=== PATIENT | female | born 1960 | race Caucasian/White ===

== ENCOUNTER → 2016-09-05 | Outpatient (CLI) | payer BC ==
[~2016-09-05] MED LIST: ACTEMRA IV; AMB10 PO; AMT50 PO; ASPI-390 PO; ATOR-22 PO; ATV/1 PO; CALC500C70 PO; CHOL1000 PO; CHOL1TAB46 PO; CLOTCRE TOP; DOCU100T7 PO; FERR325T5 PO; FERR325T51 PO; FLV1 PO; FLX/5 PO; IBUP1CAP9 PO; KETO0.024 OP; LACT10CA3 PO; LANS30CA12 PO; MELA1CAP9 PO; MELATAB2 PO; MELO15TA4 PO; MELO7.5T5 PO; METH1TAB81 PO; METH4PAK PO; MISO1TAB10 PO; MISO200T PO; OXYC-57 PO; OXYC1CAP5 PO; POLYSOL4 OP; PRAV20TA PO; PRED-301 PO; PRMVC; ROPI1TAB29 PO; ROPI4TAB3 PO; RXC5 PO; SENNTAB23 PO; SERT-234 PO; SODICRE2 PO; SOLI10TA2 PO; SULF800T23 PO; TOCI80IN INJ; ZOLP5TAB6 PO; [UNRECOGNIZED DRUG - CODE] IV
== END | disposition home or self-care (01) ==
LOC: C.PAPS 11:29
PROVIDERS: ATTEND Obstetrics & Gynecology
DX: N89.3 Dysplasia of vagina, unspecified (principal)

== ENCOUNTER 2016-09-14 08:59 | Inpatient (IN) | payer BC, OTHER ==
[2016-08-12 08:35] VITALS: BMI 32.0
--- NOTE | 2016-08-12 09:19 | PAT Medication Instructions ---
Service Date Aug 12, 2016. Current Home Medication List Uruetvh-Cucgwpbforjxt-Ehjcmoiu (Excedrin Migraine), 1 TAB PO BID Calcium/Vitamin D (Os-Julian 500 Plus D), 1 TAB PO QAM Cholecalciferol (Vitamin D3), 5,000 INTER.UNIT PO QAM Clotrimazole W/ Betamethasone (Lotrisone), 1 APPLN TOP AMPM Estrogens, Conjugated (Premarin), 0.5 APPLN QMONDAY Ferrous Sulfate (Iron Supplement), 1 TAB PO QAM Folic Acid (Folic Acid), 1 MG PO QAM Ketotifen Fumarate (Ophth) (Alaway), 1 DROPS OP QDAY Lansoprazole (Prevacid), 30 MG PO BID Lorazepam (Ativan), 2 MG PO HS Meloxicam (Mobic), 15 MG PO QAM Methylprednisolone (Medrol), 4 MG PO for PRN Misoprostol (Cytotec), 100 MCG PO QAM Polyethylene Glycol-Propylene (Systane), 1 DROPS OP HS Pravastatin (Pravachol ), 20 MG PO QPM Ropinirole (Requip), 4 MG PO HS Sertraline (Zoloft), 200 MG PO HS Sodium Fluoride (Dental) (Denta 5000 Plus), 1 APPLN PO BID Solifenacin (Vesicare), 10 MG PO QAM Tocilizumab (Actemra), Unknown Dose INJ QMONTH Zolpidem Tartrate (Ambien *), 5 MG PO HS Medication Instructions For Your Scheduled Surgery Check with surgeon for instructions: Miowjrv-Mndelwhfppkzk-Qspkyirq (Excedrin Migraine), 1 TAB PO BID Estrogens, Conjugated (Premarin), 0.5 APPLN QMONDAY Meloxicam (Mobic), 15 MG PO QAM Misoprostol (Cytotec), 100 MCG PO QAM - Check with surgeon/prescribing provider for instructions: Tocilizumab (Actemra), Unknown Dose INJ QMONTH - Hold the following medications 24 hours prior to surgery: Clotrimazole W/ Betamethasone (Lotrisone), 1 APPLN TOP AMPM - Hold the following medications the morning of surgery: Solifenacin (Vesicare), 10 MG PO QAM Ferrous Sulfate (Iron Supplement), 1 TAB PO QAM Folic Acid (Folic Acid), 1 MG PO QAM\ Calcium/Vitamin D (Os-Julian 500 Plus D), 1 TAB PO QAM Cholecalciferol (Vitamin D3), 5,000 INTER.UNIT PO QAM - Take the following medications the morning of surgery with a sip of water: Methylprednisolone (Medrol), 4 MG PO for PRN (if needed) Lansoprazole (Prevacid), 30 MG PO BID Ketotifen Fumarate (Ophth) (Alaway), 1 DROPS OP QDAY Sodium Fluoride (Dental) (Denta 5000 Plus), 1 APPLN PO BID - Hold the following medications as scheduled the night before surgery: Ropinirole (Requip), 4 MG PO HS - Take the following medications as scheduled the night before surgery: Zolpidem Tartrate (Ambien *), 5 MG PO HS Sertraline (Zoloft), 200 MG PO HS Pravastatin (Pravachol ), 20 MG PO QPM Polyethylene Glycol-Propylene (Systane), 1 DROPS OP HS Methylprednisolone (Medrol), 4 MG PO for PRN (if needed) Lorazepam (Ativan), 2 MG PO HS Lansoprazole (Prevacid), 30 MG PO BID Sodium Fluoride (Dental) (Denta 5000 Plus), 1 APPLN PO BID If you have any questions please call us at [phone] (Christine Medrano PA-C) or [phone] or [phone]
--- NOTE | 2016-08-12 10:06 | DIAGNOSTIC IMAGING REPORT ---
CHEST PREADMISSION(PA/LAT) HISTORY: Preop. COMPARISON: Chest 12/10/2014. FINDINGS: Linear density within the right midlung zone likely represents a small area of scarring. There are few linear scarlike densities at the left lung base. The lungs are otherwise clear. No pleural effusions. No pneumothorax. The heart is normal in size. Extensive anterior and posterior cervical and upper thoracic spinal fusion. IMPRESSION: 1. A few linear scarlike densities within the right midlung zone and the left lung base. No focal lung consolidations to suggest pneumonia. 2. Extensive cervical and upper thoracic spine fusion hardware. Electronically signed by: Yves Diaz M.D. 08/12/2016 10:04 AM Dictated Date/Time: 08/12/2016 10:00 AM
--- NOTE | 2016-09-13 12:18 | HISTORY & PHYSICAL EXAMINATION ---
DATE OF ADMISSION: 09/14/2016 HISTORY OF PRESENT ILLNESS: The patient presents to our office with complaint of bilateral SI joint pain, bilateral anterior thigh pain, right greater than left. It is progressively worsening. It is limiting her ability to stand and ambulate. She had an epidural injection which provided no long-term relief. Denies bowel or bladder dysfunction. PAST MEDICAL HISTORY: Significant for high cholesterol, anxiety, depression, migraines, anemia, arthritis, hiatal hernia, obesity. PAST SURGICAL HISTORY: Significant for lower back surgery, neck surgery, , adhesions. ALLERGIES: INCLUDE TRAZODONE. MEDICATIONS: Include Zoloft 20 mg 2 tabs at night, iron, calcium, Actemra infusion, Meloxicam, VESIcare, Excedrin Migraine, folic acid, Prevacid 30 mg b.i.d., pravastatin 20 mg at night, Premarin cream weekly, Requip 4 mg at night, vitamin D 5000 international units daily, Cytotec 100 mg daily, lorazepam 1 mg 2 tablets at night, Ambien 5 mg at night. SOCIAL HISTORY: She denies smoking history, alcohol is monthly. REVIEW OF SYSTEMS: Significant for abdominal pain, constipation, diarrhea, heartburn, loss of appetite, nausea, vomiting, hoarseness, ringing of ears, dysphagia, difficulty walking, poor coordination, memory loss, anxiety, depression, fatigue, malaise, night sweats, weakness. PHYSICAL EXAMINATION: VITAL SIGNS: She is 5 foot 2, 180 pounds. HEAD, EYES, EARS, NOSE, AND THROAT: Speech appropriate. CARDIOPULMONARY: No gross abnormalities. ABDOMEN: Soft, nontender. GENITOURINARY: Deferred. NEUROLOGIC: Cranial nerves II-XII grossly intact. MUSCULOSKELETAL: She is able to stand and ambulate around the room for a short period of time but then will sit secondary to her pain. She has breakaway weakness over the quads bilaterally. Well-healed lumbar incision. She is tender over the bilateral SI joints. ASSESSMENT: Retrolisthesis, spinal stenosis at L2-L3. PLAN: At this point she has tried and failed nonoperative care. May consider surgical intervention. Surgery would require removal of instrumentation L3 through S1, lumbar decompression and fusion L2-L3. Risks, benefits, pros, cons, and alternatives were outlined in detail. She would like to pursue above-mentioned surgical planning. SHARON
[2016-09-14] VITALS (7 sets, daily range): BP systolic 91–117; BP diastolic 49–81; PULSE 69–96; TEMP 36.5–36.8; O2SAT 95–98; Ht 157.5 cm; Wt 79.8 kg
[~2016-09-14] VITALS: Ht 157.5 cm; Wt 79.8 kg
--- NOTE | 2016-09-14 07:26 | History & Physical Bridge Note ---
H&P Re-Evaluation Bridge Note: I have examined the patient, reviewed the History & Physical and in the interval since the performance of the History & Physical I have noted the following changes of clinical significance: No changes noted
[~2016-09-14 08:59] MED LIST changes: -ACTEMRA IV; -AMT50 PO; +CEFAZOLIN 1000MG/55 ML D5W 55 ML IV SCH; -CHOL1TAB46 PO; -DOCU100T7 PO; +FENTANYL CITRATE INJ 50 MCG/1 ML 2 ML VIAL ONE; -FERR325T5 PO; -FLX/5 PO; +HYDROmorphone INJ 2 MG/ML SYR/VIAL ONE; -IBUP1CAP9 PO; -LACT10CA3 PO; +LACTATED RINGER'S 1000ML IV SCH; -MELA1CAP9 PO; -MELATAB2 PO; -MELO15TA4 PO; -METH4PAK PO; +MIDAZOLAM HCL 1 MG/ML 2ML VIAL ONE; -MISO1TAB10 PO; -OXYC-57 PO; -OXYC1CAP5 PO; -PRAV20TA PO; -PRED-301 PO; -ROPI1TAB29 PO; -RXC5 PO; +SCOPOLAMINE 1.5 MG TDSY TD SCH; -SENNTAB23 PO; -SULF800T23 PO; -ZOLP5TAB6 PO; -[UNRECOGNIZED DRUG - CODE] IV
[2016-09-14] MEDS ORDERED: LACTATED RINGER'S 1000ML 1,000 ML IV PRN (10:52)
[2016-09-14] MEDS ORDERED: DiphenhydrAMINE HCL 50 MG/ML VIAL IV PRN (11:00)
[2016-09-14] MEDS ORDERED: ONDANSETRON INJ 2 MG/ML 2 ML VIAL IV PRN ×2 (11:00→13:00)
[2016-09-14] MEDS ORDERED: HYDROmorphone INJ 1 MG/ML SYR IV PRN (11:00)
[2016-09-14] MEDS ORDERED: BUPIVACAINE/EPINEPHRINE 0.5% MPF 1:200,000 30 ML VIAL ONE (11:01)
[2016-09-14] MEDS ORDERED: SODIUM CHLORIDE 0.9% PF 50 ML VIAL ONE (11:02)
[2016-09-14] MEDS ORDERED: BACITRACIN 50000 UNIT VIAL ONE (11:02)
[2016-09-14] MEDS ORDERED: NEOSTIGMINE METHYLSULFATE 1 MG/ML 10ML VIAL ONE (11:58)
[2016-09-14] MEDS ORDERED: GLYCOPYRROLATE INJ 0.2 MG/ML VIAL ONE (11:58)
[2016-09-14] MEDS ORDERED: ONDANSETRON INJ 2 MG/ML 2 ML VIAL ONE (11:58)
[2016-09-14] MEDS ORDERED: ROCURONIUM BROMIDE 10 MG/ML 5 ML VIAL ONE (11:58)
[2016-09-14] MEDS ORDERED: DEXAMETHASONE SOD INJ 4 MG/ML VIAL ONE (11:58)
[2016-09-14] MEDS ORDERED: LIDOCAINE HCL 2% 2 ML VIAL (20MG/ML) ONE (11:58)
[2016-09-14] MEDS ORDERED: PROPOFOL IV EMULSION 10 MG/ML 20 ML VIAL IV ONE (11:58)
[2016-09-14] MEDS ORDERED: EpHEDrine SULFATE 50MG/5ML SYR ONE (12:03)
[2016-09-14] MEDS ORDERED: CEFAZOLIN SOD 1 GM VIAL ONE (12:04)
[2016-09-14] MEDS ORDERED: SODIUM CHLORIDE 0.9% INJ 10 ML VIAL ONE (12:54)
[2016-09-14] MEDS: LACTATED RINGER'S 1000ML 1,000 ML IV SCH ×2 (12:57→19:43)
[2016-09-14] MEDS ORDERED: FLOSEAL HEMOSTATIC MATRIX 10ML TOP ONE (12:57)
[2016-09-14] MEDS ORDERED: SODIUM CHLORIDE 0.9% 1000ML 1,000 ML IV SCH (12:57)
--- NOTE | 2016-09-14 12:57 | [facility] Operative Report ---
Operative Report Operative Date Sep 14, 2016. Pre-Operative Diagnosis Retrolisthesis, spinal stenosis L2-L3 Surgeon Dr. Ismael Jj Supervisor Facepiece Line Surgeon(s) Maia Torrez PA-C Estimated Blood Loss 450mL Findings stenosis Specimens Specimen A. Explanted lumbar hardware I attest to the content of the Intraoperative Record and any orders documented therein. Any exceptions are noted below.
[2016-09-14] MEDS ORDERED: FAMOTIDINE 20 MG TAB PO PRN (13:00)
[2016-09-14] MEDS ORDERED: DO NOT ADMINISTER FLU VACCINE PRN ×3 (13:00)
[2016-09-14] MEDS ORDERED: ACETAMINOPHEN IV 100 ML IV PRN (13:00)
[2016-09-14] MEDS ORDERED: MAGNESIUM HYDROXIDE SUSP 30 ML UDC PO PRN (13:00)
[2016-09-14] MEDS ORDERED: BISACODYL 10 MG SUPP PR PRN (13:00)
[2016-09-14] MEDS ORDERED: ACETAMINOPHEN 500 MG TAB PO PRN (13:00)
[2016-09-14] MEDS ORDERED: NALOXONE HCL 0.4 MG/1 ML VIAL/CARP IV PRN ×2 (13:00)
[2016-09-14] MEDS ORDERED: hydrOXYzine HCL 25 MG TAB PO PRN (13:00)
[2016-09-14] MEDS ORDERED: PROMETHAZINE HCL INJ 12.5 MG in SODIUM CHLORIDE 0.9% 50ML 50 ML IV PRN (13:00)
[2016-09-14] MEDS ORDERED: SOD PHOSPHATE/SOD BIPHOSPHATE ENEMA 132 ML BTL PR PRN (13:00)
[2016-09-14] MEDS ORDERED: ALUMINUM/MAGNESIUM SUSP 30 ML UDC PO PRN (13:00)
[2016-09-14] MEDS ORDERED: LORAZEPAM INJ 0.5 MG in SYRINGE 0 ML IV PRN (13:00)
[2016-09-14] MEDS ORDERED: METOCLOPRAMIDE HCL INJ 5 MG/ML 2 ML VIAL IV PRN (13:00)
[2016-09-14] MEDS ORDERED: DO NOT ADMINISTER PNEUMOCOCCAL VACCINE PRN ×2 (13:00)
--- NOTE | 2016-09-14 13:11 | DIAGNOSTIC IMAGING REPORT ---
INTRAOPERATIVE RADIOGRAPHS CLINICAL HISTORY: L2-L3 spinal fusion. Fluoroscopy time: 9 seconds. FINDINGS: 2 spot fluoroscopic views of the lumbar spine are presented. There is evidence of laminectomy and posterior fusion from L2 through S1. There is evidence of discectomy at all of these levels. Ventricular screws are present at L2-L3. The orthopedic hardware appears intact. Hardware has likely been removed from L4 to S1. IMPRESSION: Intraoperative images from lumbar spinal fusion as above. Electronically signed by: John Paul Rodriguez M.D. 09/14/2016 1:10 PM Dictated Date/Time: 09/14/2016 1:09 PM
--- NOTE | 2016-09-14 13:27 | OPERATIVE REPORT ---
DATE OF OPERATION: 09/14/2016 PREOPERATIVE DIAGNOSIS: Spinal stenosis, L2-L3. POSTOPERATIVE DIAGNOSIS: Same. PROCEDURES PERFORMED: 1. Removal of posterior segmental instrumentation, L3-L4, L4-L5, and L5-S1. 2. Exploration of fusion, L3-L4, L4-L5, and L5-S1. 3. Lumbar decompression, medial facetectomies, and foraminotomies, L1-L2 and L2-L3. 4. Posterior spinal fusion, L2-L3. 5. Placement of posterior segmental instrumentation using Orthros rods and screws, L2-L3. 6. Interbody fusion L2-L3. 7. Placement of PEEK cage 10 x 22 mm at L2-L3. 8. Placement of locally harvested morselized autograft in the posterior gutters. 9. Placement of Infuse collagen sponge combined with Mastergraft in the posterior gutters and Jyoti bone graft in the interbody space. SURGEON: Dr. Ismael Jj. PHYS THER: Maia Lemus PA-C. Due to the complex nature of the procedure, the entire surgery was performed with the assistant golf course superintendent of JESUS MANUEL Calderon. The bookkeeper assistant, under direct supervision, was involved in the actual performance of all aspects of the surgical procedure including hemostasis, tissue retraction and incision, instrument management, patient positioning, and wound closure. ANESTHESIA: General. DISPOSITION: The patient awakened and taken to PACU in stable condition. HISTORY OF PATIENT'S PROBLEMS: This is a 56-year-old female that presents with above-mentioned diagnosis. After failing an extensive course of nonoperative care, she elected to undergo the above-mentioned procedures. Risks, benefits, pros, cons, and alternatives were outlined in detail preoperatively. DESCRIPTION OF PROCEDURE: The patient was met with preoperatively, case discussed and all questions were addressed. At that point, the patient was taken back to operative suite and after undergoing successful general intubation by the department of anesthesia, she was placed in prone position on the Deandre table atop a Bob frame. All bony prominences were well padded and the eyes were inspected to ensure there was no external pressure placed upon them. At this point, lumbar spine was prepped and draped in normal sterile fashion. Sharp dissection with the assistance of Bovie cautery was performed down to and exposing the lamina and transverse processes of L2 and instrumentation at L3, L4, L5 and S1 levels bilaterally. I then proceeded with hardware bilaterally exploring the fusion mass noting it to be intact. I then performed a complete laminectomy of L2 and partial laminectomy of L1 addressing severe lateral recess foraminal disease. After this was complete, pedicle screws were then placed in L2-L3 bilaterally with assistance of fluoroscopy and appropriately sized janet provisionally placed. Through a transforaminal approach on the right, a complete diskectomy of L2-L3 was performed, endplates curetted to subcortical bleeding bone and an 11 x 22 mm PEEK cage filled with Jyoti bone grafting tapped into position. The rods were then compressed, locked into final position bilaterally and transverse processes of L2-L3 burred to subcortical bleeding bone. Infused collagen sponge combined with Mastergraft and locally harvested morcellized autograft was placed in the posterior gutters. A 7 flat LEBRON drain was inserted. Incision was closed with 1-0 Vicryl in the fascia, 2-0 Vicryl subcutaneously, and 4-0 Monocryl for final skin closure. Steri-Strips and sterile dressing placed. The patient was awakened and taken to PACU in stable condition. I attest to the content of the Intraoperative Record and any orders documented therein. Any exceptio ns are noted below.
[2016-09-14] MEDS ORDERED: HYDROmorphone HCL 0.5MG/ML 50 ML CASSETTE ONE (13:31)
[2016-09-14] MEDS: FENTANYL CITRATE INJ 50 MCG/1 ML 2 ML VIAL IV PRN ×2 (13:35→13:40)
--- NOTE | 2016-09-14 13:54 | Anesthesiology Progress Note ---
Anesthesia Post Op Note Date & Time Sep 14, 2016 at 13:54 Vital Signs Pain Intensity: 3 Vital Signs Past 12 Hours Date Time Temp Pulse Resp B/P Pulse Ox O2 Delivery O2 Flow Rate FiO2 09/14/16 13:48 36.5 115/62 09/14/16 13:45 70 09/14/16 13:45 70 14 100 09/14/16 13:43 115/63 09/14/16 13:40 76 15 100 09/14/16 13:40 77 15 09/14/16 13:38 120/73 09/14/16 13:35 71 8 100 09/14/16 13:35 71 8 09/14/16 13:33 119/63 09/14/16 13:30 73 11 09/14/16 13:30 73 11 100 09/14/16 13:28 122/61 09/14/16 13:20 36.5 74 16 125/57 95 Nasal Cannula 4 09/14/16 09:33 36.7 69 18 117/81 96 Room Air Notes Mental Status: alert / awake / arousable, participated in evaluation Pt Amnestic to Procedure: Yes Nausea / Vomiting: adequately controlled Pain: adequately controlled Airway Patency, RR, SpO2: stable & adequate BP & HR: stable & adequate Hydration State: stable & adequate Anesthetic Complications: no major complications apparent Pt doing very well.
[2016-09-14] MEDS ORDERED: HYDROmorphone INJ 0.5 MG/0.5 ML SYR IV PRN (14:00)
[2016-09-14] MEDS: HYDROmorphone HCL 0.5MG/ML 50 ML CASSETTE IV PRN ×2 (15:28→22:57)
[2016-09-14] MEDS: CHECK SCOPOLAMINE PATCH PLACEMENT SCH (16:01)
[2016-09-14] MEDS: CEFAZOLIN IV 1,000 MG in DEXTROSE 5% 50ML 50 ML IV SCH (19:43)
[2016-09-14] MEDS: DEXAMETHASONE INJ 6 MG in SYRINGE 0 ML IV SCH (19:43)
[2016-09-14] MEDS: ATORVASTATIN 20 MG TAB PO SCH (20:52)
[2016-09-14] MEDS: SERTRALINE HCL 100 MG TAB PO SCH (20:52)
[2016-09-14] MEDS: ZOLPIDEM TARTRATE 5 MG TAB PO SCH (20:52)
[2016-09-14] MEDS: PANTOprazole SOD 40 MG TAB PO SCH (20:52)
[2016-09-14] MEDS: ROPINIROLE HCL 1 MG TAB PO SCH (20:52)
[2016-09-14] MEDS: DOCUSATE SODIUM/SENNA 50/8.6MG TAB PO SCH (20:52)
[2016-09-15] MEDS: LACTATED RINGER'S 1000ML 1,000 ML IV SCH (01:48)
[2016-09-15 03:29] VITALS: BP 98/63; PULSE 82; TEMP 36.6; O2SAT 96
[2016-09-15] MEDS: DEXAMETHASONE INJ 6 MG in SYRINGE 0 ML IV SCH ×2 (03:57→13:08)
[2016-09-15] MEDS: CEFAZOLIN IV 1,000 MG in DEXTROSE 5% 50ML 50 ML IV SCH (03:57)
[2016-09-15] MEDS ORDERED: DC PCA ONE (06:00)
[2016-09-15] MEDS ORDERED: HYDROmorphone INJ 1 MG/ML SYR IV PRN (06:00)
[2016-09-15] MEDS ORDERED: NURSING DECISION MEDICATION ORDER SCH (06:15)
[2016-09-15 07:33] VITALS: BP 98/61; PULSE 70; TEMP 36.9; O2SAT 96
[2016-09-15 07:40] LABS: COMPLETE YES; HEMATOCRIT 30.6 % (37-47); IG% 0.2 %; LYMPH % 8.8 %; LYMPH ABS # 0.86 K/uL (1.2-3.4); MEAN CORPUSCULAR HGB CONC 33.3 g/dl (32-36); MEAN PLATELET VOLUME 10.8 fL (7.4-10.4); MONO % 2.5 %; NEUT % 88.5 %; PLATELET COUNT 123 K/uL (130-400); WHITE BLOOD COUNT 9.76 K/uL (4.8-10.8)
[2016-09-15] MEDS: OXYCODONE HCL IR 5 MG TAB (IMMEDIATE RELEASE) PO PRN ×4 (07:49→20:55)
[2016-09-15] MEDS: PANTOprazole SOD 40 MG TAB PO SCH ×2 (07:49→20:55)
[2016-09-15] MEDS: MISOPROSTOL 100 MCG TAB PO SCH (07:50)
[2016-09-15] MEDS: CHECK SCOPOLAMINE PATCH PLACEMENT SCH ×3 (07:50→16:41)
[2016-09-15 08:39] LABS: BUN/CREATININE RATIO 21.9 (10-20); POTASSIUM 4.3 mmol/L (3.5-5.1)
[2016-09-15] MEDS: LORAZEPAM 0.5 MG TAB PO PRN ×2 (10:51→20:54)
[2016-09-15] MEDS ORDERED: RXC5 PO (11:00)
--- NOTE | 2016-09-15 11:01 | Discharge Instructions ---
Discharge Instructions Admission Reason for Admission: Spinal Stenosis Discharge Discharge Diagnosis / Problem: stenosis Discharge Goals Goal(s): Improve function Activity Recommendations Activity Limitations: per Instructions/Follow-up section . Instructions / Follow-Up Instructions / Follow-Up ACTIVITY RECOMMENDATIONS: SELF CARE INSTRUCTIONS AFTER THORACIC/LUMBAR FUSIONS 1. You may walk to your tolerance. It is good exercise for your legs and back. Expect some back and intermittent leg aches and pains. 2. You may perform "counter-top" level activities (make a sandwich, deric with a project, etc.). 3. No bending or lifting of more than 10 pounds or back twisting of any nature (roll like a log when turning in bed). 4. You may ride in a car for 20-30 minutes at a time. No driving until after your first visit with your doctor. 5. Frequent changes of position and restricting sitting to 30 minutes at a time will help limit the amount of back spasms and stiffness you may experience. 6. You may discontinue the use of ambulatory aids (cane, crutches, etc.) once your strength and confidence allow. 7. You may police superintendent the shower and let water strike your incision when you arrive home at least once daily. Do not take a tub bath, sit in a hot tub or go into a swimming pool until after your first recheck in the office. SPECIAL CARE INSTRUCTIONS: VERY IMPORTANT TO READ AND REVIEW A. Your surgical incision has been closed with a cosmetic suture under the skin that will dissolve in about 6 weeks. In 14 days, you can use a pair of clean scissors and cut the suture that is left outside of the skin at the ends of your incision. 1. The small skin tapes can be removed 7 days after surgery if they have not fallen off by that point. 2. You may keep the wound open to air as much as possible to promote healing after post-op day number 5 unless told otherwise by your doctor. 3. If you think the wound looks like it is becoming infected (redness or worsening drainage) and/or you are experiencing fever, chill or worsening back pain and muscle spasms, contact the office so that we may evaluate you as soon as possible. B. Complications are uncommon, but please contact us if you have any signs or symptoms of: 1. wound infection (fever higher than 102.5 degrees F, redness, separation of wound, drainage, or increasing pain from the incision) 2. blood clots in legs (pain, swelling, redness and warmth in legs) 3. urinary tract infection (fever higher than 102.5 degrees F, burning upon urination or increased frequency of urination) 4. nerve problems (inability to walk on your toes or heels, numbness, loss of bowel or bladder control) 5. any other symptoms that concern you C. Please call the office at if you have any concerns or questions about your operation or recovery. D. No smoking! Smoking drastically decreases the chance of a solid fusion. E. Do not take any anti-inflammatory medications (Indocin, Advil, Motrin, Aspirin, Naprosyn, etc.) as these may inhibit the chance of a solid fusion. Tylenol is okay to take for pain. MANAGING PAIN AFTER SPINAL SURGERY 1. Narcotic medication is intended for short-term use and will be provided for surgical pain. Surgical pain usually lasts for a period of 4-6 weeks. Narcotic medication includes Percocet, Vicodin, Darvocet, Tylenol #3 or Lortab. 2. Longer-term pain is more appropriately treated with non-narcotic medication such as Tylenol ES. 3. Muscle spasm is not appropriately treated with narcotics. Muscle relaxers such as Soma, Flexeril or Skelaxin can be used along with Tylenol ES. 4. Remember that we all live with some "aches and pains". This is not unusual or uncommon after an injury or as we get older. a. Back pain is expected and may include muscle spasms for 4 to 6 weeks after surgery. The pain should gradually improve. If the pain worsens for no apparent reason, please contact the office. b. Intermittent leg pain may also be experienced and should not be concerned about unless it worsens for no apparent reason. If so, please contact the office. 5. We will provide appropriate medication within the normal guidelines of their prescribed use. We will also be very cautious and aware of potential abuse and extended duration of patients' medication needs. a. Pain medications are for your comfort and to assist with sleep and rest so that the tissue can heal. They are not provided in order to return to normal activity and should not be used through the day. To do so or worsening pain at night can result from ongoing tissue damage and development of tolerance to the prescribed medicine. 6. Please allow 2-3 days to process refills. Prescriptions will not be mailed but must be picked up at the office. FOLLOW UP VISIT: Keep your scheduled follow-up appointment. Any questions, please call the office at . Current Hospital Diet Patient's current hospital diet: Regular Diet Discharge Diet Recommended Diet: Regular Diet Procedures Procedures Performed: L2-L3 Lumbar Laminectomy, Decompression, Pedicle Screw Fixation, Placement of Interbody Device, L2-L3 Posterolateral Fusion, Application of Jyoti Autograft , Bone Morphogenetic Protein, Iliac Dalton Fixation, L3-S1 Hardware Removal Pending Studies Studies pending at discharge: no Medical Emergencies . Who to Call and When: Medical Emergencies: If at any time you feel your situation is an emergency, please call 911 immediately. . Non-Emergent Contact Non-Emergency issues call your: Primary Care Provider . "Provider Documentation" section prepared by Ismael Jj. VTE Core Measure Inpt VTE Proph given/why not?: Joycelyn Crump, ALEX's
--- NOTE | 2016-09-15 11:11 | PROGRESS NOTE ---
DATE: 09/15/2016 Postop day 1. Back pain is controlled. Leg pain improved, ambulating the halls nicely. Vital signs stable. T-max 36.9. LEBRON drained 90 mL. Hematocrit 30.6. On exam, she is just up and ambulatory, has good strength to testing. ASSESSMENT: Status post lumbar decompression and fusion. PLAN: At this time, will continue with physical therapy, monitor LEBRON output. Hopefully, discharge home this weekend.
[2016-09-15 12:34] VITALS: BP 91/53; PULSE 75; TEMP 36.7; O2SAT 92
[2016-09-15 14:59] VITALS: BP 128/64; PULSE 64; TEMP 36.9; O2SAT 93
[2016-09-15] MEDS: ZOLPIDEM TARTRATE 5 MG TAB PO SCH (20:54)
[2016-09-15] MEDS: ATORVASTATIN 20 MG TAB PO SCH (21:20)
[2016-09-15] MEDS: DOCUSATE SODIUM/SENNA 50/8.6MG TAB PO SCH (21:20)
[2016-09-15] MEDS: ROPINIROLE HCL 1 MG TAB PO SCH (21:21)
[2016-09-15] MEDS: SERTRALINE HCL 100 MG TAB PO SCH (21:21)
[2016-09-15 23:32] VITALS: BP 102/65; PULSE 65; TEMP 36.9; O2SAT 94
[2016-09-16 06:07] VITALS: BP 95/60; PULSE 56; TEMP 36.7; O2SAT 93
[2016-09-16] MEDS: POLYETHYLENE (MIRALAX) 17 GM PACK PO SCH ×4 (06:10→19:58)
[2016-09-16] MEDS: MISOPROSTOL 100 MCG TAB PO SCH (07:34)
[2016-09-16] MEDS: CHECK SCOPOLAMINE PATCH PLACEMENT SCH ×4 (07:34→23:38)
[2016-09-16] MEDS: OXYCODONE HCL IR 5 MG TAB (IMMEDIATE RELEASE) PO PRN ×2 (07:39→19:57)
[2016-09-16] MEDS: PANTOprazole SOD 40 MG TAB PO SCH ×2 (08:18→21:50)
[2016-09-16 15:44] VITALS: BP 91/54; PULSE 74; TEMP 37; O2SAT 94
--- NOTE | 2016-09-16 17:11 | PROGRESS NOTE ---
DATE: 09/16/2016 HISTORY OF PRESENT ILLNESS: Postop day #2. Back pain controlled. Leg pain improved. Vital signs stable. T-max 37.0. LEBRON drained 110 mL. Hematocrit this a.m. 30.6. PHYSICAL EXAMINATION: The patient is comfortable, ambulating well, good strength to testing. ASSESSMENT: Status post lumbar decompression and fusion. PLAN: At this time, we will maintain the LEBRON drain tonight. Anticipate possible home tomorrow.
[2016-09-16] MEDS: DOCUSATE SODIUM/SENNA 50/8.6MG TAB PO SCH (19:57)
[2016-09-16] MEDS ORDERED: NURSING DECISION MEDICATION ORDER SCH (20:00)
[2016-09-16] MEDS: SERTRALINE HCL 100 MG TAB PO SCH (21:49)
[2016-09-16] MEDS: ATORVASTATIN 20 MG TAB PO SCH (21:49)
[2016-09-16] MEDS: ZOLPIDEM TARTRATE 5 MG TAB PO SCH (21:50)
[2016-09-16] MEDS: ROPINIROLE HCL 1 MG TAB PO SCH (21:50)
[2016-09-16 23:23] VITALS: BP 104/65; PULSE 65; TEMP 36.8; O2SAT 93
[2016-09-17 08:00] VITALS: BP 109/72; PULSE 71; TEMP 36.8; O2SAT 93
[2016-09-17] MEDS: MISOPROSTOL 100 MCG TAB PO SCH (09:14)
[2016-09-17] MEDS: PANTOprazole SOD 40 MG TAB PO SCH (09:15)
[2016-09-17 10:20] VITALS: BP 109/72; PULSE 71; TEMP 36.8; O2SAT 93
--- NOTE | 2016-09-17 10:28 | DISCHARGE SUMMARY ---
DATE OF DISCHARGE: 09/17/2016. PRINCIPAL DIAGNOSIS: Spinal stenosis. HOSPITAL COURSE FOLLOWS: On 09/14/2016 the patient underwent lumbar decompression and fusion, tolerated this well and taken to the orthopedic floor postoperatively. Postop day #1, she was up and ambulatory, progressed to postoperative day #2. Postop day #3, she was subsequently discharged home with home health. Discharge orders and instructions can be found on the chart for further review.
[2016-09-17] MEDS: OXYCODONE HCL IR 5 MG TAB (IMMEDIATE RELEASE) PO PRN (10:50)
[2016-10-21] MEDS ORDERED: OXYC1CAP5 PO (14:40)
[2017-02-08] MEDS ORDERED: [UNRECOGNIZED DRUG - CODE] IV (12:00)
[2017-02-08] MEDS ORDERED: MISO1TAB10 PO (12:00)
[2017-02-08] MEDS ORDERED: DOCU100T7 PO (12:00)
[2017-02-08] MEDS ORDERED: CHOL1TAB46 PO (12:00)
[2017-02-08] MEDS ORDERED: PRED-301 PO (12:00)
[2017-02-08] MEDS ORDERED: ROPI1TAB29 PO (12:00)
[2017-02-08] MEDS ORDERED: IBUP1CAP9 PO (12:00)
[2017-02-08] MEDS ORDERED: MELO15TA4 PO (12:00)
[2017-02-08] MEDS ORDERED: LANS30CA12 PO (12:00)
[2017-02-08] MEDS ORDERED: MELATAB2 PO (12:00)
[2017-02-08] MEDS ORDERED: LACT10CA3 PO (12:00)
[2017-02-08] MEDS ORDERED: MELA1CAP9 PO (12:00)
[2017-02-13] MEDS ORDERED: CLOTCRE TOP (11:48)
[2017-02-13] MEDS ORDERED: SULF800T23 PO (11:48)
[2017-02-13] MEDS ORDERED: SENNTAB23 PO (11:48)
[2017-02-13] MEDS ORDERED: ACTEMRA IV (11:48)
[2017-02-13] MEDS ORDERED: SODICRE2 PO (11:48)
[2017-02-13] MEDS ORDERED: SERT-234 PO (11:50)
== END 2016-09-17 11:30 | disposition home health service (06) | DRG 460 ==
LOC: ENRESERVDT → ENRESERVTM → ENRESERV → C.ACU 08:59 → C.3E 10:30
PROVIDERS: ADMIT Orthopaedic Surgery Orthopaedic Surgery of the Spine; ATTEND Orthopaedic Surgery Orthopaedic Surgery of the Spine
PROC: 0SP004Z Removal of Internal Fixation Device from Lumbar Vertebral Joint, Open Approach (ICD-10-PCS; 2016-09-14)
PROC: 0ST20ZZ Resection of Lumbar Vertebral Disc, Open Approach (ICD-10-PCS; 2016-09-14)
PROC: 0SP304Z Removal of Internal Fixation Device from Lumbosacral Joint, Open Approach (ICD-10-PCS; 2016-09-14)
PROC: 0SG0071 Fusion of Lumbar Vertebral Joint with Autologous Tissue Substitute, Posterior Approach, Posterior Column, Open Approach (ICD-10-PCS; 2016-09-14)
PROC: 0SG00AJ Fusion of Lumbar Vertebral Joint with Interbody Fusion Device, Posterior Approach, Anterior Column, Open Approach (ICD-10-PCS; 2016-09-14)
PROC: 0SG10A1 (ICD-10-PCS; principal; 2016-09-14 11:00)
PROC: 0SG30A1 (ICD-10-PCS; 2016-09-14 11:00)
DX: M48.06 Spinal stenosis, lumbar region (principal); M43.16 Spondylolisthesis, lumbar region; F32.9 Major depressive disorder, single episode, unspecified; E66.9 Obesity, unspecified; E78.00 Pure hypercholesterolemia, unspecified; F41.9 Anxiety disorder, unspecified; G43.909 Migraine, unspecified, not intractable, without status migrainosus; D64.9 Anemia, unspecified; M19.90 Unspecified osteoarthritis, unspecified site

== ENCOUNTER 2016-09-27 19:06 | Emergency (ER) | payer BC ==
[~2016-09-27] VITALS: Ht 157.5 cm; Wt 78.0 kg
[~2016-09-27 19:06] MED LIST changes: -CEFAZOLIN 1000MG/55 ML D5W 55 ML IV SCH; -FENTANYL CITRATE INJ 50 MCG/1 ML 2 ML VIAL ONE; -HYDROmorphone INJ 2 MG/ML SYR/VIAL ONE; -LACTATED RINGER'S 1000ML IV SCH; -MELO7.5T5 PO; -MIDAZOLAM HCL 1 MG/ML 2ML VIAL ONE; +RXC5 PO; -SCOPOLAMINE 1.5 MG TDSY TD SCH
[2016-09-27 19:14] VITALS: TEMP 36.8; Ht 157.5 cm; Wt 78.0 kg
[2016-09-27] MEDS ORDERED: SODIUM CHLORIDE 0.9% 1000ML 1,000 ML IV ONE (20:00)
[2016-09-27] MEDS ORDERED: HYDROmorphone INJ 1 MG/ML SYR IV STA (20:00)
[2016-09-27] MEDS ORDERED: ONDANSETRON INJ 2 MG/ML 2 ML VIAL IV STA (20:00)
[2016-09-27] MEDS ORDERED: KETOROLAC TROMETHAMINE 30 MG/ML VIAL IV STA (20:00)
[2016-09-27] MEDS ORDERED: FERR325T5 PO (20:14)
[2016-09-27 20:36] LABS: BASO % 0.3 %; BASO ABS # 0.02 K/uL (0-0.2); COMPLETE YES; EOS % 2.2 %; IG% 0.1 %; LYMPH % 16.6 %; LYMPH ABS # 1.11 K/uL (1.2-3.4); MEAN CELL VOLUME 88.5 fL (80-100); MEAN CORPUSCULAR HEMOGLOBIN 29.9 pg (25-34); MEAN CORPUSCULAR HGB CONC 33.8 g/dl (32-36); MEAN PLATELET VOLUME 11.3 fL (7.4-10.4); MONO % 7.5 %; NEUT % 73.3 %; PLATELET COUNT 124 K/uL (130-400); RED BLOOD COUNT 3.84 M/uL (4.2-5.4); WHITE BLOOD COUNT 6.69 K/uL (4.8-10.8)
[2016-09-27] MEDS ORDERED: DEXAMETHASONE SOD INJ 10 MG/ML VIAL IV ONE (21:00)
[2016-09-27 21:04] LABS: BUN/CREATININE RATIO 15.9 (10-20); CALCIUM 8.7 mg/dl (8.5-10.1); CREATININE 0.85 mg/dl (0.60-1.20); POTASSIUM 3.4 mmol/L (3.5-5.1)
[2016-09-27 21:07] LABS: ALB/GLOB RATIO 1.4 (0.9-2)
[2016-09-27] MEDS ORDERED: METH4PAK PO (21:49)
[2016-09-27 21:51] LABS: URINE APPEARANCE CLOUDY (CLEAR); URINE BILIRUBIN NEG (NEG); URINE COLOR YELLOW; URINE EPITHELIAL CELL AUTO >30 /lpf (0-5); URINE NITRITE NEG (NEG); URINE SPECIFIC GRAVITY 1.011 (1.000-1.030); UROBILINOGEN NEG (NEG); ZZUR CULT IF INDIC CLEAN CATCH NO
[2016-09-27 21:52] LABS: MANUAL MICROSCOPIC REQUIRED? NO; REVIEW REQ? NO
[2016-09-27 21:55] VITALS: BP 119/64; PULSE 82; O2SAT 98
--- NOTE | 2016-09-27 22:11 | EMERGENCY ROOM VISIT NOTE ---
History First contact with patient: 19:22 Chief Complaint: BACK PAIN Stated Complaint: EXTREME PAIN History of Present Illness The patient is a 56 year old female who presents to the Emergency Room with complaints of persistent spine pain for the past one day. The patient has an extensive surgical history of her back. She last had a procedure performed by Dr. Jj 10 days ago. The patient has been taking oxycodone at home, but states her discomfort is not relieved with this medication. The patient has not had distinct fever or chills. She is not having numbness that is new. No difficulties using the bathroom. The patient was to have an appointment today in follow-up, however she states this was rescheduled for an unknown date. The patient is unsure about what to do next, and presents to the ER for evaluation. She rates her current discomfort a 10/10 that worsens with certain ranges of motion. She is not having breathing difficulties. Review of Systems More than 10 systems were reviewed and otherwise negative with the exception of history of present illness. Past Medical/Surgical History Medical Problems: (1) Cervical stenosis of spinal canal Family History No pertinent family history Social History Smoking Status: Never Smoker Alcohol Use: none Drug Use: none Marital Status: Occupation Status: retired Current/Historical Medications Scheduled Rerecwt-Yilsrcvnyecay-Gtglxavn (Excedrin Migraine), 1 TAB PO BID Atorvastatin (Lipitor), 20 MG PO HS Calcium/Vitamin D (Os-Julian 500 Plus D), 1 TAB PO QAM Cholecalciferol (Vitamin D3), 5,000 INTER.UNIT PO QAM Clotrimazole W/ Betamethasone (Lotrisone), 1 APPLN TOP AMPM Estrogens, Conjugated (Premarin), 0.5 APPLN QMONDAY Ferrous Sulfate (Ferrous Sulfate), 325 MG PO QAM Folic Acid (Folic Acid), 1 MG PO QAM Ketotifen Fumarate (Ophth) (Alaway), 1 DROPS OP QDAY Lansoprazole (Prevacid), 30 MG PO BID Lorazepam (Ativan), 2 MG PO HS Methylprednisolone (Medrol Dosepak), 0 PO DAILY Misoprostol (Cytotec), 100 MCG PO QAM Polyethylene Glycol-Propylene (Systane), 1 DROPS OP HS Ropinirole (Requip), 4 MG PO HS Sertraline (Zoloft), 200 MG PO HS Sodium Fluoride (Dental) (Denta 5000 Plus), 1 APPLN PO BID Solifenacin (Vesicare), 10 MG PO QAM Tocilizumab (Actemra), Unknown Dose INJ QMONTH Zolpidem Tartrate (Ambien *), 5 MG PO HS Scheduled PRN Methylprednisolone (Medrol), 4 MG PO for PRN Oxycodone HCl (Oxycodone HCl), 5-10 MG PO Q4H PRN for Moderate - severe pain Allergies Coded Allergies: Succinylcholine (Verified Allergy, Unknown, pseudocholinesterase deficiency, 09/27/16) WITH C SECTION FOR GENERAL ANESTHESIA-[address] [facility] PSEUDOCHOLINESTERASE DEFICIENCY CONFIRMED BY TESTING PER PT Trazodone (Verified Allergy, Unknown, DRY MOUTH TO POINT FEELS CAN'T BREATHE, 09/27/16) Physical Exam Vital Signs Date Time Temp Pulse Resp B/P Pulse Ox O2 Delivery O2 Flow Rate FiO2 09/27/16 21:55 82 16 119/64 98 Nasal Cannula 2.0 09/27/16 21:04 90 16 112/60 92 Nasal Cannula 2.0 09/27/16 19:14 36.8 111 18 126/61 98 Room Air Pain Rating (0-10): 5.0 Physical Exam VITALS: Vitals are noted on the nurse's note and reviewed by myself. Vital signs stable. GENERAL: Well-developed, well-nourished, white female who appears in mild discomfort secondary to her stated complaint. She is cooperative with the examination. HEAD: Normocephalic atraumatic. NECK: Supple without nuchal rigidity. No lymphadenopathy. No thyromegaly. Cervical spine is nontender. HEART: Regular rate and rhythm without murmurs gallops or rubs. LUNGS: Clear to auscultation bilaterally without wheezes, rales or rhonchi. No retractions or accessory muscle use. ABDOMEN: Positive normal bowel sounds x 4. Soft, nontender, without masses or organomegaly. No guarding or rebound tenderness. MUSCULOSKELETAL: No muscle atrophy, erythema, or edema noted. A well-healing vertical surgical incision is noted in the lower lumbar spine. This area is not significantly tender or with erythema, edema, or fluctuance. No saddle paresthesias. The patient does have generalized tenderness throughout the spine NEURO: Patient was alert and oriented to person place and time. CN II through XII grossly intact. Deep tendon reflexes 2+ throughout. Medical Decision & Procedures Laboratory Results 09/27/16 20:25 Red Blood Count 3.84, Mean Corpuscular Volume 88.5, Mean Corpuscular Hemoglobin 29.9, Mean Corpuscular Hemoglobin Concent 33.8, Mean Platelet Volume 11.3, Neutrophils (%) (Auto) 73.3, Lymphocytes (%) (Auto) 16.6, Monocytes (%) (Auto) 7.5, Eosinophils (%) (Auto) 2.2, Basophils (%) (Auto) 0.3, Neutrophils # (Auto) 4.90, Lymphocytes # (Auto) 1.11, Monocytes # (Auto) 0.50, Eosinophils # (Auto) 0.15, Basophils # (Auto) 0.02 09/27/16 20:25 Test 09/27/16 19:10 09/27/16 20:25 Urine Color YELLOW Urine Appearance CLOUDY (CLEAR) Urine pH 6.0 (4.5-7.5) Urine Specific Timbo 1.011 (1.000-1.030) Urine Protein NEG (NEG) Urine Glucose (UA) NEG (NEG) Urine Ketones NEG (NEG) Urine Occult Blood NEG (NEG) Urine Nitrite NEG (NEG) Urine Bilirubin NEG (NEG) Urine Urobilinogen NEG (NEG) Urine Leukocyte Esterase NEG (NEG) Urine WBC (Auto) 1-5 /hpf (0-5) Urine RBC (Auto) 0-4 /hpf (0-4) Urine Hyaline Casts (Auto) 1-5 /lpf (0-5) Urine Epithelial Cells (Auto) >30 /lpf (0-5) Urine Bacteria (Auto) NEG (NEG) White Blood Count 6.69 K/uL (4.8-10.8) Red Blood Count 3.84 M/uL (4.2-5.4) Hemoglobin 11.5 g/dL (12.0-16.0) Hematocrit 34.0 % (37-47) Mean Corpuscular Volume 88.5 fL (80-100) Mean Corpuscular Hemoglobin 29.9 pg (25-34) Mean Corpuscular Hemoglobin Concent 33.8 g/dl (32-36) Platelet Count 124 K/uL (130-400) Mean Platelet Volume 11.3 fL (7.4-10.4) Neutrophils (%) (Auto) 73.3 % Lymphocytes (%) (Auto) 16.6 % Monocytes (%) (Auto) 7.5 % Eosinophils (%) (Auto) 2.2 % Basophils (%) (Auto) 0.3 % Neutrophils # (Auto) 4.90 K/uL (1.4-6.5) Lymphocytes # (Auto) 1.11 K/uL (1.2-3.4) Monocytes # (Auto) 0.50 K/uL (0.11-0.59) Eosinophils # (Auto) 0.15 K/uL (0-0.5) Basophils # (Auto) 0.02 K/uL (0-0.2) RDW Standard Deviation 41.1 fL (36.4-46.3) RDW Coefficient of Variation 12.9 % (11.5-14.5) Immature Granulocyte % (Auto) 0.1 % Immature Granulocyte # (Auto) 0.01 K/uL (0.00-0.02) Anion Gap 9.0 mmol/L (3-11) Est Creatinine Clear Calc Drug Dose 70.6 ml/min Estimated GFR () 88.2 Estimated GFR (Non- 76.1 BUN/Creatinine Ratio 15.9 (10-20) Calcium Level 8.7 mg/dl (8.5-10.1) Total Bilirubin 0.8 mg/dl (0.2-1) Aspartate Amino Transf (AST/SGOT) 11 U/L (15-37) Alanine Aminotransferase (ALT/SGPT) 13 U/L (12-78) Alkaline Phosphatase 65 U/L (45-117) Total Protein 6.5 gm/dl (6.4-8.2) Albumin 3.8 gm/dl (3.4-5.0) Globulin 2.7 gm/dl (2.5-4.0) Albumin/Globulin Ratio 1.4 (0.9-2) Medications Administered Medications (Trade) Dose Ordered Sig/Fely Route Start Time Stop Time Status Last Admin Dose Admin Sodium Chloride (Nss 1000ml) 1,000 ml @ 999 mls/hr Q1H1M ONCE IV 09/27/16 20:00 09/27/16 21:00 DC 09/27/16 20:22 999 MLS/HR Hydromorphone HCl (Dilaudid Inj) 1 mg NOW STAT IV 09/27/16 20:00 09/27/16 20:02 DC 09/27/16 20:22 1 MG Ketorolac Tromethamine (Toradol Inj) 30 mg NOW STAT IV 09/27/16 20:00 09/27/16 20:02 DC 09/27/16 20:23 30 MG Ondansetron HCl (Zofran Inj) 4 mg NOW STAT IV 09/27/16 20:00 09/27/16 20:02 DC 09/27/16 20:23 4 MG Dexamethasone Sodium Phosphate (Decadron Inj) 10 mg NOW ONCE IV 09/27/16 21:00 09/27/16 21:01 DC 09/27/16 21:03 10 MG ED Course Physical exam and history were performed. Nursing notes and EMR were reviewed. Patient appears to have chronic back pain with a recent surgery. On exam the patient does not have a fever and does not have obvious signs of infection. I did elect to establish IV access and draw labs. The patient was hydrated with normal saline and provided IV Toradol, IV Dilaudid, and IV Zofran for her symptoms. The patient's blood work is as above and was reviewed. She does not have a significantly elevated white blood cell count, gross anemia, or significant electrolyte imbalance. Her transaminases are nondiagnostic. Urine is without evidence of infection. I discussed the case with Dr. Jj's physician assistant producer, who is on-call for orthospine. The recommendation was to give the patient Decadron IV, and this was performed. We discussed options of care and follow-up, and the patient will be contacted by orthospine to clarify her upcoming appointments and for follow-up. The patient is to be given a course of Medrol, and I will prescribe this. Overall the patient does not appear to have a postoperative infection. Her symptoms appear most closely aligned with an acute on chronic pain. Hopefully with some clarity regarding her follow-up appointments she will do much better as an outpatient. The patient is to continue her at home medications. She was very pleased with this plan and voiced understanding. She rated her discomfort a 5/10 at the time of departure and was discharged home under the care of her who is acting as the motor vehicle escort driver today. The chart was completed utilizing [email or web address] Voice Recognition Software. Grammatical errors, random word insertions, pronoun errors, and incomplete sentences are an occasional consequence of this system due to software limitations, ambient noise, and hardware issues. Any formal questions or concerns about the content, text, or information contained within the body of this dictation should be directly addressed to the provider for clarification. . Medical Decision Differential diagnosis: Etiologies such as musculoskeletal, disc herniation, fracture, aortic disease, metastatic disease, cord compression, discitis, infection, renal colic, gastrointestinal, acute exacerbation of chronic back pain, sciatica, cauda equina, as well as others were entertained. Impression Primary Impression: Low back pain Departure Information Dispostion Home / Self-Care Condition GOOD Prescriptions Methylprednisolone (MEDROL DOSEPAK) 4 Mg Bill 0 PO DAILY, #1 PKT Prov: Josue Sarkar PA-C 09/27/16 Referrals Ismael Jj,D.O. Forms HOME CARE DOCUMENTATION FORM, IMPORTANT VISIT INFORMATION Patient Instructions My [facility] Additional Instructions You were seen and evaluated today on an emergency basis only. This is not a substitute for, or an effort to provide, complete comprehensive medical care. It is not possible to recognize and treat all injuries or illnesses in a single emergency department visit. For this reason it is recommended that you followup with you were seen orthopedics office by telephone on if you do not hear from them on Monday. For baseline pain relief you may alternate ibuprofen and acetaminophen every 4 hours for pain control. Take 600 mg ibuprofen (Advil) and then 4 hours later take 1000 mg acetaminophen (Tylenol). Do not take more than 3000 mg acetaminophen in a single day. Take a Medrol Dosepak as prescribed. Continue your other medications as previously directed You are welcome to return to the emergency department anytime with new, worsening, or concerning symptoms.
[2016-10-21] MEDS ORDERED: OXYC1CAP5 PO (14:40)
[2016-10-26] MEDS ORDERED: RXC5 PO (11:50)
[2017-02-08] MEDS ORDERED: MISO1TAB10 PO (12:00)
[2017-02-08] MEDS ORDERED: LANS30CA12 PO (12:00)
[2017-02-08] MEDS ORDERED: PRED-301 PO (12:00)
[2017-02-08] MEDS ORDERED: ROPI1TAB29 PO (12:00)
[2017-02-08] MEDS ORDERED: LACT10CA3 PO (12:00)
[2017-02-08] MEDS ORDERED: CHOL1TAB46 PO (12:00)
[2017-02-08] MEDS ORDERED: MELATAB2 PO (12:00)
[2017-02-08] MEDS ORDERED: IBUP1CAP9 PO (12:00)
[2017-02-08] MEDS ORDERED: DOCU100T7 PO (12:00)
[2017-02-08] MEDS ORDERED: MELO15TA4 PO (12:00)
[2017-02-08] MEDS ORDERED: [UNRECOGNIZED DRUG - CODE] IV (12:00)
[2017-02-08] MEDS ORDERED: MELA1CAP9 PO (12:00)
[2017-02-13] MEDS ORDERED: SENNTAB23 PO (11:48)
[2017-02-13] MEDS ORDERED: CLOTCRE TOP (11:48)
[2017-02-13] MEDS ORDERED: SULF800T23 PO (11:48)
[2017-02-13] MEDS ORDERED: ACTEMRA IV (11:48)
[2017-02-13] MEDS ORDERED: SODICRE2 PO (11:48)
[2017-02-13] MEDS ORDERED: SERT-234 PO (11:50)
== END 2016-09-27 22:04 | disposition home or self-care (01) ==
LOC: C.EDB 19:07 → C.EDD 22:04
DX: M54.5 Low back pain (principal)

== ENCOUNTER → 2016-10-07 | Outpatient (CLI) | payer BC ==
[~2016-10-07] MED LIST changes: +ACTEMRA IV; +AMT50 PO; +BACITRACIN 50000 UNIT VIAL ONE; +BUPIVACAINE/EPINEPHRINE 0.5% MPF 1:200,000 30 ML VIAL ONE; +CHOL1TAB46 PO; +DOCU100T7 PO; +FERR325T5 PO; -FERR325T51 PO; +FLX/5 PO; +IBUP1CAP9 PO; +LACT10CA3 PO; +MELA1CAP9 PO; +MELATAB2 PO; +MELO15TA4 PO; +METH4PAK PO; +MISO1TAB10 PO; +OXYC-57 PO; +OXYC1CAP5 PO; +PRED-301 PO; +ROPI1TAB29 PO; +SENNTAB23 PO; +SULF800T23 PO; +ZOLP5TAB6 PO; +[UNRECOGNIZED DRUG - CODE] IV
--- NOTE | 2016-10-07 10:50 | DIAGNOSTIC IMAGING REPORT ---
RIGHT SHOULDER MIN 2 VIEWS ROUTINE CLINICAL HISTORY: E78.00 [id number] Rheumatoid [id number] [place]or Right pain COMPARISON: None. DISCUSSION: Moderate degenerative change right glenohumeral and acromioclavicular joint. No significant erosive change. Bony mineralization is normal. No acute bony abnormality. Postoperative changes to the upper thoracic region. There is no evidence for soft tissue swelling. IMPRESSION: Mild/moderate degenerative change. No acute process. Electronically signed by: Flaco Hagan M.D. 10/07/2016 10:49 AM Dictated Date/Time: 10/07/2016 10:48 AM
--- NOTE | 2016-10-07 10:51 | DIAGNOSTIC IMAGING REPORT ---
LEFT SHOULDER MIN 2 VIEWS ROUTINE CLINICAL HISTORY: E78.00 [id number] Rheumatoid [id number] [place]or pain COMPARISON: None. DISCUSSION: Moderate degenerative change acromioclavicular joint. Minimal degenerative change glenohumeral joint. There are no abnormal soft tissue calcifications. Bony mineralization is within normal limits. There is no evidence for soft tissue swelling. IMPRESSION: Mild/moderate degenerative change. No acute process. Electronically signed by: Flaco Hagan M.D. 10/07/2016 10:50 AM Dictated Date/Time: 10/07/2016 10:49 AM
== END | disposition home or self-care (01) ==
LOC: C.RAD1850 10:28
PROVIDERS: ATTEND Internal Medicine Rheumatology
DX: E78.00 Pure hypercholesterolemia, unspecified (principal); M06.9 Rheumatoid arthritis, unspecified; Z79.899 Other long term (current) drug therapy; M25.511 Pain in right shoulder

== ENCOUNTER 2016-10-10 22:53 | Emergency (ER) | payer BC ==
[~2016-10-10] VITALS: Ht 157.5 cm; Wt 78.0 kg
[~2016-10-10 22:53] MED LIST changes: -ACTEMRA IV; -AMT50 PO; -BACITRACIN 50000 UNIT VIAL ONE; -BUPIVACAINE/EPINEPHRINE 0.5% MPF 1:200,000 30 ML VIAL ONE; -CHOL1TAB46 PO; -DOCU100T7 PO; -FLX/5 PO; -IBUP1CAP9 PO; -LACT10CA3 PO; -MELA1CAP9 PO; -MELATAB2 PO; -MELO15TA4 PO; -METH1TAB81 PO; -METH4PAK PO; -MISO1TAB10 PO; -OXYC-57 PO; -OXYC1CAP5 PO; -PRED-301 PO; -ROPI1TAB29 PO; -SENNTAB23 PO; -SULF800T23 PO; -ZOLP5TAB6 PO; -[UNRECOGNIZED DRUG - CODE] IV
[2016-10-10 22:57] VITALS: TEMP 36.8; Ht 157.5 cm; Wt 78.0 kg
[2016-10-10] MEDS ORDERED: ZOLP5TAB6 PO (23:40)
[2016-10-10] MEDS ORDERED: FLX/5 PO (23:40)
[2016-10-11] MEDS ORDERED: SODIUM CHLORIDE 0.9% 1000ML 1,000 ML IV STA (00:03)
[2016-10-11] MEDS ORDERED: SODIUM CHLORIDE 0.9% 250ML 250 ML IV STA (00:03)
[2016-10-11] MEDS ORDERED: ONDANSETRON INJ 2 MG/ML 2 ML VIAL IV STA (00:03)
[2016-10-11] MEDS ORDERED: MoRPHine SULFATE 4 MG/ML 1 ML CARP\\VIAL IV STA (00:03)
--- NOTE | 2016-10-11 00:12 | EMERGENCY ROOM VISIT NOTE ---
History Report prepared by [place]: Nestor France Under the Supervision of: Dr. Janki Butler M.D. First contact with patient: 23:47 Chief Complaint: BACK PAIN Stated Complaint: BACK PAIN,POST OP History of Present Illness The patient is a 56 year old female who presents to the Emergency Room with complaints of constant and severe lower back pain that began three weeks prior to arrival. Her pain is currently radiating down both legs. The patient states that she had a "wire cage' placed in her lumbar spine for spinal stenosis. Three weeks ago, she had this cage replaced with a larger cage. She notes that her pain has worsened since yesterday, and that no significant accident caused the pain to worsen. She is also currently having shooting pains into her right lower abdominal quadrant. She denies any loss bladder or bowel control. She has not vomited or had diarrhea recently. Source of History: patient Onset: 3 weeks [employer]IOR [employer]IM[employer] ADVIS[employer] Position: back (lower) Symptom Intensity: severe Timing: constant Associated Symptoms: No urinary symptoms, No vomiting Review of Systems See HPI for pertinent positives & negatives. A total of 10 systems reviewed and were otherwise negative. Past Medical & Surgical Medical Problems: (1) Cervical stenosis of spinal canal (2) Rheumatoid arthritis Lumbar stenosis with neurogenic claudication Family History No pertinent family history. Social History Smoking Status: Never Smoker Alcohol Use: none Drug Use: none Marital Status: Housing Status: lives with family Occupation Status: retired Current/Historical Medications Scheduled Tuleqdp-Chvgeknolltbd-Oqxfloav (Excedrin Migraine), 1 TAB PO BID Atorvastatin (Lipitor), 20 MG PO HS Calcium/Vitamin D (Os-Julian 500 Plus D), 1 TAB PO QAM Cholecalciferol (Vitamin D3), 5,000 INTER.UNIT PO QAM Clotrimazole W/ Betamethasone (Lotrisone), 1 APPLN TOP AMPM Estrogens, Conjugated (Premarin), 0.5 APPLN QMONDAY Ferrous Sulfate (Ferrous Sulfate), 325 MG PO QAM Folic Acid (Folic Acid), 1 MG PO QAM Ketotifen Fumarate (Ophth) (Alaway), 1 DROPS OP QDAY Lansoprazole (Prevacid), 30 MG PO BID Lorazepam (Ativan), 2 MG PO HS Misoprostol (Cytotec), 100 MCG PO QAM Polyethylene Glycol-Propylene (Systane), 1 DROPS OP HS Ropinirole (Requip), 4 MG PO HS Sertraline (Zoloft), 200 MG PO HS Sodium Fluoride (Dental) (Denta 5000 Plus), 1 APPLN PO BID Solifenacin (Vesicare), 10 MG PO QAM Tocilizumab (Actemra), Unknown Dose INJ QMONTH Zolpidem Tartrate (Zolpidem Tartrate), 5 MG PO HS Scheduled PRN Cyclobenzaprine HCl (Cyclobenzaprine HCl), 5 MG PO Q4 PRN for Muscle Spasms Oxycodone HCl (Oxycodone HCl), 5-10 MG PO Q4H PRN for Moderate - severe pain Allergies Coded Allergies: Succinylcholine (Verified Allergy, Unknown, pseudocholinesterase deficiency, 10/10/16) WITH C SECTION FOR GENERAL ANESTHESIA-[address] [facility] PSEUDOCHOLINESTERASE DEFICIENCY CONFIRMED BY TESTING PER PT Trazodone (Verified Allergy, Unknown, DRY MOUTH TO POINT FEELS CAN'T BREATHE, 10/10/16) Physical Exam Vital Signs Date Time Temp Pulse Resp B/P Pulse Ox O2 Delivery O2 Flow Rate FiO2 10/11/16 01:29 83 18 136/76 99 Room Air 10/10/16 22:57 36.8 104 18 97/63 96 Room Air Physical Exam Vital signs reviewed. General: Well-appearing female, in some discomfort. HEENT: 2 mm pupils bilaterally, reactive to light. No scleral icterus, PERRLA, neck supple. Atraumatic. Cardiovascular: Regular rate and rhythm, no extra sounds. Pulmonary: Clear to auscultation bilaterally, normal work of breathing. Abdomen: Right sided abdominal pain with right straight leg raise. Soft, nondistended, positive bowel sounds. Musculoskeletal: Atraumatic, no peripheral edema. Neurologic: Patient awake alert and oriented x 3, 4/5 strength in bilateral lower extremities, lumbar incision is well healing, no erythema, no drainage. Cranial nerves 2 through 12 grossly intact. Skin: Warm, dry, no rash Medical Decision & Procedures ER Provider Diagnostic Interpretation: X-ray results as stated below per my interpretation and radiologist interpretation. Other radiology results as stated below per my review and radiologist interpretation: CT ABDOMEN & PELVIS: Status post laminectomies L2-L5 with peripherally enhancing fluid collection at the surgical bed measuring 8.2 x 5.3 x 3.3 cm sagittal 39 and axial 48 which may represent postoperative fluid collection, liquefied hematoma and appearance of peripheral enhancement with abscess not excluded. Smaller collection in the overlying subcutaneous soft tissues at the midline measuring 10.5 x 2 x 1.2 cm sagittal 38 and axial 55 which may represent postoperative fluid collection or liquified hematoma with abscess not excluded. Normal caliber retrocecal appendix without secondary signs No bowel dilation or free air. Cyst within the spleen. Other solid organs and contracted gall bladder within limits Basilar atelectasis Proximal LAD coronary calcification [place] artifact from spinal hardware Radiologist: Tani Otoole M.D. Laboratory Results 10/11/16 00:23 Red Blood Count 3.92, Mean Corpuscular Volume 87.5, Mean Corpuscular Hemoglobin 29.3, Mean Corpuscular Hemoglobin Concent 33.5, Mean Platelet Volume 10.5, Neutrophils (%) (Auto) 50.2, Lymphocytes (%) (Auto) 33.6, Monocytes (%) (Auto) 10.7, Eosinophils (%) (Auto) 5.2, Basophils (%) (Auto) 0.3, Neutrophils # (Auto ) 1.73, Lymphocytes # (Auto) 1.16, Monocytes # (Auto) 0.37, Eosinophils # (Auto ) 0.18, Basophils # (Auto) 0.01 10/11/16 00:23 Test 10/11/16 00:23 10/11/16 00:34 White Blood Count 3.45 K/uL (4.8-10.8) Red Blood Count 3.92 M/uL (4.2-5.4) Hemoglobin 11.5 g/dL (12.0-16.0) Hematocrit 34.3 % (37-47) Mean Corpuscular Volume 87.5 fL (80-100) Mean Corpuscular Hemoglobin 29.3 pg (25-34) Mean Corpuscular Hemoglobin Concent 33.5 g/dl (32-36) Platelet Count 144 K/uL (130-400) Mean Platelet Volume 10.5 fL (7.4-10.4) Neutrophils (%) (Auto) 50.2 % Lymphocytes (%) (Auto) 33.6 % Monocytes (%) (Auto) 10.7 % Eosinophils (%) (Auto) 5.2 % Basophils (%) (Auto) 0.3 % Neutrophils # (Auto) 1.73 K/uL (1.4-6.5) Lymphocytes # (Auto) 1.16 K/uL (1.2-3.4) Monocytes # (Auto) 0.37 K/uL (0.11-0.59) Eosinophils # (Auto) 0.18 K/uL (0-0.5) Basophils # (Auto) 0.01 K/uL (0-0.2) RDW Standard Deviation 39.7 fL (36.4-46.3) RDW Coefficient of Variation 12.4 % (11.5-14.5) Immature Granulocyte % (Auto) 0.0 % Immature Granulocyte # (Auto) 0.00 K/uL (0.00-0.02) Anion Gap 7.0 mmol/L (3-11) Est Creatinine Clear Calc Drug Dose 63.9 ml/min Estimated GFR () 78.1 Estimated GFR (Non- 67.3 BUN/Creatinine Ratio 13.1 (10-20) Calcium Level 8.4 mg/dl (8.5-10.1) Total Bilirubin 0.3 mg/dl (0.2-1) Direct Bilirubin < 0.1 mg/dl (0-0.2) Aspartate Amino Transf (AST/SGOT) 11 U/L (15-37) Alanine Aminotransferase (ALT/SGPT) 15 U/L (12-78) Alkaline Phosphatase 59 U/L (45-117) Total Protein 5.8 gm/dl (6.4-8.2) Albumin 3.5 gm/dl (3.4-5.0) Lipase 68 U/L (73-393) Urine Color YELLOW Urine Appearance CLEAR (CLEAR) Urine pH 6.0 (4.5-7.5) Urine Specific [place] 1.016 (1.000-1.030) Urine Protein NEG (NEG) Urine Glucose (UA) NEG (NEG) Urine Ketones NEG (NEG) Urine Occult Blood NEG (NEG) Urine Nitrite NEG (NEG) Urine Bilirubin NEG (NEG) Urine Urobilinogen NEG (NEG) Urine Leukocyte Esterase SMALL (NEG) Urine WBC (Auto) 1-5 /hpf (0-5) Urine RBC (Auto) 0-4 /hpf (0-4) Urine Hyaline Casts (Auto) 10-30 /lpf (0-5) Urine Epithelial Cells (Auto) >30 /lpf (0-5) Urine Bacteria (Auto) NEG (NEG) Urine Crystals CALCIUM OXALATE (NONE Urine Pathogenic Casts /lpf (0) Laboratory results per my review. Medications Administered Medications (Trade) Dose Ordered Sig/Fely Route Start Time Stop Time Status Last Admin Dose Admin Sodium Chloride 250 ml @ 999 mls/hr Q16M STAT IV 10/11/16 00:03 10/11/16 00:18 DC 10/11/16 00:03 999 MLS/HR Sodium Chloride (Nss 1000ml) 1,000 ml @ 125 mls/hr Q8H STAT IV 10/11/16 00:03 10/11/16 03:18 DC 10/11/16 00:33 125 MLS/HR Morphine Sulfate (MoRPHine SULFATE INJ) 4 mg NOW STAT IV 10/11/16 00:03 10/11/16 00:05 DC 10/11/16 00:31 4 MG Ondansetron HCl (Zofran Inj) 4 mg NOW STAT IV 10/11/16 00:03 10/11/16 00:05 DC 10/11/16 00:30 4 MG Polyethylene (Miralax Powder Packet) 34 gm NOW STAT PO 10/11/16 02:41 10/11/16 02:43 DC 10/11/16 02:41 34 GM ED Course 2356: Past medical records reviewed. The patient was evaluated in room B3. A complete history and physical examination was performed. 0003: Ordered Zofran 4 mg IV, Morphine Sulfate 4 mg IV, Sodium Chloride 1000 mL @ 125 mL/hr IV, Sodium Chloride 250 mL @ 999 mL/hr IV. 0218: I discussed the case with Dr. Jj - Orthopedic Surgery at this time. 0243: Upon reevaluation, the patient appeared to have improvement of her symptoms. I discussed findings with her. She verbalized agreement of the treatment plan. The patient was discharged home. Medical Decision Differential diagnosis: Etiologies such as musculoskeletal, disc herniation, fracture, aortic disease, metastatic disease, cord compression, discitis, infection, renal colic, gastrointestinal, acute exacerbation of chronic back pain, sciatica, cauda equina, as well as others were entertained. This pt was evaluated and appeared to be in some pain, but also somewhat intoxicated (opiates). PE reveals a well healed incision without erythema or drainage. Pt pain seems to be reproducible in the R abd. A CT abd/pelvis was performed and reveals findings as above. The fluid collections seem to be seroma or hematoma clinically, not abscess. Pt has no fever or elevated WBC. There is no sign of cellulitis. Pt has strength in BLE and has has no loss of B /B function. I suspect pt has an opioid dependency related constipation. She has been reviewed in PDMP and has been given opioids, benzos and Ambien. I discussed case with Dr Jj who has offered to see the pt tomorrow in clinic. She is aware of the plan and agrees. Pt did receive IV fluids, morphine and zofran in the ED and was d/c with miralax x 2 pkts. She will return to the ED for worsening of symptoms or any medical concerns. [place] Drug Monitoring Program Search Results: patient reviewed within database, see additional documentation Drug Monitoring Findings: Patient has multiple recent narcotic drug prescriptions. Consults Time Called: 210 Consulting Physician: Dr. Jj - Orthopedic Surgery Returned Call: [phone] I discussed the case with Dr. Jj - Orthopedic Surgery at this time. Impression Primary Impression: Fluid collection at surgical site Additional Impressions: Right sided abdominal pain Fecal retention Coronary artery calcification Scribe Attestation The scribe's documentation has been prepared under my direction and personally reviewed by me in its entirety. I confirm that the note above accurately reflects all work, treatment, procedures, and medical decision making performed by me. Departure Information Referrals Uday Barksdale D.O. (PCP) Forms HOME CARE DOCUMENTATION FORM, IMPORTANT VISIT INFORMATION Patient Instructions My [facility] Additional Instructions Diagnosis: Abdominal pain, fecal retention, postoperative fluid collection, coronary calcifications Please follow-up your primary care physician later this week for reevaluation and consideration of further cardiac testing secondary to coronary calcifications seen on your CAT scan. MiraLAX 1 packet every 8 hours until you have a bowel movement. Follow-up later today with Dr. Jj between the hours of 12 and 2 PM. Return to the emergency department for worsening of symptoms or any medical concerns. Problem Qualifiers Primary Impression: Fluid collection at surgical site Encounter type: initial encounter Qualified Codes: T88.8XXA - Other specified complications of surgical and medical care, not elsewhere classified, initial encounter Additional Impressions: Fecal retention Constipation type: drug induced constipation Qualified Codes: K59.03 - Drug induced constipation
[2016-10-11] MEDS ORDERED: OPTIRAY 320 IV PRN (00:15)
[2016-10-11 00:39] LABS: BASO % 0.3 %; BASO ABS # 0.01 K/uL (0-0.2); COMPLETE YES; EOS % 5.2 %; HEMATOCRIT 34.3 % (37-47); LYMPH % 33.6 %; LYMPH ABS # 1.16 K/uL (1.2-3.4); MEAN CELL VOLUME 87.5 fL (80-100); MEAN CORPUSCULAR HEMOGLOBIN 29.3 pg (25-34); MEAN CORPUSCULAR HGB CONC 33.5 g/dl (32-36); MEAN PLATELET VOLUME 10.5 fL (7.4-10.4); MONO % 10.7 %; NEUT % 50.2 %; PLATELET COUNT 144 K/uL (130-400); RED BLOOD COUNT 3.92 M/uL (4.2-5.4); WHITE BLOOD COUNT 3.45 K/uL (4.8-10.8)
[2016-10-11 01:00] LABS: ALT/SGPT 15 U/L (12-78); AST/SGOT 11 U/L (15-37); BLOOD UREA NITROGEN 12 mg/dl (7-18); BUN/CREATININE RATIO 13.1 (10-20); CALCIUM 8.4 mg/dl (8.5-10.1); CARBON DIOXIDE 30 mmol/L (21-32); CHLORIDE 106 mmol/L (98-107); CREATININE 0.94 mg/dl (0.60-1.20); GLUCOSE 118 mg/dl (70-99); POTASSIUM 3.6 mmol/L (3.5-5.1); SODIUM 143 mmol/L (136-145)
[2016-10-11 01:03] LABS: ALKALINE PHOSPHATASE 59 U/L (45-117)
[2016-10-11 01:29] VITALS: BP 136/76; PULSE 83; O2SAT 99
[2016-10-11 02:25] LABS: URINE APPEARANCE CLEAR (CLEAR); URINE BILIRUBIN NEG (NEG); URINE COLOR YELLOW; URINE EPITHELIAL CELL AUTO >30 /lpf (0-5); URINE NITRITE NEG (NEG); URINE SPECIFIC GRAVITY 1.016 (1.000-1.030); UROBILINOGEN NEG (NEG); ZZUR CULT IF INDIC CLEAN CATCH NO
[2016-10-11 02:26] LABS: MANUAL MICROSCOPIC REQUIRED? NO; REVIEW REQ? YES
[2016-10-11] MEDS ORDERED: POLYETHYLENE (MIRALAX) 17 GM PACK PO STA (02:41)
--- NOTE | 2016-10-11 07:23 | DIAGNOSTIC IMAGING REPORT ---
ABDOMEN AND PELVIS CT WITH IV CONTRAST CT DOSE: 484.33 mGy.cm HISTORY: right sided abdominal tenderness, low back pain recent lumbar spine sx TECHNIQUE: Multiaxial CT images of the abdomen and pelvis were performed following the use of intravenous contrast. COMPARISON STUDY: None. FINDINGS: A 3 mm subpleural nodule along the right minor fissure on image 2. Bibasilar subsegmental atelectasis. No pneumoperitoneum. No pneumatosis. Posterior decompression from L2 through S1. There are pedicle screws and rods at L2-L3. The hardware from L3 through S1 has been removed. There is an 8.2 x 5.3 x 3.3 cm peripheral enhancing fluid collection at the laminectomy sites. This does not appear to result in significant mass effect on the central canal. This fluid collection also demonstrates peripheral calcification. There is a second smaller peripheral enhancing fluid collection within the subcutaneous fat at the incision site which measures 10.4 x 2.2 x 1.1 cm. The liver, gallbladder, adrenal glands, pancreas, and kidneys are unremarkable. There is a 3.4 cm hypodense lesion within the spleen. This likely represents a cyst. No retroperitoneal lymphadenopathy. Hysterectomy. Normal bladder. Colonic diverticulosis. No bowel wall thickening or obstruction. Moderate stool within the colon. Normal appendix measuring 5 mm in diameter. IMPRESSION: 1. There are 2 separate peripheral enhancing fluid collections seen at the laminectomy site of the lumbar spine and within the subcutaneous fat as described above. These favor postoperative seroma/hematomas. However, an abscess is not entirely excluded. 2. No bowel wall thickening or obstruction. 3. Normal appendix. 4. Colonic diverticulosis. 5. A 3 mm subpleural nodule along the right minor fissure. This is of doubtful clinical significance. Electronically signed by: Yves Diaz M.D. 10/11/2016 7:21 AM Dictated Date/Time: 10/11/2016 7:12 AM
[2016-10-21] MEDS ORDERED: OXYC1CAP5 PO (14:40)
[2016-10-26] MEDS ORDERED: RXC5 PO (11:50)
[2017-02-08] MEDS ORDERED: ROPI1TAB29 PO (12:00)
[2017-02-08] MEDS ORDERED: MELA1CAP9 PO (12:00)
[2017-02-08] MEDS ORDERED: [UNRECOGNIZED DRUG - CODE] IV (12:00)
[2017-02-08] MEDS ORDERED: MELO15TA4 PO (12:00)
[2017-02-08] MEDS ORDERED: LACT10CA3 PO (12:00)
[2017-02-08] MEDS ORDERED: CHOL1TAB46 PO (12:00)
[2017-02-08] MEDS ORDERED: MELATAB2 PO (12:00)
[2017-02-08] MEDS ORDERED: MISO1TAB10 PO (12:00)
[2017-02-08] MEDS ORDERED: DOCU100T7 PO (12:00)
[2017-02-08] MEDS ORDERED: PRED-301 PO (12:00)
[2017-02-08] MEDS ORDERED: LANS30CA12 PO (12:00)
[2017-02-08] MEDS ORDERED: IBUP1CAP9 PO (12:00)
[2017-02-13] MEDS ORDERED: SENNTAB23 PO (11:48)
[2017-02-13] MEDS ORDERED: CLOTCRE TOP (11:48)
[2017-02-13] MEDS ORDERED: SODICRE2 PO (11:48)
[2017-02-13] MEDS ORDERED: ACTEMRA IV (11:48)
[2017-02-13] MEDS ORDERED: SULF800T23 PO (11:48)
[2017-02-13] MEDS ORDERED: SERT-234 PO (11:50)
== END 2016-10-11 03:07 | disposition home or self-care (01) ==
LOC: C.EDB 22:54
DX: T88.8XXA Other specified complications of surgical and medical care, not elsewhere classified, initial encounter (principal); K59.03 Drug induced constipation; M06.9 Rheumatoid arthritis, unspecified; I25.10 Atherosclerotic heart disease of native coronary artery without angina pectoris

== ENCOUNTER 2016-10-24 11:31 | Observation (INO) | payer BC ==
[2016-10-21 15:05] VITALS: BMI 32.0
[~2016-10-24] VITALS: Ht 157.5 cm; Wt 79.8 kg
[~2016-10-24 11:31] MED LIST changes: -AMB10 PO; +CEFAZOLIN 2000 MG/60 ML D5W IV SCH; +FLX/5 PO; +LACTATED RINGER'S 1000ML 1,000 ML IV SCH; +OXYC1CAP5 PO; -RXC5 PO; +ZOLP5TAB6 PO
[2016-10-24 12:12] VITALS: BP 116/71; PULSE 90; TEMP 36.7; O2SAT 95; Ht 157.5 cm; Wt 79.8 kg
[2016-10-24] MEDS ORDERED: METH1TAB81 PO (12:26)
--- NOTE | 2016-10-24 13:40 | History and Physical ---
History & Physical Date Oct 24, 2016. Chief Complaint back and leg pain History of Present Illness The patient is a 56 year old female with complaints of Past Medical/Surgical History Medical Problems: (1) Cervical stenosis of spinal canal (2) Rheumatoid arthritis Additional History Hepatic Disease: No Endocrine Disorder: No Kidney Disease: No Hypertension: No Heart Disease: No Bleeding Tendencies: No Infectious Diseases: No Allergies Coded Allergies: Succinylcholine (Verified Allergy, Unknown, pseudocholinesterase deficiency, 10/24/16) WITH C SECTION FOR GENERAL ANESTHESIA-1984 [facility] PSEUDOCHOLINESTERASE DEFICIENCY CONFIRMED BY TESTING PER PT Trazodone (Verified Allergy, Unknown, DRY MOUTH TO POINT FEELS CAN'T BREATHE, 10/24/16) Home Medications Scheduled Atorvastatin (Lipitor), 20 MG PO HS Calcium/Vitamin D (Os-Julian 500 Plus D), 1 TAB PO QAM Cholecalciferol (Vitamin D3), 5,000 INTER.UNIT PO QAM Clotrimazole W/ Betamethasone (Lotrisone), 1 APPLN TOP AMPM Estrogens, Conjugated (Premarin), 0.5 APPLN QMONDAY Ferrous Sulfate (Ferrous Sulfate), 325 MG PO QAM Folic Acid (Folic Acid), 1 MG PO QAM Ketotifen Fumarate (Ophth) (Alaway), 1 DROPS OP QDAY Lansoprazole (Prevacid), 30 MG PO BID Lorazepam (Ativan), 2 MG PO HS Methylprednisolone (Medrol), MG PO UD Misoprostol (Cytotec), 100 MCG PO QAM Polyethylene Glycol-Propylene (Systane), 1 DROPS OP HS Ropinirole (Requip), 4 MG PO HS Sertraline (Zoloft), 200 MG PO HS Sodium Fluoride (Dental) (Denta 5000 Plus), 1 APPLN PO BID Solifenacin (Vesicare), 10 MG PO QAM Tocilizumab (Actemra), Unknown Dose INJ QMONTH Zolpidem Tartrate (Zolpidem Tartrate), 5 MG PO HS Scheduled PRN Jxgtotc-Thoosizyqzqhq-Dmwxzmvk (Excedrin Migraine), 1 TAB PO BID PRN for Pain Cyclobenzaprine HCl (Cyclobenzaprine HCl), 5 MG PO Q4 PRN for Muscle Spasms Oxycodone Hcl (Oxycodone Hcl), 1-2 CAP PO q4-6 hours PRN for Pain Physical Examination Skin: warm/dry, no rash Eyes: normal inspection, EOMI, sclerae normal ENT: normal ENT inspection, pharynx normal Head: normocephalic, atraumatic Neck: supple, no adenopathy, trachea midline Respiratory/Chest: lungs clear, normal breath sounds, no respiratory distress Cardiovascular: regular rate, rhythm, no edema, no murmur Abdomen / GI: normal bowel sounds, non tender Back: normal inspection Extremities: normal inspection, normal range of motion Neurologic/Psych: no motor/sensory deficits, alert, normal reflexes, oriented x 3 Diagnosis lumbar seroma Plan of Treatment I and D seroma lumbar spine
[2016-10-24] MEDS ORDERED: FENTANYL CITRATE INJ 50 MCG/1 ML 2 ML VIAL ONE ×2 (13:52→15:26)
[2016-10-24] MEDS ORDERED: HYDROmorphone INJ 2 MG/ML SYR/VIAL ONE ×2 (13:52→15:26)
[2016-10-24] MEDS ORDERED: MIDAZOLAM HCL 1 MG/ML 2ML VIAL ONE (13:52)
[2016-10-24] MEDS ORDERED: SCOPOLAMINE 1.5 MG TDSY TD ONE (14:06)
[2016-10-24] MEDS ORDERED: NURSING VERBAL MED ORDER ONE ×2 (14:15→22:15)
[2016-10-24] MEDS ORDERED: BACITRACIN 50000 UNIT VIAL ONE (14:43)
[2016-10-24] MEDS ORDERED: ROCURONIUM BROMIDE 10 MG/ML 5 ML VIAL ONE (14:44)
[2016-10-24] MEDS ORDERED: NEOSTIGMINE METHYLSULFATE 1 MG/ML 10ML VIAL ONE (14:44)
[2016-10-24] MEDS ORDERED: GLYCOPYRROLATE INJ 0.2 MG/ML VIAL ONE (14:44)
[2016-10-24] MEDS ORDERED: LIDOCAINE HCL 2% 2 ML VIAL (20MG/ML) ONE (14:44)
[2016-10-24] MEDS ORDERED: DEXAMETHASONE SOD INJ 4 MG/ML VIAL ONE (14:44)
[2016-10-24] MEDS ORDERED: ONDANSETRON INJ 2 MG/ML 2 ML VIAL ONE (14:44)
[2016-10-24] MEDS ORDERED: PROPOFOL IV EMULSION 10 MG/ML 20 ML VIAL IV ONE (14:44)
[2016-10-24] MEDS ORDERED: MIX: 0.5% BUPIVACAINE W/EPI 1:200,000+1%LIDO 50:50 INJ ONE (14:45)
--- NOTE | 2016-10-24 15:01 | [facility] Post Operative Brief Note ---
Immediate Operative Summary Operative Date Oct 24, 2016. Pre-Operative Diagnosis Lumbar seroma Post-Operative Diagnosis same as preop POSSIBLE INFECTION Procedure(s) Performed Incision, Drainage, and Irrigation Lumbar Spine with Evacuation of Seroma Surgeon Dr Jj Rheumatology Specialist Surgeon(s) Maia Lemus PA-C Estimated Blood Loss 50 ml Findings CLOUDY FLUID Specimens Culture #1- Lumbar spine seroma- sent for aerobic and anaerobic cultutre and sensitivity and gram stain
[2016-10-24] MEDS ORDERED: PROMETHAZINE HCL INJ 12.5 MG in SODIUM CHLORIDE 0.9% 50ML 50 ML IV PRN (15:15)
[2016-10-24] MEDS ORDERED: ONDANSETRON INJ 2 MG/ML 2 ML VIAL IV PRN ×2 (15:15→15:30)
[2016-10-24] MEDS ORDERED: LORAZEPAM INJ 1 MG in SYRINGE 0 ML IV PRN (15:15)
[2016-10-24] MEDS ORDERED: ACETAMINOPHEN 325 MG TAB PO PRN (15:15)
[2016-10-24] MEDS ORDERED: FENTANYL CITRATE INJ 50 MCG/1 ML 2 ML VIAL IV PRN (15:30)
[2016-10-24] MEDS ORDERED: LABETALOL HCL IV 5 MG/ML 20ML IV PRN (15:30)
[2016-10-24] MEDS ORDERED: MEPERIDINE HCL 25 MG/ML CARP IV PRN (15:30)
[2016-10-24] MEDS ORDERED: FLUMAZENIL 0.1 MG/1 ML 10 ML VIAL IV PRN (15:30)
[2016-10-24] MEDS ORDERED: HYDROmorphone INJ 2 MG/ML SYR/VIAL IV PRN (15:30)
[2016-10-24] MEDS ORDERED: NALOXONE HCL 0.4 MG/1 ML VIAL/CARP IV PRN ×2 (15:30→22:30)
[2016-10-24] MEDS ORDERED: PHENYLEPHRINE 100MCG/ML 5ML SYR IV PRN (15:30)
[2016-10-24] MEDS ORDERED: ATROPINE SULFATE 0.1 MG/ML 5ML SYR IV PRN (15:30)
[2016-10-24] MEDS ORDERED: EpHEDrine SULFATE INJ 50 MG/ML AMP IV PRN (15:30)
[2016-10-24 15:49] LABS: BASO % 0.5 %; BASO ABS # 0.02 K/uL (0-0.2); COMPLETE YES; EOS % 7.1 %; HEMATOCRIT 36.3 % (37-47); LYMPH % 44.4 %; LYMPH ABS # 1.81 K/uL (1.2-3.4); MEAN CELL VOLUME 87.7 fL (80-100); MEAN CORPUSCULAR HEMOGLOBIN 29.5 pg (25-34); MEAN CORPUSCULAR HGB CONC 33.6 g/dl (32-36); MEAN PLATELET VOLUME 11.6 fL (7.4-10.4); MONO % 6.6 %; NEUT % 41.4 %; PLATELET COUNT 120 K/uL (130-400); RED BLOOD COUNT 4.14 M/uL (4.2-5.4); WHITE BLOOD COUNT 4.08 K/uL (4.8-10.8)
[2016-10-24] MEDS: CHECK SCOPOLAMINE PATCH PLACEMENT SCH (16:00)
--- NOTE | 2016-10-24 16:08 | Anesthesiology Progress Note ---
Anesthesia Post Op Note Date & Time Oct 24, 2016 at 16:08 Vital Signs Pain Intensity: 1 Vital Signs Past 12 Hours Date Time Temp Pulse Resp B/P Pulse Ox O2 Delivery O2 Flow Rate FiO2 10/24/16 15:54 36.9 10/24/16 15:50 90 16 96/74 100 10/24/16 15:50 90 10/24/16 15:45 87 10/24/16 15:45 88 16 111/79 100 10/24/16 15:40 87 14 94/74 100 10/24/16 15:40 88 10/24/16 15:40 Nasal Cannula 3 10/24/16 15:36 107/75 10/24/16 15:35 88 10/24/16 15:35 88 14 100 10/24/16 15:30 89 14 91/67 100 10/24/16 15:30 89 10/24/16 15:25 85 8 10/24/16 15:25 85 8 111/70 100 10/24/16 15:22 102/70 10/24/16 15:20 36.2 87 12 102/70 100 Mask 10 10/24/16 12:12 36.7 90 20 116/71 95 Room Air Notes Mental Status: alert / awake / arousable, participated in evaluation Pt Amnestic to Procedure: Yes Nausea / Vomiting: adequately controlled Pain: adequately controlled Airway Patency, RR, SpO2: stable & adequate BP & HR: stable & adequate Hydration State: stable & adequate Anesthetic Complications: no major complications apparent
[2016-10-24] MEDS ORDERED: CEFAZOLIN 1000MG/55 ML D5W IV SCH (16:40)
[2016-10-24 16:48] VITALS: BP 109/72; PULSE 85; TEMP 35.5; O2SAT 97
--- NOTE | 2016-10-24 16:56 | OPERATIVE REPORT ---
DATE OF OPERATION: 10/24/2016 PREOPERATIVE DIAGNOSIS: Epidural fluid collection. POSTOPERATIVE DIAGNOSIS: Same with suspicion for infection. PROCEDURE PERFORMED: I\T\D of lumbar spine with evacuation of fluid and cultures taken. SURGEON: Dr. Ismael Jj. ARMED GUARD: Maia Lemus PA-C. Due to the complex nature of the procedure, the entire surgery was performed with the operational assistance of JESUS MANUEL Calderon. The speech therapy assistant, under direct supervision, was involved in the actual performance of all aspects of the surgical procedure including hemostasis, tissue retraction and incision, instrument management, patient positioning, and wound closure. ANESTHESIA: General. DISPOSITION: The patient awakened and taken to PACU in stable condition. HISTORY OF PATIENT'S PROBLEMS: This is a 56-year-old female, well known to me, who presents postoperatively with fluid collection in the lumbar spine and back pain. She was afebrile, denied any nausea or vomiting. Laboratory studies were benign. Nevertheless, we elected to undergo I\T\D evacuation of seroma. Risks, benefits, pros, cons, and alternatives were outlined in detail preoperatively. PROCEDURE IN DETAIL: The patient was met with preoperatively, the case discussed and all questions were addressed. At that point, the patient was taken back to operative suite and after undergoing successful general intubation by the department of anesthesia was placed in prone position on Deandre table atop Bob frame. All bony prominences were well padded and the eyes were inspected to ensure there was no external pressure placed upon them. At this point, the lumbar spine was prepped and draped in normal sterile fashion. Utilizing the previous incision site, sharp dissection with the assistance of Bovie cautery was performed down to and exposing the epidural space. A massive fluid collection was noted, it was cloudy in nature and suspicious for infection. Cultures were taken. Incision was then copiously irrigated. The borders of which were curettaged to remove any loose tissue and to expose healthy vascular tissue. After this was complete, a 7 flat LEBRON drain was inserted. Incision was closed with 1-0 Vicryl in the fascia, 2-0 Vicryl subcutaneously, 4-0 Monocryl for final skin closure. Steri-Strips and sterile dressing placed. The patient was awakened and taken to PACU in stable condition. I attest to the content of the Intraoperative Record and any orders documented therein. Any exceptio ns are noted below.
[2016-10-24 17:13] VITALS: BP 124/84; PULSE 89; TEMP 36.3; O2SAT 100
[2016-10-24 18:18] VITALS: BP 130/73; PULSE 97; TEMP 36.3; O2SAT 94
[2016-10-24 19:15] VITALS: BP 105/71; PULSE 90; TEMP 36.6; O2SAT 99
[2016-10-24] MEDS: DOCUSATE SODIUM 100 MG CAP PO SCH (21:39)
[2016-10-24] MEDS ORDERED: SODIUM CHLORIDE 0.9% 1000ML 1,000 ML IV SCH (22:30)
[2016-10-24] MEDS: MORPHINE SULFATE 1 MG/ML 50 ML PCA SYR IV PRN (22:54)
[2016-10-24] MEDS: CEFAZOLIN IV 1,000 MG in DEXTROSE 5% 50ML 50 ML IV SCH (23:11)
[2016-10-24 23:35] VITALS: BP 106/66; PULSE 98; TEMP 36.8; O2SAT 98
[2016-10-25] MEDS: CHECK SCOPOLAMINE PATCH PLACEMENT SCH ×3 (00:06→16:26)
[2016-10-25 04:20] VITALS: BP 95/61; PULSE 72; TEMP 36.3; O2SAT 95
[2016-10-25] MEDS: CEFAZOLIN IV 1,000 MG in DEXTROSE 5% 50ML 50 ML IV SCH ×3 (05:46→21:39)
[2016-10-25] MEDS ORDERED: CEFAZOLIN IV 1,000 MG in DEXTROSE 5% 50ML 50 ML IV SCH (06:00)
[2016-10-25] MEDS: MORPHINE SULFATE 1 MG/ML 50 ML PCA SYR IV PRN (07:07)
[2016-10-25 08:23] VITALS: BP 88/54; PULSE 73; TEMP 36.6; O2SAT 99
[2016-10-25 08:25] VITALS: BP 116/75
[2016-10-25] MEDS: DOCUSATE SODIUM 100 MG CAP PO SCH ×2 (08:53→21:33)
--- NOTE | 2016-10-25 10:34 | Medical Consult ---
Consultation Date of Consultation: Oct 25, 2016. Attending Physician: Ismael Jj D.O. Reason for Consultation: Lumbar infection History of Present Illness Patient is a 56-year-old female admitted to the hospital with concerns of postoperative fluid collection in the lumbar spine and back. The patient has had 3 back surgeries on her lumbar spine with the most recent being in the middle of August 2016. She states that initially following surgery, she has felt well, but that approximately 2 weeks postoperatively she started to have severe pain in the lumbar spine. She noted pain radiating down her legs and around to the front of her stomach. She states that she has not had any fever, sweats, chills, urinary symptoms, diarrhea, or drainage from her wound. Her white blood cell count on admission was 4.08. Her creatinine was 0.81. She was initially placed on IV Ancef. She is tolerating this medication well. Grams stain of heard deep surgical culture is showing rare gram-positive cocci. The operative report was reviewed today. It was noted that a large, cloudy fluid collection was in countered in the lumbar spine. I did also discuss patient with Dr. Jj. Past Medical/Surgical History Medical Problems: (1) Coronary artery calcification Status: Acute (2) Fecal retention Status: Acute (3) Fluid collection at surgical site Status: Acute (4) Low back pain Status: Acute (5) Right sided abdominal pain Status: Acute Medical Problems: (1) Cervical stenosis of spinal canal (2) Infection of lumbar spine (3) Rheumatoid arthritis Surgical: Lumbar surgery x 3 Family History Noncontributory Social History Smoking Status: Never Smoker Drug Use: none Marital Status: Housing Status: lives with family Occupation Status: retired Allergies Coded Allergies: Succinylcholine (Verified Allergy, Unknown, pseudocholinesterase deficiency, 10/24/16) WITH C SECTION FOR GENERAL ANESTHESIA-[address] [facility] PSEUDOCHOLINESTERASE DEFICIENCY CONFIRMED BY TESTING PER PT Trazodone (Verified Allergy, Unknown, DRY MOUTH TO POINT FEELS CAN'T BREATHE, 10/24/16) Home Medications Reported Home Medications Medications Dose Route/Sig Max Daily Dose Days Date Category Dose Instructions Medrol (Methylprednisolone) 4 Mg Tab Mg PO UD 10/24/16 Reported Oxycodone Hcl 5 Mg Cap 1-2 Cap PO Q4-6 HOURS PRN 10/21/16 Reported Zolpidem Tartrate 5 Mg Tab 5 Mg PO HS 10/10/16 Reported Cyclobenzaprine HCl 5 Mg Tab 5 Mg PO Q4 PRN 10/10/16 Reported Ferrous Sulfate 325 Mg Tab 325 Mg PO QAM 09/27/16 Reported Lipitor (Atorvastatin Calcium) 20 Mg Tab 20 Mg PO HS 09/12/16 Reported Excedrin Migraine (Pbtkdvh-Oioywzamfjavl-Livlehdk) 1 Tab Tab 1 Tab PO BID PRN 08/12/16 Reported Actemra (Tocilizumab) Unknown Strength Inj Unknown Dose INJ QMONTH 08/12/16 Reported LAST WEEK HAD INJECTION -NEXT INJECTION SCHEDULED NOVEMBER 03 Denta 5000 Plus (Sodium Fluoride (Dental)) 1.1 % Cre 1 Appln PO BID 08/12/16 Reported USES WHEN BRUSHES TEETH Alaway (Ketotifen Fumarate (Ophth)) 0.025 % Trung 1 Drops OP QDAY 08/12/16 Reported Systane (Polyethylene Glycol-Propylene) 1 Leni Leni 1 Drops OP HS 08/12/16 Reported Ativan (Lorazepam) 1 Mg Tab 2 Mg PO HS 08/12/16 Reported Cytotec (Misoprostol) 200 Mcg Tab 100 Mcg PO QAM 08/12/16 Reported Lotrisone (Clotrimazole W/ Betamethasone) 1 Cre Cre 1 Appln TOP AMPM 08/12/16 Reported PATIENT MED LIST READS: 1% - 0.05% Premarin (Estrogens, Conjugated) 14 Appln/30 Gm Cr 0.5 Appln QMONDAY 08/12/16 Reported PT MED LIST READS: PREMARIN CREAM .625MG/G - TAKES 1/2 APPLICATOR EVERY MONDAY - USES VAGINALLY Vesicare (Solifenacin) 10 Mg Tab 10 Mg PO QAM 06/14/16 Reported Os-Julian 500 Plus D (Calcium/Vitamin D) Tab 1 Tab PO QAM 06/14/16 Reported Vitamin D3 (Cholecalciferol) 1,000 Unit Tab 5,000 Inter.unit PO QAM 06/14/16 Reported Zoloft (Sertraline HCl) 100 Mg Tab 200 Mg PO HS 09/03/15 Reported Requip (Ropinirole HCl) 4 Mg Tab 4 Mg PO HS 09/03/15 Reported Prevacid (Lansoprazole) 30 Mg Capcr 30 Mg PO BID 12/10/14 Reported Folic Acid 1 Mg Tab 1 Mg PO QAM 12/10/14 Reported Current Inpatient Medications Current Inpatient Medications Medications (Trade) Dose Ordered Sig/Fely Route Start Time Stop Time Status Last Admin Dose Admin Miscellaneous Information (Check Scopolamine Patch Placement) 1 ea QS N/A 10/24/16 16:00 10/27/16 15:59 10/25/16 08:52 1 EA Miscellaneous (Remove Transderm-Scop Patch) 1 ea Q72H ONCE N/A 10/27/16 14:45 10/27/16 14:46 Acetaminophen (Tylenol Tab) 650 mg Q6H PRN PO 10/24/16 15:15 11/23/16 15:14 10/24/16 22:00 650 MG Docusate Sodium 100 mg 100 mg BID PO 10/24/16 21:00 11/23/16 20:59 10/25/16 08:53 100 MG Promethazine HCl/ Sodium Chloride (Phenergan Inj/ Nss 50ml) 50.5 ml @ 202 mls/hr Q6H PRN IV 10/24/16 15:15 11/23/16 15:14 Ondansetron HCl (Zofran Inj) 4 mg Q6H PRN IV 10/24/16 15:15 11/23/16 15:14 Lorazepam 1 mg 1 mg Q6H PRN PO 10/24/16 15:15 11/23/16 15:14 Lorazepam 1 mg/ Syringe 0.5 ml @ 1 mls/min Q6H PRN IV 10/24/16 15:15 11/23/16 15:14 Cefazolin Sodium (Ancef 1000mg/55 ml D5W) 55 ml @ 100 mls/hr TODAY@1640 IV 10/24/16 16:40 10/25/16 16:39 Naloxone HCl (Narcan Inj) 0.1 mg Q5M PRN IV 10/24/16 22:30 11/07/16 22:29 Morphine Sulfate 50 mg 50 mg PRN PRN IV 10/24/16 22:30 11/07/16 22:29 10/25/16 07:07 50 MG Sodium Chloride 1,000 ml @ 15 mls/hr Q24H IV 10/24/16 22:30 11/23/16 22:29 10/24/16 22:46 15 MLS/HR Cefazolin Sodium/ Dextrose (Ancef Iv/D5 50ml) 55 ml @ 110 mls/hr Q8@0600,1400,2200 IV 10/24/16 22:30 10/25/16 22:29 10/25/16 05:46 110 MLS/HR Review of Systems Constitutional: + weakness, No chills, No fever, No sweats Eyes: No worsening of vision ENT: No hearing loss Respiratory: + shortness of breath (on and off- chronic), No cough Cardiovascular: No chest pain Abdomen: + constipation, + pain (lower abdominal pain across entire abdomen 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 - now resolving), No nausea, No vomiting Musculoskeletal: + joint pain (lumbar spine, chronic multiple other joint pains - RA) Genitourinary - Female: No dysuria, No urinary frequency, No urinary urgency Integumentary: No itch, No rash Physical Exam Date Time Temp Pulse Resp B/P Pulse Ox O2 Delivery O2 Flow Rate FiO2 10/25/16 08:25 116/75 10/25/16 08:23 36.6 73 18 88/54 99 Nasal Cannula 3.0 10/25/16 07:28 Room Air 10/25/16 04:20 36.3 72 16 95/61 95 Nasal Cannula 4.0 10/25/16 00:15 Nasal Cannula 10/24/16 23:35 36.8 98 16 106/66 98 Nasal Cannula 4.0 10/24/16 19:15 36.6 90 16 105/71 99 Nasal Cannula 4.0 10/24/16 18:18 36.3 97 16 130/73 94 Nasal Cannula 4.0 10/24/16 17:13 36.3 89 16 124/84 100 Nasal Cannula 4.0 10/24/16 16:48 35.5 85 16 109/72 97 Nasal Cannula 4.0 10/24/16 16:15 Nasal Cannula 2.0 10/24/16 16:15 Nasal Cannula 2.0 10/24/16 15:54 36.9 10/24/16 15:50 90 16 96/74 100 10/24/16 15:50 90 10/24/16 15:45 87 10/24/16 15:45 88 16 111/79 100 10/24/16 15:40 87 14 94/74 100 10/24/16 15:40 88 10/24/16 15:40 Nasal Cannula 3 10/24/16 15:36 107/75 10/24/16 15:35 88 10/24/16 15:35 88 14 100 10/24/16 15:30 89 14 91/67 100 10/24/16 15:30 89 10/24/16 15:25 85 8 10/24/16 15:25 85 8 111/70 100 10/24/16 15:22 102/70 10/24/16 15:20 36.2 87 12 102/70 100 Mask 10 10/24/16 12:12 36.7 90 20 116/71 95 Room Air General Appearance: WD/WN, no apparent distress Head: normocephalic, atraumatic Eyes: normal inspection, sclerae normal ENT: hearing grossly normal Neck: supple, trachea midline Respiratory/Chest: chest non-tender, lungs clear, normal breath sounds, no respiratory distress, no accessory muscle use Cardiovascular: regular rate, rhythm, no murmur Abdomen/GI: normal bowel sounds, non tender, soft Back: + pertinent finding (dressing in place) Neurologic/Psych: alert, normal mood/affect Skin: normal color, warm/dry, no rash Laboratory Results ABDOMEN AND PELVIS CT WITH IV CONTRAST CT DOSE: 484.33 mGy.cm HISTORY: right sided abdominal tenderness, low back pain recent lumbar spine sx TECHNIQUE: Multiaxial CT images of the abdomen and pelvis were performed following the use of intravenous contrast. COMPARISON STUDY: None. FINDINGS: A 3 mm subpleural nodule along the right minor fissure on image 2. Bibasilar subsegmental atelectasis. No pneumoperitoneum. No pneumatosis. Posterior decompression from L2 through S1. There are pedicle screws and rods at L2-L3. The hardware from L3 through S1 has been removed. There is an 8.2 x 5.3 x 3.3 cm peripheral enhancing fluid collection at the laminectomy sites. This does not appear to result in significant mass effect on the central canal. This fluid collection also demonstrates peripheral calcification. There is a second smaller peripheral enhancing fluid collection within the subcutaneous fat at the incision site which measures 10.4 x 2.2 x 1.1 cm. The liver, gallbladder, adrenal glands, pancreas, and kidneys are unremarkable. There is a 3.4 cm hypodense lesion within the spleen. This likely represents a cyst. No retroperitoneal lymphadenopathy. Hysterectomy. Normal bladder. Colonic diverticulosis. No bowel wall thickening or obstruction. Moderate stool within the colon. Normal appendix measuring 5 mm in diameter. IMPRESSION: 1. There are 2 separate peripheral enhancing fluid collections seen at the laminectomy site of the lumbar spine and within the subcutaneous fat as described above. These favor postoperative seroma/hematomas. However, an abscess is not entirely excluded. 2. No bowel wall thickening or obstruction. 3. Normal appendix. 4. Colonic diverticulosis. 5. A 3 mm subpleural nodule along the right minor fissure. This is of doubtful clinical significance. RUN DATE: 10/25/16 [facility] LAB PAGE 1 RUN TIME: 918 Specimen Inquiry PATIENT: STALIN ARRIAGA LOC: [facility] U # : [id number] AGE/SX: 56/F ROOM: E322 REG : 10/24/[address]: Ismael JjD.OSid : 1960 BED: 1 DIS : STATUS: ADM Giovanni TLOC: SPEC #: [id number] MELISSA: 10/24/16 STATUS: RES REQ #: [id number] RECD: 10/24/[address]: Ismael Jj D.O. SOURCE: DRAIN-DEEP ENTR: 10/24/[address]: Ivan Sol [facility] LUMBAR Uday Barksdale D.O. ORDERED: AER/CHRISTINA CULTSMR Procedure Result Verified Site GRAM STAIN Final 10/25/16 RESULT MANY POLYS RARE GRAM POSITIVE COCCI OR AER/CHRISTINA CULT Results Pending Last 24 Hours Test 10/24/16 15:35 10/25/16 10:27 White Blood Count 4.08 K/uL Red Blood Count 4.14 M/uL Hemoglobin 12.2 g/dL Hematocrit 36.3 % Mean Corpuscular Volume 87.7 fL Mean Corpuscular Hemoglobin 29.5 pg Mean Corpuscular Hemoglobin Concent 33.6 g/dl Platelet Count 120 K/uL Mean Platelet Volume 11.6 fL Neutrophils (%) (Auto) 41.4 % Lymphocytes (%) (Auto) 44.4 % Monocytes (%) (Auto) 6.6 % Eosinophils (%) (Auto) 7.1 % Basophils (%) (Auto) 0.5 % Neutrophils # (Auto) 1.69 K/uL Lymphocytes # (Auto) 1.81 K/uL Monocytes # (Auto) 0.27 K/uL Eosinophils # (Auto) 0.29 K/uL Basophils # (Auto) 0.02 K/uL RDW Standard Deviation 38.9 fL RDW Coefficient of Variation 12.1 % Immature Granulocyte % (Auto) 0.0 % Immature Granulocyte # (Auto) 0.00 K/uL Assessment & Plan Patient with lumbar spine post-operative infection following surgery approximately 1 1/2 months ago. She was initially admitted for concern of pain related to post-op seroma/hematoma, but upon surgical intervention, cloudy, likely infected fluid was encountered. Surgical culture is pending. Gram stain showing GPC. Patient is currently on IV Ancef. Will change to IV Vancomycin pending culture results. Also ordered CMP to check liver and kidney function. Will check ESR, CRP, Blood cultures, and UA/C&S with abdominal pain as well. We will follow and adjust abx as able. Case reviewed and agree
--- NOTE | 2016-10-25 10:46 | Anesthesiology Progress Note ---
Anesthesia Post Op Note Date & Time Oct 25, 2016 at 10:46 Vital Signs Pain Intensity: 7.0 Vital Signs Past 12 Hours Date Time Temp Pulse Resp B/P Pulse Ox O2 Delivery O2 Flow Rate FiO2 10/25/16 08:25 116/75 10/25/16 08:23 36.6 73 18 88/54 99 Nasal Cannula 3.0 10/25/16 07:28 Room Air 10/25/16 04:20 36.3 72 16 95/61 95 Nasal Cannula 4.0 10/25/16 00:15 Nasal Cannula 10/24/16 23:35 36.8 98 16 106/66 98 Nasal Cannula 4.0 Notes Mental Status: alert / awake / arousable, participated in evaluation Pt Amnestic to Procedure: Yes Nausea / Vomiting: adequately controlled Pain: adequately controlled Airway Patency, RR, SpO2: stable & adequate BP & HR: stable & adequate Hydration State: stable & adequate Anesthetic Complications: no major complications apparent
[2016-10-25 10:57] LABS: URINE APPEARANCE CLEAR (CLEAR); URINE BILIRUBIN NEG (NEG); URINE COLOR YELLOW; URINE NITRITE NEG (NEG); UROBILINOGEN NEG (NEG)
[2016-10-25 11:00] LABS: MANUAL MICROSCOPIC REQUIRED? NO; REVIEW REQ? NO
[2016-10-25 11:49] LABS: ALT/SGPT 14 U/L (12-78); AST/SGOT 12 U/L (15-37); BLOOD UREA NITROGEN 12 mg/dl (7-18); BUN/CREATININE RATIO 14.2 (10-20); CALCIUM 8.7 mg/dl (8.5-10.1); CARBON DIOXIDE 30 mmol/L (21-32); CHLORIDE 104 mmol/L (98-107); CREATININE 0.81 mg/dl (0.60-1.20); GLUCOSE 100 mg/dl (70-99); SODIUM 141 mmol/L (136-145)
[2016-10-25 11:52] LABS: ALB/GLOB RATIO 1.6 (0.9-2); ALKALINE PHOSPHATASE 56 U/L (45-117); C-REACTIVE PROTEIN < 0.29 mg/dl (0-0.29)
[2016-10-25] MEDS ORDERED: METOCLOPRAMIDE HCL INJ 5 MG/ML 2 ML VIAL ONE (11:56)
[2016-10-25] MEDS ORDERED: CEFAZOLIN SOD 1 GM VIAL ONE (11:56)
[2016-10-25] MEDS ORDERED: RANITIDINE HCL 25 MG/ML INJ ONE (11:56)
[2016-10-25] MEDS ORDERED: HYDROmorphone INJ 1 MG/ML SYR IV PRN (12:00)
[2016-10-25] MEDS ORDERED: NURSING VERBAL MED ORDER ONE (12:00)
[2016-10-25 12:10] VITALS: BP 107/71; PULSE 83; TEMP 36.7
--- NOTE | 2016-10-25 12:13 | Pharmacy Progress Note ---
Pharmacy Antibiotic Consult Date of Service: Oct 25, 2016. Pharmacy Dosing Scope Pharmacy is consulted to initiate Vancomycin IV dosing therapy, order appropriate labs and adjust drug dose/frequency. Subjective The patient is a 56 year old female admitted on Oct 24, 2016 at 15:06. Objective Height (Feet): 5 Height (Inches): 2 Weight (Kilograms): 79.800 Lab Results (24hrs): Laboratory Tests Test 10/24/16 15:35 10/25/16 11:00 White Blood Count 4.08 K/uL Red Blood Count 4.14 M/uL Hemoglobin 12.2 g/dL Hematocrit 36.3 % Mean Corpuscular Volume 87.7 fL Mean Corpuscular Hemoglobin 29.5 pg Mean Corpuscular Hemoglobin Concent 33.6 g/dl Platelet Count 120 K/uL Mean Platelet Volume 11.6 fL Neutrophils (%) (Auto) 41.4 % Lymphocytes (%) (Auto) 44.4 % Monocytes (%) (Auto) 6.6 % Eosinophils (%) (Auto) 7.1 % Basophils (%) (Auto) 0.5 % Neutrophils # (Auto) 1.69 K/uL Lymphocytes # (Auto) 1.81 K/uL Monocytes # (Auto) 0.27 K/uL Eosinophils # (Auto) 0.29 K/uL Basophils # (Auto) 0.02 K/uL BUN/Creatinine Ratio 14.2 Blood Urea Nitrogen 12 mg/dl Creatinine 0.81 mg/dl Micro Results: Item Value Date Time Blood Culture Received 10/25/16 1109 Blood Pending Blood Culture Received 10/25/16 1100 Blood Pending Urine Culture Received 10/25/16 0000 Urine , Clean Catch Pending Gram Stain - Final Resulted 10/24/16 1444 Drainage-Deep Lumbar GRAM STAIN Final 10/25/16-0918 RESULT MANY POLYS RARE GRAM POSITIVE COCCI Recent Pertinent Medications Item Value Date Time Cefazolin Sodium 55 ml @ 110 mls/hr 10/24/16 2230 1000 mg/Dextrose Q8@0600,1400,2200/IV 10/25/16 0546 Assessment & Plan 56 yo F s/p lumbar spine surgery 1.5 months ago, presents this admission with pain/concern of post-op infection. Pt currently ordered ancef X 3 doses. ID consulted and now Vancomycin IV added. Blood/urine/lumbar cultures pending. Preliminary gram + cocci on gram stain. Vancomycin * Loading dose: 2000 mg (~25 mg/kg) IV X 1 dose * Continue 1250 mg (~15 mg/kg) IV every 12 hours. * Goal trough level estimate: between 15 - 20 mcg/mL. * A trough level has been ordered for: @1130 prior to the 1200 dose. Pharmacy will continue to follow and will adjust dose/frequency as necessary. Thank you
[2016-10-25] MEDS ORDERED: VANCOMYCIN INJ 2,000 MG in SODIUM CHLORIDE 0.9% 500ML 500 ML IV ONE (12:15)
[2016-10-25] MEDS ORDERED: VANCOMYCIN CONSULT ACTIVE PRN (12:30)
[2016-10-25] MEDS ORDERED: HYDROmorphone INJ 2 MG/ML SYR/VIAL IV PRN (12:45)
[2016-10-25 16:23] VITALS: BP 95/59; PULSE 80; TEMP 36.7; O2SAT 93
[2016-10-25] MEDS: OXYCODONE HCL IR 5 MG TAB (IMMEDIATE RELEASE) PO PRN ×2 (16:28→21:38)
[2016-10-25] MEDS: ACETAMINOPHEN 325 MG TAB PO PRN ×2 (16:30→22:59)
--- NOTE | 2016-10-25 17:39 | PROGRESS NOTE ---
DATE: 10/25/2016 SUBJECTIVE: Postop day #1. Back pain is markedly improved. Vital signs stable. T-max 36.7. LEBRON drained 65 mL today. The patient is demonstrating coag negative staph from her cultures. ASSESSMENT: Status post incision and drainage of evidence of epidural abscess. PLAN: At this time, she is being managed regarding her antibiotics from infectious disease. We may have to place a PICC line. We will wait for final recommendations. Hopefully, transition her to home by the end of the week.
[2016-10-25] MEDS: LORAZEPAM 1 MG TAB PO PRN (18:49)
[2016-10-25] MEDS ORDERED: ZOLPIDEM TARTRATE 5 MG TAB PO SCH (21:00)
[2016-10-25] MEDS: PANTOprazole SOD 40 MG TAB PO SCH (21:33)
[2016-10-25] MEDS: ATORVASTATIN 20 MG TAB PO SCH (21:33)
[2016-10-25] MEDS: SERTRALINE HCL 100 MG TAB PO SCH (21:34)
[2016-10-25] MEDS: ROPINIROLE HCL 1 MG TAB PO SCH (21:34)
[2016-10-26] MEDS ORDERED: VANCOMYCIN INJ 1,250 MG in SODIUM CHLORIDE 0.9% 250ML 250 ML IV SCH ×2
[2016-10-26 00:01] VITALS: BP 111/69; PULSE 74; TEMP 36.5; O2SAT 95
[2016-10-26] MEDS: CHECK SCOPOLAMINE PATCH PLACEMENT SCH ×3 (00:16→16:00)
[2016-10-26] MEDS: LORAZEPAM 1 MG TAB PO PRN ×3 (01:19→16:42)
[2016-10-26 07:30] VITALS: O2SAT 96
[2016-10-26 07:54] VITALS: BP 117/81; PULSE 67; TEMP 36.5; O2SAT 96
[2016-10-26] MEDS: MISOPROSTOL 100 MCG TAB PO SCH (08:59)
[2016-10-26] MEDS: DOCUSATE SODIUM 100 MG CAP PO SCH ×2 (08:59→20:44)
[2016-10-26] MEDS: PANTOprazole SOD 40 MG TAB PO SCH ×2 (08:59→20:44)
[2016-10-26 09:02] LABS: CREATININE 0.67 mg/dl (0.60-1.20)
[2016-10-26] MEDS: OXYCODONE HCL IR 5 MG TAB (IMMEDIATE RELEASE) PO PRN ×3 (09:02→20:47)
[2016-10-26] MEDS ORDERED: NURSING VERBAL MED ORDER ONE (09:45)
--- NOTE | 2016-10-26 11:18 | Infectious Disease Progress Nt ---
Progress Note Date of Service Oct 26, 2016. Subjective Pt evaluation today including: conversation w/ patient, physical exam, chart review, lab review, review of studies, review of inpatient medication list ESR was 2. CRP was <0.29. Patient is feeling slightly improved today but has been having migraines following IV Vancomycin infusion. She also continues to have lumbar back pain but has not had any continued radicular pain or abdominal pain. Her deep wound culture is growing Coag-negative staph with no sensitivities to follow and blood/urine cultures are pending. I reviewed Dr. Jj's note as well- feel patient likely will be discharged later this week. All Other Systems: Reviewed and Negative Medications Current Inpatient Medications Medications (Trade) Dose Ordered Sig/Fely Route Start Time Stop Time Status Last Admin Dose Admin Miscellaneous Information (Check Scopolamine Patch Placement) 1 ea QS N/A 10/24/16 16:00 10/27/16 15:59 10/26/16 07:23 1 EA Miscellaneous (Remove Transderm-Scop Patch) 1 ea Q72H ONCE N/A 10/27/16 14:45 10/27/16 14:46 Docusate Sodium 100 mg 100 mg BID PO 10/24/16 21:00 11/23/16 20:59 10/26/16 08:59 100 MG Promethazine HCl/ Sodium Chloride (Phenergan Inj/ Nss 50ml) 50.5 ml @ 202 mls/hr Q6H PRN IV 10/24/16 15:15 11/23/16 15:14 Ondansetron HCl (Zofran Inj) 4 mg Q6H PRN IV 10/24/16 15:15 11/23/16 15:14 Lorazepam 1 mg 1 mg Q6H PRN PO 10/24/16 15:15 11/23/16 15:14 10/26/16 09:26 1 MG Lorazepam 1 mg/ Syringe 0.5 ml @ 1 mls/min Q6H PRN IV 10/24/16 15:15 11/23/16 15:14 Vancomycin HCl/ Sodium Chloride (Vancomycin Inj/ Nss 250ml) 275 ml @ 125 mls/hr Q12H IV 10/26/16 00:00 12/07/16 00:00 10/26/16 00:27 125 MLS/HR Atorvastatin Calcium (Lipitor Tab) 20 mg HS PO 10/25/16 21:00 11/24/16 20:59 10/25/16 21:33 20 MG Misoprostol (Cytotec Tab) 100 mcg QAM PO 10/26/16 09:00 11/25/16 08:59 10/26/16 08:59 100 MCG Ropinirole HCl (Requip Tab) 4 mg HS PO 10/25/16 21:00 11/24/16 20:59 10/25/16 21:34 4 MG Sertraline HCl (Zoloft Tab) 200 mg HS PO 10/25/16 21:00 11/24/16 20:59 10/25/16 21:34 200 MG Pantoprazole Sodium (Protonix Tab) 40 mg BID PO 10/25/16 21:00 11/24/16 20:59 10/26/16 08:59 40 MG Acetaminophen (Tylenol Tab) 650 mg Q6H PRN PO 10/25/16 12:00 11/24/16 11:59 10/25/16 22:59 650 MG Hydromorphone HCl (Dilaudid Inj) 1 mg Q3H PRN IV 10/25/16 12:00 11/08/16 11:59 Vancomycin HCl (Consult) 1 ea UD PRN N/A 10/25/16 12:30 11/24/16 12:29 Hydromorphone HCl (Dilaudid Inj) 2 mg Q3H PRN IV 10/25/16 12:45 11/08/16 12:44 Oxycodone HCl (Roxicodone Immediate Rel Tab) `1-2 tabs for pain 1 tab ... Q4H PRN PO 10/26/16 09:45 11/09/16 09:44 Zolpidem Tartrate (Ambien Tab) 10 mg HS PO 10/26/16 21:00 11/25/16 20:59 Objective Vital Signs Date Time Temp Pulse Resp B/P Pulse Ox O2 Delivery O2 Flow Rate FiO2 10/26/16 07:54 36.5 67 16 117/81 96 Room Air 10/26/16 07:30 96 Room Air 10/26/16 00:23 Room Air 10/26/16 00:01 36.5 74 16 111/69 95 Room Air 10/25/16 16:45 Room Air 10/25/16 16:23 36.7 80 18 95/59 93 Room Air 10/25/16 12:10 36.7 83 18 107/71 Physical Exam General Appearance: WD/WN, no apparent distress Eyes: normal inspection, sclerae normal ENT: hearing grossly normal Neck: supple, trachea midline Respiratory/Chest: no respiratory distress, no accessory muscle use Cardiovascular: regular rate, rhythm Extremities: normal range of motion Neurologic/Psychiatric: alert, normal mood/affect Skin: normal color, warm/dry, no rash Laboratory Results RUN DATE: 10/26/16 [facility] LAB PAGE 1 RUN TIME: 945 Specimen Inquiry PATIENT: STALIN ARRIAGA LOC: [facility] U # : [id number] AGE/SX: 56/F ROOM: 22 REG : 10/24/[address]: Ismael Jj D.O. : 1960 BED: 1 DIS : STATUS: ADM Giovanni TLOC: SPEC #: [id number] MELISSA: 10/24/16 STATUS: RES REQ #: [id number] RECD: 10/24/[address] [facility] [address]: Ismael Jj D.O. SOURCE: DRAIN-DEEP ENTR: 10/24/[address] [facility] [address]: Ivan Sol MD SPDESC: LUMBAR Uday Barksdale D.O. ORDERED: AER/CHRISTINA CULTSMR Procedure Result Verified Site GRAM STAIN Final 10/25/16 RESULT MANY POLYS RARE GRAM POSITIVE COCCI OR AER/CHRISTINA CULT Preliminary 10/26/16 Organism 1 COAG NEG STAPHYLOCOCCUS QUANITY FEW SENS NO SENSITIVITY TO FOLLOW Item Value Date Time Blood Culture Received 10/25/16 1109 Blood Pending Urine Culture Received 10/25/16 0000 Urine , Clean Catch Pending Blood Culture Received 10/25/16 1100 Blood Pending Gram Stain - Final Resulted 10/24/161443 Drainage-Deep Lumbar Last 24 Hours Test 3/29/17 06:50 Creatinine 0.67 mg/dl Est Creatinine Clear Calc Drug Dose 90.7 ml/min Estimated GFR () 113.1 Estimated GFR (Non- 97.6 Assessment and Plan Patient with lumbar spine post-operative infection following surgery approximately 1 1/2 months ago. Surgical culture growing coag-negative staph with no sensitivities pending. She is currently on IV Vancomycin, but is having severe headaches with infusion. Will transition to IV Daptomycin. Patient likely can have PICC line placed tomorrow. Despite the patient's normal inflammatory markers, still seems likely that coag-negative staph may be pathogen for infection of lumbar spine. Without sensitivities, recommend that this patient continue on IV Daptomycin and likely for 6 weeks. She is chronically immunosuppressed due to RA medication- will need to discuss possibly holding this medication until infection is cleared. Also, will check baseline CK level. We will follow. Case reviewed and agree
[2016-10-26] MEDS ORDERED: RXC5 PO (11:50)
--- NOTE | 2016-10-26 11:51 | Discharge Instructions ---
Discharge Instructions Date of Service Oct 26, 2016. Admission Reason for Admission: Lumbar Surgical Wound Fluid Collection Discharge Discharge Diagnosis / Problem: lumbar infection Discharge Goals Goal(s): Improve function Activity Recommendations Activity Limitations: per Instructions/Follow-up section . Instructions / Follow-Up Instructions / Follow-Up ACTIVITY RECOMMENDATIONS: SELF CARE INSTRUCTIONS AFTER THORACIC/LUMBAR FUSIONS 1. You may walk to your tolerance. It is good exercise for your legs and back. Expect some back and intermittent leg aches and pains. 2. You may perform "counter-top" level activities (make a sandwich, deric with a project, etc.). 3. No bending or lifting of more than 10 pounds or back twisting of any nature (roll like a log when turning in bed). 4. You may ride in a car for 20-30 minutes at a time. No driving until after your first visit with your doctor. 5. Frequent changes of position and restricting sitting to 30 minutes at a time will help limit the amount of back spasms and stiffness you may experience. 6. You may discontinue the use of ambulatory aids (cane, crutches, etc.) once your strength and confidence allow. 7. You may inspector packager the shower and let water strike your incision when you arrive home at least once daily. Do not take a tub bath, sit in a hot tub or go into a swimming pool until after your first recheck in the office. SPECIAL CARE INSTRUCTIONS: VERY IMPORTANT TO READ AND REVIEW A. Your surgical incision has been closed with a cosmetic suture under the skin that will dissolve in about 6 weeks. In 14 days, you can use a pair of clean scissors and cut the suture that is left outside of the skin at the ends of your incision. 1. The small skin tapes can be removed 7 days after surgery if they have not fallen off by that point. 2. You may keep the wound open to air as much as possible to promote healing after post-op day number 5 unless told otherwise by your doctor. 3. If you think the wound looks like it is becoming infected (redness or worsening drainage) and/or you are experiencing fever, chill or worsening back pain and muscle spasms, contact the office so that we may evaluate you as soon as possible. B. Complications are uncommon, but please contact us if you have any signs or symptoms of: 1. wound infection (fever higher than 102.5 degrees F, redness, separation of wound, drainage, or increasing pain from the incision) 2. blood clots in legs (pain, swelling, redness and warmth in legs) 3. urinary tract infection (fever higher than 102.5 degrees F, burning upon urination or increased frequency of urination) 4. nerve problems (inability to walk on your toes or heels, numbness, loss of bowel or bladder control) 5. any other symptoms that concern you C. Please call the office at if you have any concerns or questions about your operation or recovery. D. No smoking! Smoking drastically decreases the chance of a solid fusion. E. Do not take any anti-inflammatory medications (Indocin, Advil, Motrin, Aspirin, Naprosyn, etc.) as these may inhibit the chance of a solid fusion. Tylenol is okay to take for pain. MANAGING PAIN AFTER SPINAL SURGERY 1. Narcotic medication is intended for short-term use and will be provided for surgical pain. Surgical pain usually lasts for a period of 4-6 weeks. Narcotic medication includes Percocet, Vicodin, Darvocet, Tylenol #3 or Lortab. 2. Longer-term pain is more appropriately treated with non-narcotic medication such as Tylenol ES. 3. Muscle spasm is not appropriately treated with narcotics. Muscle relaxers such as Soma, Flexeril or Skelaxin can be used along with Tylenol ES. 4. Remember that we all live with some "aches and pains". This is not unusual or uncommon after an injury or as we get older. a. Back pain is expected and may include muscle spasms for 4 to 6 weeks after surgery. The pain should gradually improve. If the pain worsens for no apparent reason, please contact the office. b. Intermittent leg pain may also be experienced and should not be concerned about unless it worsens for no apparent reason. If so, please contact the office. 5. We will provide appropriate medication within the normal guidelines of their prescribed use. We will also be very cautious and aware of potential abuse and extended duration of patients' medication needs. a. Pain medications are for your comfort and to assist with sleep and rest so that the tissue can heal. They are not provided in order to return to normal activity and should not be used through the day. To do so or worsening pain at night can result from ongoing tissue damage and development of tolerance to the prescribed medicine. 6. Please allow 2-3 days to process refills. Prescriptions will not be mailed but must be picked up at the office. FOLLOW UP VISIT: Keep your scheduled follow-up appointment. Any questions, please call the office at . Current Hospital Diet Patient's current hospital diet: Regular Diet Discharge Diet Recommended Diet: Regular Diet Procedures Procedures Performed: Incision, Drainage, and Irrigation Lumbar Spine with Evacuation of Seroma Pending Studies Studies pending at discharge: no Medical Emergencies . Who to Call and When: Medical Emergencies: If at any time you feel your situation is an emergency, please call 911 immediately. . Non-Emergent Contact Non-Emergency issues call your: Primary Care Provider . "Provider Documentation" section prepared by Ismael Jj. VTE Core Measure Inpt VTE Proph given/why not?: Joycelyn Crump, SCD's
--- NOTE | 2016-10-26 12:01 | PROGRESS NOTE ---
DATE: 10/26/2016 SUBJECTIVE: Postop day #2. Back pain is markedly improved. Vital signs stable. T-max 36.5. LEBRON drained 30 mL. Cultures do demonstrate coag negative staph, no sensitivities to follow. Infectious disease is recommending daptomycin and a PICC line. Hopefully, have this placed in next day or so and discharge tomorrow.
[2016-10-26] MEDS: SODIUM CHLORIDE 0.9% IV SCH (14:51)
[2016-10-26] MEDS: DAPTOMYCIN IV SCH (14:51)
[2016-10-26 16:31] VITALS: BP 117/76; PULSE 86; TEMP 36.7; O2SAT 99
[2016-10-26] MEDS: ACETAMINOPHEN 325 MG TAB PO PRN (16:52)
[2016-10-26] MEDS: ATORVASTATIN 20 MG TAB PO SCH (20:44)
[2016-10-26] MEDS: ROPINIROLE HCL 1 MG TAB PO SCH (20:45)
[2016-10-26] MEDS: SERTRALINE HCL 100 MG TAB PO SCH (20:46)
[2016-10-26] MEDS ORDERED: ZOLPIDEM TARTRATE 10 MG TAB PO SCH (21:00)
[2016-10-27 00:18] VITALS: BP 118/75; PULSE 81; TEMP 36.6; O2SAT 93
[2016-10-27 05:37] LABS: CREATININE 0.67 mg/dl (0.60-1.20)
[2016-10-27 07:35] VITALS: BP 110/69; PULSE 92; TEMP 36.8; O2SAT 96
[2016-10-27 07:45] VITALS: O2SAT 96
[2016-10-27] MEDS: OXYCODONE HCL IR 5 MG TAB (IMMEDIATE RELEASE) PO PRN ×2 (07:57→12:53)
[2016-10-27] MEDS: CHECK SCOPOLAMINE PATCH PLACEMENT SCH ×2 (07:57)
[2016-10-27] MEDS: MISOPROSTOL 100 MCG TAB PO SCH (09:26)
[2016-10-27] MEDS: DOCUSATE SODIUM 100 MG CAP PO SCH (09:26)
[2016-10-27] MEDS: PANTOprazole SOD 40 MG TAB PO SCH (09:26)
--- NOTE | 2016-10-27 09:56 | DISCHARGE SUMMARY ---
PRINCIPAL DIAGNOSIS: Lumbar epidural abscess. HOSPITAL COURSE FOLLOWS: On 10/24/2016 patient underwent I\T\D lumbar spine. Cultures taken and drain inserted. She tolerated this well. Cultures did grow out coag negative staph x2 and she was begun on IV vancomycin, switched to daptomycin. Her pain was markedly improved. She is ambulating well. PICC line placed, subsequently discharged home today with IV home antibiotics. She will be discharged with the drain and home health to manage.
[2016-10-27] MEDS ORDERED: VANCOMYCIN TROUGH SCH (11:30)
[2016-10-27 11:39] VITALS: BP 110/69; PULSE 92; TEMP 36.8; O2SAT 96
[2016-10-27] MEDS: DAPTOMYCIN IV SCH (12:02)
[2016-10-27] MEDS: SODIUM CHLORIDE 0.9% IV SCH (12:02)
[2017-02-08] MEDS ORDERED: LACT10CA3 PO (12:00)
[2017-02-08] MEDS ORDERED: MELA1CAP9 PO (12:00)
[2017-02-08] MEDS ORDERED: LANS30CA12 PO (12:00)
[2017-02-08] MEDS ORDERED: DOCU100T7 PO (12:00)
[2017-02-08] MEDS ORDERED: IBUP1CAP9 PO (12:00)
[2017-02-08] MEDS ORDERED: MELATAB2 PO (12:00)
[2017-02-08] MEDS ORDERED: MELO15TA4 PO (12:00)
[2017-02-08] MEDS ORDERED: [UNRECOGNIZED DRUG - CODE] IV (12:00)
[2017-02-08] MEDS ORDERED: MISO1TAB10 PO (12:00)
[2017-02-08] MEDS ORDERED: ROPI1TAB29 PO (12:00)
[2017-02-08] MEDS ORDERED: PRED-301 PO (12:00)
[2017-02-08] MEDS ORDERED: CHOL1TAB46 PO (12:00)
[2017-02-13] MEDS ORDERED: SENNTAB23 PO (11:48)
[2017-02-13] MEDS ORDERED: SODICRE2 PO (11:48)
[2017-02-13] MEDS ORDERED: ACTEMRA IV (11:48)
[2017-02-13] MEDS ORDERED: CLOTCRE TOP (11:48)
[2017-02-13] MEDS ORDERED: SULF800T23 PO (11:48)
[2017-02-13] MEDS ORDERED: SERT-234 PO (11:50)
== END 2016-10-27 13:50 | disposition home health service (06) ==
LOC: ENRESERVDT → ENRESERVTM → C.ACU 11:31 → C.3E 15:06
PROVIDERS: ADMIT Orthopaedic Surgery Orthopaedic Surgery of the Spine; ATTEND Orthopaedic Surgery Orthopaedic Surgery of the Spine
DX: G06.1 Intraspinal abscess and granuloma (principal); M48.02 Spinal stenosis, cervical region; M06.9 Rheumatoid arthritis, unspecified

== ENCOUNTER → 2016-11-01 | Outpatient (CLI) | payer BC ==
[~2016-11-01] MED LIST changes: +ACTEMRA IV; +AMT50 PO; -CEFAZOLIN 2000 MG/60 ML D5W IV SCH; +CHOL1TAB46 PO; +DIPH1TAB87 PO; +DOCU100T7 PO; +FURO-85 PO; +HYDR25TA4 PO; +IBUP1CAP9 PO; +LACT10CA3 PO; -LACTATED RINGER'S 1000ML 1,000 ML IV SCH; +MELA1CAP9 PO; +MELATAB2 PO; +MELO15TA4 PO; +METH1TAB81 PO; +MISO1TAB10 PO; +OXYC-57 PO; +POTASSIUM PO; +PRED-301 PO; +PROM25TA9 PO; +ROPI1TAB29 PO; +RXC5 PO; +SENNTAB23 PO; +SULF800T23 PO; -TOCI80IN INJ; +[UNRECOGNIZED DRUG - CODE] IV
--- NOTE | 2016-11-01 17:28 | DIAGNOSTIC IMAGING REPORT ---
BILATERAL LOWER EXTREMITY VENOUS DOPPLER HISTORY: Pain. Edema. B/L LEG Pain, r/o DVT COMPARISON STUDY: None. FINDINGS: There is normal compressibility, flow, and augmentation within the bilateral lower extremity deep venous systems. IMPRESSION: No DVT within the right or left lower extremity. Electronically signed by: Flaco Hagan M.D. 11/01/2016 5:27 PM Dictated Date/Time: 11/01/2016 5:26 PM
== END | disposition home or self-care (01) ==
LOC: C.ULTR 16:52
PROVIDERS: ATTEND Physician Assistant Medical
DX: M79.604 Pain in right leg (principal)

== ENCOUNTER → 2016-11-01 | Outpatient (CLI) | payer BC ==
[2016-11-01 16:42] LABS: BASO % 0.6 %; BASO ABS # 0.02 K/uL (0-0.2); COMPLETE YES; EOS % 4.3 %; HEMATOCRIT 33.3 % (37-47); IG% 0.3 %; LYMPH % 40.4 %; LYMPH ABS # 1.32 K/uL (1.2-3.4); MEAN CELL VOLUME 87.2 fL (80-100); MEAN CORPUSCULAR HEMOGLOBIN 29.6 pg (25-34); MEAN CORPUSCULAR HGB CONC 33.9 g/dl (32-36); MEAN PLATELET VOLUME 11.7 fL (7.4-10.4); MONO % 9.2 %; NEUT % 45.2 %; PLATELET COUNT 132 K/uL (130-400); RED BLOOD COUNT 3.82 M/uL (4.2-5.4); WHITE BLOOD COUNT 3.27 K/uL (4.8-10.8)
[2016-11-01 16:53] LABS: ALKALINE PHOSPHATASE 61 U/L (45-117); ALT/SGPT 21 U/L (12-78); AST/SGOT 17 U/L (15-37); BLOOD UREA NITROGEN 10 mg/dl (7-18); BUN/CREATININE RATIO 12.4 (10-20); C-REACTIVE PROTEIN < 0.29 mg/dl (0-0.29); CALCIUM 8.5 mg/dl (8.5-10.1); CARBON DIOXIDE 30 mmol/L (21-32); CHLORIDE 105 mmol/L (98-107); CREATININE 0.79 mg/dl (0.60-1.20); GLUCOSE 99 mg/dl (70-99); POTASSIUM 3.8 mmol/L (3.5-5.1); SODIUM 141 mmol/L (136-145)
[2016-11-01 16:54] LABS: ALB/GLOB RATIO 1.9 (0.9-2)
--- NOTE | 2016-11-30 06:08 | CODING QUERY NO DIAGNOSIS ---
Valid Physician Order Needed A valid physician order must be submitted in order to properly bill for the service(s) provided, including date of service(s), valid diagnosis, and physician signature. If these tests are done on a recurring basis the original physician order must be submitted in order to code and bill for the service(s) provided. Please fax us the original, signed physician order so that we may expedite billing to [phone] DOS 11/01 * CBC, CMP, CRP Thank you Alfreda Giraldo [facility] Information [facility]
== END | disposition home or self-care (01) ==
LOC: C.LABSPEC 13:30
PROVIDERS: ATTEND Orthopaedic Surgery Orthopaedic Surgery of the Spine
DX: T81.4XXA Infection following a procedure, initial encounter (principal); M46.36 Infection of intervertebral disc (pyogenic), lumbar region; M06.9 Rheumatoid arthritis, unspecified; Y83.9 Surgical procedure, unspecified as the cause of abnormal reaction of the patient, or of later complication, without mention of misadventure at the time of the procedure

== ENCOUNTER → 2016-11-02 | Outpatient (CLI) | payer BC | END | disposition home or self-care (01) | LOC: C.LABSPEC 17:49 | PROVIDERS: ATTEND Nurse Practitioner Adult Health | DX: N39.46 Mixed incontinence (principal) ==

== ENCOUNTER → 2016-11-15 | Outpatient (CLI) | payer BC ==
[2016-11-15 11:10] LABS: BASO % 0.7 %; BASO ABS # 0.03 K/uL (0-0.2); COMPLETE YES; EOS % 4.4 %; HEMATOCRIT 35.7 % (37-47); IG% 0.2 %; LYMPH % 40.2 %; LYMPH ABS # 1.65 K/uL (1.2-3.4); MEAN CELL VOLUME 87.9 fL (80-100); MEAN CORPUSCULAR HEMOGLOBIN 28.8 pg (25-34); MEAN CORPUSCULAR HGB CONC 32.8 g/dl (32-36); MEAN PLATELET VOLUME 11.7 fL (7.4-10.4); MONO % 8.3 %; NEUT % 46.2 %; PLATELET COUNT 141 K/uL (130-400); RED BLOOD COUNT 4.06 M/uL (4.2-5.4)
[2016-11-15 11:26] LABS: ALT/SGPT 23 U/L (12-78); AST/SGOT 14 U/L (15-37); BLOOD UREA NITROGEN 11 mg/dl (7-18); BUN/CREATININE RATIO 11.7 (10-20); CALCIUM 8.7 mg/dl (8.5-10.1); CARBON DIOXIDE 29 mmol/L (21-32); CHLORIDE 106 mmol/L (98-107); CREATININE 0.91 mg/dl (0.60-1.20); GLUCOSE 95 mg/dl (70-99); POTASSIUM 3.5 mmol/L (3.5-5.1); SODIUM 143 mmol/L (136-145)
[2016-11-15 11:28] LABS: ALB/GLOB RATIO 1.7 (0.9-2); ALKALINE PHOSPHATASE 53 U/L (45-117); C-REACTIVE PROTEIN < 0.29 mg/dl (0-0.29)
--- NOTE | 2016-11-16 11:14 | CODING QUERY NO DIAGNOSIS ---
Valid Physician Order Needed A valid physician order must be submitted in order to properly bill for the service(s) provided, including date of service(s), valid diagnosis, and physician signature. If these tests are done on a recurring basis the original physician order must be submitted in order to code and bill for the service(s) provided. Please fax us the original, signed physician order so that we may expedite billing to [phone] DOS 11/15 * CMP, CPK, CRP, CBC, ESR Thank you Alfreda Giraldo [facility]
== END | disposition home or self-care (01) ==
LOC: C.LABSPEC 10:41
PROVIDERS: ATTEND Orthopaedic Surgery Orthopaedic Surgery of the Spine
DX: T81.4XXA Infection following a procedure, initial encounter (principal); M46.36 Infection of intervertebral disc (pyogenic), lumbar region; M06.9 Rheumatoid arthritis, unspecified; Y83.9 Surgical procedure, unspecified as the cause of abnormal reaction of the patient, or of later complication, without mention of misadventure at the time of the procedure

== ENCOUNTER → 2016-11-18 | Outpatient (CLI) | payer BC | END | disposition home or self-care (01) | LOC: C.LAB1850 13:57 | PROVIDERS: ATTEND Nurse Practitioner Family | DX: N39.0 Urinary tract infection, site not specified (principal) ==

== ENCOUNTER → 2016-11-22 | Outpatient (CLI) | payer BC ==
[2016-11-22 10:41] LABS: BASO % 0.9 %; BASO ABS # 0.05 K/uL (0-0.2); COMPLETE YES; EOS % 12.3 %; HEMATOCRIT 35.7 % (37-47); LYMPH % 37.7 %; LYMPH ABS # 2.18 K/uL (1.2-3.4); MEAN CELL VOLUME 88.4 fL (80-100); MEAN CORPUSCULAR HEMOGLOBIN 29.5 pg (25-34); MEAN CORPUSCULAR HGB CONC 33.3 g/dl (32-36); MEAN PLATELET VOLUME 11.4 fL (7.4-10.4); MONO % 8.3 %; NEUT % 40.8 %; PLATELET COUNT 160 K/uL (130-400); RED BLOOD COUNT 4.04 M/uL (4.2-5.4); WHITE BLOOD COUNT 5.79 K/uL (4.8-10.8)
[2016-11-22 10:51] LABS: ALT/SGPT 19 U/L (12-78); BLOOD UREA NITROGEN 11 mg/dl (7-18); BUN/CREATININE RATIO 12.3 (10-20); CALCIUM 8.6 mg/dl (8.5-10.1); CARBON DIOXIDE 29 mmol/L (21-32); CHLORIDE 105 mmol/L (98-107); CREATININE 0.92 mg/dl (0.60-1.20); GLUCOSE 126 mg/dl (70-99); POTASSIUM 3.6 mmol/L (3.5-5.1); SODIUM 140 mmol/L (136-145)
[2016-11-22 10:56] LABS: ALB/GLOB RATIO 1.9 (0.9-2); ALKALINE PHOSPHATASE 51 U/L (45-117); AST/SGOT 11 U/L (15-37); C-REACTIVE PROTEIN < 0.29 mg/dl (0-0.29)
== END | disposition home or self-care (01) ==
LOC: C.LABSPEC 10:31
PROVIDERS: ATTEND Orthopaedic Surgery Orthopaedic Surgery of the Spine
DX: M46.36 Infection of intervertebral disc (pyogenic), lumbar region (principal)

== ENCOUNTER → 2016-11-29 | Outpatient (CLI) | payer BC ==
[2016-11-29 11:24] LABS: BASO % 0.7 %; BASO ABS # 0.05 K/uL (0-0.2); COMPLETE YES; EOS % 3.7 %; HEMATOCRIT 36.9 % (37-47); IG% 0.1 %; LYMPH % 29.4 %; LYMPH ABS # 2.05 K/uL (1.2-3.4); MEAN CELL VOLUME 89.6 fL (80-100); MEAN CORPUSCULAR HEMOGLOBIN 29.4 pg (25-34); MEAN CORPUSCULAR HGB CONC 32.8 g/dl (32-36); MEAN PLATELET VOLUME 11.6 fL (7.4-10.4); MONO % 8.7 %; NEUT % 57.4 %; PLATELET COUNT 149 K/uL (130-400); RED BLOOD COUNT 4.12 M/uL (4.2-5.4); WHITE BLOOD COUNT 6.98 K/uL (4.8-10.8)
[2016-11-29 11:54] LABS: ALB/GLOB RATIO 1.3 (0.9-2); ALKALINE PHOSPHATASE 59 U/L (45-117); ALT/SGPT 15 U/L (12-78); AST/SGOT 8 U/L (15-37); BLOOD UREA NITROGEN 12 mg/dl (7-18); BUN/CREATININE RATIO 15.6 (10-20); CALCIUM 8.8 mg/dl (8.5-10.1); CARBON DIOXIDE 31 mmol/L (21-32); CHLORIDE 107 mmol/L (98-107); CREATININE 0.77 mg/dl (0.60-1.20); GLUCOSE 92 mg/dl (70-99); POTASSIUM 3.5 mmol/L (3.5-5.1); SODIUM 144 mmol/L (136-145)
[2016-11-29 11:55] LABS: C-REACTIVE PROTEIN 0.37 mg/dl (0-0.29)
--- NOTE | 2016-12-01 07:52 | CODING QUERY NO DIAGNOSIS ---
Valid Physician Order Needed A valid physician order must be submitted in order to properly bill for the service(s) provided, including date of service(s), valid diagnosis, and physician signature. If these tests are done on a recurring basis the original physician order must be submitted in order to code and bill for the service(s) provided. Please fax us the original, signed physician order so that we may expedite billing to [phone] DOS 11/29/16 * CMP, CPK, CBC, CRP, ESR Thank you Alfreda Giraldo [facility] Information [facility]
== END | disposition home or self-care (01) ==
LOC: C.LABSPEC 11:07
PROVIDERS: ATTEND Orthopaedic Surgery Orthopaedic Surgery of the Spine
DX: T81.4XXA Infection following a procedure, initial encounter (principal); M46.36 Infection of intervertebral disc (pyogenic), lumbar region; M06.9 Rheumatoid arthritis, unspecified; Y83.9 Surgical procedure, unspecified as the cause of abnormal reaction of the patient, or of later complication, without mention of misadventure at the time of the procedure

== ENCOUNTER → 2017-01-11 | Outpatient (CLI) | payer BC ==
--- NOTE | 2017-01-11 16:39 | MAMMOGRAPHY REPORT ---
BILATERAL DIGITAL SCREENING MAMMOGRAM TOMOSYNTHESIS WITH CAD: 01/11/2017 CLINICAL HISTORY: Routine screening. Patient has no complaints. TECHNIQUE: Breast tomosynthesis in addition to standard 2D mammography was performed. Current study was also evaluated with a Computer Aided Detection (CAD) system. COMPARISON: Comparison is made to exams dated: 01/11/2016 mammogram, 01/07/2015 mammogram, 01/06/2014 ma mmogram, 01/03/2013 mammogram, 01/03/2012 mammogram, and 12/28/2010 mammogram - [facility] er. BREAST COMPOSITION: There are scattered areas of fibroglandular density in both breasts. FINDINGS: There are a few benign rim calcifications in the breasts. No suspicious mass, architectura l distortion or cluster of microcalcifications is seen. IMPRESSION: ACR BI-RADS CATEGORY 1: NEGATIVE There is no mammographic evidence of malignancy. A 1 year screening mammogram is recommended. The pa tient will receive written notification of the results. Approximately 10% of breast cancers are not detected with mammography. A negative mammographic report should not delay biopsy if a clinically suggestive mass is present. Payton Byrne M.D. ay/:01/11/2017 15:38:35 Nurse Advocate: Nancy YAP(David)(Beatrice), [facility] letter sent: Normal 1/2 BI-RADS Code: ACR BI-RADS Category 1: Negative
== END | disposition home or self-care (01) ==
LOC: C.MAMM 09:05
PROVIDERS: ATTEND Obstetrics & Gynecology
DX: Z12.31 Encounter for screening mammogram for malignant neoplasm of breast (principal)

== ENCOUNTER → 2017-02-13 | Day surgery (SDC) | payer BC ==
[2017-02-08 11:39] VITALS: BMI 32.0
[~2017-02-13] VITALS: Ht 157.5 cm; Wt 79.5 kg
[~2017-02-13] MED LIST changes: -ASPI-390 PO; -CHOL1000 PO; -DIPH1TAB87 PO; -FLV1 PO; -FURO-85 PO; -HYDR25TA4 PO; +LIDOCAINE HCL 2% 2 ML VIAL (20MG/ML) ONE; -MISO200T PO; -OXYC1CAP5 PO; -POTASSIUM PO; -PROM25TA9 PO; +PROPOFOL IV EMULSION 10 MG/ML 20 ML VIAL IV ONE; -ROPI4TAB3 PO; -RXC5 PO; -ZOLP5TAB6 PO
[2017-02-13 14:56] VITALS: Ht 157.5 cm; Wt 79.5 kg
--- NOTE | 2017-02-13 15:41 | Endo History and Physical ---
History & Physical Date of Service: Feb 13, 2017. Chief Complaint: HEARTBURN and COUGH Referring Physician: DR ALMAZAN History of Present Illness For EGD with [facility] Past Medical History Arthritis, Gastrointestinal Disorder, Anxiety, Reflux, High Cholesterol, Depression Past Surgical History Hx Cardiac Surgery: No Hx Internal Defibrillator: No Hx Pacemaker: No Hx Abdominal Surgery: Yes (STRETTA PROCEDURE, C-SECTIONS X 3, LYSIS OF ADHESIONS X4) Hx of Implantable Prosthesis: No Hx Post-Op Nausea and Vomiting: Yes Hx Cancer Surgery: No Hx Thoracic Surgery: No Hx Orthopedic: Yes (LUMBAR FUSIONS (4 TOTAL SX), CERVICAL FUSIONS (3 TOTAL SX) , ROM VERY LIMIT) Hx Urinary Tract Surgery: No Family History None Social History Smoking Status: Never Smoker Hx Substance Use: No Hx Alcohol Use: Yes (RARELY) Allergies Coded Allergies: Succinylcholine (Verified Allergy, Unknown, pseudocholinesterase deficiency, 02/13/17) WITH C SECTION FOR GENERAL ANESTHESIA-1984 [facility] PSEUDOCHOLINESTERASE DEFICIENCY CONFIRMED BY TESTING PER PT STOPPED BREATHING-ON VENT X 3 HOURS Trazodone (Verified Allergy, Unknown, DRY MOUTH TO POINT FEELS CAN'T BREATHE, 02/13/17) Current Medications Reported Home Medications Medications Dose Route/Sig Max Daily Dose Days Date Category Dose Instructions Zoloft (Sertraline HCl) 100 Mg Tab 300 Mg PO HS 02/13/17 Reported Stool Softener (Sennosides-Docusate Sodium) 1 Tab Tab 1 Tab PO PRN 02/13/17 Reported Bactrim Ds 800MG/160MG (Trimethoprim/Sulfamethoxazole) Tab 1 Tab PO BID 02/13/17 Reported Lotrisone (Clotrimazole W/ Betamethasone) 1 Cre Cre 1 Appln TOP HS 5 02/13/17 Reported Denta 5000 Plus (Sodium Fluoride (Dental)) 1.1 % Cre 1 Dose PO BID 02/13/17 Reported Vitamin D3 (Cholecalciferol) 5,000 Unit Tab 1 Tab PO QAM 02/08/17 Reported Prednisone 5 Mg Tab 2.5 Mg PO QAM 02/08/17 Reported Meloxicam 15 Mg Tab 1 Tab PO QAM 02/08/17 Reported Melatonin 10 Mg Cap 15 Mg PO HS 02/08/17 Reported Ibuprofen 200 Mg Cap 600 Mg PO PRN PRN 02/08/17 Reported Culturelle (Lactobacillus-Inulin) 1 Cap Cap 1 Cap PO QAM 02/08/17 Reported Actemra (Tocilizumab) 200 Mg/10 Ml Inj 1 Dose IV MONTHLY 02/08/17 Reported LAST DOSE 02/09/17 Requip (Ropinirole Hydrochloride) 1 Mg Tab 4 Mg PO HS 02/08/17 Reported Cytotec (Misoprostol) 100 Mcg Tab 100 Mcg PO QAM 02/08/17 Reported Medrol (Methylprednisolone) 4 Mg Tab Mg PO UD 10/24/16 Reported Cyclobenzaprine HCl 5 Mg Tab 10 Mg PO HS PRN 10/10/16 Reported Ferrous Sulfate 325 Mg Tab 325 Mg PO QAM 09/27/16 Reported Lipitor (Atorvastatin Calcium) 20 Mg Tab 20 Mg PO QAM 09/12/16 Reported Alaway (Ketotifen Fumarate (Ophth)) 0.025 % Trung 1 Drops OP QDAY PRN 08/12/16 Reported Systane (Polyethylene Glycol-Propylene) 1 Leni Leni 1 Drops OP DAILY PRN 08/12/16 Reported Ativan (Lorazepam) 1 Mg Tab 1 Mg PO HS 08/12/16 Reported Premarin (Estrogens, Conjugated) 14 Appln/30 Gm Cr 0.5 Appln WK 08/12/16 Reported Vesicare (Solifenacin) 10 Mg Tab 10 Mg PO QAM 06/14/16 Reported Os-Julian 500 Plus D (Calcium/Vitamin D) Tab 1 Tab PO BID 06/14/16 Reported Prevacid (Lansoprazole) 30 Mg Capcr 30 Mg PO BID 12/10/14 Reported Vital Signs Weight (Kilograms): 79.55 Height (Feet): 5 Height (Inches): 2 Date Time Temp Pulse Resp B/P (MAP) Pulse Ox O2 Delivery O2 Flow Rate FiO2 02/13/17 15:16 36.6 75 18 125/48 (73) 98 Room Air Physical Exam General Appearance: WD/WN Respiratory/Chest: Respiratory effort: no dyspnea Cardiovascular: Heart Auscultation: RRR Abdomen: Inspection & Palpation: soft Assessment and Plan Heartburn and cough for EGD with [facility]
--- NOTE | 2017-02-13 16:23 | Discharge Instructions ---
Endoscopy Patient Instructions Date / Procedure(s) Performed Feb 13, 2017. EGD Allergy Information Coded Allergies: Succinylcholine (Verified Allergy, Unknown, pseudocholinesterase deficiency, 02/13/17) WITH C SECTION FOR GENERAL ANESTHESIA-1984 [facility] PSEUDOCHOLINESTERASE DEFICIENCY CONFIRMED BY TESTING PER PT STOPPED BREATHING-ON VENT X 3 HOURS Trazodone (Verified Allergy, Unknown, DRY MOUTH TO POINT FEELS CAN'T BREATHE, 02/13/17) Discharge Date / Findings Feb 13, 2017. Esophagitis, duodenitis. Powell placed Medication Instructions Stopped Medication(s): NO PPI X 2 WEEKS Restart Stopped Medication(s): Hold acid reducing meds for 48 hours Reported Home Medications Medications Dose Route/Sig Max Daily Dose Days Date Category Dose Instructions Zoloft (Sertraline HCl) 100 Mg Tab 300 Mg PO HS 02/13/17 Reported Stool Softener (Sennosides-Docusate Sodium) 1 Tab Tab 1 Tab PO PRN 02/13/17 Reported Bactrim Ds 800MG/160MG (Trimethoprim/Sulfamethoxazole) Tab 1 Tab PO BID 02/13/17 Reported Lotrisone (Clotrimazole W/ Betamethasone) 1 Cre Cre 1 Appln TOP HS 5 02/13/17 Reported Denta 5000 Plus (Sodium Fluoride (Dental)) 1.1 % Cre 1 Dose PO BID 02/13/17 Reported Vitamin D3 (Cholecalciferol) 5,000 Unit Tab 1 Tab PO QAM 02/08/17 Reported Prednisone 5 Mg Tab 2.5 Mg PO QAM 02/08/17 Reported Meloxicam 15 Mg Tab 1 Tab PO QAM 02/08/17 Reported Melatonin 10 Mg Cap 15 Mg PO HS 02/08/17 Reported Ibuprofen 200 Mg Cap 600 Mg PO PRN PRN 02/08/17 Reported Culturelle (Lactobacillus-Inulin) 1 Cap Cap 1 Cap PO QAM 02/08/17 Reported Actemra (Tocilizumab) 200 Mg/10 Ml Inj 1 Dose IV MONTHLY 02/08/17 Reported LAST DOSE 02/09/17 Requip (Ropinirole Hydrochloride) 1 Mg Tab 4 Mg PO HS 02/08/17 Reported Cytotec (Misoprostol) 100 Mcg Tab 100 Mcg PO QAM 02/08/17 Reported Medrol (Methylprednisolone) 4 Mg Tab Mg PO UD 10/24/16 Reported Cyclobenzaprine HCl 5 Mg Tab 10 Mg PO HS PRN 10/10/16 Reported Ferrous Sulfate 325 Mg Tab 325 Mg PO QAM 09/27/16 Reported Lipitor (Atorvastatin Calcium) 20 Mg Tab 20 Mg PO QAM 09/12/16 Reported Alaway (Ketotifen Fumarate (Ophth)) 0.025 % Trung 1 Drops OP QDAY PRN 08/12/16 Reported Systane (Polyethylene Glycol-Propylene) 1 Leni Leni 1 Drops OP DAILY PRN 08/12/16 Reported Ativan (Lorazepam) 1 Mg Tab 1 Mg PO HS 08/12/16 Reported Premarin (Estrogens, Conjugated) 14 Appln/30 Gm Cr 0.5 Appln WK 08/12/16 Reported Vesicare (Solifenacin) 10 Mg Tab 10 Mg PO QAM 06/14/16 Reported Os-Julian 500 Plus D (Calcium/Vitamin D) Tab 1 Tab PO BID 06/14/16 Reported Prevacid (Lansoprazole) 30 Mg Capcr 30 Mg PO BID 12/10/14 Reported Provider Instructions Activity Restrictions - No exercising or heavy lifting for 24 hours. - Do not drink alcohol the day of the procedure. - Do not drive a car or operate machinery until the day after the procedure. - Do not make any important decisions or sign important papers in 24 hours after the procedure. Following Day: - Return to full activity which may include returning to work/school. Diet Start your diet with liquids and light foods (jello, soup, juice, toast). Then eat your usual diet if not nauseated. Treatment For Common After Affects For mild abdominal pain, bloating, or excessive gas: - Rest - Eat lightly - Lie on right side Follow-Up Information Follow-up with DR ALMAZAN as scheduled Anesthesia Information What You Should Know You have had a procedure that required some medicine to reduce anxiety and discomfort. This treatment is called moderate sedation. After receiving the treatment, you may be sleepy, but you will be able to breathe on your own. The effects of the treatment may last for several hours. Follow these instructions along with Activity/Diet recommendations noted above: * Do NOT do anything where dizziness or clumsiness would be dangerous. * Rest quietly at home today, then you can be up and about tomorrow. * Have a responsible person stay with you the rest of today. * You may have had an I.V. today. If so, you may take the dressing off later today. Recommendations Call your doctor if: * Trouble breathing * Continuous vomiting for more than 24 hours * Temperature above 101 degrees * Severe abdominal pain or bloating * Pain not relieved by pain medicine ordered * There is increased drainage or redness from any incision * A large amount of rectal bleeding greater than 2-3 tablespoons. (If you had a polyp/s removed or have hemorrhoids, a small amount of blood - from the rectum is to be expected.) * You have any unanswered questions or concerns. IN THE EVENT OF A SERIOUS EMERGENCY, GO TO THE NEAREST EMERGENCY ROOM Your discharge instructions were prepared by provider Dawood Oconnor. Patient Instructions Signature Page Shereen Mcwilliams Patient (or Guardian) Signature/Date: I have read and understand the instructions given to me by my caregivers. Caregiver/RN/Doctor Signature/Date: The above-named patient and/or guardian has received patient instructions on this date. + Original Patient Signature Page (only) stays with chart. Please make copy for patient.
--- NOTE | 2017-02-13 16:28 | GI REPORT ---
Procedure Date: 02/13/2017 4:06 PM Procedure: Upper GI endoscopy Indications: Heartburn, Chronic cough Medicines: Propofol total dose 150 mg IV, Lidocaine 40 mg IV Complications: No immediate complications. Estimated Blood Loss: Estimated blood loss: none. Procedure: Pre-Anesthesia Assessment: - Prior to the procedure, a History and Physical was performed, and patient medications, allergies and sensitivities were reviewed. The patient's tolerance of previous anesthesia was reviewed. - The risks and benefits of the procedure and the sedation options and risks were discussed with the patient. All questions were answered and informed consent was obtained. After obtaining informed consent, the endoscope was passed under direct vision. Throughout the procedure, the patient's blood pressure, pulse, and oxygen saturations were monitored continuously. The scope was introduced through the mouth, and advanced to the second part of duodenum. The upper GI endoscopy was accomplished without difficulty. The patient tolerated the procedure well. Findings: LA Grade C (one or more mucosal breaks continuous between tops of 2 or more mucosal folds, less than 75% circumference) esophagitis with no bleeding was found 38 cm from the incisors. The HU capsule with delivery system was introduced through the mouth and advanced into the esophagus, such that the HU pH capsule was positioned 32 cm from the incisors, which was 6 cm proximal to the EG junction. The HU pH capsule was then deployed and attached to the esophageal mucosa. The delivery system was then withdrawn. Endoscopy was utilized for probe placement and diagnostic evaluation. A few 4 mm semi-sessile polyps with no bleeding and no stigmata of recent bleeding were found in the gastric body. A few localized erosions without bleeding were found in the duodenal bulb. Impression: - LA Grade C reflux esophagitis. - A few gastric polyps. - Duodenal erosions without bleeding. - The HU pH capsule was deployed. - No specimens collected. Recommendation: - Discharge patient to home (ambulatory). - Return to GI office as previously scheduled. - No acid reducing meds for 48 hours. Dawood Oconnor M.D. Dawood Oconnor MD 02/13/2017 4:28:00 PM This report has been signed electronically. Note Initiated On: 02/13/2017 4:06 PM I attest to the content of the Intraoperative Record and orders documented therein, exceptions below
--- NOTE | 2017-02-13 16:41 | Anesthesiology Progress Note ---
Anesthesia Post Op Note Date & Time Feb 13, 2017 at 16:40 Vital Signs Pain Intensity: 3 Vital Signs Past 12 Hours Date Time Temp Pulse Resp B/P (MAP) Pulse Ox O2 Delivery O2 Flow Rate FiO2 02/13/17 16:27 72 16 116/73 (87) 95 Room Air 02/13/17 15:16 36.6 75 18 125/48 (73) 98 Room Air Notes Mental Status: alert / awake / arousable, participated in evaluation Pt Amnestic to Procedure: Yes Nausea / Vomiting: adequately controlled Pain: adequately controlled Airway Patency, RR, SpO2: stable & adequate BP & HR: stable & adequate Hydration State: stable & adequate Anesthetic Complications: no major complications apparent
[2017-02-13 17:00] VITALS: BP 131/76; PULSE 76; O2SAT 95
--- NOTE | 2017-02-17 18:15 | OPERATIVE REPORT ---
DATE OF OPERATION: 02/13/2017 PROCEDURE: 48-hour ambulatory Powell pH monitoring. INDICATIONS: The patient has chronic cough and reflux symptoms that are poorly responsive to acid suppression. PROCEDURE: The patient had a Powell clip placed endoscopically after endoscopic marking 6 cm above the lower esophageal sphincter. Position was confirmed endoscopically and the patient was monitored for 48 hours. The 48-hour DeMeester score was 45.5 which is significantly elevated indicating significant acid reflux. On day 1, the DeMeester score was 57.3. On day 2, the DeMeester score was 14.1. There were 3 symptoms analyzed, one of which was not cough however. Symptoms analyzed were heartburn, chest pain and regurgitation. There were ten episodes recorded of heartburn, 6 of chest pain, 4 of regurgitation. 3 of the 10 heartburn episodes correlated with acid reflux which is low. 4 of the 6 episodes of chest pain correlated with acid reflux which is high and 2 of the 4 episodes of regurgitation correlated with acid reflux which is intermediate. IMPRESSION: The patient has significant acid reflux with significant correlation with her symptom of chest pain. Unfortunately, there were no recordings of cough symptoms during the monitoring so it is not clear whether the cough is related to acid reflux. The patient will follow up in the office. I attest to the content of the Intraoperative Record and any orders documented therein. Any exception s are noted below.
== END | disposition home or self-care (01) ==
LOC: C.GI 14:46
PROVIDERS: ATTEND Internal Medicine Gastroenterology
DX: K21.0 Gastro-esophageal reflux disease with esophagitis (principal); K31.7 Polyp of stomach and duodenum; E78.00 Pure hypercholesterolemia, unspecified; F32.9 Major depressive disorder, single episode, unspecified; F41.9 Anxiety disorder, unspecified; Z79.899 Other long term (current) drug therapy

== ENCOUNTER 2017-03-10 05:22 | Day surgery (SDC) | payer BC ==
[2017-02-13 11:52] VITALS: BMI 32.0
--- NOTE | 2017-02-13 12:20 | PAT Medication Instructions ---
Service Date Feb 13, 2017. Current Home Medication List Atorvastatin (Lipitor), 20 MG PO QAM Calcium/Vitamin D (Os-Julian 500 Plus D), 1 TAB PO BID Cholecalciferol (Vitamin D3), 1 TAB PO QAM Clotrimazole W/ Betamethasone (Lotrisone), 1 APPLN TOP HS Cyclobenzaprine HCl (Cyclobenzaprine HCl), 10 MG PO HS PRN for Muscle Spasms Estrogens, Conjugated (Premarin), 0.5 APPLN WK Ferrous Sulfate (Ferrous Sulfate), 325 MG PO QAM Ibuprofen (Ibuprofen), 600 MG PO PRN PRN for Pain Ketotifen Fumarate (Ophth) (Alaway), 1 DROPS OP QDAY PRN for DRY EYES Lactobacillus-Inulin (Culturelle), 1 CAP PO QAM Lansoprazole (Prevacid), 30 MG PO BID Lorazepam (Ativan), 1 MG PO HS Melatonin (Melatonin), 15 MG PO HS Meloxicam (Meloxicam), 1 TAB PO QAM Methylprednisolone (Medrol), MG PO UD Misoprostol (Cytotec), 100 MCG PO QAM Polyethylene Glycol-Propylene (Systane), 1 DROPS OP DAILY PRN for DRY EYES Prednisone (Prednisone), 2.5 MG PO QAM Ropinirole Hydrochloride (Requip), 4 MG PO HS Sennosides-Docusate Sodium (Stool Softener), 1 TAB PO PRN Sertraline (Zoloft), 300 MG PO HS Sodium Fluoride (Dental) (Denta 5000 Plus), 1 DOSE PO BID Solifenacin (Vesicare), 10 MG PO QAM Sulfa/Trimethoprim (Bactrim Ds 800MG/160MG), 1 TAB PO BID Tocilizumab (Actemra), 1 DOSE IV MONTHLY Medication Instructions For Your Scheduled Surgery - Continue as directed: Tocilizumab (Actemra), 1 DOSE IV MONTHLY Estrogens, Conjugated (Premarin), 0.5 APPLN WK Methylprednisolone (Medrol), MG PO UD - Per surgeon's instructions: Meloxicam (Meloxicam), 1 TAB PO QAM Ibuprofen (Ibuprofen), 600 MG PO PRN PRN for Pain - Hold the following medications 24 hours prior to surgery: Ropinirole Hydrochloride (Requip), 4 MG PO HS Clotrimazole W/ Betamethasone (Lotrisone), 1 APPLN TOP HS - Hold the following medications the morning of surgery: Solifenacin (Vesicare), 10 MG PO QAM Calcium/Vitamin D (Os-Julian 500 Plus D), 1 TAB PO BID Misoprostol (Cytotec), 100 MCG PO QAM Lactobacillus-Inulin (Culturelle), 1 CAP PO QAM Ferrous Sulfate (Ferrous Sulfate), 325 MG PO QAM Cholecalciferol (Vitamin D3), 1 TAB PO QAM Sodium Fluoride (Dental) (Denta 5000 Plus), 1 DOSE PO BID Sennosides-Docusate Sodium (Stool Softener), 1 TAB PO PRN - Take the following medications the morning of surgery with a sip of water: Prednisone (Prednisone), 2.5 MG PO QAM Atorvastatin (Lipitor), 20 MG PO QAM Lansoprazole (Prevacid), 30 MG PO BID Sulfa/Trimethoprim (Bactrim Ds 800MG/160MG), 1 TAB PO BID Polyethylene Glycol-Propylene (Systane), 1 DROPS OP DAILY PRN for DRY EYES Ketotifen Fumarate (Ophth) (Alaway), 1 DROPS OP QDAY PRN for DRY EYES - Take the following medications as scheduled the night before surgery: Sertraline (Zoloft), 300 MG PO HS Lorazepam (Ativan), 1 MG PO HS Melatonin (Melatonin), 15 MG PO HS Lansoprazole (Prevacid), 30 MG PO BID Calcium/Vitamin D (Os-Julian 500 Plus D), 1 TAB PO BID Sulfa/Trimethoprim (Bactrim Ds 800MG/160MG), 1 TAB PO BID Sodium Fluoride (Dental) (Denta 5000 Plus), 1 DOSE PO BID Sennosides-Docusate Sodium (Stool Softener), 1 TAB PO PRN Polyethylene Glycol-Propylene (Systane), 1 DROPS OP DAILY PRN for DRY EYES Ketotifen Fumarate (Ophth) (Alaway), 1 DROPS OP QDAY PRN for DRY EYES Cyclobenzaprine HCl (Cyclobenzaprine HCl), 10 MG PO HS PRN for Muscle Spasms If you have any questions please call us at [phone] or [phone] or [phone]
[2017-02-13 13:14] LABS: BASO % 0.2 %; BASO ABS # 0.01 K/uL (0-0.2); COMPLETE YES; EOS % 3.8 %; HEMATOCRIT 37.8 % (37-47); IG% 0.2 %; LYMPH % 32.5 %; LYMPH ABS # 1.37 K/uL (1.2-3.4); MEAN CELL VOLUME 87.9 fL (80-100); MEAN CORPUSCULAR HEMOGLOBIN 29.1 pg (25-34); MEAN CORPUSCULAR HGB CONC 33.1 g/dl (32-36); MEAN PLATELET VOLUME 10.9 fL (7.4-10.4); MONO % 8.1 %; NEUT % 55.2 %; PLATELET COUNT 129 K/uL (130-400); WHITE BLOOD COUNT 4.22 K/uL (4.8-10.8)
[2017-02-13 14:58] LABS: CALCIUM 8.4 mg/dl (8.5-10.1); CREATININE 1.1 mg/dl (0.60-1.20); POTASSIUM 4.5 mmol/L (3.5-5.1)
--- NOTE | 2017-03-01 13:14 | HISTORY & PHYSICAL EXAMINATION ---
DATE OF ADMISSION: 03/10/2017 SUBJECTIVE CHIEF COMPLAINT: The patient is a 56-year-old female who presents to the office with left shoulder pain. She states that the pain occurs constantly and described as aching and throbbing. It affects her activities of daily living. She has tried cortisone injections, nonsteroidal anti-inflammatories and physical therapy without any relief. The patient has an MRI which demonstrated a full thickness tear of the rotator cuff. She would like to proceed with a left shoulder rotator cuff repair and subacromial decompression. MEDICATIONS: Requip 44 mg 1 tablet daily, Prevacid 30 mg 1 tab daily, lorazepam 1 mg 1 tablet at bedtime as needed, iron 325 mg 1 tablet daily, ibuprofen 600 mg 1 tablet every 6 hours, Denta 5000 Plus 1.1% cream 3 times daily, Premarin vaginal cream 1 gram vaginal route every day, Cytotec 100 mcg 1 tab every day after meals and at bedtime, Actemra 80 mg infused by IV route every 4 weeks, not to exceed 800 mg per infusion, calcium 600 mg 1 tablet twice a day, Zoloft 100 mg 1-1/2 tablets daily, Lipitor 20 mg 1 tab daily, meloxicam 15 mg 1 tab daily, vitamin D3 5000 units 1 tab daily, Alaway 0.025% eyedrops, instill 1 drop by ophthalmic route as needed, artificial tears as needed for dry eyes. PAST MEDICAL HISTORY: Significant for hypercholesterolemia, anxiety, iron deficiency, osteoarthritis, GERD, hiatal hernia. PAST SURGICAL HISTORY: Three C-sections, adhesion removal 4 times, 3 neck surgeries, 4 lower back surgeries, Stretta procedure and Powell procedure. SOCIAL HISTORY: She drinks alcohol occasionally. She denies smoking or tobacco use. She denies IV or illegal drug use. She lives in a 2-story house. She is currently retired. FAMILY HISTORY: Father had a history of an aneurysm. ALLERGIES: TRAZODONE AND SUCCINYLCHOLINE. REVIEW OF SYSTEMS: She denies headaches, fevers, chills, double vision, blurry vision, sore throat, cough, chest pain, nausea, vomiting, diarrhea, constipation, numbness or tingling, tired, urinary difficulties thoughts to harm herself or harm others or depression. She is positive for joint pain and joint stiffness of the left shoulder. OBJECTIVE: GENERAL APPEARANCE: The patient is a 56-year-old female who is sitting in no acute distress. She is well dressed, well nourished. She is awake, alert and oriented x3. VITAL SIGNS: She is 5 foot 2 inches tall, 175 pounds, blood pressure 122/76. HEAD, EYES, EARS, NOSE, AND THROAT: Normocephalic, atraumatic. Extraocular movements are intact. Mucosa was moist. No septal deviation. NECK: Supple with no lymphadenopathy, no JVD, no thyromegaly. HEART: Systolic murmur is noted in the aortic position. LUNGS: Clear to auscultation with no wheezing or rhonchi. ABDOMEN: Soft, nontender, nondistended. Normal bowel sounds, no hepatosplenomegaly. EXTREMITIES: Paying particular attention to the left upper extremity her range of motion is decreased in all melo, active flexion to 90 degrees, abduction to 90 degrees, external rotation to 75 degrees. She does have a positive empty can test, positive Briscoe test, positive Neer impingement test. IMAGING: MRI of the left shoulder demonstrates full thickness tear of the anterior supraspinatus measuring 7 mm and mild subacromial bursitis. IMPRESSION: Left shoulder rotator cuff tear. PLAN: The patient is scheduled for a left shoulder rotator cuff repair, subacromial decompression. The patient has failed conservative therapies which include nonsteroidal anti-inflammatories, cortisone injections, and physical therapy. MRI demonstrated a full thickness tear of the rotator cuff. She would like to proceed with a left shoulder rotator cuff repair, subacromial decompression. Risks and benefits to surgery were discussed and included but not limited to infection, DVT, pain, stiffness, need for revision surgeries, failure to relieve all symptoms, retear, damage to blood vessels, damage to nerves, and risks of anesthesia were all discussed with the patient and she wishes to proceed. No DVT prophylaxis is needed for this procedure. Discharge home with self care. SHARON
[~2017-03-10] VITALS: Ht 157.5 cm; Wt 80.7 kg
[~2017-03-10 05:22] MED LIST changes: -ACTEMRA IV; -AMT50 PO; -DOCU100T7 PO; -LIDOCAINE HCL 2% 2 ML VIAL (20MG/ML) ONE; -MELATAB2 PO; -OXYC-57 PO; -PROPOFOL IV EMULSION 10 MG/ML 20 ML VIAL IV ONE
[2017-03-10 05:45] VITALS: BP 119/68; PULSE 67; TEMP 36.6; O2SAT 95; Ht 157.5 cm; Wt 80.7 kg
[2017-03-10] MEDS ORDERED: AMT50 PO (05:58)
[2017-03-10] MEDS ORDERED: LACTATED RINGER'S 1000ML 1,000 ML IV SCH ×2 (06:00→06:31)
[2017-03-10] MEDS ORDERED: ROPIVACAINE 0.5% 5 MG/ML 30 ML VIAL ONE (06:27)
[2017-03-10] MEDS ORDERED: ATROPINE SULFATE 0.1 MG/ML 5ML SYR IV PRN (06:30)
[2017-03-10] MEDS ORDERED: PROMETHAZINE HCL INJ 12.5 MG in SODIUM CHLORIDE 0.9% 50ML 50 ML IV PRN (06:30)
[2017-03-10] MEDS ORDERED: HYDROmorphone INJ 1 MG/ML SYR IV PRN (06:30)
[2017-03-10] MEDS ORDERED: FENTANYL CITRATE INJ 50 MCG/1 ML 2 ML VIAL IV PRN (06:30)
[2017-03-10] MEDS ORDERED: EpHEDrine SULFATE INJ 50 MG/ML AMP IV PRN (06:30)
[2017-03-10] MEDS ORDERED: ONDANSETRON INJ 2 MG/ML 2 ML VIAL IV PRN ×2 (06:30→08:45)
[2017-03-10] MEDS ORDERED: SCOPOLAMINE 1.5 MG TDSY TD ONE (06:32)
[2017-03-10] MEDS ORDERED: BUPIVACAINE 0.5 % 5 MG/1 ML MPF 30ML VIAL ONE (06:35)
[2017-03-10] MEDS ORDERED: LIDOCAINE/EPINEPHRINE 1% 20 ML VIAL ONE (06:35)
[2017-03-10] MEDS ORDERED: EpINEphrine HCL INJ 1 MG/ML 5ML SYRINGE ONE (06:35)
[2017-03-10] MEDS ORDERED: FENTANYL CITRATE INJ 50 MCG/1 ML 2 ML VIAL ONE (06:42)
[2017-03-10] MEDS ORDERED: MIDAZOLAM HCL 1 MG/ML 2ML VIAL ONE (06:42)
[2017-03-10] MEDS ORDERED: SCOPOLAMINE 1.5 MG TDSY TD SCH (06:45)
[2017-03-10] MEDS ORDERED: CEFAZOLIN IV 2,000 MG/60 ML D5W IV ONE (06:51)
[2017-03-10] MEDS ORDERED: VANCOMYCIN 1GM/270ML NSS ONE (06:51)
[2017-03-10] MEDS ORDERED: NURSING VERBAL MED ORDER ONE (07:00)
[2017-03-10] MEDS ORDERED: GLYCOPYRROLATE INJ 0.2 MG/ML VIAL ONE (07:51)
[2017-03-10] MEDS ORDERED: DEXAMETHASONE SOD INJ 4 MG/ML VIAL ONE (07:51)
[2017-03-10] MEDS ORDERED: LIDOCAINE HCL 2% 2 ML VIAL (20MG/ML) ONE (07:51)
[2017-03-10] MEDS ORDERED: NEOSTIGMINE METHYLSULFATE 5 MG/5 ML SYR ONE (07:51)
[2017-03-10] MEDS ORDERED: ROCURONIUM BROMIDE 10 MG/ML 5 ML VIAL ONE (07:51)
[2017-03-10] MEDS ORDERED: ONDANSETRON INJ 2 MG/ML 2 ML VIAL ONE (07:51)
[2017-03-10] MEDS ORDERED: PROPOFOL IV EMULSION 10 MG/ML 20 ML VIAL IV ONE (07:51)
[2017-03-10] MEDS ORDERED: CHECK SCOPOLAMINE PATCH PLACEMENT SCH (08:00)
--- NOTE | 2017-03-10 08:32 | [facility] Operative Report ---
Operative Report Operative Date Mar 10, 2017. Pre-Operative Diagnosis Left Shoulder Rotator Cuff Repair Post-Operative Diagnosis Left Shoulder Rotator Cuff Repair Procedure(s) Performed Left Shoulder Arthroscopy, Subacromial Decompression, Rotator Cuff Repair Surgeon Dr. Arben Oneill Piston Maker Surgeon(s) Tani Farah PA-C Estimated Blood Loss 1ml Findings above Specimens none per surgeon Dr. Arben Oneill Drains 0 Anesthesia geta, interscalene Complication(s) None Disposition Recovery Room / PACU Indications 58-year-old female with full-thickness rotator cuff tear. She wishes to proceed with arthroscopic repair. Description of Procedure The MRI demonstrated a full-thickness rotator cuff tear. We discussed various treatment measures. The patient wished to proceed with arthroscopic repair. Risks, benefits and alternatives to surgery including, but not limited to, infection DVT, pain, stiffness, need for revision surgery, failure to relieve all symptoms, damage to blood vessels, damage to nerves, risk of anesthesia were discussed with the patient and they wished to proceed. The patient was identified. Laterality was confirmed and marked. The patient received a preoperative antibiotic as well as an interscalene block. They were transferred to the operating room and placed in the supine position and induced into general endotracheal anesthesia per the anesthesia staff. The patient was then safely transferred to the lateral decubitus position, secured by a beanbag. An axillary roll was placed. All pressure points were well-padded. The limb was placed in 10 pounds of lateral traction and then prepped and draped in the usual standard manner with ChloraPrep. The portal sites were anesthetized with 2% lidocaine with epinephrine. I made a standard posterior viewing portal made through a stab incision and then bluntly entered the glenohumeral joint. Then under spinal needle localization, I establish an anterior superolateral portal. The patient had a near full-thickness rotator cuff tear through the supraspinatus extending into the infraspinatus there was only a small amount of bursal sided fibers still intact the rest of the rotator cuff was torn They had a degenerative tear in the anterior, superior and posterior aspects of the glenoid labrum. This was debrided back to a stable base utilizing a shaver. Synovitic change in the anterior aspect of the joint was debrided utilizing a shaver. The cartilage of the humeral head and glenoid was relatively normal. The long head of the biceps was normal. The subscapularis had some minor degenerative fraying that was debrided. I then removed the instrumentation from the joint and entered the subacromial space and established a lateral portal. There was a full-thickness rotator cuff tear that measured about 2 cm in diameter. I debrided the footprint with a shaver to establish a good bleeding response. Through a stab incision I placed a 5.5 mm HEALICOIL suture anchor. I passed the ultra braid sutures in a horizontal mattress with a fast passive scorpion. I repeated this process for a posterior medial anchor. I tied the ULTRABRAID sutures with sliding Flaquito knots reinforced for 3 half hitches on alternating posts. I then took 1 ULTRABRAID suture from each anchor I placed them in a 5.5 mm footprint anchor. I placed one anterolaterally. I then repeated this process another suture anchor posterolaterally, completing my double row construct. I then released the CA ligament with cautery and performed a subacromial decompression, first removing the anterior inferior spur from laterally and then completing with a cutting block technique. All instrumentation was then removed from the shoulder. Portal sites were closed with nylon. A sterile dressing was applied and a sling placed. All needle and sponge counts were correct at the end of the procedure. The patient was transferred to the PACU in stable condition without apparent complication. I attest to the content of the Intraoperative Record and any orders documented therein. Any exceptions are noted below.
[2017-03-10] MEDS ORDERED: OXYCODONE/ACETAMINOPHEN 5-325 TAB PO PRN ×2 (08:45)
[2017-03-10] MEDS ORDERED: ACETAMINOPHEN 325 MG TAB PO PRN (08:45)
[2017-03-10] MEDS ORDERED: OXYC-57 PO (08:45)
--- NOTE | 2017-03-10 08:49 | Discharge Instructions ---
Discharge Instructions Date of Service Mar 10, 2017. Admission Reason for Admission: Left Shoulder Impingement Syndrome, Rtc Tear Discharge Discharge Diagnosis / Problem: Left shoulder arthroscopy rotator cuff repair subacromial decompression Discharge Goals Goal(s): Decrease discomfort, Improve function Activity Recommendations Activity Limitations: per Instructions/Follow-up section . Instructions / Follow-Up Instructions / Follow-Up [facility] DISCHARGE INSTRUCTIONS: ROTATOR CUFF REPAIR SELF CARE INSTRUCTIONS A. You are permitted to loosen your sling/immobilizer to move your elbow, wrist , and hand to prevent stiffness. You should use your well arm (good arm) to assist the operated extremity when trying to raise the arm away from the body, hygiene purposes. Do NOT actively try to use/engage your shoulder muscles in operative arm at this time. You should NOT do overhead activity, lifting, or attempt to reach behind your back. B. You will be instructed to start Physical Therapy 2-3 days after discharge. You will be provided a prescription for therapy with specific restrictions, if needed, at time of discharge. C. At 48 hours post-operatively, you may change your dressing. Use band-aids and change daily. You are allowed to shower at this time and get the incision area wet, but DO NOT soak or submerge incision area in water. (No baths, swimming pools, hot tubs) D. Do NOT apply soap or any ointment/lotions directly over incision. E. You may use ice as needed to operative shoulder SPECIAL CARE INSTRUCTIONS: VERY IMPORTANT TO READ AND REVIEW A. There are a few signs you need to watch for after you are home. Call [facility] at [phone] if you experience any of the following: a. Increased severe shoulder pain. Some pain is expected especially when you exercise b. Increased swelling in your shoulder or arm; pain or swelling in either upper extremity. (Note: swelling and stiffness is normal and expected for several weeks post op, depending on type of shoulder surgery you had). c. Any fluid or drainage from the incision; redness of the incision. d. Shortness of breath or chest pain. B. Please call [facility] at [phone] if you have any questions or concerns about your operation or recovery. C. Call your physician if: a. Temperature is greater than 101 degrees (F). b. Pain is not relieved by prescribed pain medications. c. Increase drainage or redness from incision. d. Unanswered questions or concerns. D. Pain Medication: a. You will be prescribed pain medication upon discharge that should last till your first post-operative appointment. b. If you experience nausea and/or skin rash, discontinue this medication and contact our office for an alternative medication. c. Caution- narcotic pain medication can cause constipation. FOLLOW UP VISIT: Please call [facility] at [phone] to schedule a follow up appointment 10-14 days from your surgery date. Current Hospital Diet Patient's current hospital diet: Regular Diet Discharge Diet Recommended Diet: Regular Diet Procedures Procedures Performed: Left Shoulder Arthroscopy, Subacromial Decompression, Rotator Cuff Repair Pending Studies Studies pending at discharge: no Medical Emergencies . Who to Call and When: Medical Emergencies: If at any time you feel your situation is an emergency, please call 911 immediately. . Non-Emergent Contact Non-Emergency issues call your: Surgeon Call Non-Emergent contact if: temperature is above 101.5, your pain is worsening, wound has increased drainage, wound has increased redness . "Provider Documentation" section prepared by Tani Farah. . VTE Core Measure Inpt VTE Proph given/why not?: Treatment not indicated [place] Drug Monitoring Program Search Results: patient reviewed within database, no issues identified
[2017-03-10] MEDS ORDERED: HYDROCORTISONE SOD SUCCINATE 100 MG/2 ML VIAL ONE (08:50)
[2017-03-10] MEDS ORDERED: ACETAMINOPHEN 1000 MG/100 ML IV IV ONE ×2 (09:06→09:15)
[2017-03-10 09:40] VITALS: BP 116/64; PULSE 83; TEMP 36; O2SAT 95
--- NOTE | 2017-03-10 09:41 | Anesthesiology Progress Note ---
Anesthesia Post Op Note Date & Time Mar 10, 2017 at 09:39 Vital Signs Pain Intensity: 4 Vital Signs Past 12 Hours Date Time Temp Pulse Resp B/P (MAP) Pulse Ox O2 Delivery O2 Flow Rate FiO2 03/10/17 09:28 36.1 03/10/17 09:26 121/70 03/10/17 09:25 82 03/10/17 09:25 82 16 99 03/10/17 09:21 120/73 03/10/17 09:20 82 14 100 03/10/17 09:20 83 14 03/10/17 09:16 118/66 03/10/17 09:15 79 12 100 03/10/17 09:15 79 12 03/10/17 09:11 131/73 03/10/17 09:10 83 13 03/10/17 09:10 82 13 98 03/10/17 09:06 113/78 03/10/17 09:05 82 14 100 03/10/17 09:05 82 14 03/10/17 09:01 128/64 03/10/17 09:00 80 15 100 03/10/17 09:00 80 15 03/10/17 08:56 115/74 03/10/17 08:55 80 9 100 03/10/17 08:55 79 9 03/10/17 08:51 117/53 03/10/17 08:50 82 15 99 03/10/17 08:50 82 15 03/10/17 08:46 123/73 03/10/17 08:45 86 9 94 03/10/17 08:45 86 9 03/10/17 08:43 113/83 03/10/17 08:40 36.2 89 12 113/83 95 Nasal Cannula 4 03/10/17 05:45 36.6 67 18 119/68 (85) 95 Room Air Notes Mental Status: alert / awake / arousable, participated in evaluation Pt Amnestic to Procedure: Yes Nausea / Vomiting: adequately controlled Pain: adequately controlled Airway Patency, RR, SpO2: stable & adequate BP & HR: stable & adequate Hydration State: stable & adequate Anesthetic Complications: no major complications apparent Pt with c/o headache. IV tylenol given without much relief. No changes in vision , numbness, etc. BP has been stable with systolic in the 120s. Will monitor patient in phase II recovery.
[2017-03-10 10:20] VITALS: BP 112/58; PULSE 78; O2SAT 95
[2017-03-10 10:40] VITALS: BP 99/50; PULSE 80; TEMP 36.4; O2SAT 92
[2017-03-10 12:00] VITALS: BP 108/62; PULSE 79; O2SAT 95
== END 2017-03-10 12:30 | disposition home or self-care (01) ==
LOC: C.ACU 05:22
PROVIDERS: ATTEND Orthopaedic Surgery
DX: M75.122 Complete rotator cuff tear or rupture of left shoulder, not specified as traumatic (principal); E78.00 Pure hypercholesterolemia, unspecified; D50.9 Iron deficiency anemia, unspecified; K21.9 Gastro-esophageal reflux disease without esophagitis; K44.9 Diaphragmatic hernia without obstruction or gangrene; F41.9 Anxiety disorder, unspecified; Z79.899 Other long term (current) drug therapy

== ENCOUNTER → 2017-03-30 | Outpatient (CLI) | payer BC ==
[~2017-03-30] MED LIST changes: +AMT50 PO; +OXYC-57 PO
== END | disposition home or self-care (01) ==
LOC: C.PAPS 14:18
PROVIDERS: ATTEND Obstetrics & Gynecology
DX: Z01.419 Encounter for gynecological examination (general) (routine) without abnormal findings (principal); N89.3 Dysplasia of vagina, unspecified

== ENCOUNTER 2017-06-09 09:55 | Day surgery (SDC) | payer BC, OTHER ==
[2017-05-22 13:24] VITALS: BMI 33.0
--- NOTE | 2017-05-22 14:16 | PAT Medication Instructions ---
Service Date May 22, 2017. Current Home Medication List Amitriptyline Hcl (Elavil), 25 MG PO HS Atorvastatin (Lipitor), 20 MG PO QAM Calcium/Vitamin D (Os-Julian 500 Plus D), 1 TAB PO BID Cholecalciferol (Vitamin D3), 1 TAB PO QAM Clotrimazole W/ Betamethasone (Lotrisone), 1 APPLN TOP HS Cyclobenzaprine HCl (Cyclobenzaprine HCl), 10 MG PO HS PRN for Muscle Spasms Estrogens, Conjugated (Premarin), 0.5 APPLN WK Ferrous Sulfate (Ferrous Sulfate), 325 MG PO QAM Furosemide (Lasix), 20 MG PO QAM Lactobacillus-Inulin (Culturelle), 1 CAP PO QAM Lansoprazole (Prevacid), 30 MG PO BID Lorazepam (Ativan), 1 MG PO HS Melatonin (Melatonin), 15 MG PO HS Meloxicam (Meloxicam), 1 TAB PO QAM Misoprostol (Cytotec), 100 MCG PO QAM Polyethylene Glycol-Propylene (Systane), 1 DROPS OP DAILY PRN for DRY EYES Prednisone (Prednisone), 2.5 MG PO QAM Promethazine Hcl (Phenergan), 25 MG PO Q6H PRN for Nausea Ropinirole Hydrochloride (Requip), 4 MG PO HS Sennosides-Docusate Sodium (Stool Softener), 1 TAB PO BID Sertraline (Zoloft), 150 MG PO HS Solifenacin (Vesicare), 10 MG PO QAM Sulfa/Trimethoprim (Bactrim Ds 800MG/160MG), 1 TAB PO QAM Tocilizumab (Actemra), 1 DOSE IV MONTHLY [Potassium], 99 MG PO QAM Medication Instructions For Your Scheduled Surgery -Continue as directed: Tocilizumab (Actemra), 1 DOSE IV MONTHLY - Hold the following medications per your surgeon's instructions: Meloxicam (Meloxicam), 1 TAB PO QAM - Hold the following medications 24 hours prior to surgery: Estrogens, Conjugated (Premarin), 0.5 APPLN WK Clotrimazole W/ Betamethasone (Lotrisone), 1 APPLN TOP HS - Hold the following medication the night before surgery: Ropinirole Hydrochloride (Requip), 4 MG PO HS - Hold the following medications the morning of surgery: [Potassium], 99 MG PO QAM Ferrous Sulfate (Ferrous Sulfate), 325 MG PO QAM Furosemide (Lasix), 20 MG PO QAM Lactobacillus-Inulin (Culturelle), 1 CAP PO QAM Misoprostol (Cytotec), 100 MCG PO QAM Sennosides-Docusate Sodium (Stool Softener), 1 TAB PO BID Calcium/Vitamin D (Os-Julian 500 Plus D), 1 TAB PO BID Cholecalciferol (Vitamin D3), 1 TAB PO QAM - Take the following medications the morning of surgery with a sip of water: Atorvastatin (Lipitor), 20 MG PO QAM Promethazine Hcl (Phenergan), 25 MG PO Q6H PRN for Nausea (if needed) Solifenacin (Vesicare), 10 MG PO QAM Sulfa/Trimethoprim (Bactrim Ds 800MG/160MG), 1 TAB PO QAM Lansoprazole (Prevacid), 30 MG PO BID Polyethylene Glycol-Propylene (Systane), 1 DROPS OP DAILY PRN for DRY EYES (if needed) Prednisone (Prednisone), 2.5 MG PO QAM - Take the following medications as scheduled the night before surgery: Promethazine Hcl (Phenergan), 25 MG PO Q6H PRN for Nausea (if needed) Lorazepam (Ativan), 1 MG PO HS Melatonin (Melatonin), 15 MG PO HS Lansoprazole (Prevacid), 30 MG PO BID Polyethylene Glycol-Propylene (Systane), 1 DROPS OP DAILY PRN for DRY EYES (if needed) Sertraline (Zoloft), 150 MG PO HS Sennosides-Docusate Sodium (Stool Softener), 1 TAB PO BID Cyclobenzaprine HCl (Cyclobenzaprine HCl), 10 MG PO HS PRN for Muscle Spasms Amitriptyline Hcl (Elavil), 25 MG PO HS Calcium/Vitamin D (Os-Julian 500 Plus D), 1 TAB PO BID If you have any questions please call us at [phone] or [phone] or [phone]
[2017-05-22 15:29] LABS: BASO % 0.4 %; BASO ABS # 0.01 K/uL (0-0.2); COMPLETE YES; EOS % 3.9 %; HEMATOCRIT 36.1 % (37-47); LYMPH % 41.9 %; LYMPH ABS # 1.17 K/uL (1.2-3.4); MEAN CELL VOLUME 92.3 fL (80-100); MEAN CORPUSCULAR HEMOGLOBIN 31.7 pg (25-34); MEAN CORPUSCULAR HGB CONC 34.3 g/dl (32-36); MEAN PLATELET VOLUME 10.7 fL (7.4-10.4); MONO % 10.8 %; PLATELET COUNT 126 K/uL (130-400); RED BLOOD COUNT 3.91 M/uL (4.2-5.4); WHITE BLOOD COUNT 2.79 K/uL (4.8-10.8)
--- NOTE | 2017-05-22 15:35 | DIAGNOSTIC IMAGING REPORT ---
CERVICAL SPINE 2 OR 3 VIEWS HISTORY: 56 years-old Female pre-op, RA; lateral neutral, flexion, extension preoperative exam. COMPARISON: Fluoroscopic images of the cervical spine 10/27/2015 TECHNIQUE: Neutral, flexion and extension views of the cervical spine FINDINGS: Extensive postsurgical changes of the cervical spine are noted with discectomy changes at C3-C4 to C7-T1. Anterior plate and screw fusion is also seen extending from these levels. There is posterior jante and screw fusion extending from C3-T3. There is no malalignment of the cervical spine in neutral, flexion or extension. No evidence of hardware complication. No acute bony fracture or subluxation. Multilevel facet arthropathy. Soft tissues are unremarkable. IMPRESSION: 1. Extensive postsurgical changes of the cervical spine as above without evidence of hardware complication or acute bony abnormality. 2. No evidence of instability on the neutral, flexion or extension views. The above report was generated using voice recognition software. It may contain grammatical, syntax or spelling errors. Electronically signed by: Walter Silva M.D. 05/22/2017 3:34 PM Dictated Date/Time: 05/22/2017 3:30 PM
[2017-05-22 15:37] LABS: URINE APPEARANCE CLEAR (CLEAR); URINE BILIRUBIN NEG (NEG); URINE COLOR YELLOW; URINE NITRITE NEG (NEG); URINE PH 6.5 (4.5-7.5); UROBILINOGEN NEG (NEG)
[2017-05-22 15:44] LABS: MANUAL MICROSCOPIC REQUIRED? NO; REVIEW REQ? NO
[2017-05-22 16:03] LABS: CREATININE 0.93 mg/dl (0.60-1.20)
[2017-05-22 16:04] LABS: BUN/CREATININE RATIO 24.5 (10-20); CALCIUM 8.6 mg/dl (8.5-10.1); POTASSIUM 4.3 mmol/L (3.5-5.1)
--- NOTE | 2017-06-05 12:28 | History and Physical ---
History & Physical Date Jun 05, 2017. Chief Complaint Left shoulder pain History of Present Illness The patient is a 57 year old female with complaints of left shoulder pain. She was walking her dogs when one of them pulled and she felt a pop in her shoulder. She recently had left shoulder surgery for a rotator cuff repair. She tried a medrol dose pack and PT with no relief. She is scheduled for a left shoulder possible revision rotator cuff repair. Past Medical/Surgical History Medical Problems: (1) Cervical stenosis of spinal canal (2) Infection of lumbar spine (3) Rheumatoid arthritis Additional History Hepatic Disease: No Endocrine Disorder: No Kidney Disease: No Hypertension: No Heart Disease: No Bleeding Tendencies: No Infectious Diseases: No Allergies Coded Allergies: Succinylcholine (Verified Allergy, Unknown, pseudocholinesterase deficiency, 05/22/17) WITH C SECTION FOR GENERAL ANESTHESIA-1984 [facility] PSEUDOCHOLINESTERASE DEFICIENCY CONFIRMED BY TESTING PER PT STOPPED BREATHING-ON VENT X 3 HOURS Trazodone (Verified Allergy, Unknown, DRY MOUTH TO POINT FEELS CAN'T BREATHE, 05/22/17) Home Medications Scheduled Amitriptyline Hcl (Elavil), 25 MG PO HS Atorvastatin (Lipitor), 20 MG PO QAM Calcium/Vitamin D (Os-Julian 500 Plus D), 1 TAB PO BID Cholecalciferol (Vitamin D3), 1 TAB PO QAM Clotrimazole W/ Betamethasone (Lotrisone), 1 APPLN TOP HS Estrogens, Conjugated (Premarin), 0.5 APPLN WK Ferrous Sulfate (Ferrous Sulfate), 325 MG PO QAM Furosemide (Lasix), 20 MG PO QAM Lactobacillus-Inulin (Culturelle), 1 CAP PO QAM Lansoprazole (Prevacid), 30 MG PO BID Lorazepam (Ativan), 1 MG PO HS Melatonin (Melatonin), 15 MG PO HS Meloxicam (Meloxicam), 1 TAB PO QAM Misoprostol (Cytotec), 100 MCG PO QAM Prednisone (Prednisone), 2.5 MG PO QAM Ropinirole Hydrochloride (Requip), 4 MG PO HS Sennosides-Docusate Sodium (Stool Softener), 1 TAB PO BID Sertraline (Zoloft), 150 MG PO HS Solifenacin (Vesicare), 10 MG PO QAM Sulfa/Trimethoprim (Bactrim Ds 800MG/160MG), 1 TAB PO QAM Tocilizumab (Actemra), 1 DOSE IV MONTHLY [Potassium], 99 MG PO QAM Scheduled PRN Cyclobenzaprine HCl (Cyclobenzaprine HCl), 10 MG PO HS PRN for Muscle Spasms Polyethylene Glycol-Propylene (Systane), 1 DROPS OP DAILY PRN for DRY EYES Promethazine Hcl (Phenergan), 25 MG PO Q6H PRN for Nausea Physical Examination Skin: warm/dry, no rash Eyes: normal inspection, EOMI ENT: normal ENT inspection Head: normocephalic, atraumatic Neck: supple, no adenopathy Respiratory/Chest: lungs clear, normal breath sounds Cardiovascular: regular rate, rhythm, no murmur Abdomen / GI: normal bowel sounds, non tender Extremities: normal inspection, + pertinent finding (decreased rom secondary to pain. (+) empty can test) Neurologic/Psych: no motor/sensory deficits, alert, oriented x 3 Diagnosis Left shoulder rotator cuff tendinopathy Plan of Treatment Patient is scheduled for a left shoulder possible revision rotator cuff repair. She had a traumatic accident and felt a pop in her shoulder. Risks and benefits to surgery were discussed. The patient understands the risks and wishes to proceed. All questions were answered to their satisfaction.
[~2017-06-09] VITALS: Ht 157.5 cm; Wt 82.1 kg
[~2017-06-09 09:55] MED LIST changes: +BUPIVACAINE/EPINEPHRINE 0.25% 1:200,000 30 ML VIAL ONE; +CLONIDINE HCL 100 MCG/ML SYRINGE ONE; +FURO-85 PO; -IBUP1CAP9 PO; -KETO0.024 OP; +LACTATED RINGER'S 1000ML 1,000 ML IV SCH; -METH1TAB81 PO; -OXYC-57 PO; +POTASSIUM PO; +PROM25TA9 PO; +ROPIVACAINE 0.5% 5 MG/ML 30 ML VIAL ONE; +SCOPOLAMINE 1.5 MG TDSY TD SCH; -SODICRE2 PO
[2017-06-09] MEDS ORDERED: HYDR25TA4 PO (10:26)
[2017-06-09] MEDS ORDERED: DIPH1TAB87 PO (10:32)
[2017-06-09 10:34] VITALS: BP 150/79; PULSE 85; TEMP 36.4; O2SAT 97; Ht 157.5 cm; Wt 82.1 kg
[2017-06-09] MEDS ORDERED: CEFAZOLIN 2000MG IV PUSH 10 ML IV SCH (11:00)
[2017-06-09] MEDS ORDERED: SCOPOLAMINE 1.5 MG TDSY TD ONE (11:00)
--- NOTE | 2017-06-09 11:13 | History & Physical Bridge Note ---
H&P Re-Evaluation Bridge Note: I have examined the patient, reviewed the History & Physical and in the interval since the performance of the History & Physical I have noted the following changes of clinical significance: Pain in biceps, had rupture of the long head of the biceps. Will plan biceps tenodesis as well.
[2017-06-09] MEDS ORDERED: LIDOCAINE/EPINEPHRINE 1% 20 ML VIAL ONE (11:40)
[2017-06-09] MEDS ORDERED: EpINEphrine HCL INJ 1 MG/ML 5ML SYRINGE ONE (11:41)
[2017-06-09] MEDS ORDERED: BUPIVACAINE 0.5 % 5 MG/1 ML MPF 30ML VIAL ONE (11:41)
[2017-06-09] MEDS ORDERED: MIDAZOLAM HCL 1 MG/ML 2ML VIAL ONE (12:14)
[2017-06-09] MEDS ORDERED: FLUMAZENIL 0.1 MG/1 ML 10 ML VIAL IV PRN (12:15)
[2017-06-09] MEDS ORDERED: ATROPINE SULFATE 0.1 MG/ML 5ML SYR IV PRN (12:15)
[2017-06-09] MEDS ORDERED: MEPERIDINE HCL 25 MG/ML CARP IV PRN (12:15)
[2017-06-09] MEDS ORDERED: LABETALOL HCL IV 5 MG/ML 20ML IV PRN (12:15)
[2017-06-09] MEDS ORDERED: PHENYLEPHRINE 100MCG/ML 5ML SYR IV PRN (12:15)
[2017-06-09] MEDS ORDERED: NALOXONE HCL 0.4 MG/1 ML VIAL/CARP IV PRN (12:15)
[2017-06-09] MEDS ORDERED: HYDROmorphone INJ 2 MG/ML SYR/VIAL IV PRN (12:15)
[2017-06-09] MEDS ORDERED: ONDANSETRON INJ 2 MG/ML 2 ML VIAL IV PRN ×2 (12:15→15:30)
[2017-06-09] MEDS ORDERED: EpHEDrine SULFATE INJ 50 MG/ML AMP IV PRN (12:15)
[2017-06-09] MEDS ORDERED: FENTANYL CITRATE INJ 50 MCG/1 ML 2 ML VIAL ONE ×2 (12:15→14:41)
[2017-06-09] MEDS ORDERED: PROPOFOL IV EMULSION 10 MG/ML 20 ML VIAL IV ONE (12:19)
[2017-06-09] MEDS ORDERED: LIDOCAINE HCL 2% 2 ML VIAL (20MG/ML) ONE (12:19)
[2017-06-09] MEDS ORDERED: ROCURONIUM BROMIDE 10 MG/ML 5 ML VIAL IV ONE (12:20)
[2017-06-09] MEDS ORDERED: ONDANSETRON INJ 2 MG/ML 2 ML VIAL ONE (12:20)
[2017-06-09] MEDS ORDERED: DEXAMETHASONE SOD INJ 4 MG/ML VIAL ONE (12:20)
[2017-06-09] MEDS ORDERED: PHENYLEPHRINE 100MCG/ML 5ML SYR ONE (14:29)
[2017-06-09] MEDS ORDERED: GLYCOPYRROLATE INJ 0.2 MG/ML VIAL ONE (15:01)
[2017-06-09] MEDS ORDERED: NEOSTIGMINE METHYLSULFATE 5 MG/5 ML SYR ONE (15:01)
--- NOTE | 2017-06-09 15:15 | [facility] Operative Report ---
Operative Report Operative Date Jun 09, 2017. Pre-Operative Diagnosis Left Shoulder Rotator Cuff Re-Tear, tear of long head biceps tendon, synovitis Post-Operative Diagnosis Same as preop Procedure(s) Performed Left Shoulder Arthroscopy, Revision Rotator Cuff Repair, extensive debridement, Open Biceps Tenodesis Surgeon Dr. Oneill Tailman Surgeon(s) Gordon Farah PA-C Estimated Blood Loss 5 ml Findings as above Specimens None per Surgeon Drains 0 Anesthesia Gen. and interscalene block Complication(s) None Disposition Recovery Room / PACU Indications She had previously undergone a repair of the left rotator cuff. She sustained a new injury she is walking [place] which then took off after something jerking her arm. MRI demonstrated a re-tear of rotator cuff. She also sustained a rupture long head biceps tendon. We discussed nonoperative measurements with this versus operative measures. She wishes to proceed with operative biceps tenodesis. Description of Procedure Risks, benefits and alternatives to surgery including, but not limited to, infection DVT, pain, stiffness, need for revision surgery, failure to relieve all symptoms, damage to blood vessels, damage to nerves, risk of anesthesia were discussed with the patient and they wished to proceed. The patient was identified. Laterality was confirmed and marked. The patient received a preoperative antibiotic as well as an interscalene block. They were transferred to the operating room and placed in the supine position and induced into general endotracheal anesthesia per the anesthesia staff. The patient was then safely transferred to the lateral decubitus position, secured by a beanbag. An axillary roll was placed. All pressure points were well-padded. The limb was placed in 10 pounds of lateral traction and then prepped and draped in the usual standard manner with ChloraPrep. The portal sites were anesthetized with 2% lidocaine with epinephrine. I made a standard posterior viewing portal made through a stab incision and then bluntly entered the glenohumeral joint. Then under spinal needle localization, I establish an anterior superolateral portal. The patient had evidence of the previous rotator cuff repair. The sutures themselves. We intact. However the tissue had torn back off of the tuberosity. Synovitic change in the anterior aspect of the joint was debrided utilizing a shaver. Cartilage of the humeral head and glenoid were normal. The long head of the biceps tendon had evidence of a rupture small residual biceps tendon stump office. Labrum. This was debrided back to stable base using shaver.. The subscapularis was normal. I then removed the instrumentation from the joint and entered the subacromial space and established a lateral portal. There was a full-thickness rotator cuff tear that measured about 1 cm in diameter. I removed the previous suture material. I debrided the footprint with a shaver to establish a good bleeding response. Through a stab incision I placed a 2.8 mm Q Fix suture anchor. I passed the sutures in a horizontal mattress with a scorpion. I tied the sutures with sliding Herald knots reinforced for 3 half hitches on alternating posts. I then took sutures and I placed them in a 5.5 mm Multi-Fix S anchor. I placed this laterally, completing my double row construct. All instrumentation was then removed from the shoulder. Portal sites were closed with nylon. I then made a incision over the anterior aspect of the shoulder and developed the deltopectoral interval. I identified the bicipital groove. The long head of the biceps was scarred down to the humerus. I mobilized the tendon and released it from the scar. I then drilled and placed a 2.8 mm Q fix suture anchor. I used the sutures from this anchor to tie down along her biceps and excised the tendon out a portion proximally. This wound was thoroughly irrigated. The subcutaneous tissues closed with interrupted 3-0 Vicryl suture and skin with running 4-0 Monocryl. A sterile dressing was applied and a sling placed. All needle and sponge counts were correct at the end of the procedure. The patient was transferred to the PACU in stable condition without apparent complication. I attest to the content of the Intraoperative Record and any orders documented therein. Any exceptions are noted below.
[2017-06-09] MEDS ORDERED: SODIUM CHLORIDE 0.9% 1000ML 1,000 ML IV SCH (15:24)
[2017-06-09] MEDS ORDERED: OXYC-57 PO (15:27)
[2017-06-09] MEDS ORDERED: OXYCODONE/ACETAMINOPHEN 5-325 TAB PO PRN ×2 (15:30)
--- NOTE | 2017-06-09 15:32 | Discharge Instructions ---
Discharge Instructions Date of Service Jun 09, 2017. Admission Reason for Admission: Left Shoulder Rotator Cuff Tear Discharge Discharge Diagnosis / Problem: S/P Left shoulder Revision RCR, Open subpec biceps tenodesis Discharge Goals Goal(s): Decrease discomfort, Improve function Activity Recommendations Activity Limitations: per Instructions/Follow-up section . Instructions / Follow-Up Instructions / Follow-Up [facility] DISCHARGE INSTRUCTIONS: ROTATOR CUFF REPAIR SELF CARE INSTRUCTIONS A. You are permitted to loosen your sling/immobilizer to move your elbow, wrist , and hand to prevent stiffness. You should use your well arm (good arm) to assist the operated extremity when trying to raise the arm away from the body, hygiene purposes. Do NOT actively try to use/engage your shoulder muscles in operative arm at this time. You should NOT do overhead activity, lifting, or attempt to reach behind your back. B. NO PHYSICAL THERAPY FOR 2 WEEKS. WE WILL BEING PT WHEN YOU FOLLOW UP IN THE OFFICE IN 2 WEEKS. C. At 48 hours post-operatively, you may change your dressing. Use band-aids and change daily. You are allowed to shower at this time and get the incision area wet, but DO NOT soak or submerge incision area in water. (No baths, swimming pools, hot tubs) D. Do NOT apply soap or any ointment/lotions directly over incision. E. You may use ice as needed to operative shoulder SPECIAL CARE INSTRUCTIONS: VERY IMPORTANT TO READ AND REVIEW A. There are a few signs you need to watch for after you are home. Call [facility] at [phone] if you experience any of the following: a. Increased severe shoulder pain. Some pain is expected especially when you exercise b. Increased swelling in your shoulder or arm; pain or swelling in either upper extremity. (Note: swelling and stiffness is normal and expected for several weeks post op, depending on type of shoulder surgery you had). c. Any fluid or drainage from the incision; redness of the incision. d. Shortness of breath or chest pain. B. Please call [facility] at [phone] if you have any questions or concerns about your operation or recovery. C. Call your physician if: a. Temperature is greater than 101 degrees (F). b. Pain is not relieved by prescribed pain medications. c. Increase drainage or redness from incision. d. Unanswered questions or concerns. D. Pain Medication: a. You will be prescribed pain medication upon discharge that should last till your first post-operative appointment. b. If you experience nausea and/or skin rash, discontinue this medication and contact our office for an alternative medication. c. Caution- narcotic pain medication can cause constipation. FOLLOW UP VISIT: Please call [facility] at [phone] to schedule a follow up appointment with Dr. Harris or his PA 10-14 days from your surgery date. Current Hospital Diet Patient's current hospital diet: Discharge Diet Recommended Diet: Regular Diet Procedures Procedures Performed: Left Shoulder Arthroscopy, Revision Rotator Cuff Repair, extensive debridement, Open Biceps Tenodesis Pending Studies Studies pending at discharge: no Medical Emergencies . Who to Call and When: Medical Emergencies: If at any time you feel your situation is an emergency, please call 911 immediately. . Non-Emergent Contact Non-Emergency issues call your: Surgeon Call Non-Emergent contact if: temperature is above 101.5, your pain is worsening, wound has increased drainage, wound has increased redness . "Provider Documentation" section prepared by Tani Farah. . VTE Core Measure Inpt VTE Proph given/why not?: Treatment not indicated [place] Drug Monitoring Program Search Results: patient reviewed within database, no issues identified
[2017-06-09] MEDS: FENTANYL CITRATE INJ 50 MCG/1 ML 2 ML VIAL IV PRN ×2 (15:58→16:05)
--- NOTE | 2017-06-09 15:59 | Anesthesiology Progress Note ---
Anesthesia Post Op Note Date & Time Jun 09, 2017 at 15:59 Vital Signs Pain Intensity: 3 Vital Signs Past 12 Hours Date Time Temp Pulse Resp B/P (MAP) Pulse Ox O2 Delivery O2 Flow Rate FiO2 06/09/17 15:46 82 12 107/61 98 06/09/17 15:46 81 12 06/09/17 15:41 81 17 112/67 99 06/09/17 15:41 82 17 06/09/17 15:36 81 14 108/65 100 06/09/17 15:36 81 14 06/09/17 15:31 80 16 06/09/17 15:31 80 16 110/61 97 06/09/17 15:27 97/70 06/09/17 15:26 81 16 89 06/09/17 15:26 36.0 81 16 97/70 96 Mask 15 06/09/17 15:26 81 16 06/09/17 10:34 36.4 85 18 150/79 (102) 97 Room Air Notes Mental Status: alert / awake / arousable, participated in evaluation Pt Amnestic to Procedure: Yes Nausea / Vomiting: adequately controlled Pain: adequately controlled Airway Patency, RR, SpO2: stable & adequate BP & HR: stable & adequate Hydration State: stable & adequate Anesthetic Complications: no major complications apparent
[2017-06-09] MEDS ORDERED: CHECK SCOPOLAMINE PATCH PLACEMENT SCH (16:00)
[2017-06-09 16:30] VITALS: BP 109/56; PULSE 85; TEMP 36.5; O2SAT 93
[2017-06-09 17:00] VITALS: BP 113/57; PULSE 85; O2SAT 95
[2017-06-09 17:30] VITALS: BP 110/64; PULSE 80; O2SAT 95
== END 2017-06-09 17:40 | disposition home or self-care (01) ==
LOC: C.ACU 09:55
PROVIDERS: ATTEND Orthopaedic Surgery
DX: S46.012A Strain of muscle(s) and tendon(s) of the rotator cuff of left shoulder, initial encounter (principal); S46.112A Strain of muscle, fascia and tendon of long head of biceps, left arm, initial encounter; M65.812 Other synovitis and tenosynovitis, left shoulder; X50.0XXA Overexertion from strenuous movement or load, initial encounter; Y93.K1 Activity, walking an animal

== ENCOUNTER → 2017-10-10 | Outpatient (CLI) | payer OTHER ==
[~2017-10-10] MED LIST changes: -BUPIVACAINE/EPINEPHRINE 0.25% 1:200,000 30 ML VIAL ONE; -CLONIDINE HCL 100 MCG/ML SYRINGE ONE; +DIPH1TAB87 PO; -FURO-85 PO; +HYDR25TA4 PO; -LACTATED RINGER'S 1000ML 1,000 ML IV SCH; -MELO15TA4 PO; +OXYC-57 PO; -ROPIVACAINE 0.5% 5 MG/ML 30 ML VIAL ONE; -SCOPOLAMINE 1.5 MG TDSY TD SCH
== END | disposition home or self-care (01) ==
LOC: C.LAB 16:34
PROVIDERS: ATTEND Nurse Practitioner Adult Health
DX: R39.9 Unspecified symptoms and signs involving the genitourinary system (principal); N39.0 Urinary tract infection, site not specified

== ENCOUNTER → 2018-03-26 | Outpatient (CLI) | payer OTHER ==
[~2018-03-26] MED LIST changes: -OXYC-57 PO
--- NOTE | 2018-03-26 12:21 | DIAGNOSTIC IMAGING REPORT ---
THORACIC SPINE 3 VIEWS ROUTINE CLINICAL HISTORY: M06.9 Rheumatoid [id number] High risk medication [id number] COMPARISON STUDY: No previous studies for comparison. FINDINGS: There are postsurgical changes present within the upper thoracic and mid to lower cervical spine. There are postsurgical changes present within the lumbar spine. The paraspinal line is not displaced. No acute fractures are visualized. There are no destructive lesions. There are mild multilevel degenerative changes. IMPRESSION: 1. Postsurgical change 3. Mild degenerative change 3. No acute fractures Electronically signed by: Elton Jarvis M.D. 03/26/2018 12:19 PM Dictated Date/Time: 03/26/2018 12:19 PM
== END | disposition home or self-care (01) ==
LOC: C.RAD1850 12:05
PROVIDERS: ATTEND Internal Medicine Rheumatology
DX: Z79.899 Other long term (current) drug therapy (principal); M54.6 Pain in thoracic spine; M06.9 Rheumatoid arthritis, unspecified

== ENCOUNTER 2021-06-16 18:19 | Inpatient (IN) ==
[2021-06-16 19:24] LABS: Basophils # (auto) 0.01 K/uL (0-0.2); Basophils % (auto) 0.2 %; Eosinophils # (auto) 0.16 K/uL (0-0.5); Eosinophils % (auto) 2.9 %; Hematocrit (blood only) 31.9 % (37-47); Hemoglobin 10.5 g/dL (12.0-16.0); Immature Granulocytes # (auto) 0.03 K/uL (0.00-0.02); Immature Granulocytes % (auto) 0.6 %; Lymphocytes # (auto) 0.68 K/uL (1.2-3.4); Lymphocytes % (auto) 12.5 %; Mean Corpuscular Hemoglobin 30.5 pg (25-34); Mean Corpuscular Hgb Conc 32.9 g/dL (32-36); Mean Corpuscular Volume 92.7 fL (80-100); Mean Platelet Volume 10.8 fL (7.4-10.4); Monocytes # (auto) 0.43 K/uL (0.11-0.59); Monocytes % (auto) 7.9 %; Neutrophils # (auto) 4.12 K/uL (1.4-6.5); Neutrophils % (auto) 75.9 %; Platelet Count 137 K/uL (130-400); RDW Coefficient of Variation 12.7 % (11.5-14.5); RDW Standard Deviation 42.9 fL (36.4-46.3); Red Blood Count 3.44 M/uL (4.2-5.4); White Blood Count 5.43 K/uL (4.8-10.8)
[2021-06-16 19:40] LABS: INR 1.1 (0.9-1.1); Prothrombin Time 11.4 Seconds (9.0-12.0)
[2021-06-16] MEDS ORDERED: LORazepam 1 MG/2 ML VIAL IV PRN (19:41)
[2021-06-16 19:45] LABS: Alanine Aminotransferase 18 U/L (12-78); Albumin Level 3.1 gm/dl (3.4-5.0); Aspartate Aminotransferase 15 U/L (15-37); BUN Creatinine Ratio 11.7 (10-20); Blood Urea Nitrogen 9 mg/dl (7-18); C Reactive Protein < 0.29 mg/dl (0-0.29); Calcium 8.2 mg/dl (8.5-10.1); Carbon Dioxide 29 mmol/L (21-32); Chloride 105 mmol/L (98-107); Creatinine Clr Calc Pharmacy 81.1 ml/min; Est GFR (African American) 91.6 ml/min; Glucose 124 mg/dl (70-99); Potassium 3.5 mmol/L (3.5-5.1); Sodium 140 mmol/L (136-145)
[2021-06-16 19:47] LABS: Albumin Globulin Ratio 1.6 (0.9-2); Alkaline Phosphatase 32 U/L (45-117); Bilirubin,Total 0.3 mg/dl (0.2-1); Total Protein 5.1 gm/dl (6.4-8.2)
[2021-06-16] MEDS ORDERED: SODIUM CHLORIDE 0.9% 1000ML 1,000 ML IV ONE (20:11)
--- NOTE | 2021-06-16 21:54 | Emergency Department Note ---
History of Present Illness General Chief complaint: Back Injury/Pain Time Seen by Provider: 06/16/21 18:24 Source: patient and EMS Mode of arrival: EMS Limitations: no limitations History of Present Illness Provider complaint: Back pain, unable to walk Onset (ago): day(s) 1 Maximum Pain Intensity: 10 Treatments prior to arrival: other This is a 61-year-old female presents emergency department complaining of increased back and lower extremity pain status post back surgery by Dr. Jj 1 week ago. Patient states she was discharged from the hospital on Monday and felt improved at that time. Patient has had prior back surgeries and did have hardware. Patient states she had a prior hardware infection and does take daily Bactrim as a result. She states she did not notice any bleeding or drainage from the wound, however last night pain was slightly worse and today she felt as though her legs would not hold her. She states she went to the bathroom and could not get off the commode and slid down onto the floor. She called for her friend who was there helping to take care of her who called 911. In route patient was given a total of 20 mg of morphine by EMS. Patient states the pain in her back is worse as well as the pain radiating down her legs. She states she also feels that the numbness and tingling in her legs is worse. She states this had initially been improved immediately postop and was part of the reason she had undergone surgery. Patient denies fevers or chills, abdominal pain, nausea or vomiting. Patient denies any incontinence, denies saddle anesthesia. Pt seen during a time of high acuity and national emergency pandemic while wearing PPE. Home Medications Medication Instructions Recorded Confirmed Type amitriptyline 50 mg tablet 50 mg PO HS 06/15/18 06/16/21 History atorvastatin 20 mg tablet (Lipitor) 20 mg PO QAM 06/15/18 06/16/21 History calcium carbonate 600 mg calcium 1 tab PO BID 06/15/18 06/16/21 History (1,500 mg) tablet (Calcium) docusate sodium 100 mg capsule 100 mg PO BID 06/15/18 06/16/21 History (Stool Softener) ferrous sulfate 325 mg (65 mg 325 mg PO QAM 06/15/18 06/16/21 History iron) tablet misoprostol 100 mcg tablet 100 mcg PO QAM 06/15/18 06/16/21 History (Cytotec) prednisone 5 mg tablet 5 mg PO QAM 06/15/18 06/16/21 History propylene glycol 0.6 % eye drops 1 drp OPHTHALMIC (EYE) UD PRN 06/15/18 06/16/21 History (Systane Balance) sertraline 100 mg tablet (Zoloft) 150 mg PO HS 06/15/18 06/16/21 History tocilizumab 80 mg/4 mL (20 mg/mL) 1 dose IV Q4WK 06/15/18 06/16/21 History intravenous solution (Actemra) ropinirole 4 mg tablet 4 mg PO HS 02/27/19 06/16/21 History Lactobacillus rhamnosus GG 15 1 cap PO QAM cap 03/18/19 06/16/21 History billion cell sprinkle capsule lorazepam 1 mg tablet 2 mg PO HS tab 03/18/19 06/16/21 History ibuprofen 600 mg tablet 600 mg PO TID #60 tab 05/08/19 06/16/21 History cholecalciferol (vitamin D3) 125 125 mcg PO QAM 08/06/19 06/16/21 History mcg (5,000 unit) tablet (Vitamin D3) hydrochlorothiazide 25 mg tablet 25 mg PO QAM 12/31/19 06/16/21 History potassium gluconate 595 mg (99 mg) 99 mg PO QAM 01/23/20 06/16/21 History tablet,extended release albuterol sulfate 90 mcg/actuation 2 puff INHALATION Q4 PRN #54 gm 10/09/20 06/16/21 Rx aerosol inhaler benzonatate 200 mg capsule 200 mg PO Q8H PRN #90 cap 10/09/20 06/16/21 Rx cyclobenzaprine 10 mg tablet 10 mg PO TID PRN 11/13/20 06/16/21 History hydroxychloroquine 200 mg tablet 200 mg PO BID 11/13/20 06/16/21 History (Plaquenil) lifitegrast 5 % eye drops in a 1 drp OPB BID 11/13/20 06/16/21 History dropperette (Xiidra) tafluprost (PF) 0.0015 % eye drops 1 drp OPB PM 11/13/20 06/16/21 History in a dropperette (Zioptan (PF)) loratadine 10 mg tablet (Claritin) 10 mg PO HS 12/31/20 06/16/21 History sulfamethoxazole 800 1 tab PO QAM 02/17/21 06/16/21 History mg-trimethoprim 160 mg tablet (Bactrim DS) oxybutynin chloride 15 mg 15 mg PO QAM 04/26/21 06/16/21 History tablet,extended release 24 hr pantoprazole 40 mg tablet,delayed 40 mg PO BID 04/26/21 06/16/21 History release (Protonix) tamsulosin 0.4 mg capsule 0.4 mg PO HS #90 cap 05/10/21 06/16/21 Rx Allergies Allergy/AdvReac Type Severity Reaction Status Date / Time succinylcholine Allergy Severe Pseudocholinesterase Verified 06/17/21 17:02 deficiency trazodone Allergy Intermediate Dry mouth Verified 06/17/21 17:02 (causing dyspnea) hydromorphone [From Dilaudid] Allergy Anaphylaxis Verified 06/17/21 17:02 Past Med/Surg History Medical History (Updated 06/17/21 @ 16:32 by Sean Bull MD) Acid reflux Anxiety and depression Aortic aneurysm Under surveillance, mild aneurysmal dilatation of the ascending thoracic aorta which measures up to 4.1 cm Asthma Cough-variant asthma Chronic back pain Claustrophobia Stressed with oxygen mask over face Degenerative disc disease Dysphagia Chronic, follows with GI (unchanged) Encounter for pre-operative examination Fibromyalgia Gastroparesis Hiatal hernia Hx of glaucoma R/L Hyperlipidemia IBS (irritable bowel syndrome) Obesity RAHEEM (obstructive sleep apnea) "Mild" per records, no device Restless leg syndrome Rheumatoid arthritis Actemra infusions q 4wks, Chronic prednisone 5mg daily* Follows with rheumatology (Dr. 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 Sol) who had recommended lifetime abx (surgeon aware), now under surveillance by PCP/no recent issues Urge and stress incontinence Urinary frequency Urinary urgency Surgical History Difficult intubation Significantly decreased cervical extension s/p cervical fusion Midurethral sling, cystoscopy (06/26/18): Grade view 2, with glidescope #3, ETT 7.0 at [facility] ("two person mask vent with oral airway.. small glottic opening and anterior with glidescope, ETT easily passed.. attempt x2") History of back surgery R/T INFECTION History of hysterectomy History of lumbar fusion X3 History of neck surgery CERVICAL FUSION; CERVICAL SURGERIES X3 TOTAL HAS CAGE - DECREASED ROM History of surgery Midurethral sling, cystoscopy (06/26/18) Hx of arthroscopy of shoulder LEFT X2 Hx of section X3 Hx of colonoscopy Hx of endoscopy EGD (04/30/21): MAC at [facility] Hx of exploratory laparotomy X2 (2/2 ADHESIONS) Hx of hernia repair Hx of laparoscopy X2 (2/2 ADHESIONS) Pseudocholinesterase deficiency 1984 (tested) Family History Mother Family history of stroke (cerebrovascular) Father Family history of CHF (congestive heart failure) Family history of COPD (chronic obstructive pulmonary disease) Other Patient's father is Social History Smoking Status: Never smoker Second Hand Exposure: Yes (father smoked); Hx Alcohol Use: Yes Alcohol type: wine Hx Substance Use: No Preferred Language: Colombian Communication Ability: Effective Visual Impairment: No Limitations Digester Hand Required: No Beliefs That Will Affect Care: None marital status: Current Living Situation: Spouse Current Living Situation Comment: Trevon current occupational status: disabled Other Information That Helps Us Care for You: No Feels Safe at Home: Yes Safety Concerns: Feels Safe At This Time Assistive Devices: Walker Review of Systems A total of 10 systems reviewed and were otherwise negative All systems reviewed & are unremarkable except as noted in HPI & below Physical Exam Vital Signs Vital Signs - 24 hr 06/17/21 00:30 06/17/21 01:30 06/17/21 07:50 Temperature 37.4 C 38.6 C H Temperature Source Oral Oral Pulse Rate 79 Pulse Rate [Finger] 86 104 H Respiratory Rate 12 20 18 Respiratory Effort / Characteristics Non-Labored Spontaneous Respiratory Depth Normal Respiratory Pattern Regular Blood Pressure 113/61 Blood Pressure [Right Arm] 124/73 115/60 Blood Pressure Mean 78 Blood Pressure Mean [Right Arm] 90 78 Blood Pressure Position [Right Arm] Lying Lying Pulse Oximetry 97 100 94 Oxygen Delivery Method Nasal Cannula Room Air Room Air Oxygen Flow Rate 2 GENERAL: alert, well appearing, well nourished, no distress, non-toxic EYE EXAM: normal conjunctiva, PERRL and EOM's grossly intact OROPHARYNX: no exudate, no erythema, lips, buccal mucosa, and tongue normal and mucous membranes are moist NECK: supple, no nuchal rigidity, no adenopathy, non-tender LUNGS: Clear to auscultation. Normal chest wall mechanics, no w/r/r HEART: no murmurs, S1 normal and S2 normal ABDOMEN: abdomen soft, non-tender, normo-active bowel sounds, no masses, no rebound or guarding. BACK: Back is symmetrical on inspection and there is no deformity, no CVA tenderness. Healing vertical midline incision noted, Steri-Strips intact superiorly. No dehiscence, no bleeding, no surrounding erythema, no discharge, separate site from drainage tube also appears to be healing. SKIN: no rashes and no bruising UPPER EXTREMITIES: upper extremities are grossly normal. FROM, nml pulses b/l. LOWER EXTREMITIES: No pitting edema. nml pulses b/l. NEURO EXAM: Normal sensorium, cranial nerves II-XII grossly intact, normal speech, no gross weakness of arms, weakness noted bilateral lower extremities, sensation intact but patient states subjectively dull, can wiggle toes. Course Course 2144: Discussed with Dr. Jj. Patient is in MRI currently. He will place admission orders and follow-up imaging. 2155: Pt's family updated on discussion. Patient in MRI currently. Administered Medications Amitriptyline HCl (Amitriptyline Hcl 50 Mg Tab) 50 mg PO HS YOUNG Stop: 07/17/21 20:59 Last Admin: 06/17/21 21:08 Dose: 50 mg Documented by: [id number] Atorvastatin Calcium (Atorvastatin 20 Mg Tab) 20 mg PO QAM [facility] Stop: 07/17/21 08:59 Last Admin: 06/17/21 07:53 Dose: 20 mg Documented by: [id number] Calcium Carbonate (Calcium Carbonate 1250mg Tab) 1,250 mg PO BID YOU[facility] Stop: 07/17/21 08:59 Last Admin: 06/17/21 21:08 Dose: 1,250 mg Documented by: [id number] Admin: 06/17/21 07:52 Dose: 1,250 mg Documented by: [id number] Docusate Sodium (Docusate Sodium 100 Mg Cap) 100 mg PO BID [facility] Stop: 07/17/21 08:59 Last Admin: 06/17/21 21:08 Dose: 100 mg Documented by: [id number] Admin: 06/17/21 07:53 Dose: 100 mg Documented by: [id number] Ferrous Sulfate (Ferrous Sulfate 325 Mg Tab) 325 mg PO [facility] Stop: 07/17/21 08:59 Last Admin: 06/17/21 07:52 Dose: 325 mg Documented by: [id number] Hydrochlorothiazide (Hydrochlorothiazide 25 Mg Tab) 25 mg PO [facility] Stop: 07/17/21 08:59 Last Admin: 06/17/21 07:53 Dose: 25 mg Documented by: [id number] Sodium Chloride (Nss 1000ml) 1,000 mls @ 100 mls/hr IV .Q10H [facility] Stop: 07/17/21 20:23 Last Admin: 06/17/21 21:02 Dose: 100 mls/hr Documented by: [id number] Miscellaneous (Zioptan~Order Awaiting Action) 1 ea N/A QS [facility] Stop: 07/17/21 07:59 Last Admin: 06/17/21 23:36 Dose: Not Given Documented by: [id number] Admin: 06/17/21 15:23 Dose: Not Given Documented by: [id number] Admin: 06/17/21 07:51 Dose: Not Given Documented by: [id number] Misoprostol (Misoprostol 100 Mcg Tab) 100 mcg PO [facility] Stop: 07/17/21 08:59 Last Admin: 06/17/21 07:52 Dose: 100 mcg Documented by: [id number] Oxybutynin Chloride (Oxybutynin Chloride Xl 5 Mg Tabcr) 15 mg PO [facility] Stop: 07/17/21 08:59 Last Admin: 06/17/21 07:52 Dose: 15 mg Documented by: [id number] Oxycodone HCl (Oxycodone Hcl Ir 5 Mg Tab (Immediate Release)) 5 - 10 mg PO Q4H PRN PRN Reason: mod to severe pain Stop: 07/01/21 01:35 Last Admin: 06/17/21 22:39 Dose: 10 mg Documented by: [id number] Admin: 06/17/21 02:21 Dose: 10 mg Documented by: [id number] Pantoprazole Sodium (Pantoprazole 40 Mg Tab) 40 mg PO BID [facility] Stop: 07/17/21 08:59 Last Admin: 06/17/21 21:08 Dose: 40 mg Documented by: [id number] Admin: 06/17/21 07:52 Dose: 40 mg Documented by: [id number] Ropinirole HCl (Ropinirole Hcl 1 Mg Tablet) [address] [facility] Stop: 07/17/21 22:59 Last Admin: 06/17/21 23:02 Dose: 4 mg Documented by: [id number] Senna/Docusate Sodium (Docusate Sodium/Senna 50/8.6mg Tab) [address] [facility] Stop: 07/17/21 20:59 Last Admin: 06/17/21 21:08 Dose: 2 tab Documented by: [id number] Sertraline HCl (Sertraline Hcl 50 Mg Tablet) [address] [facility] Stop: 07/17/21 20:59 Last Admin: 06/17/21 21:08 Dose: 150 mg Documented by: [id number] Tamsulosin HCl (Tamsulosin Hcl 0.4 Mg Cap) 0.[address] [facility] Stop: 07/17/21 20:59 Last Admin: 06/17/21 21:08 Dose: 0.4 mg Documented by: [id number] Vitamin D (Cholecalciferol 1,000 Units 25 Mcg Tab) 5,000 units PO [facility] Stop: 07/17/21 08:59 Last Admin: 06/17/21 07:52 Dose: 5,000 units Documented by: [id number] Discontinued Medications Bupivacaine HCl (Bupivacaine 0.5 % 5 Mg/1 Ml Mpf 30ml Vial) Confirm Administered Dose 30 ml .ROUTE .STK-MED ONE Stop: 06/17/21 16:58 Last Admin: 06/17/21 18:17 Dose: Not Given Documented by: [id number] Cefazolin Sodium (Cefazolin 250 Mg/Ml 1 Gm Vial) Confirm Administered Dose 1,000 mg .ROUTE .STK-MED ONE Stop: 06/17/21 16:58 Last Admin: 06/17/21 18:28 Dose: 950 mg Documented by: [id number] Epinephrine HCl (Epinephrine Inj 1 Mg/Ml Amp) Confirm Administered Dose 1 mg .ROUTE .STK-MED ONE Stop: 06/17/21 16:58 Last Admin: 06/17/21 18:17 Dose: Not Given Documented by: [id number] Fentanyl Citrate (Fentanyl Citrate 100 Mcg/2 Ml Vial) 25 mcg IV Q5M PRN PRN Reason: PACU Use Only-Pain Stop: 06/18/21 00:26 Last Admin: 06/17/21 19:31 Dose: 25 mcg Documented by: [id number] Admin: 06/17/21 19:26 Dose: 25 mcg Documented by: [id number] Admin: 06/17/21 19:21 Dose: 25 mcg Documented by: [id number] Admin: 06/17/21 19:16 Dose: 25 mcg Documented by: [id number] Fentanyl Citrate (Fentanyl Citrate 100 Mcg/2 Ml Vial) 25 mcg IV Q5M PRN PRN Reason: Pain Stop: 07/01/21 00:40 Last Admin: 06/17/21 19:38 Dose: 25 mcg Documented by: [id number] Gadobutrol (Gadobutrol 65ml Vial) 9 ml IV ONCE ONE Stop: 06/16/21 22:00 Last Admin: 06/16/21 22:00 Dose: 9 ml Documented by: [id number] Gentamicin Sulfate (Gentamicin Sulfate 40 Mg/Ml 2 Ml Vial) Confirm Administered Dose 240 mg .ROUTE .STK-MED ONE Stop: 06/17/21 16:58 Last Admin: 06/17/21 18:17 Dose: 240 mg Documented by: [id number] Lorazepam (Ativan) 1 mg in 2 mls @ 0.5 mls/min IV UD PRN PRN Reason: Anxiety Stop: 07/16/21 19:40 Last Admin: 06/16/21 21:05 Dose: 0.5 mls/min Documented by: [id number] Sodium Chloride (Nss 1000ml) 1,000 mls @ 999 mls/hr IV .Q1H1M ONE Stop: 06/16/21 21:11 Last Infusion: 06/16/21 21:18 Dose: 0 mls/hr Documented by: [id number] Admin: 06/16/21 20:17 Dose: 999 mls/hr Documented by: [id number] Acetaminophen (Ofirmev) 1,000 mg in 100 mls @ 400 mls/hr IV Q8H PRN PRN Reason: Pain Rating 1-3 & Pre PT Stop: 06/20/21 01:35 Last Infusion: 06/17/21 16:36 Dose: 0 mls/hr Documented by: [id number] Admin: 06/17/21 16:08 Dose: 400 mls/hr Documented by: [id number] Infusion: 06/17/21 08:07 Dose: 0 mls/hr Documented by: [id number] Admin: 06/17/21 07:49 Dose: 400 mls/hr Documented by: [id number] Sodium Chloride (Nss 1000ml) 1,000 mls @ 75 mls/hr IV .[id number] [facility] Stop: 07/17/21 01:35 Last Infusion: 06/17/21 21:03 Dose: 0 mls/hr Documented by: [id number] Admin: 06/17/21 14:03 Dose: 75 mls/hr Documented by: [id number] Infusion: 06/17/21 14:03 Dose: 75 mls/hr Documented by: [id number] Admin: 06/17/21 02:22 Dose: 75 mls/hr Documented by: [id number] Dexamethasone 8 mg/ Syringe 2 mls @ 1 mls/min IV NOW STA Stop: 06/17/21 07:44 Last Admin: 06/17/21 08:35 Dose: 1 mls/min Documented by: [id number] Cefazolin Sodium (Ancef 2000mg) 2,000 mg in 15 mls @ 3.75 mls/min IV ONCE ONE Stop: 06/17/21 18:25 Last Admin: 06/17/21 18:17 Dose: 3.75 mls/min Documented by: [id number] Hydrocortisone Sodium (Succinate 100 mg/ Syringe) 2 mls @ 4 mls/min IV ONCE ONE Stop: 06/17/21 22:46 Last Admin: 06/17/21 23:04 Dose: 4 mls/min Documented by: [id number] Morphine Sulfate (Morphine Sulfate 4 Mg/Ml 1 Ml Carp\\Vial) Confirm Administered Dose 4 mg .ROUTE .STK-MED ONE Stop: 06/17/21 01:21 Last Admin: 06/17/21 01:23 Dose: 4 mg Documented by: [id number] Morphine Sulfate (Morphine Sulfate 2 Mg/Ml Carp) 2 mg IV Q3H PRN PRN Reason: MOD pain (scale 4-6) & Pre PT Stop: 07/01/21 01:35 Last Admin: 06/17/21 15:25 Dose: 2 mg Documented by: [id number] Morphine Sulfate (Morphine Sulfate 4 Mg/Ml 1 Ml Carp\\Vial) 4 mg IV Q3H PRN PRN Reason: Pain Stop: 07/01/21 01:35 Last Admin: 06/17/21 11:26 Dose: 4 mg Documented by: [id number] Admin: 06/17/21 05:36 Dose: 4 mg Documented by: [id number] Prednisone (Prednisone 5 Mg Tab) 5 mg PO QAM [facility] Stop: 07/17/21 08:59 Last Admin: 06/17/21 07:52 Dose: 5 mg Documented by: [id number] Vancomycin HCl (Vancomycin Hcl 1000mg/20ml Vial) Confirm Administered Dose 50 mg .ROUTE .STK-MED ONE Stop: 06/17/21 16:58 Last Admin: 06/17/21 18:20 Dose: 1,000 mg Documented by: [id number] Medical Decision Making Differential Diagnosis Differential diagnoses includes but is not limited to lumbar radiculopathy, muscle strain, facture, cauda equina, mass, and disc herniation. Medical Records Attestation: I reviewed the patient's medical records. Home Medications Current Medication List: was personally reviewed by me Laboratory Data Attestation: I reviewed the patient's lab results. Result diagrams: 06/16/21 19:03 06/16/21 19:03 Lab Results 06/16/21 06/16/21 06/16/21 Range/Units 19:03 19:03 19:03 WBC 5.43 (4.8-10.8) K/uL RBC 3.44 L (4.2-5.4) M/uL Hgb 10.5 L (12.0-16.0) g/dL Hct 31.9 L (37-47) % MCV 92.7 (80-100) fL MCH 30.5 (25-34) pg MCHC 32.9 (32-36) g/dL RDW Std Deviation 42.9 (36.4-46.3) fL RDW Coeff of Cecelia 12.7 (11.5-14.5) % Plt Count 137 (130-400) K/uL MPV 10.8 H (7.4-10.4) fL Immature Gran % (Auto) 0.6 % Neut % (Auto) 75.9 % Lymph % (Auto) 12.5 % [place] % (Auto) 7.9 % Eos % (Auto) 2.9 % Baso % (Auto) 0.2 % Neut # (Auto) 4.12 (1.4-6.5) K/uL Lymph # (Auto) 0.68 L (1.2-3.4) K/uL [place] # (Auto) 0.43 (0.11-0.59) K/uL Eos # (Auto) 0.16 (0-0.5) K/uL Baso # (Auto) 0.01 (0-0.2) K/uL Immature Gran # (Auto) 0.03 H (0.00-0.02) K/uL ESR < 1 (0-30) mm/hr PT (9.0-12.0) Seconds INR (0.9-1.1) Sodium 140 (136-145) mmol/L Potassium 3.5 (3.5-5.1) mmol/L Chloride 105 (98-107) mmol/L Carbon Dioxide 29 (21-32) mmol/L Anion Gap 6.0 (3-11) BUN 9 (7-18) mg/dl Creatinine 0.80 (0.6-1.2) mg/dl Est Cr Clr Drug Dosing 81.1 ml/min Est GFR ( Amer) 91.6 ml/min Est GFR (Non-Af Amer) 79.0 ml/min BUN/Creatinine Ratio 11.7 (10-20) Glucose 124 H (70-99) mg/dl Calcium 8.2 L (8.5-10.1) mg/dl Total Bilirubin 0.3 (0.2-1) mg/dl AST 15 (15-37) U/L ALT 18 (12-78) U/L Alkaline Phosphatase 32 L (45-117) U/L C-Reactive Protein < 0.29 (0-0.29) mg/dl Total Protein 5.1 L (6.4-8.2) gm/dl Albumin 3.1 L (3.4-5.0) gm/dl Globulin 2.0 L (2.5-4.0) gm/dl Albumin/Globulin Ratio 1.6 (0.9-2) COVID-19 Eval Order SARS-CoV-2 (PCR) (Negative) 11/17/21 11/17/21 11/17/21 Range/Units 19:03 22:33 22:33 WBC (4.8-10.8) K/uL RBC (4.2-5.4) M/uL Hgb (12.0-16.0) g/dL Hct (37-47) % MCV (80-100) fL MCH (25-34) pg MCHC (32-36) g/dL RDW Std Deviation (36.4-46.3) fL RDW Coeff of Cecelia (11.5-14.5) % Plt Count (130-400) K/uL MPV (7.4-10.4) fL Immature Gran % (Auto) % Neut % (Auto) % Lymph % (Auto) % [place] % (Auto) % Eos % (Auto) % Baso % (Auto) % Neut # (Auto) (1.4-6.5) K/uL Lymph # (Auto) (1.2-3.4) K/uL [place] # (Auto) (0.11-0.59) K/uL Eos # (Auto) (0-0.5) K/uL Baso # (Auto) (0-0.2) K/uL Immature Gran # (Auto) (0.00-0.02) K/uL ESR (0-30) mm/hr PT 11.4 (9.0-12.0) Seconds INR 1.1 (0.9-1.1) Sodium (136-145) mmol/L Potassium (3.5-5.1) mmol/L Chloride (98-107) mmol/L Carbon Dioxide (21-32) mmol/L Anion Gap (3-11) BUN (7-18) mg/dl Creatinine (0.6-1.2) mg/dl Est Cr Clr Drug Dosing ml/min Est GFR ( Amer) ml/min Est GFR (Non-Af Amer) ml/min BUN/Creatinine Ratio (10-20) Glucose (70-99) mg/dl Calcium (8.5-10.1) mg/dl Total Bilirubin (0.2-1) mg/dl AST (15-37) U/L ALT (12-78) U/L Alkaline Phosphatase (45-117) U/L C-Reactive Protein (0-0.29) mg/dl Total Protein (6.4-8.2) gm/dl Albumin (3.4-5.0) gm/dl Globulin (2.5-4.0) gm/dl Albumin/Globulin Ratio (0.9-2) COVID-19 Eval Order Covid19 at [facility] SARS-CoV-2 (PCR) NEGATIVE (Negative) Imaging Data Radiologist's Impression: Lumbar Spine MRI 06/16/21 18:34 LUMBAR SPINE MRI WITH AND WITHOUT CONTRAST HISTORY: post postop, progressive back pain/paresthesias TECHNIQUE: Multiplanar multisequence MRI of the lumbar spine was performed both before and after the intravenous administration of contrast. COMPARISON: Lumbar spine MRI 02/22/2021. FINDINGS: For the purpose of the report the L5-S1 disc space will be located on axial image 45 of 50. There is been interval posterior fusion with pedicle screws and rods from T11 through L1 with laminectomy at L1. Pedicle screws and rods at L2-L3 remain unchanged in position from the prior examination. The conus terminates at the L1 level. Moderate disc space narrowing at L3-L4 and mild disc space narrowing at L4-5 and L5-S1 remains unchanged. The visualized uterus appears enlarged for age but enhances homogeneously. This is only partially imaged on this study. No fracture or subluxation within the lumbar spine. The visualized sacrum is intact. There is extensive edema with enhancement within the soft tissues of the visualized thoracolumbar region posteriorly. There is an elongated fluid collection posterior to the fusion levels from T11 through L3 which measures 12 cm in length and up to 3.8 cm in diameter. There is soft tissue enhancement surrounding this fluid collection. At the L1 laminectomy site this fluid collection extends to the left side of the thecal sac/central canal best seen on axial image 19 and measures up to 9 mm in thickness. This results in moderate mass effect along the left side of the thecal sac at the L1 level. There is an additional posterior epidural fluid collection seen from the T11-L1 levels as seen on sagittal image 8 of 16. This measures 7.2 cm in the craniocaudal dimension. This may be contiguous with the collection entering the L1 laminecto my site. This demonstrates mild peripheral enhancement and is therefore concerning for an epidural abscess. This results in mild mass effect along the posterior thecal sac at the T11 and T12 levels. A postoperative hematoma/seroma could also a similar appearance. Trace fluid collection posterior to the L4-L5 laminectomy sites likely represents a chronic postoperative seroma. L1-L2: Moderate left-sided central canal narrowing due to the left-sided epidural fluid collection which measures 9 mm in thickness. There is also moderate to severe left-sided neural foraminal narrowing due to the fluid collection. L2-L3: No significant central canal or neural foraminal narrowing due to the posterior decompression. L3-L4: No significant central canal or neural foraminal narrowing due to the posterior decompression. L4-L5: Broad-based posterior disc bulge asymmetric to the left without significant central canal narrowing due to the posterior decompression. The disc bulge abuts the transiting left L5 nerve root. There is moderate left-sided neural foraminal narrowing. L5-S1: Small broad-based posterior disc bulge without significant central canal narrowing due to the posterior decompression. There is mild to moderate bilateral neural foraminal narrowing. IMPRESSION: 1. Interval posterior fusion from T11 through L1 with laminectomy at the L1 level. 2. There is extensive edema with enhancement within the soft tissues of the visualized thoracolumbar region posteriorly. There is an elongated fluid collection posterior to the fusion levels from T11 through L3 which measures 12 cm in length and up to 3.8 cm in diameter. There is soft tissue enhancement surrounding this fluid collection. Therefore, this could represent a postoperative seroma. Secondary infection would be impossible to exclude by imaging alone. 3. At the L1 laminectomy site this posterior fluid collection extends to the left side of the thecal sac/central canal as described above and measures up to 9 mm in thickness. This results in moderate mass effect along the left side of the thecal sac at the L1 level. 4. There is an additional posterior epidural fluid collection seen from the T11- L1 levels which measures 7.2 cm in the craniocaudal dimension. This may be contiguous with the collection entering the L1 laminectomy site. This demonstrates mild peripheral enhancement and is therefore concerning for an epidural abscess. This results in mild mass effect along the posterior thecal sac at the T11 and T12 levels. A postoperative hematoma/seroma could also a similar appearance. 5. Additional findings as described above. 6. These findings discussed with Dr. Jj at 10:30 AM on 06/17/2021 ACT 112: Negative or not required by law. Electronically signed by: Yves Diaz M.D. 06/17/2021 10:27 AM MDM Narrative This is a 61-year-old female with a history of back pain and prior surgery who presents 1 week postop from a recurrent back surgery with increased pain and lumbar radiculopathy. Patient states she has been following her usual postop precautions and taking her pain medication at home. Patient states today the legs felt weaker and she had increased lower extremity paresthesias which had initially been improved in the postop period. Labs drawn and sent on the pat ient, and MRI ordered. Labs are reassuring, with negative infectious and inflammatory markers. While patient was on an MRI, I did discuss the case with Dr. Jj. He will place admission orders and follow-up on the imaging and see the patient in the morning. Patient with no obvious signs of acute cauda equina. I feel postop infection is less likely at this time. Patient may have seroma or postop hematoma contributing to her symptoms. Patient was given pain medication in route by EMS with improvement. Patient was afebrile and hemodynamically stable here. Patient was neurologically intact despite complaints of pain and paresthesias in the lower extremities. Patient not incontinent, no saddle anesthesia. An order was placed for continuous cardiac monitoring. The monitor shows a rate of _80_ with _normal sinus_ rhythm. Impression & Plan Back pain, Postoperative back pain Discharge Plan Visit Data Chief Complaint: Back Injury/Pain ED Provider: Yahaira Pierre Discharge Problem: Back pain, Postoperative back pain Patient Disposition: Admitted As Inpatient Discharge Instructions Interventions: ED Discharge Assessment Last Done: 06/17/21 00:34 Discharge Problem: Back pain Qualifiers: Back pain location: low back pain Chronicity: chronic Back pain laterality: bilateral Sciatica presence: with sciatica Sciatica laterality: bilateral sciatica Qualified Code(s): M54.42 - Lumbago with sciatica, left side
[2021-06-16] MEDS ORDERED: GADOBUTROL 65ML VIAL IV ONE (21:59)
[2021-06-17] MEDS ORDERED: MoRPHine SULFATE 4 MG/ML 1 ML CARP\\VIAL ONE (01:20)
[2021-06-17] MEDS ORDERED: LORazepam 0.5 MG/1 ML VIAL IV PRN ×2 (01:36→20:24)
[2021-06-17] MEDS ORDERED: ACETAMINOPHEN 500 MG TAB PO PRN (01:36)
[2021-06-17] MEDS ORDERED: PROMETHAZINE HCL 12.5 MG in SODIUM CHLORIDE 0.9% 50 ML IV PRN ×2 (01:36→20:24)
[2021-06-17] MEDS ORDERED: MoRPHine SULFATE 2 MG/ML CARP IV PRN (01:36)
[2021-06-17] MEDS ORDERED: ALUMINUM/MAGNESIUM SUSP 30 ML UDC PO PRN ×2 (01:36→20:24)
[2021-06-17] MEDS ORDERED: LORazepam 0.5 MG TAB PO PRN ×2 (01:36→20:24)
[2021-06-17] MEDS ORDERED: ONDANSETRON 4 MG OD TAB PO PRN ×2 (01:36→20:24)
[2021-06-17] MEDS ORDERED: ONDANSETRON INJ 2 MG/ML 2 ML VIAL IV PRN ×3 (01:36→20:24)
[2021-06-17] MEDS ORDERED: diphenhydrAMINE Capsule 25 MG CAP PO PRN ×2 (01:36→20:24)
[2021-06-17] MEDS ORDERED: ALBUTEROL HFA 8 GM INHALER INH PRN (01:36)
[2021-06-17] MEDS ORDERED: BENZONATATE 100 MG CAPSULE PO PRN (01:36)
[2021-06-17] MEDS ORDERED: hydrOXYzine HCl 25 MG TAB PO PRN ×2 (01:36→20:24)
[2021-06-17] MEDS ORDERED: NALOXONE HCL 0.4 MG/1 ML VIAL/CARP IV PRN ×2 (01:36→20:24)
[2021-06-17] MEDS ORDERED: METOCLOPRAMIDE HCL INJ 5 MG/ML 2 ML VIAL IV PRN ×2 (01:36→20:24)
[2021-06-17] MEDS: oxyCODONE HCL IR 5 MG TAB (IMMEDIATE RELEASE) PO PRN ×2 (02:21→22:39)
[2021-06-17] MEDS: SODIUM CHLORIDE 0.9% 1000ML 1,000 ML IV SCH ×3 (02:22→21:02)
[2021-06-17] MEDS ORDERED: ARTIFICIAL TEARS OP PRN (03:52)
[2021-06-17] MEDS ORDERED: HYDROCORTISONE SOD 50 MG in SYRINGE 0 ML IV SCH (05:00)
[2021-06-17] MEDS: MoRPHine SULFATE 4 MG/ML 1 ML CARP\\VIAL IV PRN ×2 (05:36→11:26)
[2021-06-17] MEDS ORDERED: dexAMETHasone 8 MG in SYRINGE 0 ML IV STA (07:43)
[2021-06-17] MEDS: ACETAMINOPHEN 1,000 MG/100 ML VIAL IV PRN ×2 (07:49→16:08)
[2021-06-17] MEDS: PANTOprazole 40 MG TAB PO SCH ×2 (07:52→21:08)
[2021-06-17] MEDS: CALCIUM CARBONATE 1250MG TAB PO SCH ×2 (07:52→21:08)
[2021-06-17] MEDS: miSOPROStoL 100 MCG TAB PO SCH (07:52)
[2021-06-17] MEDS: OXYBUTYNIN CHLORIDE XL 5 MG TABCR PO SCH (07:52)
[2021-06-17] MEDS: FERROUS SULFATE 325 MG TAB PO SCH (07:52)
[2021-06-17] MEDS: CHOLECALCIFEROL 1,000 UNITS 25 MCG TAB PO SCH (07:52)
[2021-06-17] MEDS: hydroCHLOROthiazide 25 MG TAB PO SCH (07:53)
[2021-06-17] MEDS: DOCUSATE SODIUM 100 MG CAP PO SCH ×2 (07:53→21:08)
[2021-06-17] MEDS: ATORVASTATIN 20 MG TAB PO SCH (07:53)
[2021-06-17] MEDS ORDERED: predniSONE 5 MG TAB PO SCH (09:00)
[2021-06-17] MEDS ORDERED: NON-FORMULARY MEDICATION (Potassium Gluconate 595 mg (99 mg) Tablet Extended Release) PO SCH (09:00)
--- NOTE | 2021-06-17 09:17 | Electrocardiogram Report ---
Test Reason : Blood Pressure : / mmHG Vent. Rate : 071 BPM Atrial Rate : 071 BPM P-R Int : 156 ms QRS Dur : 090 ms QT Int : 404 ms P-R-T Axes : 065 035 074 degrees QTc Int : 439 ms Normal sinus rhythm Diffuse Nonspecific T wave abnormality Abnormal ECG When compared with ECG of 22-FEB-2021 06:57, No significant change was found Confirmed by Jeffery Graves ([id number]) on 06/17/2021 9:17:11 AM Referred By: REFERRED SELF Confirmed By:Jeffery Graves
--- NOTE | 2021-06-17 09:21 | Magnetic Resonance Report ---
LUMBAR SPINE MRI WITH AND WITHOUT CONTRAST HISTORY: post postop, progressive back pain/paresthesias TECHNIQUE: Multiplanar multisequence MRI of the lumbar spine was performed both before and after the intravenous administration of contrast. COMPARISON: Lumbar spine MRI 02/22/2021. FINDINGS: For the purpose of the report the L5-S1 disc space will be located on axial image 45 of 50. There is been interval posterior fusion with pedicle screws and rods from T11 through L1 with laminec dameon at L1. Pedicle screws and rods at L2-L3 remain unchanged in position from the prior examination. The conus terminates at the L1 level. Moderate disc space narrowing at L3-L4 and mild disc space keenan rowing at L4-5 and L5-S1 remains unchanged. The visualized uterus appears enlarged for age but enhanc es homogeneously. This is only partially imaged on this study. No fracture or subluxation within the lumbar spine. The visualized sacrum is intact. There is extensive edema with enhancement within the s oft tissues of the visualized thoracolumbar region posteriorly. There is an elongated fluid collectio n posterior to the fusion levels from T11 through L3 which measures 12 cm in length and up to 3.8 cm in diameter. There is soft tissue enhancement surrounding this fluid collection. At the L1 laminectom y site this fluid collection extends to the left side of the thecal sac/central canal best seen on ax ial image 19 and measures up to 9 mm in thickness. This results in moderate mass effect along the lef t side of the thecal sac at the L1 level. There is an additional posterior epidural fluid collection seen from the T11-L1 levels as seen on sagittal image 8 of 16. This measures 7.2 cm in the craniocaud al dimension. This may be contiguous with the collection entering the L1 laminectomy site. This demon strates mild peripheral enhancement and is therefore concerning for an epidural abscess. This results in mild mass effect along the posterior thecal sac at the T11 and T12 levels. A postoperative hemato ma/seroma could also a similar appearance. Trace fluid collection posterior to the L4-L5 laminectomy sites likely represents a chronic postoperative seroma. L1-L2: Moderate left-sided central canal narrowing due to the left-sided epidural fluid collection wh ich measures 9 mm in thickness. There is also moderate to severe left-sided neural foraminal narrowin g due to the fluid collection. L2-L3: No significant central canal or neural foraminal narrowing due to the posterior decompression. L3-L4: No significant central canal or neural foraminal narrowing due to the posterior decompression. L4-L5: Broad-based posterior disc bulge asymmetric to the left without significant central canal narr owing due to the posterior decompression. The disc bulge abuts the transiting left L5 nerve root. The re is moderate left-sided neural foraminal narrowing. L5-S1: Small broad-based posterior disc bulge without significant central canal narrowing due to the posterior decompression. There is mild to moderate bilateral neural foraminal narrowing. IMPRESSION: 1. Interval posterior fusion from T11 through L1 with laminectomy at the L1 level. 2. There is extensive edema with enhancement within the soft tissues of the visualized thoracolumbar region posteriorly. There is an elongated fluid collection posterior to the fusion levels from T11 th rough L3 which measures 12 cm in length and up to 3.8 cm in diameter. There is soft tissue enhancemen t surrounding this fluid collection. Therefore, this could represent a postoperative seroma. Secondar y infection would be impossible to exclude by imaging alone. 3. At the L1 laminectomy site this posterior fluid collection extends to the left side of the thecal sac/central canal as described above and measures up to 9 mm in thickness. This results in moderate m ass effect along the left side of the thecal sac at the L1 level. 4. There is an additional posterior epidural fluid collection seen from the T11-L1 levels which measu res 7.2 cm in the craniocaudal dimension. This may be contiguous with the collection entering the L1 laminectomy site. This demonstrates mild peripheral enhancement and is therefore concerning for an ep idural abscess. This results in mild mass effect along the posterior thecal sac at the T11 and T12 le vels. A postoperative hematoma/seroma could also a similar appearance. 5. Additional findings as described above. 6. These findings discussed with Dr. Jj at 10:30 AM on 06/17/2021 ACT 112: Negative or not required by law. Electronically signed by: Yves Diaz M.D. 06/17/2021 10:27 AM
--- NOTE | 2021-06-17 10:40 | History & Physical Report ---
Date of Service June 17, 2021 Assessment & Plan (1) Lumbar muscle hematoma: Plan: MRI lumbar spine does demonstrate evidence of accumulation of fluid in the perioperative area with significant compression of the thecal sac. There is cephalad migration of the fluid. This most likely hematoma. In light of her presentation we are recommending urgent evacuation of hematoma. Cultures will be obtained at that time. And may have to extend the laminotomy site to adequately decompress the hematoma at the time of surgery. Risk benefits pros cons and alternatives were outlined in detail. She is n.p.o. We will have surgery done soon as possible today. Admission and Anticipated Discharge Date Admission Date: June 16, 2021 History of Present Illness Chief Complaint: Back and bilateral leg pain Primary Care Provider: Uday Barksdale DO This is a 61-year-old female well-known to me the presents with marked clinical status over the past day. She is status post thoracolumbar decompression fusion approximately a week ago. She had had a normal postoperative course. She was sent home with a drain. The drain was removed on Monday. Within 24 hours she had the onset of significant back pain and bilateral leg pain with inability to ambulate without severe discomfort. She was seen in emergency room and subsequently admitted. She denies any fevers or chills. Pain not controlled with oral medications. Allergies Allergy/AdvReac Type Severity Reaction Status Date / Time succinylcholine Allergy Severe Pseudocholinesterase Verified 06/16/21 20:35 deficiency trazodone Allergy Intermediate Dry mouth Verified 06/16/21 20:35 (causing dyspnea) hydromorphone [From Dilaudid] Allergy Anaphylaxis Unverified 06/16/21 20:31 Home Medications Medication Instructions Recorded Confirmed Type amitriptyline 50 mg tablet 50 mg PO HS 06/15/18 06/16/21 History atorvastatin 20 mg tablet (Lipitor) 20 mg PO QAM 06/15/18 06/16/21 History calcium carbonate 600 mg calcium 1 tab PO BID 06/15/18 06/16/21 History (1,500 mg) tablet (Calcium) docusate sodium 100 mg capsule 100 mg PO BID 06/15/18 06/16/21 History (Stool Softener) ferrous sulfate 325 mg (65 mg 325 mg PO QAM 06/15/18 06/16/21 History iron) tablet misoprostol 100 mcg tablet 100 mcg PO QAM 06/15/18 06/16/21 History (Cytotec) prednisone 5 mg tablet 5 mg PO QAM 06/15/18 06/16/21 History propylene glycol 0.6 % eye drops 1 drp OPHTHALMIC (EYE) UD PRN 06/15/18 06/16/21 History (Systane Balance) sertraline 100 mg tablet (Zoloft) 150 mg PO HS 06/15/18 06/16/21 History tocilizumab 80 mg/4 mL (20 mg/mL) 1 dose IV Q4WK 06/15/18 06/16/21 History intravenous solution (Actemra) ropinirole 4 mg tablet 4 mg PO HS 02/27/19 06/16/21 History Lactobacillus rhamnosus GG 15 1 cap PO QAM cap 03/18/19 06/16/21 History billion cell sprinkle capsule lorazepam 1 mg tablet 2 mg PO HS tab 03/18/19 06/16/21 History ibuprofen 600 mg tablet 600 mg PO TID #60 tab 05/08/19 06/16/21 History cholecalciferol (vitamin D3) 125 125 mcg PO QAM 08/06/19 06/16/21 History mcg (5,000 unit) tablet (Vitamin D3) hydrochlorothiazide 25 mg tablet 25 mg PO QAM 12/31/19 06/16/21 History potassium gluconate 595 mg (99 mg) 99 mg PO QAM 01/23/20 06/16/21 History tablet,extended release albuterol sulfate 90 mcg/actuation 2 puff INHALATION Q4 PRN #54 gm 10/09/20 06/16/21 Rx aerosol inhaler benzonatate 200 mg capsule 200 mg PO Q8H PRN #90 cap 10/09/20 06/16/21 Rx cyclobenzaprine 10 mg tablet 10 mg PO TID PRN 11/13/20 06/16/21 History hydroxychloroquine 200 mg tablet 200 mg PO BID 11/13/20 06/16/21 History (Plaquenil) lifitegrast 5 % eye drops in a 1 drp OPB BID 11/13/20 06/16/21 History dropperette (Xiidra) tafluprost (PF) 0.0015 % eye drops 1 drp OPB PM 11/13/20 06/16/21 History in a dropperette (Zioptan (PF)) loratadine 10 mg tablet (Claritin) 10 mg PO HS 12/31/20 06/16/21 History sulfamethoxazole 800 1 tab PO QAM 02/17/21 06/16/21 History mg-trimethoprim 160 mg tablet (Bactrim DS) oxybutynin chloride 15 mg 15 mg PO QAM 04/26/21 06/16/21 History tablet,extended release 24 hr pantoprazole 40 mg tablet,delayed 40 mg PO BID 04/26/21 06/16/21 History release (Protonix) tamsulosin 0.4 mg capsule 0.4 mg PO HS #90 cap 05/10/21 06/16/21 Rx Past Med/Surg History Medical History Acid reflux Anxiety and depression Aortic aneurysm Under surveillance, mild aneurysmal dilatation of the ascending thoracic aorta which measures up to 4.1 cm Asthma Cough-variant asthma Chronic back pain Claustrophobia Stressed with oxygen mask over face Degenerative disc disease Dysphagia Chronic, follows with GI (unchanged) Fibromyalgia Gastroparesis Hiatal hernia Hx of glaucoma R/L Hyperlipidemia IBS (irritable bowel syndrome) Obesity RAHEEM (obstructive sleep apnea) "Mild" per records, no device Restless leg syndrome Rheumatoid arthritis Actemra infusions q 4wks, Chronic prednisone 5mg daily* Follows with rheumatology (Dr. 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 Sol) who had recommended lifetime abx (surgeon aware), now under surveillance by PCP/no recent issues Urge and stress incontinence Urinary frequency Urinary urgency Surgical History Difficult intubation Significantly decreased cervical extension s/p cervical fusion Midurethral sling, cystoscopy (06/26/18): Grade view 2, with glidescope #3, ETT 7.0 at [facility] ("two person mask vent with oral airway.. small glottic opening and anterior with glidescope, ETT easily passed.. attempt x2") History of back surgery R/T INFECTION History of hysterectomy History of lumbar fusion X3 History of neck surgery CERVICAL FUSION; CERVICAL SURGERIES X3 TOTAL HAS CAGE - DECREASED ROM History of surgery Midurethral sling, cystoscopy (06/26/18) Hx of arthroscopy of shoulder LEFT X2 Hx of section X3 Hx of colonoscopy Hx of endoscopy EGD (04/30/21): MAC at [facility] Hx of exploratory laparotomy X2 (2/2 ADHESIONS) Hx of hernia repair Hx of laparoscopy X2 (2/2 ADHESIONS) Pseudocholinesterase deficiency 1985 (tested) Family History Mother Family history of stroke (cerebrovascular) Father Family history of CHF (congestive heart failure) Family history of COPD (chronic obstructive pulmonary disease) Other Patient's father is Social History Smoking Status: Never smoker Second Hand Exposure: Yes (father smoked); Hx Alcohol Use: Yes Alcohol type: wine Hx Substance Use: No Preferred Language: Israeli Communication Ability: Effective Visual Impairment: No Limitations 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 She is unable to sit up without pain shooting down her legs. She does exhibit reasonable plantar fl exion dorsiflexion extensor hallucis longus bilaterally. Dressing is in place with some modest drainage. Results & Data ([facility]) Vital Signs (Past 12 Hours) Vital Signs Temp Pulse Pulse Pulse Resp BP BP 06/17/21 07:50 38.6 C H 104 H 18 115/60 06/17/21 01:30 37.4 C 86 20 124/73 06/17/21 00:30 79 12 113/61 06/16/21 23:15 73 12 100/55 L Pulse Ox 06/17/21 07:50 94 06/17/21 01:30 100 06/17/21 00:30 97 06/16/21 23:15 96 Code Status & VTE Plan VTE Prophylaxis Plan VTE Prophylaxis will be ordered: Yes
[2021-06-17 11:43] LABS: Appearance Urine Clear (Clear); Bacteria Urine Automated Negative (Negative); Bilirubin Urine Negative (Negative); Blood Urine Negative (Negative); Color Urine Yellow; Epithelial Cell Urine Auto 20-30 /lpf (0-5); Glucose Urine UA Negative (Negative); Ketones Urine Negative (Negative); Leukocyte Esterase Urine Trace (Negative); Nitrite Urine Negative (Negative); Protein Urine Negative (Negative); RBC Urine Automated 0-4 /hpf (0-4); Specific Gravity Urine 1.019 (1.000-1.030); Urobilinogen Urine Negative (Negative)
--- NOTE | 2021-06-17 14:03 | Hospitalist Consultation ---
Date of Consultation June 17, 2021 Assessment & Plan (1) Postoperative back pain: - MRI concerning for postoperative seroma and possible epidural abscess - Plan as outlined by primary attending, Dr. Jj - Per nursing and H&P, Dr. Jj plans to take back to the OR to do evacuation of seroma and cultures to be collected at that time - Pain control - Incentive spirometry (2) GERD with esophagitis: - Continue Protonix (3) RAHEEM (obstructive sleep apnea): - Mild per pt, uses no device or nocturnal O2 (4) Asthma: - Continue Albuterol inhaler as needed (5) Restless leg syndrome: - Continue Requip (6) Rheumatoid arthritis: - Hold Plaquenil and Biologic (for minimum of 2 weeks post-operatively) - Pt takes chronic Prednisone, given plans for surgical intervention, will require stress-dose steroids - Initiate with Solu-Cortef 100mg IV x1 followed by 50mg IV q6h x2 - Will then transition to oral Prednisone (7) Hyperlipidemia: - Continue Lipitor (8) Anxiety and depression: - Continue Sertraline, Amitriptyline - Continue Lorazepam at HS Would advise therapy eval when Dr. Jj feels pt may proceed DVT ppx - recommend Lovenox, can initiate 8-hours post surgery (likely tomorrow morning) Follow up labs to be drawn in AM Thank you for allowing hospitalists to participate in this patient's care. Will continue to follow. Supervising Physician Co-Signing Physician Notes Attending Attestation - Chart reviewed, imaging reviewed, care plan d/w JESUS MANUEL Bueno. I agree w/ the aguirre components of her documentation. To OR today with Dr Jj for I/D of suspected epidural abscess. Agree with stress-dose steroids (patient on chronic prednisone for RA). Defer pain meds, IV fluids, dispo to Dr Jj. Hold plaquenil and biologic at this time. Empiric antibiotics in meantime. Tyrone Ferrera MD History of Present Illness Reason for Consultation: Medical management Requesting Physician: Dr. Ismael Jj Attending Physician: Ismael Jj, DO History of Present Illness Mrs. Mcwilliams is a pleasant 61 yo WF with an extensive pmhx including fibromyalgia, RA (on chronic Prednisone, Plaquenil, and biologic), depression, anxiety, GERD, hyperlipidemia, RAHEEM, and restless leg syndrome. She also has a h/o chronic back pain having undergone multiple back surgeries, one specifically for a "staph infection" requiring 7 week of IV abx therapy due to post-op infection. Pt unable to endorse if this was MRSA or what abx she was treated with. She states she believes this was after her 2016 back surgery. She remains on "life-long" antibiotic suppression from infectious disease. Pt is approximately one week s/p thoracolumbar decompression fusion performed by Dr. Jj at [facility]. Pt had an uneventful immediate post-operative course and was discharged home with a drain still in place. Her friend, who is also an [employer]KE [employer], was able to assist her with drain care and removal. Pt notes that on Monday, pt still had approx 120 cc in drain and subsequently, her friend removed the drain on Monday (late morning). Friend cleaned and covered (including waterproofing) the incision and pt was able to shower. Monday she did fairly well. However, by Monday, only being up for only an hour, she began experiencing burning pain in her lower back with radiation down both legs and was unable to ambulate well as a result. She attempted to lay down and when she got up later to take her dogs out, she fell to the grown due to excruciating pain. Pt called Dr. Jj's office, but when she did not hear back, decided to go to the ED. Friend summoned EMS by calling 911. Upon arrival, pt was medicated with Morphine with not much improvement. She notes that she did not sleep well last night due to the pain. Currently, she's rating it a 7/10. She feels she has decreased sensation in her RLE compared to her LLE. Pt is also c/o headache as well as feeling feverish with hot and cold spells. Otherwise, she denies chest pain, dyspnea, n/v/d, or gu symptoms. She denies loss of bowel/bladder control or saddle anesthesias. Hospitalists have been asked to see in consult for medical management. Allergies Allergy/AdvReac Type Severity Reaction Status Date / Time succinylcholine Allergy Severe Pseudocholinesterase Verified 06/17/21 17:02 deficiency trazodone Allergy Intermediate Dry mouth Verified 06/17/21 17:02 (causing dyspnea) hydromorphone [From Dilaudid] Allergy Anaphylaxis Verified 06/17/21 17:02 Home Medications Medication Instructions Recorded Confirmed Type amitriptyline 50 mg tablet 50 mg PO HS 06/15/18 06/16/21 History atorvastatin 20 mg tablet (Lipitor) 20 mg PO QAM 06/15/18 06/16/21 History calcium carbonate 600 mg calcium 1 tab PO BID 06/15/18 06/16/21 History (1,500 mg) tablet (Calcium) docusate sodium 100 mg capsule 100 mg PO BID 06/15/18 06/16/21 History (Stool Softener) ferrous sulfate 325 mg (65 mg 325 mg PO QAM 06/15/18 06/16/21 History iron) tablet misoprostol 100 mcg tablet 100 mcg PO QAM 06/15/18 06/16/21 History (Cytotec) prednisone 5 mg tablet 5 mg PO QAM 06/15/18 06/16/21 History propylene glycol 0.6 % eye drops 1 drp OPHTHALMIC (EYE) UD PRN 06/15/18 06/16/21 History (Systane Balance) sertraline 100 mg tablet (Zoloft) 150 mg PO HS 06/15/18 06/16/21 History ropinirole 4 mg tablet 4 mg PO HS 02/27/19 06/16/21 History Lactobacillus rhamnosus GG 15 1 cap PO QAM cap 03/18/19 06/16/21 History billion cell sprinkle capsule lorazepam 1 mg tablet 2 mg PO HS tab 03/18/19 06/16/21 History cholecalciferol (vitamin D3) 125 125 mcg PO QAM 08/06/19 06/16/21 History mcg (5,000 unit) tablet (Vitamin D3) hydrochlorothiazide 25 mg tablet 25 mg PO QAM 12/31/19 06/16/21 History potassium gluconate 595 mg (99 mg) 99 mg PO QAM 01/23/20 06/16/21 History tablet,extended release albuterol sulfate 90 mcg/actuation 2 puff INHALATION Q4 PRN #54 gm 10/09/20 06/16/21 Rx aerosol inhaler benzonatate 200 mg capsule 200 mg PO Q8H PRN #90 cap 10/09/20 06/16/21 Rx cyclobenzaprine 10 mg tablet 10 mg PO TID PRN 11/13/20 06/16/21 History lifitegrast 5 % eye drops in a 1 drp OPB BID 11/13/20 06/16/21 History dropperette (Xiidra) tafluprost (PF) 0.0015 % eye drops 1 drp OPB PM 11/13/20 06/16/21 History in a dropperette (Zioptan (PF)) loratadine 10 mg tablet (Claritin) 10 mg PO HS 12/31/20 06/16/21 History oxybutynin chloride 15 mg 15 mg PO QAM 04/26/21 06/16/21 History tablet,extended release 24 hr pantoprazole 40 mg tablet,delayed 40 mg PO BID 04/26/21 06/16/21 History release (Protonix) tamsulosin 0.4 mg capsule 0.4 mg PO HS #90 cap 05/10/21 06/16/21 Rx oxycodone 5 mg tablet 5 mg PO Q6H PRN #30 tab 06/21/21 Rx prednisone 10 mg tablet 10 mg PO DAILY #2 tab 06/22/21 Rx rifampin 300 mg capsule 300 mg PO BID #90 cap 06/22/21 Rx vancomycin 500 mg/100 mL in 1.5 g IV Q24H 42 Days ml 06/22/21 Rx dextrose 5 % intravenous piggyback Patient History Medical History (Updated 06/18/21 @ 13:58 by Leann Bueno PA-C) Acid reflux Anxiety and depression Aortic aneurysm Under surveillance, mild aneurysmal dilatation of the ascending thoracic aorta which measures up to 4.1 cm Asthma Cough-variant asthma Chronic back pain Claustrophobia Stressed with oxygen mask over face Degenerative disc disease Dysphagia Chronic, follows with GI (unchanged) Encounter for pre-operative examination Fibromyalgia Gastroparesis Hiatal hernia Hx of glaucoma R/L Hyperlipidemia IBS (irritable bowel syndrome) Obesity RAHEEM (obstructive sleep apnea) "Mild" per records, no device Restless leg syndrome Rheumatoid arthritis Actemra infusions q 4wks, Chronic prednisone 5mg daily* Follows with rheumatology (Dr. 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 Sol) who had recommended lifetime abx (surgeon aware), now under surveillance by PCP/no recent issues Urge and stress incontinence Urinary frequency Urinary urgency Surgical History Difficult intubation Significantly decreased cervical extension s/p cervical fusion Midurethral sling, cystoscopy (06/26/18): Grade view 2, with glidescope #3, ETT 7.0 at [facility] ("two person mask vent with oral airway.. small glottic opening and anterior with glidescope, ETT easily passed.. attempt x2") History of back surgery R/T INFECTION History of hysterectomy History of lumbar fusion X3 History of neck surgery CERVICAL FUSION; CERVICAL SURGERIES X3 TOTAL HAS CAGE - DECREASED ROM History of surgery Midurethral sling, cystoscopy (06/26/18) Hx of arthroscopy of shoulder LEFT X2 Hx of section X3 Hx of colonoscopy Hx of endoscopy EGD (04/30/21): MAC at [facility] Hx of exploratory laparotomy X2 (2/2 ADHESIONS) Hx of hernia repair Hx of laparoscopy X2 (2/2 ADHESIONS) Pseudocholinesterase deficiency 1985 (tested) Family History Mother Family history of stroke (cerebrovascular) Father Family history of CHF (congestive heart failure) Family history of COPD (chronic obstructive pulmonary disease) Other Patient's father is Social History Smoking Status: Never smoker Second Hand Exposure: Yes (father smoked); Hx Alcohol Use: Yes Alcohol type: wine Hx Substance Use: No Preferred Language: Spanish Communication Ability: Effective Visual Impairment: No Limitations 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 Denies weight loss/gain, fatigue, malaise, generalized weakness. HEENT: Denies changes in vision and hearing. RESPIRATORY: Denies SOB, cough, wheezing. CV: Denies palpitations, CP, lower extremity edema, orthopnea, PND. GI: Denies abdominal pain, nausea, vomiting and diarrhea. : Denies dysuria and urinary frequency, urgency, hesitancy. MUSCULOSKELETAL: + back pain with radiation down both legs (see HPI). Denies myalgia and joint pain. SKIN: Denies rash and pruritus. NEUROLOGICAL: + headache and decreased sensation in RLE > LLE. + numbness/tingling in both feet. Denies syncope, focal weakness. PSYCHIATRIC: Denies recent changes in mood. + anxiety and depression (chronic). Physical Exam Physical Exam: GENERAL: 61 yo obese pleasant WF. Well-developed, well-nourished. NAD. EYES: EOMI. PERRLA. Anicteric. HENT: Moist mucous membranes. No scleral icterus. No cervical lymphadenopathy. LUNGS: Clear to auscultation bilaterally. No accessory muscle use. No W/R/R. CARDIOVASCULAR: Regular rate and rhythm. Soft 2/6 LY noted. No G/R. No JVD. ABDOMEN: Soft, non-tender and non-distended. No palpable masses. Bowel sounds normoactive x 4 quad. EXTREMITIES: No edema. Non-tender. Peripheral pulses +2/4. M/S: Decreased strength in RLE as compared to LLE. FROM of all extremities. NEUROLOGIC: A&O x3. No focal neurological deficits. Decreased sensation in RLE compared to LLE. CN II-XII grossly intact. PSYCHIATRIC: Cooperative. Appropriate mood and affect. SKIN: Midline vertical partially healed incision noted over back with serosanguineous drainage noted on dressing. No active bleeding. Small opening at inferior aspect of the incision. No erythema extending from incision site. No purulent drainage noted. Warm, dry, intact. No rashes or lesions. Results & Data Results & Data ([facility]) Vital Signs (Past 12 Hours) Vital Signs Temp Pulse Resp BP Pulse Ox 06/17/21 07:50 38.6 C H 104 H 18 115/60 94 Laboratory Results 06/16/21 19:03 06/16/21 19:03 appears no labs ordered for today (06/17) Diagnostic Findings Lumbar Spine MRI 06/16/21 18:34 LUMBAR SPINE MRI WITH AND WITHOUT CONTRAST HISTORY: post postop, progressive back pain/paresthesias TECHNIQUE: Multiplanar multisequence MRI of the lumbar spine was performed both before and after the intravenous administration of contrast. COMPARISON: Lumbar spine MRI 02/22/2021. FINDINGS: For the purpose of the report the L5-S1 disc space will be located on axial image 45 of 50. There is been interval posterior fusion with pedicle screws and rods from T11 through L1 with laminectomy at L1. Pedicle screws and rods at L2-L3 remain unchanged in position from the prior examination. The conus terminates at the L1 level. Moderate disc space narrowing at L3-L4 and mild disc space narrowing at L4-5 and L5-S1 remains unchanged. The visualized uterus appears enlarged for age but enhances homogeneously. This is only partially imaged on this study. No fracture or subluxation within the lumbar spine. The visualized sacrum is intact. There is extensive edema with enhancement within the soft tissues of the visualized thoracolumbar region posteriorly. There is an elongated fluid c ollection posterior to the fusion levels from T11 through L3 which measures 12 cm in length and up to 3.8 cm in diameter. There is soft tissue enhancement surrounding this fluid collection. At the L1 laminectomy site this fluid collection extends to the left side of the thecal sac/central canal best seen on axial image 19 and measures up to 9 mm in thickness. This results in moderate mass effect along the left side of the thecal sac at the L1 level. There is an additional posterior epidural fluid collection seen from the T11-L1 levels as seen on sagittal image 8 of 16. This measures 7.2 cm in the craniocaudal dimension. This may be contiguous with the collection entering the L1 laminectomy site. This demonstrates mild peripheral enhancement and is therefore concerning for an epidural abscess. This results in mild mass effect along the posterior thecal sac at the T11 and T12 levels. A postoperative hematoma/seroma could also a similar appearance. Trace fluid collection posterior to the L4-L5 laminectomy sites likely represents a chronic postoperative seroma. L1-L2: Moderate left-sided central canal narrowing due to the left-sided epidural fluid collection which measures 9 mm in thickness. There is also moderate to severe left-sided neural foraminal narrowing due to the fluid col lection. L2-L3: No significant central canal or neural foraminal narrowing due to the posterior decompression. L3-L4: No significant central canal or neural foraminal narrowing due to the posterior decompression. L4-L5: Broad-based posterior disc bulge asymmetric to the left without significant central canal narrowing due to the posterior decompression. The disc bulge abuts the transiting left L5 nerve root. There is moderate left-sided neural foraminal narrowing. L5-S1: Small broad-based posterior disc bulge without significant central canal narrowing due to the posterior decompression. There is mild to moderate bilateral neural foraminal narrowing. IMPRESSION: 1. Interval posterior fusion from T11 through L1 with laminectomy at the L1 level. 2. There is extensive edema with enhancement within the soft tissues of the visualized thoracolumbar region posteriorly. There is an elongated fluid collection posterior to the fusion levels from T11 through L3 which measures 12 cm in length and up to 3.8 cm in diameter. There is soft tissue enhancement surrounding this fluid collection. Therefore, this could represent a postoperative seroma. Secondary infection would be impossible to exclude by imaging alone. 3. At the L1 laminectomy site this posterior fluid collection extends to the left side of the thecal sac/central canal as described above and measures up to 9 mm in thickness. This results in moderate mass effect along the left side of the thecal sac at the L1 level. 4. There is an additional posterior epidural fluid collection seen from the T11- L1 levels which measures 7.2 cm in the craniocaudal dimension. This may be contiguous with the collection entering the L1 laminectomy site. This demonstrates mild peripheral enhancement and is therefore concerning for an epidural abscess. This results in mild mass effect along the posterior thecal sac at the T11 and T12 levels. A postoperative hematoma/seroma could also a similar appearance. 5. Additional findings as described above. 6. These findings discussed with Dr. Jj at 10:30 AM on 06/17/2021 ACT 112: Negative or not required by law. Electronically signed by: Yves Diaz M.D. 06/17/2021 10:27 AM PG Care Time/CCT Total # of Minutes Spent Total Time Spent with Patient: Total time spent is greater than 50% in coordination of care (as documented) at patient's floor/unit and/or counseling patient: [place] [address] Inpt Consult Level 5 Patient Type New Medical Decision Making Moderate Complexity Diagnoses Postoperative back pain G89.18; M54.9 GERD with esophagitis K21.00 RAHEEM (obstructive sleep apnea) G47.33 Asthma J45.909 Restless leg syndrome G25.81 Rheumatoid arthritis M06.9 Hyperlipidemia E78.5 Anxiety and depression F41.9; F32.9
[2021-06-17] MEDS ORDERED: HYDROCORTISONE SOD 100 MG in SYRINGE 0 ML IV ONE ×2 (15:00→22:45)
[2021-06-17] MEDS ORDERED: SUGAMMADEX SODIUM 200 MG/2 ML VIAL IV ONE (16:25)
[2021-06-17] MEDS ORDERED: PROMETHAZINE HCL 6.25 MG in SODIUM CHLORIDE 0.9% 50 ML IV PRN (16:26)
[2021-06-17] MEDS ORDERED: ePHEDrine sulfate 50 MG/ML AMP IV PRN (16:26)
[2021-06-17] MEDS ORDERED: ATROPINE SULFATE 0.1 MG/ML 10ML SYR IV PRN (16:26)
[2021-06-17] MEDS ORDERED: PROPOFOL IV EMULSION 10 MG/ML 20 ML VIAL IV ONE ×2 (16:30→18:40)
[2021-06-17] MEDS ORDERED: LIDOCAINE 2% 2 ML VIAL/AMP(20MG/ML) INFIL ONE (16:30)
[2021-06-17] MEDS ORDERED: ROCURONIUM BROMIDE 10 MG/ML 5 ML VIAL IV ONE (16:30)
[2021-06-17] MEDS ORDERED: fentaNYL citrate 100 MCG/2 ML VIAL ONE ×2 (16:31→18:12)
--- NOTE | 2021-06-17 16:33 | Anesthesiology Consultation ---
Date of Service June 17, 2021 Assessment & Plan (1) Encounter for pre-operative examination: Chart Review Chart Review: Acceptable Risk for Surgery and Patient NOT seen in Pre Admission Testing covid neg 06/16/21 Consults Requested none History Surgery Operation Date: 06/17/21 08:40 Proposed Procedures p Incision and Drainage Evacuation Hematoma - Ismael Jj DO Height/Weight Height: 5 ft 2 in Weight: 87 kg Allergies Allergy/AdvReac Type Severity Reaction Status Date / Time succinylcholine Allergy Severe Pseudocholinesterase Verified 06/16/21 20:35 deficiency trazodone Allergy Intermediate Dry mouth Verified 06/16/21 20:35 (causing dyspnea) hydromorphone [From Dilaudid] Allergy Anaphylaxis Unverified 06/16/21 20:31 Medications Home Medications Medication Instructions Recorded Confirmed Last Taken amitriptyline 50 mg tablet 50 mg PO HS 06/15/18 06/16/21 04/29/21 22:00 atorvastatin 20 mg tablet (Lipitor) 20 mg PO QAM 06/15/18 06/16/21 04/29/21 08:00 calcium carbonate 600 mg calcium 1 tab PO BID 06/15/18 06/16/21 04/29/21 22:00 (1,500 mg) tablet (Calcium) docusate sodium 100 mg capsule 100 mg PO BID 06/15/18 06/16/21 04/29/21 22:00 (Stool Softener) ferrous sulfate 325 mg (65 mg 325 mg PO QAM 06/15/18 06/16/21 04/29/21 08:00 iron) tablet misoprostol 100 mcg tablet 100 mcg PO QAM 06/15/18 06/16/21 04/22/21 08:00 (Cytotec) prednisone 5 mg tablet 5 mg PO QAM 06/15/18 06/16/21 04/29/21 08:00 propylene glycol 0.6 % eye drops 1 drp OPHTHALMIC (EYE) UD PRN 06/15/18 06/16/21 04/29/21 22:00 (Systane Balance) sertraline 100 mg tablet (Zoloft) 150 mg PO HS 06/15/18 06/16/21 04/29/21 22:00 tocilizumab 80 mg/4 mL (20 mg/mL) 1 dose IV Q4WK 1106/16/21 04/16/21 intravenous solution (Actemra) ropinirole 4 mg tablet 4 mg PO HS 02/27/19 06/16/21 04/29/21 22:00 Lactobacillus rhamnosus GG 15 1 cap PO QAM cap 03/18/19 06/16/21 04/29/21 08:00 billion cell sprinkle capsule lorazepam 1 mg tablet 2 mg PO HS tab 03/18/19 06/16/21 04/29/21 22:00 ibuprofen 600 mg tablet 600 mg PO TID #60 tab 05/08/19 06/16/21 04/30/21 08:00 cholecalciferol (vitamin D3) 125 125 mcg PO QAM 08/06/19 06/16/21 04/29/21 08:00 mcg (5,000 unit) tablet (Vitamin D3) hydrochlorothiazide 25 mg tablet 25 mg PO QAM 12/31/19 06/16/21 04/29/21 08:00 potassium gluconate 595 mg (99 mg) 99 mg PO QAM 01/23/20 06/16/21 04/29/21 08:00 tablet,extended release albuterol sulfate 90 mcg/actuation 2 puff INHALATION Q4 PRN #54 gm 10/09/20 06/16/21 04/30/21 13:21 aerosol inhaler benzonatate 200 mg capsule 200 mg PO Q8H PRN #90 cap 10/09/20 06/16/21 04/30/21 00:01 cyclobenzaprine 10 mg tablet 10 mg PO TID PRN 11/13/20 06/16/21 04/29/21 22:00 hydroxychloroquine 200 mg tablet 200 mg PO BID 11/13/20 06/16/21 04/29/21 22:00 (Plaquenil) lifitegrast 5 % eye drops in a 1 drp OPB BID 11/13/20 06/16/21 04/29/21 22:00 dropperette (Xiidra) tafluprost (PF) 0.0015 % eye drops 1 drp OPB PM 11/13/20 06/16/21 04/29/21 22:00 in a dropperette (Zioptan (PF)) loratadine 10 mg tablet (Claritin) 10 mg PO HS 12/31/20 06/16/21 04/29/21 22:00 sulfamethoxazole 800 1 tab PO QAM 02/17/21 06/16/21 04/29/21 08:00 mg-trimethoprim 160 mg tablet (Bactrim DS) oxybutynin chloride 15 mg 15 mg PO QAM 04/26/21 06/16/21 04/29/21 08:00 tablet,extended release 24 hr pantoprazole 40 mg tablet,delayed 40 mg PO BID 04/26/21 06/16/21 04/29/21 22:00 release (Protonix) tamsulosin 0.4 mg capsule 0.4 mg PO HS #90 cap 05/10/21 06/16/21 Unknown Active Medications Generic Name Dose Route Start Last Admin Trade Name Freq PRN Reason Stop Dose Admin Atorvastatin Calcium 20 mg 06/17/21 09:00 06/17/21 07:53 Atorvastatin 20 Mg Tab PO 07/17/21 08:59 20 mg QAM YOUNG Administration Calcium Carbonate 1,250 mg 06/17/21 09:00 06/17/21 07:52 Calcium Carbonate 1250mg Tab PO 07/17/21 08:59 1,250 mg BID YOUNG Administration Docusate Sodium 100 mg 06/17/21 09:00 06/17/21 07:53 Docusate Sodium 100 Mg Cap PO 07/17/21 08:59 100 mg BID YOUNG Administration Ferrous Sulfate 325 mg 06/17/21 09:00 06/17/21 07:52 Ferrous Sulfate 325 Mg Tab PO 07/17/21 08:59 325 mg QAM YOUNG Administration Hydrochlorothiazide 25 mg 06/17/21 09:00 06/17/21 07:53 Hydrochlorothiazide 25 Mg Tab PO 07/17/21 08:59 25 mg QAM YOUNG Administration Lorazepam 1 mg in 2 mls @ 0.5 mls/min 06/16/21 19:41 06/16/21 21:05 Ativan IV 07/16/21 19:40 0.5 mls/min UD PRN Administration Anxiety Acetaminophen 1,000 mg in 100 mls @ 400 mls/hr 06/17/21 01:36 06/17/21 16:08 Ofirmev IV 06/20/21 01:35 400 mls/hr Q8H PRN Administration Pain Rating 1-3 & Pre PT Sodium Chloride 1,000 mls @ 75 mls/hr 06/17/21 01:36 06/17/21 14:03 Nss 1000ml IV 07/17/21 01:35 75 mls/hr .[id number] YOUNG Administration Miscellaneous 1 ea 06/17/21 08:00 06/17/21 15:23 Zioptan~Order Awaiting Action N/A 07/17/21 07:59 Not Given QS YOUNG Misoprostol 100 mcg 06/17/21 09:00 06/17/21 07:52 Misoprostol 100 Mcg Tab PO 07/17/21 08:59 100 mcg QAM YOUNG Administration Morphine Sulfate 2 mg 06/17/21 01:36 06/17/21 15:25 Morphine Sulfate 2 Mg/Ml Carp IV 07/01/21 01:35 2 mg Q3H PRN Administration MOD pain (scale 4-6) & Pre PT Morphine Sulfate 4 mg 06/17/21 01:36 06/17/21 11:26 Morphine Sulfate 4 Mg/Ml 1 Ml Carp\\Vial IV 07/01/21 01:35 4 mg Q3H PRN Administration Pain Oxybutynin Chloride 15 mg 06/17/21 09:00 06/17/21 07:52 Oxybutynin Chloride Xl 5 Mg Tabcr PO 07/17/21 08:59 15 mg QAM YOUNG Administration Oxycodone HCl 5 - 10 mg 06/17/21 01:36 06/17/21 02:21 Oxycodone Hcl Ir 5 Mg Tab (Immediate Release) PO 07/01/21 01:35 10 mg Q4H PRN Administration mod to severe pain Pantoprazole Sodium 40 mg 06/17/21 09:00 06/17/21 07:52 Pantoprazole 40 Mg Tab PO 07/17/21 08:59 40 mg BID YOUNG Administration Vitamin D 5,000 units 06/17/21 09:00 06/17/21 07:52 Cholecalciferol 1,000 Units 25 Mcg Tab PO 07/17/21 08:59 5,000 units QAM YOUNG Administration NPO Date Last Intake of Fluids: 06/16/21 Time Last Intake of Fluids: 21:00 Past Medical History Medical History (Updated 06/17/21 @ 16:32 by Sean Bull MD) Acid reflux Anxiety and depression Aortic aneurysm Under surveillance, mild aneurysmal dilatation of the ascending thoracic aorta which measures up to 4.1 cm Asthma Cough-variant asthma Chronic back pain Claustrophobia Stressed with oxygen mask over face Degenerative disc disease Dysphagia Chronic, follows with GI (unchanged) Encounter for pre-operative examination Fibromyalgia Gastroparesis Hiatal hernia Hx of glaucoma R/L Hyperlipidemia IBS (irritable bowel syndrome) Obesity RAHEEM (obstructive sleep apnea) "Mild" per records, no device Restless leg syndrome Rheumatoid arthritis Actemra infusions q 4wks, Chronic prednisone 5mg daily* Follows with rheumatology (Dr. 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 Sol) who had recommended lifetime abx (surgeon aware), now under surveillance by PCP/no recent issues Urge and stress incontinence Urinary frequency Urinary urgency Past Family History Family History Mother Family history of stroke (cerebrovascular) Father Family history of CHF (congestive heart failure) Family history of COPD (chronic obstructive pulmonary disease) Other Patient's father is Past Surgical History Surgical History Difficult intubation Significantly decreased cervical extension s/p cervical fusion Midurethral sling, cystoscopy (06/26/18): Grade view 2, with glidescope #3, ETT 7.0 at [facility] ("two person mask vent with oral airway.. small glottic opening and anterior with glidescope, ETT easily passed.. attempt x2") History of back surgery R/T INFECTION History of hysterectomy History of lumbar fusion X3 History of neck surgery CERVICAL FUSION; CERVICAL SURGERIES X3 TOTAL HAS CAGE - DECREASED ROM History of surgery Midurethral sling, cystoscopy (06/26/18) Hx of arthroscopy of shoulder LEFT X2 Hx of section X3 Hx of colonoscopy Hx of endoscopy EGD (04/30/21): MAC at [facility] Hx of exploratory laparotomy X2 (2/2 ADHESIONS) Hx of hernia repair Hx of laparoscopy X2 (2/2 ADHESIONS) Pseudocholinesterase deficiency 1984 (tested) Social History Smoking Status: Never smoker Hx Alcohol Use: Yes Alcohol type: wine alcohol intake frequency: holidays/special occasions only Hx Substance Use: No substance use type: marijuana (MEDICAL MARIJUANA CARD (tincture HS)) Substance Use Type Other:: MEDICAL MARIJUANA CARD-WILL BRING DOS Last Used Substance Other:: medical marijupurlear Physical Exam Vital Signs Last Vital Signs Temp 37.2 C 06/17/21 15:31 Pulse 79 06/17/21 15:31 Resp 16 06/17/21 15:31 BP 97/61 L 06/17/21 15:31 Pulse Ox 91 06/17/21 15:31 Testing Laboratory Results 06/16/21 19:03 06/16/21 19:03 PT 11.4 Seconds (9.0-12.0) 06/16/21 19:03 INR 1.1 (0.9-1.1) 06/16/21 19:03 Urine Color Yellow 06/17/21 11:20 Urine Appearance Clear (Clear) 06/17/21 11:20 Urine pH 7.0 (4.5-7.5) 06/17/21 11:20 Ur Specific [place] 1.019 (1.000-1.030) 06/17/21 11:20 Urine Protein Negative (Negative) 06/17/21 11:20 Urine Glucose (UA) Negative (Negative) 06/17/21 11:20 Urine Ketones Negative (Negative) 06/17/21 11:20 Urine Nitrite Negative (Negative) 06/17/21 11:20 Ur Leukocyte Esterase Trace (Negative) H 06/17/21 11:20 Urine WBC (Auto) 1-5 /hpf (0-5) 06/17/21 11:20 Urine RBC (Auto) 0-4 /hpf (0-4) 06/17/21 11:20 U Hyaline Cast (Auto) 1-5 /lpf (0-5) 06/17/21 11:20 U Epithel Cells (Auto) 20-30 /lpf (0-5) H 06/17/21 11:20 Urine Bacteria (Auto) Negative (Negative) 06/17/21 11:20 06/16/21 19:03 Aerobic Blood Culture - Preliminary Blood Gram positive cocci in chains Anaerobic Blood Culture - Preliminary Gram positive cocci in chains Electrocardiogram Date: 06/16/21 DICTATED BY:Jeffery Graves MD Test Reason : Blood Pressure : / mmHG Vent. Rate : 071 BPM Atrial Rate : 071 BPM P-R Int : 156 ms QRS Dur : 090 ms QT Int : 404 ms P-R-T Axes : 065 035 074 degrees QTc Int : 439 ms Normal sinus rhythm Diffuse Nonspecific T wave abnormality Abnormal ECG When compared with ECG of 22-FEB-2021 06:57, No significant change was found Confirmed by Jeffery Graves ([id number]) on 06/17/2021 9:17:11 AM Other Testing hest X-Ray Date: 05/05/21 FINDINGS: Cardiomediastinal and hilar silhouettes are within normal limits. No pneumothorax, pleural effusion, airspace consolidation or overt pulmonary edema. Mild linear subsegmental right midlung and left basilar atelectasis/scarring. Bones of the chest are grossly intact. Cervical thoracic and lumbar spinal fusion hardware is partially imaged. IMPRESSION: No acute process. Cervical Spine Date: 08/28/[address]: There is no evidence of fracture or subluxation involving the cervical spine. Extensive postoperative change from anterior and posterior spinal fusion of the cervicothoracic spine as above. The orthopedic hardware appears intact. The right interpedicular screw at T1 is located lateral to the pedicle and vertebral body. The tip terminates in the right first rib. Lucency around several interpedicular screws as above suggests loosening. There is mild aneurysmal dilatation of the ascending thoracic aorta which measures up to 4.1 cm.
[2021-06-17] MEDS ORDERED: GENTAMICIN SULFATE 40 MG/ML 2 ML VIAL ONE (16:57)
[2021-06-17] MEDS ORDERED: VANCOMYCIN HCL 1000MG/20ML VIAL ONE (16:57)
[2021-06-17] MEDS ORDERED: EPINEPHrine INJ 1 MG/ML AMP ONE (16:57)
[2021-06-17] MEDS ORDERED: BUPIVACAINE 0.5 % 5 MG/1 ML MPF 30ML VIAL ONE (16:57)
--- NOTE | 2021-06-17 17:26 | History & Physical Bridge Note ---
Date of Service June 17, 2021 History & Physical Bridge Note I have examined the patient, reviewed the History & Physical and in the interval since the performance of the History & Physical I have noted the following changes of clinical significance: no changes noted Evacuation lumbar hematoma
[2021-06-17] MEDS ORDERED: ceFAZolin 2000MG 2,000 MG/15 ML SYR IV ONE (18:22)
[2021-06-17] MEDS ORDERED: DEXAMETHASONE SOD INJ 4 MG/ML VIAL ONE (18:39)
[2021-06-17] MEDS ORDERED: ONDANSETRON INJ 2 MG/ML 2 ML VIAL ONE (18:39)
--- NOTE | 2021-06-17 18:53 | Operative Report ---
Post Operative Report Pre & Post Diagnosis Operation Date: 06/17/21 08:40 Pre-Op Diagnosis: Lumbar epidural hematoma Post-Op Diagnosis: Lumbar Epidural Abscess I identified the patient and participated in the time-out.: Yes Procedure Operation Date: 06/17/21 08:40 Actual Procedures #1 irrigation debridement thoracolumbar epidural abscess. #2 decompression T11- T12 T12-L1. Surgeon Ismael Jj, DO [employer] Technician None Estimated Blood Loss 50 Findings Consistent with Post-Op Diagnosis Specimens Cultures taken from the epidural space Indications This is a 61-year-old female who is 1 week status post thoracolumbar fusion. She presents with marked decline in status with concern for accumulation of fluid in the thoracolumbar spine consistent with postop hematoma and is here for the above-mentioned procedure. Description of Procedure Patient was met identified informed consent obtained. Patient was then taken to the operative suite underwent a patient placed in a prone position on a Deandre table top of the Bob frame. All bony prominences well-padded eyes inspected to ensure no external pressure placed upon the. This point the thoracolumbar spine was prepped and draped in a sterile fashion. Utilizing the previous incision site sharp dissection formed to the fascia. The fascia was then released and the mass amount of fluid cloudy in nature very suspicious for beginnings of an infected hematoma. This was evacuated. I then performed a midline laminotomy at T11-T12 T12-L1 and identified additional areas of fluid collection cloudy in nature consistent with possible infection. Irrigated the incision several times placed approximately 10 cc of stimulant beads impregnated with vancomycin tobramycin. 15 round LEBRON drain inserted. Incision was then closed with 1 Vicryl fascia 2-0 Vicryl subcutaneously and 4 Monocryl for fascial closure. Steri-Strip sterile dressings placed. Patient waken taken PACU stable condition. I attest to the content of the Intraoperative Record and any orders documented therein. Any exceptions are noted below.
[2021-06-17] MEDS: fentaNYL citrate 100 MCG/2 ML VIAL IV PRN ×4 (19:16→19:31)
[2021-06-17] MEDS ORDERED: fentaNYL citrate 100 MCG/2 ML VIAL IV PRN (19:40)
--- NOTE | 2021-06-17 20:13 | Anesthesiology Progress Note ---
Date of Service June 17, 2021 Anesthesia Post Procedure Vital Signs Vital Signs: Temp Pulse Pulse Pulse Pulse Resp BP 06/17/21 19:50 36.4 C L 83 16 06/17/21 19:40 80 20 06/17/21 19:30 84 20 06/17/21 19:20 89 21 06/17/21 19:10 36.0 C L 102 H 19 06/17/21 16:49 37.9 C H 79 20 06/17/21 15:31 37.2 C 79 16 06/17/21 07:50 38.6 C H 104 H 18 06/17/21 01:30 37.4 C 86 20 06/17/21 00:30 79 12 113/61 06/16/21 23:15 73 12 06/16/21 22:34 77 16 109/59 L 06/16/21 22:29 76 16 87/69 L 06/16/21 21:05 75 14 06/16/21 21:00 73 16 06/16/21 20:30 74 18 BP BP Pulse Ox 06/17/21 19:50 115/79 94 06/17/21 19:40 118/72 92 06/17/21 19:30 143/89 H 99 06/17/21 19:20 146/80 H 99 06/17/21 19:10 147/97 H 99 06/17/21 16:49 128/69 94 06/17/21 15:31 97/61 L 91 06/17/21 07:50 115/60 94 06/17/21 01:30 124/73 100 06/17/21 00:30 97 06/16/21 23:15 100/55 L 96 06/16/21 22:34 97 06/16/21 22:29 97 06/16/21 21:05 113/70 97 06/16/21 21:00 94 06/16/21 20:30 113/73 94 Pain Intensity Lower Back: Pain Intensity: 5 Neck: Pain Intensity: 3 Transfer of Care Handoff Completed per policy Notes Mental Status: alert / awake / arousable and participated in evaluation Patient Amnestic to Procedure: Yes Nausea / Vomiting: adequately controlled Pain: adequately controlled Airway Patency, RR, SpO2: stable & adequate BP & HR: stable & adequate Hydration State: stable & adequate Anesthetic Complications: no major complications apparent and Pt Satisfied with anesthetic care
[2021-06-17] MEDS ORDERED: bisacodyL 10 MG SUPP PR PRN (20:24)
[2021-06-17] MEDS ORDERED: DO NOT ADMINISTER FLU VACCINE PRN (20:24)
[2021-06-17] MEDS ORDERED: HYDROmorphone INJ 1 MG/ML SYRINGE IV PRN (20:24)
[2021-06-17] MEDS ORDERED: ACETAMINOPHEN 1,000 MG/100 ML VIAL IV PRN (20:24)
[2021-06-17] MEDS ORDERED: SOD PHOSPHATE/SOD BIPHOSPHATE ENEMA 132 ML BTL PR PRN (20:24)
[2021-06-17] MEDS ORDERED: DO NOT ADMINISTER PNEUMOCOCCAL VACCINE PRN (20:24)
[2021-06-17] MEDS ORDERED: HYDROmorphone INJ 0.5 MG/0.5 ML SYR IV PRN (20:24)
[2021-06-17] MEDS ORDERED: MAGNESIUM HYDROXIDE SUSP 30 ML UDC PO PRN (20:24)
[2021-06-17] MEDS ORDERED: rOPINIRole HCL 2 MG TABLET PO SCH (21:00)
[2021-06-17] MEDS: DOCUSATE SODIUM/SENNA 50/8.6MG TAB PO SCH (21:08)
[2021-06-17] MEDS: TAMSULOSIN HCL 0.4 MG CAP PO SCH (21:08)
[2021-06-17] MEDS: AMITRIPTYLINE HCL 50 MG TAB PO SCH (21:08)
[2021-06-17] MEDS: SERTRALINE HCL 50 MG TABLET PO SCH (21:08)
[2021-06-17] MEDS: rOPINIRole HCL 1 MG TABLET PO SCH (23:02)
[2021-06-18] MEDS ORDERED: methylPREDNISolone 50 MG in SYRINGE 0 ML IV SCH
[2021-06-18] MEDS: FAMOTIDINE 20 MG TAB PO PRN ×2 (01:13→21:20)
[2021-06-18] MEDS: ceFAZolin 2000MG 2,000 MG/15 ML SYR IV SCH ×2 (02:26→10:23)
[2021-06-18] MEDS ORDERED: MoRPHine SULFATE 4 MG/ML 1 ML CARP\\VIAL IV PRN (03:59)
[2021-06-18] MEDS: POLYETHYLENE (MIRALAX) 17 GM PACK PO SCH ×3 (04:59→16:44)
[2021-06-18] MEDS: HYDROCORTISONE SOD 50 MG in SYRINGE 0 ML IV SCH ×2 (04:59→10:31)
[2021-06-18] MEDS: ACETAMINOPHEN 500 MG TAB PO PRN ×2 (06:10→19:00)
[2021-06-18 06:12] LABS: Basophils # (auto) 0.01 K/uL (0-0.2); Basophils % (auto) 0.1 %; Hematocrit (blood only) 30.3 % (37-47); Hemoglobin 10.2 g/dL (12.0-16.0); Immature Granulocytes # (auto) 0.03 K/uL (0.00-0.02); Immature Granulocytes % (auto) 0.3 %; Lymphocytes # (auto) 0.58 K/uL (1.2-3.4); Lymphocytes % (auto) 5.9 %; Mean Corpuscular Hemoglobin 31.3 pg (25-34); Mean Corpuscular Hgb Conc 33.7 g/dL (32-36); Mean Corpuscular Volume 92.9 fL (80-100); Mean Platelet Volume 10.4 fL (7.4-10.4); Monocytes # (auto) 0.46 K/uL (0.11-0.59); Monocytes % (auto) 4.7 %; Neutrophils # (auto) 8.75 K/uL (1.4-6.5); Platelet Count 144 K/uL (130-400); RDW Coefficient of Variation 12.5 % (11.5-14.5); RDW Standard Deviation 42.5 fL (36.4-46.3); Red Blood Count 3.26 M/uL (4.2-5.4); White Blood Count 9.83 K/uL (4.8-10.8)
[2021-06-18 06:39] LABS: Albumin Level 2.7 gm/dl (3.4-5.0); BUN Creatinine Ratio 15.1 (10-20); Calcium 8.5 mg/dl (8.5-10.1); Creatinine Clr Calc Pharmacy 81.8 ml/min; Est GFR (African American) 102.3 ml/min; Est GFR (Non-African American) 88.3 ml/min; Magnesium 1.8 mg/dl (1.8-2.4); Potassium 3.2 mmol/L (3.5-5.1)
[2021-06-18 06:41] LABS: Albumin Globulin Ratio 1.1 (0.9-2); Bilirubin,Total 0.4 mg/dl (0.2-1); Globulin 2.4 gm/dl (2.5-4.0); Total Protein 5.1 gm/dl (6.4-8.2)
[2021-06-18] MEDS: oxyCODONE HCL IR 5 MG TAB (IMMEDIATE RELEASE) PO PRN ×4 (07:40→20:24)
[2021-06-18] MEDS: SODIUM CHLORIDE 0.9% 1000ML 1,000 ML IV SCH (08:10)
--- NOTE | 2021-06-18 08:45 | Orthopedic Progress Note ---
Date of Service June 18, 2021 Assessment & Plan (1) Abscess in epidural space of lumbar spine: Plan: At this time I related the patient that her blood cultures are positive for gram-positive cocci in my findings Intra-Op were consistent with an epidural abscess. I will have a PICC line placed today. Will await final cultures and initiate appropriate antibiotics. She is very much interested in being discharged soon as possible. She does understand we need to initiate appropriate antibiotics and home care prior to discharge. Admission and Anticipated Discharge Date Admission Date: June 17, 2021 Subjective Patient's back and leg symptoms are markedly improved. Physical Exam Physical Exam: On exam she is in the chair at the bedside. She appears quite comfortable. She has excellent strength testing. Results & Data ([facility]) Vital Signs (Past 12 Hours) Vital Signs Temp Pulse Resp BP Pulse Ox 06/18/21 07:28 37.0 C 81 16 91/50 L 91 06/18/21 04:55 37.1 C 85 18 101/60 93 06/17/21 23:30 37.1 C 83 18 96/56 L 96 06/17/21 22:07 36.4 C L 86 18 111/68 93
[2021-06-18] MEDS: FERROUS SULFATE 325 MG TAB PO SCH (09:10)
[2021-06-18] MEDS: PANTOprazole 40 MG TAB PO SCH ×2 (09:10→20:27)
[2021-06-18] MEDS: CHOLECALCIFEROL 1,000 UNITS 25 MCG TAB PO SCH (09:10)
[2021-06-18] MEDS: miSOPROStoL 100 MCG TAB PO SCH (09:10)
[2021-06-18] MEDS: ATORVASTATIN 20 MG TAB PO SCH (09:10)
[2021-06-18] MEDS: CALCIUM CARBONATE 1250MG TAB PO SCH ×2 (09:10→20:24)
[2021-06-18] MEDS: OXYBUTYNIN CHLORIDE XL 5 MG TABCR PO SCH (09:10)
[2021-06-18] MEDS: DOCUSATE SODIUM 100 MG CAP PO SCH ×2 (09:10→20:26)
[2021-06-18] MEDS: hydroCHLOROthiazide 25 MG TAB PO SCH (09:15)
[2021-06-18] MEDS ORDERED: VANCOMYCIN CONSULT ACTIVE PRN (13:36)
[2021-06-18] MEDS ORDERED: VANCOMYCIN HCL 1,000 MG in SODIUM CHLORIDE 0.9% 250 ML IV STA (13:36)
--- NOTE | 2021-06-18 13:43 | Hospitalist Progress Note ---
Date of Service June 18, 2021 Assessment & Plan (1) Abscess in epidural space of lumbar spine: Plan: s/p irrigation and debridement thoracolumbar spine - Dr. Jj collected cultures and placed stimulant beads impregnated with Vancomycin and Tobramycin in the incision - Infectious disease consulted regarding duration of abx therapy, appreciate their recommendations - Will need IV abx for minimum of 2 weeks d/t bacteremia (1 set of positive blood cultures) - Follow culture data - tailor abx accordingly - Initiate empiric Vancomycin - PICC line to be inserted once blood cultures are clear (2) Bacteremia: Plan: - One set of positive blood cultures - Will require minimum of 2 weeks of abx - Obtain echo, r/o vegetation d/t staph and strep (tendency to migrate) identified in blood culture (3) Postoperative back pain: Plan: d/t #1 -- see plan - Pain control as ordered by Dr. Jj (4) GERD with esophagitis: Plan: - Continue Protonix (5) RAHEEM (obstructive sleep apnea): Plan: - Mild per pt, uses no device or nocturnal O2 (6) Asthma: Plan: - Continue Albuterol inhaler as needed (7) Restless leg syndrome: Plan: - Continue Requip (8) Rheumatoid arthritis: Plan: - Hold Plaquenil and Biologic (for minimum of 2 weeks post-operatively) - Pt takes chronic Prednisone, given plans for surgical intervention, will require stress-dose steroids - Stressed w/ Solu-Cortef 100mg IV x1 followed by 50mg IV q6h x2 - Transition to oral Prednisone tomorrow and taper q48 hours (9) Hyperlipidemia: Plan: - Continue Lipitor (10) Anxiety and depression: Plan: - Continue Sertraline, Amitriptyline - Continue Lorazepam at HS (11) Hypokalemia: Plan: - Replace and repeat BMP in AM Plan: PT/OT DVT ppx - recommend Lovenox, will start today Follow up labs to be drawn in AM Thank you for allowing hospitalists to participate in this patient's care. Will continue to follow. Admission and Anticipated Discharge Date Admission Date: June 17, 2021 Supervising Physician Co-Signing Physician Notes Attending Attestation - Chart reviewed, care plan d/w JESUS MANUEL Bueno. I agree w/ the aguirre components of her documentation. POD #1 s/p I/D epidural abscess. Remains on stress-dose steroids (patient on chronic prednisone for RA). 1/2 sets of blood cultures have returned positive -- alpha strep + staph. She will need echo + another 2 sets of blood cultures while hospitalized. Remains on IV antibiotics. Follow all cultures including intra-op cultures. Defer pain management to primary ortho team. Tyrone Ferrera MD Subjective Shereen Mcwilliams was seen on rounds this morning. Pt remains hospitalized following I&D of epidural abscess that developed after her thoracolumbar decompression fusion performed ~[address] Jj @ [facility]. Procedure was completed around 7pm. She received a dose of stress-dose steroids around 10pm last night and then again around 4am. Pt reports that her back pain is improved from time of ER presentation but still there. Per documentation and communcation from surgery, fluid collection did appear consistent with beginning of abscess. Pt also with documented fever yesterday AM. She denies chest pain, dyspnea, n/v/d, f/c, headache, or gu symptoms. Thus far, pt has one set of blood cultures that are positive. She was kept on antibiotics (Cefazolin) post-operatively, last dose given 06/18 @ 10:23am. Review of Systems Review of Systems: CONSTITUTIONAL: Denies weight loss/gain, fever and chills, fatigue, malaise, generalized weakness. HEENT: Denies changes in vision and hearing. RESPIRATORY: Denies SOB, cough, wheezing. CV: Denies palpitations, CP, lower extremity edema, orthopnea, PND. GI: Denies abdominal pain, nausea, vomiting and diarrhea. : Denies dysuria and urinary frequency, urgency, hesitancy. MUSCULOSKELETAL: + back pain. SKIN: +back incision NEUROLOGICAL: Denies headache, syncope, focal weakness, numbness, tingling. PSYCHIATRIC: Denies recent changes in mood. Denies anxiety and depression. Physical Exam Physical Exam: GENERAL: 61 yo obese pleasant WF. Well-developed, well- nourished. NAD. LUNGS: Clear to auscultation bilaterally. No accessory muscle use. No W/R/R. CARDIOVASCULAR: Regular rate and rhythm. Soft 1-2/6 LY noted. No G/R. ABDOMEN: Soft, non-tender and non-distended. No palpable masses. BS normal x 4 quad. EXTREMITIES: No edema. Non-tender. Peripheral pulses +2/4. FROM. NEUROLOGIC: A&O x3. PSYCHIATRIC: Cooperative. Appropriate mood and affect. SKIN: Back incision dressed, LEBRON drain visualized. Results & Data Results & Data ([facility]) Vital Signs (Past 12 Hours) Vital Signs Temp Pulse Resp BP Pulse Ox 06/18/21 11:52 37.0 C 84 16 105/66 98 06/18/21 07:28 37.0 C 81 16 91/50 L 91 06/18/21 04:55 37.1 C 85 18 101/60 93 Laboratory Results 06/18/21 05:47 06/18/21 05:47 Spec: [id number] Collected: 06/16/21 Received: 06/16/[address]: Yahaira Pierre DO Source: Blood OV Order: Ordered: Blood Culture Comments: Comment Default is separate sites, same time Procedure Result Verified Site Blood Culture Aerobic Preliminary 06/18/21 Organism 1 Alpha strep not S.pne/enteroco Sens No Sensitivities to Follow Organism 2 Staphylococcus species Sens Sensitivities Dependent on Further Identification Organism 3 Alpha strep. not enterococcus Sens Sensitivities Dependent on Further Identification Blood Culture Anaerobic Preliminary 06/18/21 Organism 1 Alpha strep not S.pne/enteroco Sens No Sensitivities to Follow Organism 2 Staphylococcus species Sens Sensitivities Dependent on Further Identification Organism 3 Alpha strep. not enterococcus Sens Sensitivities Dependent on Further Identification Spec: [id number] Collected: 06/16/21 Received: 06/16/[address]: Yahaira Pierre DO Source: Blood OV Order: Ordered: Blood Culture Comments: Comment Default is separate sites, same time Procedure Result Verified Site Blood Culture Aerobic Preliminary 06/17/21 No growth in Aerobic bottle after 24 hours. Blood Culture Anaerobic Preliminary 06/17/21 No growth in Anaerobic bottle after 24 hours. Diagnostic Findings MRI LUMBAR SPINE W/ AND W/O IMPRESSION: (06/17/21) 1. Interval posterior fusion from T11 through L1 with laminectomy at the L1 level. 2. There is extensive edema with enhancement within the soft tissues of the visualized thoracolumbar region posteriorly. There is an elongated fluid collection posterior to the fusion levels from T11 through L3 which measures 12 cm in length and up to 3.8 cm in diameter. There is soft tissue enhancement surrounding this fluid collection. Therefore, this could represent a postoperative seroma. Secondary infection would be impossible to exclude by imaging alone. 3. At the L1 laminectomy site this posterior fluid collection extends to the left side of the thecal sac/central canal as described above and measures up to 9 mm in thickness. This results in moderate mass effect along the left side of the thecal sac at the L1 level. 4. There is an additional posterior epidural fluid collection seen from the T11- L1 levels which measures 7.2 cm in the craniocaudal dimension. This may be contiguous with the collection entering the L1 laminectomy site. This demonstrates mild peripheral enhancement and is therefore concerning for an epidural abscess. This results in mild mass effect along the posterior thecal sac at the T11 and T12 levels. A postoperative hematoma/seroma could also a similar appearance. 5. Additional findings as described above. 6. These findings discussed with Dr. Jj at 10:30 AM on 06/17/2021 PG Care Time/CCT Total # of Minutes Spent Total Time Spent with Patient: Total time spent is greater than 50% in coordination of care (as documented) at patient's floor/unit and/or counseling patient: Coding Level of Care Code 47003 Subseq Hosp Care Lvl 2 Diagnoses Postoperative back pain G89.18; M54.9 GERD with esophagitis K21.00 RAHEEM (obstructive sleep apnea) G47.33 Asthma J45.909 Restless leg syndrome G25.81 Rheumatoid arthritis M06.9 Hyperlipidemia E78.5 Anxiety and depression F41.9; F32.9 Abscess in epidural space of lumbar spine G06.1 Bacteremia R78.81 Hypokalemia E87.6
[2021-06-18] MEDS ORDERED: VANCOMYCIN HCL 1,750 MG in SODIUM CHLORIDE 0.9% 500 ML IV ONE (13:45)
[2021-06-18] MEDS ORDERED: POTASSIUM CHLORIDE CRTAB 20 MEQ TABCR PO STA (14:12)
[2021-06-18] MEDS: ENOXAPARIN INJ 40 MG/0.4 ML SYR SQ SCH (15:01)
--- NOTE | 2021-06-18 15:13 | Pharmacy Report ---
Pharmacy Vanc AUC Short Note - Date of Service June 18, 2021 - Assessment & Plan Assessment 61 year old F receiving empiric vancomycin for treatment of bacteremia in the setting of abscess in epidural space of lumbar spine * s/p irrigation and debridement * ID consulted Plan Vancomycin * Loading dose: 1750 mg IV x 1 * Maintenance dose: 1500 mg (17 mg/kg) IV every 12 hours * AUC/BHAVIN is the preferred PK/PD target for vancomycin * Will target AUC/BHAVIN of 400-600 mg/L.hr * Ordered dose is aggressive and predicted to achieve an AUC/BHAVIN > 400 prior to first level. May need to back off dosing after level is obtained on 06/19 @2330 Pharmacy will continue to follow and will adjust dose/frequency as necessary. Thank you.
[2021-06-18] MEDS: CYCLOBENZAPRINE HCL 10 MG TAB PO PRN (19:00)
[2021-06-18] MEDS: SERTRALINE HCL 50 MG TABLET PO SCH (20:24)
[2021-06-18] MEDS: rOPINIRole HCL 1 MG TABLET PO SCH (20:25)
[2021-06-18] MEDS: TAMSULOSIN HCL 0.4 MG CAP PO SCH (20:26)
[2021-06-18] MEDS: DOCUSATE SODIUM/SENNA 50/8.6MG TAB PO SCH (20:26)
[2021-06-18] MEDS: AMITRIPTYLINE HCL 50 MG TAB PO SCH (20:27)
[2021-06-19] MEDS: VANCOMYCIN HCL 1,500 MG in SODIUM CHLORIDE 0.9% 500 ML IV SCH ×2 (01:02→11:56)
[2021-06-19] MEDS: POLYETHYLENE (MIRALAX) 17 GM PACK PO SCH ×3 (01:05→12:01)
[2021-06-19] MEDS: oxyCODONE HCL IR 5 MG TAB (IMMEDIATE RELEASE) PO PRN ×5 (01:12→21:39)
[2021-06-19] MEDS: CYCLOBENZAPRINE HCL 10 MG TAB PO PRN ×3 (01:12→14:14)
[2021-06-19] MEDS: ACETAMINOPHEN 500 MG TAB PO PRN (07:47)
[2021-06-19] MEDS: MoRPHine SULFATE 2 MG/ML CARP IV PRN ×2 (07:48→11:56)
[2021-06-19 08:27] LABS: Basophils # (auto) 0.01 K/uL (0-0.2); Basophils % (auto) 0.2 %; Eosinophils # (auto) 0.07 K/uL (0-0.5); Eosinophils % (auto) 1.2 %; Hemoglobin 10.6 g/dL (12.0-16.0); Immature Granulocytes # (auto) 0.02 K/uL (0.00-0.02); Immature Granulocytes % (auto) 0.3 %; Lymphocytes # (auto) 1.22 K/uL (1.2-3.4); Lymphocytes % (auto) 20.8 %; Mean Corpuscular Hemoglobin 30.9 pg (25-34); Mean Corpuscular Hgb Conc 33.1 g/dL (32-36); Mean Corpuscular Volume 93.3 fL (80-100); Mean Platelet Volume 10.8 fL (7.4-10.4); Monocytes # (auto) 0.62 K/uL (0.11-0.59); Monocytes % (auto) 10.6 %; Neutrophils # (auto) 3.93 K/uL (1.4-6.5); Neutrophils % (auto) 66.9 %; Platelet Count 147 K/uL (130-400); RDW Coefficient of Variation 12.6 % (11.5-14.5); Red Blood Count 3.43 M/uL (4.2-5.4); White Blood Count 5.87 K/uL (4.8-10.8)
[2021-06-19 08:56] LABS: BUN Creatinine Ratio 12.9 (10-20); Calcium 8.6 mg/dl (8.5-10.1); Creatinine Clr Calc Pharmacy 80.7 ml/min; Est GFR (African American) 100.6 ml/min; Est GFR (Non-African American) 86.8 ml/min; Magnesium 1.8 mg/dl (1.8-2.4); Potassium 3.4 mmol/L (3.5-5.1)
[2021-06-19] MEDS: PANTOprazole 40 MG TAB PO SCH ×2 (09:19→21:41)
[2021-06-19] MEDS: ENOXAPARIN INJ 40 MG/0.4 ML SYR SQ SCH (09:19)
[2021-06-19] MEDS: DOCUSATE SODIUM 100 MG CAP PO SCH ×2 (09:20→21:41)
[2021-06-19] MEDS: miSOPROStoL 100 MCG TAB PO SCH (09:20)
[2021-06-19] MEDS: ATORVASTATIN 20 MG TAB PO SCH (09:20)
[2021-06-19] MEDS: FERROUS SULFATE 325 MG TAB PO SCH (09:21)
[2021-06-19] MEDS: OXYBUTYNIN CHLORIDE XL 5 MG TABCR PO SCH (09:21)
[2021-06-19] MEDS: hydroCHLOROthiazide 25 MG TAB PO SCH (09:25)
[2021-06-19] MEDS: CALCIUM CARBONATE 1250MG TAB PO SCH ×2 (09:25→21:40)
[2021-06-19] MEDS: CHOLECALCIFEROL 1,000 UNITS 25 MCG TAB PO SCH (09:25)
[2021-06-19] MEDS: predniSONE 50 MG TAB PO SCH (09:34)
--- NOTE | 2021-06-19 09:50 | Orthopedic Progress Note ---
Date of Service June 19, 2021 Assessment & Plan (1) Abscess in epidural space of lumbar spine: Plan: At this time we are going to await final cultures. Continue IV antibiotics. She is undergo activity as tolerated. Will discharge home once we establish appropriate antibiotics and regiment. Admission and Anticipated Discharge Date Admission Date: June 17, 2021 Subjective Patient complaining of back pain only. Leg symptoms markedly improved. Physical Exam Physical Exam: Patient is in bed at this time. He has good strength testing. Sensory intact. Results & Data ([facility]) Vital Signs (Past 12 Hours) Vital Signs Temp Pulse Resp BP Pulse Ox 06/19/21 07:03 37.1 C 84 16 117/73 92 06/18/21 22:37 36.9 C 83 16 126/76 92
--- NOTE | 2021-06-19 13:46 | Hospitalist Progress Note ---
Date of Service June 19, 2021 Assessment & Plan (1) Abscess in epidural space of lumbar spine: Plan: s/p irrigation and debridement thoracolumbar spine - Dr. Jj collected cultures and placed stimulant beads impregnated with Vancomycin and Tobramycin in the incision - Infectious disease consulted regarding duration of abx therapy, appreciate their recommendations - Will need IV abx for minimum of 2 weeks d/t bacteremia (1 set of positive blood cultures) - Follow culture data - tailor abx accordingly - Continue empiric Vancomycin - PICC line to be inserted once blood cultures are clear (2) Bacteremia: Plan: - One set of positive blood cultures - Will require minimum of 2 weeks of abx - Obtain echo, r/o vegetation d/t staph and strep (tendency to migrate) identified in blood culture - Repeat blood cultures collected this AM, if no growth noted, may proceed with PICC insertion (3) Postoperative back pain: Plan: d/t #1 -- see plan - Pain control as ordered by Dr. Jj (4) GERD with esophagitis: Plan: - Continue Protonix (5) RAHEEM (obstructive sleep apnea): Plan: - Mild per pt, uses no device or nocturnal O2 (6) Asthma: Plan: - Continue Albuterol inhaler as needed (7) Restless leg syndrome: Plan: - Continue Requip (8) Rheumatoid arthritis: Plan: - Hold Plaquenil and Biologic (for minimum of 2 weeks post-operatively) - Pt takes chronic Prednisone, given plans for surgical intervention, will require stress-dose steroids - Stressed w/ Solu-Cortef - Transitioned to Prednisone this AM, received 50mg, will quickly taper by 10mg/day down to her usual dose of 5mg daily (9) Hyperlipidemia: Plan: - Continue Lipitor (10) Anxiety and depression: Plan: - Continue Sertraline, Amitriptyline - Continue Lorazepam at HS (11) Hypokalemia: Plan: - Replace and repeat BMP in AM Plan: PT/OT DVT ppx - Lovenox Follow up labs to be drawn in AM Thank you for allowing hospitalists to participate in this patient's care. Will continue to follow. Admission and Anticipated Discharge Date Admission Date: June 17, 2021 Supervising Physician Co-Signing Physician Notes Attending Attestation - Chart reviewed, care plan d/w JESUS MANUEL Bueno. I agree w/ the aguirre components of her documentation. POD #2 s/p I/D lumbar epidural abscess. 1/2 sets of blood cultures have returned positive -- alpha strep + staph - final speciation pending. Repeat blood cultures obtained this am. Echo completed today - results pending. Remains on IV vancomycin. Intra-op culture pending. Will need ID consultation. Tyrone Ferrera MD Subjective Shereen Mcwilliams was seen on rounds this morning. Pt remains hospitalized for back pain s/p thoracolumbar decompression fusion performed ~1 week ago. MRI concerning for post op seroma v abscess. Shereen underwent I&D of epidural abscess 06/18. Pt reports that she is still having a lot of back pain, at rest is a 7/10 but with activity is rated a 10/10. She denies burning/shooting pain down her legs. She denies chest pain, dyspnea, n/v/d, f/c, headache, or gu symptoms. Thus far, pt has one set of blood cultures that are positive. Intraoperative wound cultures collected and are pending. She is currently on IV Vancomycin (empirically) until final culture data is available. Review of Systems Review of Systems: CONSTITUTIONAL: Denies weight loss/gain, fever and chills, fatigue, malaise, generalized weakness. HEENT: Denies changes in vision and hearing. RESPIRATORY: Denies SOB, cough, wheezing. CV: Denies palpitations, CP, lower extremity edema, orthopnea, PND. GI: Denies abdominal pain, nausea, vomiting and diarrhea. : Denies dysuria and urinary frequency, urgency, hesitancy. MUSCULOSKELETAL: + back pain. SKIN: +back incision NEUROLOGICAL: Denies headache, syncope, focal weakness, numbness, tingling. PSYCHIATRIC: Denies recent changes in mood. Denies anxiety and depression. Physical Exam Physical Exam: GENERAL: 61 yo obese pleasant WF. Well-developed, well-nourishe d. NAD. LUNGS: Clear to auscultation bilaterally. No accessory muscle use. No W/R/R. CARDIOVASCULAR: Regular rate and rhythm. Soft 1-2/6 LY noted. No G/R. ABDOMEN: Soft, non-tender and non-distended. No palpable masses. BS normal x 4 quad. EXTREMITIES: No edema. Non-tender. Peripheral pulses +2/4. FROM. NEUROLOGIC: A&O x3. PSYCHIATRIC: Cooperative. Appropriate mood and affect. SKIN: Back incision dressed, LEBRON drain visualized. Results & Data Results & Data ([facility]) Vital Signs (Past 12 Hours) Vital Signs Temp Pulse Resp BP Pulse Ox 06/19/21 07:03 37.1 C 84 16 117/73 92 Laboratory Results 06/19/21 08:16 06/19/21 08:16 PG Care Time/CCT Total # of Minutes Spent Total Time Spent with Patient: Total time spent is greater than 50% in coordination of care (as documented) at patient's floor/unit and/or counseling patient: Coding Level of Care Code 97041 Subseq Hosp Care Lvl 2 Diagnoses Abscess in epidural space of lumbar spine G06.1 Bacteremia R78.81 Postoperative back pain G89.18; M54.9 GERD with esophagitis K21.00 RAHEEM (obstructive sleep apnea) G47.33 Asthma J45.909 Restless leg syndrome G25.81 Rheumatoid arthritis M06.9 Hyperlipidemia E78.5 Anxiety and depression F41.9; F32.9 Hypokalemia E87.6
[2021-06-19] MEDS ORDERED: POTASSIUM CHLORIDE CRTAB 20 MEQ TABCR PO STA (14:32)
[2021-06-19] MEDS: FAMOTIDINE 20 MG TAB PO PRN (21:39)
[2021-06-19] MEDS: SERTRALINE HCL 50 MG TABLET PO SCH (21:40)
[2021-06-19] MEDS: TAMSULOSIN HCL 0.4 MG CAP PO SCH (21:40)
[2021-06-19] MEDS: AMITRIPTYLINE HCL 50 MG TAB PO SCH (21:40)
[2021-06-19] MEDS: DOCUSATE SODIUM/SENNA 50/8.6MG TAB PO SCH (21:41)
[2021-06-19] MEDS: rOPINIRole HCL 1 MG TABLET PO SCH (21:41)
[2021-06-19] MEDS ORDERED: VANCOMYCIN TROUGH ONE (23:30)
[2021-06-20] MEDS: VANCOMYCIN HCL 1,500 MG in SODIUM CHLORIDE 0.9% 500 ML IV SCH (00:11)
[2021-06-20] MEDS: oxyCODONE HCL IR 5 MG TAB (IMMEDIATE RELEASE) PO PRN ×4 (07:39→23:58)
[2021-06-20] MEDS: DOCUSATE SODIUM 100 MG CAP PO SCH ×2 (08:17→21:10)
[2021-06-20] MEDS: PANTOprazole 40 MG TAB PO SCH ×2 (08:17→21:10)
[2021-06-20] MEDS: CALCIUM CARBONATE 1250MG TAB PO SCH ×2 (08:18→21:10)
[2021-06-20] MEDS: FERROUS SULFATE 325 MG TAB PO SCH (08:18)
[2021-06-20] MEDS: predniSONE 50 MG TAB PO SCH (08:18)
[2021-06-20] MEDS: hydroCHLOROthiazide 25 MG TAB PO SCH (08:18)
[2021-06-20] MEDS: CHOLECALCIFEROL 1,000 UNITS 25 MCG TAB PO SCH (08:19)
[2021-06-20] MEDS: OXYBUTYNIN CHLORIDE XL 5 MG TABCR PO SCH (08:19)
[2021-06-20] MEDS: miSOPROStoL 100 MCG TAB PO SCH (08:19)
[2021-06-20] MEDS: ATORVASTATIN 20 MG TAB PO SCH (08:19)
[2021-06-20] MEDS: ENOXAPARIN INJ 40 MG/0.4 ML SYR SQ SCH (08:20)
[2021-06-20 08:41] LABS: Basophils # (auto) 0.01 K/uL (0-0.2); Basophils % (auto) 0.1 %; Eosinophils # (auto) 0.04 K/uL (0-0.5); Eosinophils % (auto) 0.6 %; Hematocrit (blood only) 31.8 % (37-47); Hemoglobin 10.5 g/dL (12.0-16.0); Immature Granulocytes # (auto) 0.02 K/uL (0.00-0.02); Immature Granulocytes % (auto) 0.3 %; Lymphocytes # (auto) 1.06 K/uL (1.2-3.4); Mean Corpuscular Hemoglobin 30.7 pg (25-34); Mean Platelet Volume 10.1 fL (7.4-10.4); Monocytes # (auto) 0.84 K/uL (0.11-0.59); Monocytes % (auto) 11.9 %; Neutrophils # (auto) 5.11 K/uL (1.4-6.5); Neutrophils % (auto) 72.1 %; Platelet Count 161 K/uL (130-400); RDW Coefficient of Variation 12.4 % (11.5-14.5); RDW Standard Deviation 42.3 fL (36.4-46.3); Red Blood Count 3.42 M/uL (4.2-5.4); White Blood Count 7.08 K/uL (4.8-10.8)
[2021-06-20] MEDS ORDERED: predniSONE 20 MG TAB PO ONE (09:00)
[2021-06-20 09:15] LABS: BUN Creatinine Ratio 12.7 (10-20); Calcium 8.8 mg/dl (8.5-10.1); Creatinine Clr Calc Pharmacy 91.9 ml/min; Est GFR (African American) 110.3 ml/min; Est GFR (Non-African American) 95.2 ml/min; Magnesium 1.9 mg/dl (1.8-2.4); Potassium 3.7 mmol/L (3.5-5.1)
--- NOTE | 2021-06-20 09:46 | Pharmacy Report ---
Pharmacy Vanc AUC Short Note - Date of Service June 20, 2021 - Assessment & Plan Assessment 61 year old F receiving empiric vancomycin for treatment of bacteremia in the setting of abscess in epidural space of lumbar spine Day # 4 of antimicrobial therapy. Plan Laboratory Tests 06/19/21 23:28 Vancomycin Trough 21.2 Vancomycin * AUC/BHAVIN is the preferred PK/PD target for vancomycin * AUC guided dosing is effective and associated with decreased risk of nephrotoxicity compared to traditional trough targets * Trough level of 21.2 mcg/mL is supratherapeutic. Will change dose to 1000mg (11.5mg/kg) IV q12h. * Trough level of 14.7 mcg/mL is predicted to achieve target AUC/BHAVIN of 400-600 mg/L.hr and may be associated with a 10 % risk of nephrotoxicity * Trough level ordered for: 06/22/21 @ 1130 Pharmacy will continue to follow and will adjust dose/frequency as necessary. Thank you.
--- NOTE | 2021-06-20 10:39 | Orthopedic Progress Note ---
Date of Service June 20, 2021 Assessment & Plan (1) Abscess in epidural space of lumbar spine: Plan: At this time we do have evidence of gram-positive cocci in the back cultures. Hopefully will have some sensitivities back tomorrow and can determine long-term antibiotic treatment. Her blood cultures have remained negative. Hopefully she can have her PICC line placed tomorrow. She is anxious to return home. Admission and Anticipated Discharge Date Admission Date: June 17, 2021 Subjective Patient is much more comfortable today. Leg symptoms markedly improved. She is tolerating transitions very well. Physical Exam Physical Exam: On exam she is good strength testing appears comfortable. Results & Data ([facility]) Vital Signs (Past 12 Hours) Vital Signs Temp Pulse Resp BP Pulse Ox 06/20/21 07:33 36.4 C L 93 H 18 123/69 99 06/19/21 23:40 36.7 C 76 18 134/71 94
[2021-06-20] MEDS ORDERED: VANCOMYCIN TROUGH ONE (11:30)
--- NOTE | 2021-06-20 12:19 | XCELERA ---
[id number] [email or web address]\[id number]
[2021-06-20] MEDS ORDERED: predniSONE 10 MG TABLET PO ONE (13:30)
--- NOTE | 2021-06-20 13:32 | Hospitalist Progress Note ---
Date of Service June 20, 2021 Assessment & Plan (1) Abscess in epidural space of lumbar spine: Plan: s/p irrigation and debridement thoracolumbar spine, pod#2 - Dr. Jj collected cultures and placed stimulant beads impregnated with Vancomycin and Tobramycin in the incision - Infectious disease consulted regarding duration of abx therapy, appreciate their recommendations - Culture data resulted as above -- E. avium. Literature ([facility]) recommends 4 weeks of parenteral abx - Continue empiric Vancomycin for now until discussed further with ID, consider IV Daptomycin (once a day) versus Zyvox which could be administered orally since PO and IV have same bioavailability - If opt for IV abx -- PICC line can be inserted now that repeat blood cultures (all tubes) are negative for growth (2) Bacteremia: Plan: - One set of positive blood cultures - Echo ordered -- results above, no evidence of vegetation - Suspect that the culture resulted as positive may represent contaminant - Repeat blood cultures performed yesterday thus far yields no growth (3) Postoperative back pain: Plan: d/t #1 -- see plan - Pain control as ordered by Dr. Jj (4) GERD with esophagitis: Plan: - Continue Protonix (5) RAHEEM (obstructive sleep apnea): Plan: - Mild per pt, uses no device or nocturnal O2 (6) Asthma: Plan: - Continue Albuterol inhaler as needed (7) Restless leg syndrome: Plan: - Continue Requip (8) Rheumatoid arthritis: Plan: - Hold Plaquenil and Biologic (for minimum of 2 weeks post-operatively). May want to hold until completed with 4 week course of abx - Pt takes chronic Prednisone, given plans for surgical intervention she was stressed with Solu-Cortef - Transitioned to Prednisone, will quickly taper by 10mg/day down to her usual dose of 5mg daily (9) Hyperlipidemia: Plan: - Continue Lipitor (10) Anxiety and depression: Plan: - Continue Sertraline, Amitriptyline - Continue Lorazepam at HS (11) Hypokalemia: Plan: - Replace/resolved Plan: PT/OT DVT ppx - Lovenox Follow up labs to be drawn in AM Thank you for allowing hospitalists to participate in this patient's care. Will continue to follow. Admission and Anticipated Discharge Date Admission Date: June 17, 2021 Supervising Physician Co-Signing Physician Notes Attending Attestation - Chart reviewed, care plan d/w JESUS MANUEL Bueno. I agree w/ the aguirre components of her documentation. POD #3 s/p I/D lumbar epidural abscess. 1/2 sets of blood cultures returned positive -- alpha strep + coag neg staph. Repeat blood cultures remain negative. Echo without obvious valvular vegetations. Lumbar epidural abscess culture with enterococcus. Will need ID formal consultation - in meantime continue IV vancomycin. Tyrone Ferrera MD Subjective Shereen Mcwilliams was seen on rounds this morning. Pt initially hospitalized under Dr. Jj's service for back pain s/p thoracolumbar decompression fusion performed ~1 week ago. MRI concerning for post op seroma v abscess. Shereen underwent I&D of epidural abscess 06/18. Pt reports that she is still having back pain, but notes improvement from yesterday. Pain is exacerbated by movement/transfers. She denies burning/shooting pain down her legs. She denies chest pain, dyspnea, n/v/d, f/c, headache, or gu symptoms. Thus far, pt has one set of blood cultures that are positive, second set negative. Intraoperative wound cultures collected with results noted below. She is currently on IV Vancomycin. Review of Systems Review of Systems: CONSTITUTIONAL: Denies weight loss/gain, fever and chills, fatigue, malaise, generalized weakness. HEENT: Denies changes in vision and hearing. RESPIRATORY: Denies SOB, cough, wheezing. CV: Denies palpitations, CP, lower extremity edema, orthopnea, PND. GI: Denies abdominal pain, nausea, vomiting and diarrhea. : Denies dysuria and urinary frequency, urgency, hesitancy. MUSCULOSKELETAL: + back pain. SKIN: +back incision NEUROLOGICAL: Denies headache, syncope, focal weakness, numbness, tingling. PSYCHIATRIC: Denies recent changes in mood. Denies anxiety and depression. Physical Exam Physical Exam: GENERAL: 61 yo obese pleasant [place]. Well-developed, well- nourished. NAD. LUNGS: Clear to auscultation bilaterally. No accessory muscle use. No W/R/R. CARDIOVASCULAR: Regular rate and rhythm. Soft 1-2/6 LY noted. No G/R. ABDOMEN: Soft, non-tender and non-distended. No palpable masses. BS normal x 4 quad. EXTREMITIES: No edema. Non-tender. Peripheral pulses +2/4. FROM. NEUROLOGIC: A&O x3. PSYCHIATRIC: Cooperative. Appropriate mood and affect. SKIN: Back incision dressed Results & Data Results & Data ([facility]) Vital Signs (Past 12 Hours) Vital Signs Temp Pulse Resp BP Pulse Ox 06/20/21 07:33 36.4 C L 93 H 18 123/69 99 Laboratory Results 06/20/21 08:24 06/20/21 08:24 Spec: [id number] Collected: 06/17/21 Received: 06/17/[address]: Ismael Jj,D.O. Source: Back,Lower OV Order: Ordered: Aer/Tiana Cult/Sm Comments: Comment Culture #1: Lumbar Epidural Space Procedure Result Verified Site Gram Stain Final 06/18/21 Gram Stain Result Moderate Polys No Organisms Seen Aero/Tiana Cult Preliminary 06/20/21 Organism 1 Enterococcus avium Quantity Few Sens Sensitivities to Follow E avium(D) RX M.I.C. --- --------- Ampicillin S <=2 Gent Synergy S <=500 Penicillin S 2 Strep Synergy S <=1000 Vancomycin S 1 Enterococcus avium: Positive Combo 33 Streptomycin Synergy Screen S Gentamicin Synergy Screen S S = SENSITIVE I = INTERMEDIATE R = RESISTANT Diagnostic Findings Echocardiogram: 06/20/21 Normal biventricular systolic function. All chambers of normal size and functi on. Trace mitral, tricuspid, and pulmonic regurgitation. Mild aortic regurgitation. Mild ascending aortic dilatation. Compared to echo report of July 2007, aortic regurgitation has progressed fr om trace to mild. Trace mild tricuspid regurgitation remain present. The ascending aortic diameter was not reported on the prior study. There is no evidence of a mass or vegetation. This does not rule out endocarditis. PG Care Time/CCT Total # of Minutes Spent Total Time Spent with Patient: Total time spent is greater than 50% in coordination of care (as documented) at patient's floor/unit and/or counseling patient: Coding Level of Care Code 61653 Subseq Hosp Care Lvl 2 Diagnoses Abscess in epidural space of lumbar spine G06.1 Bacteremia R78.81 Postoperative back pain G89.18; M54.9 GERD with esophagitis K21.00 RAHEEM (obstructive sleep apnea) G47.33 Asthma J45.909 Restless leg syndrome G25.81 Rheumatoid arthritis M06.9 Hyperlipidemia E78.5 Anxiety and depression F41.9; F32.9 Hypokalemia E87.6
[2021-06-20] MEDS: VANCOMYCIN HCL 1,000 MG in SODIUM CHLORIDE 0.9% 250 ML IV SCH (14:23)
[2021-06-20] MEDS: AMITRIPTYLINE HCL 50 MG TAB PO SCH (21:09)
[2021-06-20] MEDS: TAMSULOSIN HCL 0.4 MG CAP PO SCH (21:09)
[2021-06-20] MEDS: ACETAMINOPHEN 500 MG TAB PO PRN (21:09)
[2021-06-20] MEDS: FAMOTIDINE 20 MG TAB PO PRN (21:09)
[2021-06-20] MEDS: DOCUSATE SODIUM/SENNA 50/8.6MG TAB PO SCH (21:10)
[2021-06-20] MEDS: rOPINIRole HCL 1 MG TABLET PO SCH (21:10)
[2021-06-20] MEDS: SERTRALINE HCL 50 MG TABLET PO SCH (21:10)
[2021-06-21] MEDS: oxyCODONE HCL IR 5 MG TAB (IMMEDIATE RELEASE) PO PRN ×4 (04:18→21:25)
[2021-06-21 05:59] LABS: Eosinophils # (auto) 0.01 K/uL (0-0.5); Eosinophils % (auto) 0.1 %; Hematocrit (blood only) 27.8 % (37-47); Hemoglobin 9.3 g/dL (12.0-16.0); Immature Granulocytes # (auto) 0.02 K/uL (0.00-0.02); Immature Granulocytes % (auto) 0.3 %; Lymphocytes # (auto) 0.91 K/uL (1.2-3.4); Lymphocytes % (auto) 12.6 %; Mean Corpuscular Hemoglobin 30.8 pg (25-34); Mean Corpuscular Hgb Conc 33.5 g/dL (32-36); Mean Corpuscular Volume 92.1 fL (80-100); Mean Platelet Volume 10.5 fL (7.4-10.4); Monocytes # (auto) 0.62 K/uL (0.11-0.59); Monocytes % (auto) 8.6 %; Neutrophils # (auto) 5.68 K/uL (1.4-6.5); Neutrophils % (auto) 78.4 %; Platelet Count 147 K/uL (130-400); RDW Coefficient of Variation 12.3 % (11.5-14.5); RDW Standard Deviation 41.8 fL (36.4-46.3); Red Blood Count 3.02 M/uL (4.2-5.4); White Blood Count 7.24 K/uL (4.8-10.8)
[2021-06-21 06:31] LABS: BUN Creatinine Ratio 16.8 (10-20); Calcium 8.5 mg/dl (8.5-10.1); Creatinine Clr Calc Pharmacy 94.8 ml/min; Est GFR (African American) 111.4 ml/min; Est GFR (Non-African American) 96.1 ml/min; Potassium 3.3 mmol/L (3.5-5.1)
[2021-06-21] MEDS: CALCIUM CARBONATE 1250MG TAB PO SCH ×2 (08:07→21:25)
[2021-06-21] MEDS: DOCUSATE SODIUM 100 MG CAP PO SCH ×2 (08:07→21:26)
[2021-06-21] MEDS: PANTOprazole 40 MG TAB PO SCH ×2 (08:08→21:25)
[2021-06-21] MEDS: OXYBUTYNIN CHLORIDE XL 5 MG TABCR PO SCH (08:08)
[2021-06-21] MEDS: hydroCHLOROthiazide 25 MG TAB PO SCH (08:09)
[2021-06-21] MEDS: CHOLECALCIFEROL 1,000 UNITS 25 MCG TAB PO SCH (08:09)
[2021-06-21] MEDS: miSOPROStoL 100 MCG TAB PO SCH (08:09)
[2021-06-21] MEDS: FERROUS SULFATE 325 MG TAB PO SCH (08:10)
[2021-06-21] MEDS: ATORVASTATIN 20 MG TAB PO SCH (08:12)
[2021-06-21] MEDS: ENOXAPARIN INJ 40 MG/0.4 ML SYR SQ SCH (08:13)
[2021-06-21] MEDS ORDERED: predniSONE 10 MG TABLET PO ONE (09:00)
[2021-06-21] MEDS: VANCOMYCIN HCL 1,000 MG in SODIUM CHLORIDE 0.9% 250 ML IV SCH ×2 (12:22)
[2021-06-21] MEDS ORDERED: POTASSIUM CHLORIDE CRTAB 20 MEQ TABCR PO STA (13:23)
--- NOTE | 2021-06-21 15:35 | Orthopedic Progress Note ---
Date of Service June 21, 2021 Assessment & Plan (1) Abscess in epidural space of lumbar spine: Plan: At this time we are awaiting final recommendations from infectious disease. Hopefully this will be an oral medication we can discharge her home symptoms this evening. Admission and Anticipated Discharge Date Admission Date: June 17, 2021 Subjective Patient's back pain is well controlled denies any leg pain. She is anxious to return home. Physical Exam Physical Exam: On exam she is ambulating well has good strength testing. Results & Data ([facility]) Vital Signs (Past 12 Hours) Vital Signs Temp Pulse Resp BP Pulse Ox 06/21/21 07:59 37.2 C 74 16 105/70 98
--- NOTE | 2021-06-21 18:01 | Hospitalist Progress Note ---
Date of Service June 21, 2021 Assessment & Plan (1) Abscess in epidural space of lumbar spine: Plan: s/p irrigation and debridement thoracolumbar spine on 06/17 - Dr. Jj collected cultures and placed stimulant beads impregnated with Vancomycin and Tobramycin in the incision - Infectious disease consulted regarding duration of abx therapy, appreciate their recommendations - Culture data resulted as above -- E. avium. Literature (UTD) recommends 4 weeks of parenteral abx - Continue empiric Vancomycin for now until discussed further with ID (2) Bacteremia: Plan: - 2/4 blood culture sets positive (2 different alpha strep species- not en terococcus and coag neg staph) - Echo ordered -- no evidence of vegetation - given bacteria in multiple sets, suspect that this is real - repeat culture negative - will need PICC vs USG line (based on WHAT abx needed) - suspect will need 2 weeks IV abx-- awaiting recommendations from ID (3) Postoperative back pain: Plan: d/t #1 -- see plan - Pain control as ordered by Dr. Jj (4) GERD with esophagitis: Plan: - Continue Protonix (5) RAHEEM (obstructive sleep apnea): Plan: - Mild per pt, uses no device or nocturnal O2 (6) Asthma: Plan: - Continue Albuterol inhaler as needed (7) Restless leg syndrome: Plan: - Continue Requip (8) Rheumatoid arthritis: Plan: - Hold Plaquenil and Biologic completedcourse of abx therapy - Pt takes chronic Prednisone-- received stress dosing - Transitioned to Prednisone, will quickly taper to her usual dose of 5mg daily (9) Hyperlipidemia: Plan: - Continue Lipitor (10) Anxiety and depression: Plan: - Continue Sertraline, Amitriptyline - Continue Lorazepam at HS (11) Hypokalemia: Plan: - Replace/resolved Plan: PT/OT DVT ppx - Lovenox Follow up labs to be drawn in AM Thank you for allowing hospitalists to participate in this patient's care. Will continue to follow. Admission and Anticipated Discharge Date Admission Date: June 17, 2021 Subjective Patient seen on daily rounds today. Is having back pain mostly positional due to the uncomfortable bed but otherwise denies fevers, chills, chest pain, shortness of breath, abdominal pain, nausea or vomiting. Review of Systems Review of Systems: All systems reviewed and are unremarkable except as noted in HPI and below Denies fevers, chills, headache, nasal congestion, sore throat, cough, chest pain, shortness of breath, palpitations, orthopnea, PND, abdominal pain, nausea, vomiting, diarrhea, constipation, dysuria, hematuria, frequency, back pain, joint pain or swelling, easy bruising or bleeding, skin lesions or rashes. Physical Exam Physical Exam: General: Resting comfortably in her bedside chair. NAD. HEENT: Head is AT/NC buccal mucosa is moist and pink Neck: No JVD. Negative hepatojugular reflex Cardiac: RRR without M/G/R Lungs: CTA without W/R/R Abdomen: Normoactive X4. Soft and nontender in all quadrants. Extremities: back with Dry and intact dressing. No peripheral clubbing cyanosis or edema Neuro: A&O X4 cranial nerves II through XII are grossly intact no focal neuro deficits Skin: No obvious skin lesions or rashes Psych: Appropriate affect pleasant and cooperative Results & Data Results & Data ([facility]) Vital Signs (Past 12 Hours) Vital Signs Temp Pulse Resp BP Pulse Ox 06/21/21 07:59 37.2 C 74 16 105/70 98 Laboratory Results 06/21/21 05:24 06/21/21 05:24 PG Care Time/CCT Total # of Minutes Spent Total Time Spent with Patient: Total time spent is greater than 50% in coordination of care (as documented) at patient's floor/unit and/or counseling patient: Coding Level of Care Code 26304 Inpt Consult Level 4 Diagnoses Abscess in epidural space of lumbar spine G06.1 Bacteremia R78.81 Postoperative back pain G89.18; M54.9 GERD with esophagitis K21.00 RAHEEM (obstructive sleep apnea) G47.33 Asthma J45.909 Restless leg syndrome G25.81 Rheumatoid arthritis M06.9 Hyperlipidemia E78.5 Anxiety and depression F41.9; F32.9 Hypokalemia E87.6
[2021-06-21] MEDS: SERTRALINE HCL 50 MG TABLET PO SCH (21:24)
[2021-06-21] MEDS: rOPINIRole HCL 1 MG TABLET PO SCH (21:24)
[2021-06-21] MEDS: TAMSULOSIN HCL 0.4 MG CAP PO SCH (21:25)
[2021-06-21] MEDS: AMITRIPTYLINE HCL 50 MG TAB PO SCH (21:25)
[2021-06-21] MEDS: DOCUSATE SODIUM/SENNA 50/8.6MG TAB PO SCH (21:26)
[2021-06-22] MEDS: VANCOMYCIN HCL 1,000 MG in SODIUM CHLORIDE 0.9% 250 ML IV SCH ×2 (00:30→13:26)
[2021-06-22] MEDS: oxyCODONE HCL IR 5 MG TAB (IMMEDIATE RELEASE) PO PRN ×3 (00:53→14:21)
[2021-06-22 08:24] LABS: Basophils # (auto) 0.01 K/uL (0-0.2); Basophils % (auto) 0.2 %; Eosinophils # (auto) 0.05 K/uL (0-0.5); Hematocrit (blood only) 33.5 % (37-47); Immature Granulocytes # (auto) 0.02 K/uL (0.00-0.02); Immature Granulocytes % (auto) 0.4 %; Lymphocytes # (auto) 1.34 K/uL (1.2-3.4); Lymphocytes % (auto) 26.8 %; Mean Corpuscular Hemoglobin 30.7 pg (25-34); Mean Corpuscular Hgb Conc 32.8 g/dL (32-36); Mean Corpuscular Volume 93.6 fL (80-100); Mean Platelet Volume 10.7 fL (7.4-10.4); Monocytes # (auto) 0.59 K/uL (0.11-0.59); Monocytes % (auto) 11.8 %; Neutrophils # (auto) 2.99 K/uL (1.4-6.5); Neutrophils % (auto) 59.8 %; Platelet Count 150 K/uL (130-400); RDW Coefficient of Variation 12.7 % (11.5-14.5); RDW Standard Deviation 42.8 fL (36.4-46.3); Red Blood Count 3.58 M/uL (4.2-5.4)
[2021-06-22] MEDS ORDERED: predniSONE 20 MG TAB PO SCH (09:00)
--- NOTE | 2021-06-22 09:18 | Hospitalist Progress Note ---
Date of Service June 22, 2021 Assessment & Plan (1) Abscess in epidural space of lumbar spine: Plan: s/p irrigation and debridement thoracolumbar spine on 06/17 - Dr. Jj collected cultures and placed stimulant beads impregnated with Vancomycin and Tobramycin in the incision - Infectious disease consulted regarding duration of abx therapy, appreciate their recommendations - Culture data resulted as above -- E. avium. Literature (UTD) recommends 4 weeks of parenteral abx - Case discussed with infectious disease who is recommending vancomycin IV X 6 weeks - Trough supratherapeutic (21.2) with Vancomycin 1500mg Q12h. Dose changed to 1000mg q12H and trough still slightly supratherapeutic - plan is for transition to 1500mg Q24 hours with follow up trough to be drawn on 06/24/21 (next dose to be given prior to D/C today). - Goal trough is between 15-20. dose to be infused at 0900. Trough needs to be drawn 1 hour prior to dose that is due to be given (or level will be falsely abnormal) - message left with patient PCP about managing subsequent vanco dosing (He is out of the office but a message was left) but was assurred by Dr. Jj that he would be willing to help manage with the recommendations from [employer] (I would also be willing to assist if needed) - last dose to infuse 07/29/21 (2) Bacteremia: Plan: - 2/4 blood culture sets positive (2 different alpha strep species- not enterococcus and coag neg staph) but confirmed with lab that these were from the SAME lab draw and confirmed strep viridans-- suspected to be skin contaminant. Repeat orders show NGTD - Echo ordered -- no evidence of vegetation - plan is for 6 week IV abx iregardless - appreciate recommendations from ID (3) Postoperative back pain: Plan: d/t #1 -- see plan - Pain control as ordered by Dr. Jj (4) GERD with esophagitis: Plan: - Continue Protonix (5) RAHEEM (obstructive sleep apnea): Plan: - Mild per pt, uses no device or nocturnal O2 (6) Asthma: Plan: - Continue Albuterol inhaler as needed (7) Restless leg syndrome: Plan: - Continue Requip (8) Rheumatoid arthritis: Plan: - Hold Plaquenil and Biologic completedcourse of abx therapy - Pt takes chronic Prednisone-- received stress dosing - continue taper to her 5mg dosing (9) Hyperlipidemia: Plan: - Continue Lipitor (10) Anxiety and depression: Plan: - Continue Sertraline, Amitriptyline - Continue Lorazepam at HS (11) Hypokalemia: Plan: - Replace/resolved Plan: Fu labs ordered for (CMP, CBC, ESR, CRP, Vanco trough). Recommend weekly labs in addition to as needed labs with any change in vancomycin level. Would continue to monitor LFTs given ongoing rifampin Admission and Anticipated Discharge Date Admission Date: June 17, 2021 Subjective Patient seen on daily rounds today. Denies fevers, chills, chest pain, shortness of breath, abdominal pain, nausea vomiting Seen by infectious disease who is recommending 6 weeks of IV vancomycin in ciro tion to 6 weeks of oral rifampin due to indwelling hardware Agreeable for PICC line Pharmacy on board to help with vancomycin dosing. Slightly supratherapeutic at 1 g every 12 hours (was also supratherapeutic at 1500 mg every 12 hours). Recommendations are for 1500 mg every 24 hours with follow-up trough on . Review of Systems Review of Systems: All systems reviewed and are unremarkable except as noted in HPI and below Denies fevers, chills, headache, nasal congestion, sore throat, cough, chest pain, shortness of breath, palpitations, orthopnea, PND, abdominal pain, nausea, vomiting, diarrhea, constipation, dysuria, hematuria, frequency, back pain, joint pain or swelling, easy bruising or bleeding, skin lesions or rashes. Physical Exam Physical Exam: General: Resting comfortably in her hospital bed. NAD. HEENT: Head is AT/NC buccal mucosa is moist and pink Neck: No JVD. Negative hepatojugular reflex Cardiac: RRR without M/G/R Lungs: CTA without W/R/R Abdomen: Normoactive X4. Soft and nontender in all quadrants. Extremities: Back with superficial dressing that is dry and intact. No indwelling drains. Distal pulses to the bilateral lower extremities are intact symmetrical bilaterally. No peripheral clubbing cyanosis or edema Neuro: A&O X4 cranial nerves II through XII are grossly intact no focal neuro deficits Skin: No obvious skin lesions or rashes Psych: Appropriate affect pleasant and cooperative Results & Data Results & Data ([facility]) Vital Signs (Past 12 Hours) Vital Signs Temp Pulse Resp BP BP Pulse Ox 06/22/21 07:53 36.8 C 78 16 113/71 95 06/21/21 23:22 36.5 C 67 16 101/59 L 96 Laboratory Results 06/22/21 07:46 06/22/21 07:46 PG Care Time/CCT Total # of Minutes Spent Total Time Spent with Patient: Total time spent is greater than 50% in coordination of care (as documented) at patient's floor/unit and/or counseling patient: Coding Level of Care Code 32116 Inpt Consult Level 5 Diagnoses Abscess in epidural space of lumbar spine G06.1 Bacteremia R78.81 Postoperative back pain G89.18; M54.9 GERD with esophagitis K21.00 RAHEEM (obstructive sleep apnea) G47.33 Asthma J45.909 Restless leg syndrome G25.81 Rheumatoid arthritis M06.9 Hyperlipidemia E78.5 Anxiety and depression F41.9; F32.9 Hypokalemia E87.6
[2021-06-22 09:24] LABS: BUN Creatinine Ratio 14.1 (10-20); Calcium 8.8 mg/dl (8.5-10.1); Creatinine Clr Calc Pharmacy 79.6 ml/min; Est GFR (Non-African American) 85.4 ml/min; Potassium 3.3 mmol/L (3.5-5.1)
[2021-06-22] MEDS: OXYBUTYNIN CHLORIDE XL 5 MG TABCR PO SCH (09:27)
[2021-06-22] MEDS: DOCUSATE SODIUM 100 MG CAP PO SCH (09:27)
[2021-06-22] MEDS: PANTOprazole 40 MG TAB PO SCH (09:27)
[2021-06-22] MEDS: CHOLECALCIFEROL 1,000 UNITS 25 MCG TAB PO SCH (09:28)
[2021-06-22] MEDS: CALCIUM CARBONATE 1250MG TAB PO SCH (09:28)
[2021-06-22] MEDS: ENOXAPARIN INJ 40 MG/0.4 ML SYR SQ SCH (09:28)
[2021-06-22] MEDS: hydroCHLOROthiazide 25 MG TAB PO SCH (09:28)
[2021-06-22] MEDS: miSOPROStoL 100 MCG TAB PO SCH (09:28)
[2021-06-22] MEDS: ATORVASTATIN 20 MG TAB PO SCH (09:28)
[2021-06-22] MEDS: FERROUS SULFATE 325 MG TAB PO SCH (09:29)
[2021-06-22] MEDS ORDERED: LORazepam 1 MG TAB PO STA (12:15)
--- NOTE | 2021-06-22 13:34 | Pharmacy Report ---
Pharmacy Vanc AUC Short Note - Date of Service June 22, 2021 - Assessment & Plan Assessment 61 year old F receiving empiric vancomycin for treatment of bacteremia in the setting of abscess in epidural space of lumbar spine * s/p irrigation and debridement * ID consulted - per MARIE Matos recommended 6 weeks of vancomycin * Possible discharge today or maybe tomorrow Vancomycin * Current maintenance dose: 1000 mg (11.5 mg/kg) IV every 12 hours * AUC/BHAVIN is the preferred PK/PD target for vancomycin * Will target AUC/BHAVIN of 400-600 mg/L.hr * Trough of 22.8 mcg/mL is associated with an elevated AUC and a significant risk of toxicity * this increase is a bit unexpected and may be due to slight worsening of renal function, which is also potentially evident in a mild increase in SCr today (0.62 to 0.75 mg/dL). * Will transition her to a q24h interval as 1500 mg IV q24h, 1st dose tomorrow AM * Her anticipated *trough* on 1500 mg IV q24h is estimated to be 13.5 mcg/mL, which is considered subtherapeutic for *trough*-based monitoring, but the associated AUC of 457 mcg/dL/hr is within goal range for *AUC*-based monitoring, which is the superior model. Plan * Decrease vancomycin to 1500 mg IV daily@09 * Close monitoring of SCr as inpatient (or outpatient) will be required to ensure further accumulation does not occur Pharmacy will continue to follow and will adjust dose/frequency as necessary. Thank you.
[2021-06-22] MEDS ORDERED: POTASSIUM CHLORIDE CRTAB 20 MEQ TABCR PO STA (14:36)
--- NOTE | 2021-06-22 16:01 | Discharge Summary ---
Date of Service June 22, 2021 Admission HPI Per Admitting Provider This is a 61-year-old female well-known to me the presents with marked clinical status over the past day. She is status post thoracolumbar decompression fusion approximately a week ago. She had had a normal postoperative course. She was sent home with a drain. The drain was removed on Monday. Within 24 hours she had the onset of significant back pain and bilateral leg pain with inability to ambulate without severe discomfort. She was seen in emergency room and subsequently admitted. She denies any fevers or chills. Pain not controlled with oral medications. Principal Diagnosis Lumbar epidural abscess Discharge Data Allergies Allergy/AdvReac Type Severity Reaction Status Date / Time succinylcholine Allergy Severe Pseudocholinesterase Verified 06/17/21 17:02 deficiency trazodone Allergy Intermediate Dry mouth Verified 06/17/21 17:02 (causing dyspnea) hydromorphone [From Dilaudid] Allergy Anaphylaxis Verified 06/17/21 17:02 Consultations 06/16/21 21:38 ED Decision to Admit Stat 06/17/21 01:36 Consult Internal Medicine Routine 06/18/21 13:31 Consult Infectious Diseases Routine Procedures Performed Operation Date: 06/17/21 08:40 Actual Procedures s Incision and Drainage Evacuation Lumbar Hematoma, (Not Applicable) - Ismael Jj DO p Decompression of T11-T12, T12-L1, Application of Stimulan Beads (Not Applicable) - Ismael Jj DO Ordered Studies 06/16/21 18:34 MRI Lumbar Spine [MR lumbar spine wo/w con] Stat Hospital Course (1) Abscess in epidural space of lumbar spine: Patient was admitted with worsening back and leg pain underwent urgent decompression evacuation hematoma the following day with evidence of epidural abscess. This was determined to be positive. She was subsequently treated with antibiotics and waited for final cultures to demonstrate organism. Once this was established she was given a PICC line appropriate antibiotics and subsequently discharged home. Discharge orders instructions were on the chart for further view. Total Time Total Time Spent Total Time Spent (In Minutes): 20 minutes Discharge Plan Discharge Items Patient Disposition: Home - Self-Care Reason For Visit: POST OP BACK PAIN Discharge Diagnosis: Epidural abscess to the lumbar spine Activity: As commented below Non-emergency contact: Primary Care Provider Call non-emergency contact if: you have any medication questions Follow-up/Referrals: [place],Uday J, DO [Primary Care Provider] - Diet: Regular Addtl Attending Provider Instructions: ACTIVITY RECOMMENDATIONS: SELF CARE INSTRUCTIONS AFTER THORACIC/LUMBAR FUSIONS 1. You may walk to your tolerance. It is good exercise for your legs and back. Expect some back and intermittent leg aches and pains. 2. You may perform "counter-top" level activities (make a sandwich, deric with a project, etc.). 3. No bending or lifting of more than 10 pounds or back twisting of any nature (roll like a log when turning in bed). 4. You may ride in a car for 20-30 minutes at a time. No driving until after your first visit with your doctor. 5. Frequent changes of position and restricting sitting to 30 minutes at a time will help limit the amount of back spasms and stiffness you may experience. 6. You may discontinue the use of ambulatory aids (cane, crutches, etc.) once your strength and confidence allow. 7. You may forming operator the shower and let water strike your incision when you arrive home at least once daily. Do not take a tub bath, sit in a hot tub or go into a swimming pool until after your first recheck in the office. SPECIAL CARE INSTRUCTIONS: VERY IMPORTANT TO READ AND REVIEW A. Your surgical incision has been closed with a cosmetic suture under the skin that will dissolve in about 6 weeks. In 14 days, you can use a pair of clean scissors and cut the suture that is left outside of the skin at the ends of your incision. 1. The small skin tapes can be removed 7 days after surgery if they have not fallen off by that point. 2. You may keep the wound open to air as much as possible to promote healing after post-op day number 5 unless told otherwise by your doctor. 3. If you think the wound looks like it is becoming infected (redness or worsening drainage) and/or you are experiencing fever, chill or worsening back pain and muscle spasms, contact the office so that we may evaluate you as soon as possible. B. Complications are uncommon, but please contact us if you have any signs or symptoms of: 1. wound infection (fever higher than 102.5 degrees F, redness, separation of wound, drainage, or increasing pain from the incision) 2. blood clots in legs (pain, swelling, redness and warmth in legs) 3. urinary tract infection (fever higher than 102.5 degrees F, burning upon urination or increased frequency of urination) 4. nerve problems (inability to walk on your toes or heels, numbness, loss of bowel or bladder control) 5. any other symptoms that concern you C. Please call the office at if you have any concerns or questions about your operation or recovery. D. No smoking! Smoking drastically decreases the chance of a solid fusion. E. Do not take any anti-inflammatory medications (Indocin, Advil, Motrin, Aspirin, Naprosyn, etc.) as these may inhibit the chance of a solid fusion. Tylenol is okay to take for pain. MANAGING PAIN AFTER SPINAL SURGERY 1. Narcotic medication is intended for short-term use and will be provided for surgical pain. Surgical pain usually lasts for a period of 4-6 weeks. Narcotic medication includes Percocet, Vicodin, Darvocet, Tylenol #3 or Lortab. 2. Longer-term pain is more appropriately treated with non-narcotic medication such as Tylenol ES. 3. Muscle spasm is not appropriately treated with narcotics. Muscle relaxers such as Soma, Flexeril or Skelaxin can be used along with Tylenol ES. 4. Remember that we all live with some "aches and pains". This is not unusual or uncommon after an injury or as we get older. a. Back pain is expected and may include muscle spasms for 4 to 6 weeks after surgery. The pain should gradually improve. If the pain worsens for no apparent reason, please contact the office. b. Intermittent leg pain may also be experienced and should not be concerned about unless it worsens for no apparent reason. If so, please contact the office. 5. We will provide appropriate medication within the normal guidelines of their prescribed use. We will also be very cautious and aware of potential abuse and extended duration of patients' medication needs. a. Pain medications are for your comfort and to assist with sleep and rest so that the tissue can heal. They are not provided in order to return to normal activity and should not be used through the day. To do so or worsening pain at night can result from ongoing tissue damage and development of tolerance to the prescribed medicine. 6. Please allow 2-3 days to process refills. Prescriptions will not be mailed but must be picked up at the office. FOLLOW UP VISIT: Keep your scheduled follow-up appointment. Any questions, please call the office at . 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 Jj with implantation of antibiotic seeds Based on culture data and recommendations from infectious disease, you should complete a full 6 weeks of IV vancomycin menses last dose to infuse on 07/29/2021) --current dose: Vancomycin 1500mg IV q24 hours (next dose due 0900 on 06/23) with repeat level to be drawn on In addition to IV antibiotic therapy, you are being prescribed Rifampin (to be taken twice a day for 6 weeks)-- this helps to prevent the biofilm as we discussed around the indwelling hardware in place Can hold Bactrim while on vancomycin Would recommend probiotic daily while on antibiotic therapy to help replenish good kell in the gut (I would advise align [id number]) Would advise holding Plaquenil and tocilizumab for 6 weeks until infection adequately resolved Regarding your prednisone, take 10 mg on 06/23 and 06/24 then resume your 5 mg usual dose Follow-up with PCP next week. Your PCP will be managing your IV vancomycin. Subsequent dose may change based on follow-up labs Follow-up lab data ordered for (to be obtained by visiting nursing) Follow-up with Dr. Jj as outlined above Pending Studies at Discharge: No Stand-Alone Forms: My [facility] Medications and DC Order Prescriptions: New oxycodone 5 mg tablet 5 mg PO Q6H PRN (Reason: pain, severe) Qty: 30 RF: 0 vancomycin in dextrose 5 % 500 mg/100 mL piggyback 1.5 g IV Q24H 42 Days RF: 0 rifampin 300 mg Capsule 300 mg PO BID Qty: 90 RF: 0 prednisone 10 mg tablet 10 mg PO DAILY Qty: 2 RF: 0 Continued tamsulosin 0.4 mg capsule 0.4 mg PO HS Qty: 90 RF: 3 loratadine [Claritin] 10 mg tablet 10 mg PO HS RF: 0 Lactobacillus rhamnosus GG 15 billion cell capsule, sprinkle 1 cap PO QAM RF: 0 lorazepam 1 mg tablet 2 mg PO HS RF: 0 hydrochlorothiazide 25 mg tablet 25 mg PO QAM RF: 0 benzonatate 200 mg capsule 200 mg PO Q8H PRN (Reason: cough) Qty: 90 RF: 5 albuterol sulfate 90 mcg/actuation HFA aerosol inhaler 2 puff INHALATION Q4 PRN (Reason: Shortness Of Breath Or Wheezing or Cough) Qty: 54 RF: 3 ropinirole 4 mg Tablet 4 mg PO HS RF: 0 potassium gluconate 595 mg (99 mg) Tablet Extended Release 99 mg PO QAM RF: 0 atorvastatin [Lipitor] 20 mg Tablet 20 mg PO QAM RF: 0 sertraline [Zoloft] 100 mg Tablet 150 mg PO HS RF: 0 prednisone 5 mg Tablet 5 mg PO QAM RF: 0 amitriptyline 50 mg Tablet 50 mg PO HS RF: 0 calcium carbonate [Calcium 600] 600 mg calcium (1,500 mg) Tablet 1 tab PO BID RF: 0 ferrous sulfate 325 mg (65 mg iron) Tablet 325 mg PO QAM RF: 0 misoprostol [Cytotec] 100 mcg Tablet 100 mcg PO QAM RF: 0 docusate sodium [Stool Softener] 100 mg Capsule 100 mg PO BID RF: 0 Systane Balance 0.6 % Drops 1 drp OPHTHALMIC (EYE) UD PRN (Reason: Dry Eye(S)) RF: 0 cholecalciferol (vitamin D3) [Vitamin D3] 125 mcg (5,000 unit) Tablet 125 mcg PO QAM RF: 0 cyclobenzaprine 10 mg tablet 10 mg PO TID PRN (Reason: Muscle Spasm) RF: 0 Zioptan (PF) 0.0015 % Dropperette 1 drp OPB PM RF: 0 Xiidra 5 % dropperette 1 drp OPB BID RF: 0 pantoprazole [Protonix] 40 mg Tablet,Delayed Release (Dr/Ec) 40 mg PO BID RF: 0 oxybutynin chloride 15 mg tablet extended release 24 hr 15 mg PO QAM RF: 0 Discontinued ibuprofen 600 mg tablet 600 mg PO TID Qty: 60 RF: 0 Actemra 80 mg/4 mL (20 mg/mL) Solution 1 dose IV Q4WK RF: 0 sulfamethoxazole-trimethoprim [Bactrim DS] 800-160 mg tablet 1 tab PO QAM RF: 0 hydroxychloroquine [Plaquenil] 200 mg Tablet 200 mg PO BID RF: 0 Discharge Orders: Discharge Order (Routine); Ordered 06/22/21 Ordered By: Ismael Jj Admission Data Admit Date/Time: 06/17/21 10:40 Attending Provider: Ismael Jj Admit Provider: Ismael Jj Primary Care Provider: Uday Barksdale Other Providers: Ismael Jj ; [facility] ; Suleman Sanchez ; Shayy Bar ; Soto Vlila I. ; Marco Ruiz II ; Cristine Yusuf ; Flaco Dias ; Tani Cannon. ; José Miugel Barlow.
[2021-06-22] MEDS ORDERED: rifAMPin 300 MG CAPSULE PO SCH (21:00)
[2021-06-23] MEDS ORDERED: VANCOMYCIN HCL 1,500 MG in SODIUM CHLORIDE 0.9% 500 ML IV SCH (09:00)
--- NOTE | 2021-07-01 09:53 | Coding Query ---
CODING QUERY To promote full compliance with coding requirements relating to patient care, provider participation is requested in all cases of cloth framer uncertainty. Please assist us with the question(s) below: Coding Question(s): 1. There is documentation in the record of hematoma with documentation, on the H&P of Lumbar Muscle Hematoma and documentation on the Operative Report, beside Pre-Op Diagnosis of Lumbar epidural hematoma and under Indications, "postop hematoma" and in the Description of Procedure, "infected hematoma". Please specify below, in your clinical opinion, regarding postoperative hematoma. ( ) Infected Lumbar Epidural Hematoma. Please Specify further below: (x) likely a Postoperative Complication ( ) Not a Postoperative Complication ( ) Other: Please Specify ( ) Infected Lumbar Muscle Hematoma. Please Specify further below: ( x ) likely a Postoperative Complication ( ) Not a Postoperative Complication ( ) Other: Please Specify ( ) Other: Please Specify: ( ) likely a Postoperative Complication ( ) Not a Postoperative Complication ( ) Other: Please Specify 2. There is documentation in the record of Epidural Abscess. Please specify below, in your clinical opinion, regarding Epidural Abscess. ( x ) Epidural Abscess is likely a Postoperative Complication ( ) Epidural Abscess is Not a Postoperative Complication ( ) Other: Please Specify Physician's Response(s): Thank you Yolanda Moran Principal Diagnosis: "that condition established after study, to be chiefly responsible for occasioning the admission of the patient to the hospital for care." Co-Existing Principal Diagnosis: "when two or more diagnoses equally meet the criteria for principal diagnosis as determined by the circumstances of admission, diagnostic work up, and/or therapy provided, and the Alphabetic Index, Tabular List, or another coding guideline does not provide sequencing direction, any one of the diagnoses may be sequenced first." "When the physician has documented what appears to be a current diagnosis in the body of the record, but has not included the diagnosis in the final diagnostic statement, the physician should be asked whether the diagnosis should be added." (Source Coding [facility] 2 QTR90. p3-4) SHARON
== END 2021-06-22 17:42 | disposition home health service (06) | DRG 907 ==
LOC: ED 18:19 → 3E 18:19

== ENCOUNTER 2021-06-29 16:13 | Observation (INO) ==
--- NOTE | 2021-06-29 17:32 | XRay Report ---
XR chest 2V PA/lateral HISTORY: abnormal labs COMPARISON: Chest 05/05/2021. FINDINGS: No pneumothorax. No pleural effusions. Linear scarlike densities at the left lung base bibiana in unchanged. No new focal lung consolidations to suggest pneumonia. No evidence for pulmonary edema. The heart remains top normal in size. A left PICC terminates in the SVC. Extensive cervical and uppe r thoracic spinal fusion hardware again noted. This is only partially imaged on this study. There is also lower thoracic and lumbar spinal fusion hardware also noted. IMPRESSION: 1. No acute process within the chest. 2. Extensive spinal fusion hardware. ACT 112: Negative or not required by law. Electronically signed by: Yves Diaz M.D. 06/29/2021 5:31 PM
[2021-06-29 18:56] LABS: Basophils # (auto) 0.02 K/uL (0-0.2); Basophils % (auto) 0.5 %; Eosinophils # (auto) 0.11 K/uL (0-0.5); Eosinophils % (auto) 2.6 %; Hematocrit (blood only) 33.6 % (37-47); Hemoglobin 11.2 g/dL (12.0-16.0); Immature Granulocytes # (auto) 0.01 K/uL (0.00-0.02); Immature Granulocytes % (auto) 0.2 %; Lymphocytes # (auto) 1.11 K/uL (1.2-3.4); Lymphocytes % (auto) 26.2 %; Mean Corpuscular Hemoglobin 30.5 pg (25-34); Mean Corpuscular Hgb Conc 33.3 g/dL (32-36); Mean Corpuscular Volume 91.6 fL (80-100); Mean Platelet Volume 10.7 fL (7.4-10.4); Monocytes # (auto) 0.46 K/uL (0.11-0.59); Monocytes % (auto) 10.8 %; Neutrophils # (auto) 2.53 K/uL (1.4-6.5); Neutrophils % (auto) 59.7 %; Platelet Count 157 K/uL (130-400); RDW Coefficient of Variation 12.3 % (11.5-14.5); RDW Standard Deviation 41.3 fL (36.4-46.3); Red Blood Count 3.67 M/uL (4.2-5.4); White Blood Count 4.24 K/uL (4.8-10.8)
[2021-06-29 19:15] LABS: Albumin Level 3.6 gm/dl (3.4-5.0); BUN Creatinine Ratio 9.4 (10-20); Calcium 10.4 mg/dl (8.5-10.1); Est GFR (African American) 108.1 ml/min; Est GFR (Non-African American) 93.3 ml/min; Potassium 2.7 mmol/L (3.5-5.1)
[2021-06-29 19:18] LABS: Albumin Globulin Ratio 1.4 (0.9-2); Bilirubin,Total 0.5 mg/dl (0.2-1); Globulin 2.5 gm/dl (2.5-4.0); Total Protein 6.1 gm/dl (6.4-8.2)
[2021-06-29 19:28] LABS: Magnesium 1.3 mg/dl (1.8-2.4)
[2021-06-29] MEDS ORDERED: POTASSIUM CHLORIDE 10 MEQ TABCR PO STA (19:33)
[2021-06-29 19:40] LABS: Appearance Urine Clear (Clear); Bilirubin Urine Negative (Negative); Blood Urine Negative (Negative); Color Urine Dark Yellow; Glucose Urine UA Negative (Negative); Ketones Urine Negative (Negative); Leukocyte Esterase Urine Negative (Negative); Nitrite Urine Negative (Negative); Protein Urine Negative (Negative); Specific Gravity Urine 1.018 (1.000-1.030); Urobilinogen Urine Negative (Negative)
[2021-06-29] MEDS ORDERED: oxyCODONE/ACETAMINOPHEN 5mg/325mg TAB PO STA (19:41)
[2021-06-29] MEDS: MAGNESIUM SULFATE / D5W 1 GM/100 ML BAG IV SCH ×2 (19:56→21:02)
--- NOTE | 2021-06-29 22:58 | Emergency Department Note ---
History of Present Illness General Chief Complaint: Abnormal Labs/Diagnostic Testing Stated Complaint: potassium levels are low Time Seen by Provider: 06/29/21 19:20 History of Present Illness Provider Complaint: + abnormal lab Symptoms since prior visit: + no new symptoms; no fever Associated symptoms: no fever, no chills, no chest pain, no shortness of breath, no rash, no malaise or no abdominal pain HPI narrative: Patient sent to the emergency department for low potassium. Patient denies any diarrhea, fever, or vomiting. Home Medications Medication Instructions Recorded Confirmed Type amitriptyline 50 mg tablet 50 mg PO HS 06/15/18 06/29/21 History atorvastatin 20 mg tablet (Lipitor) 20 mg PO QAM 06/15/18 06/29/21 History calcium carbonate 600 mg calcium 1 tab PO BID 06/15/18 06/29/21 History (1,500 mg) tablet (Calcium) docusate sodium 100 mg capsule 100 mg PO BID 06/15/18 06/29/21 History (Stool Softener) ferrous sulfate 325 mg (65 mg 325 mg PO QAM 06/15/18 06/29/21 History iron) tablet misoprostol 100 mcg tablet 100 mcg PO QAM 06/15/18 06/29/21 History (Cytotec) prednisone 5 mg tablet 5 mg PO QAM 06/15/18 06/29/21 History propylene glycol 0.6 % eye drops 1 drp OPHTHALMIC (EYE) UD PRN 06/15/18 06/29/21 History (Systane Balance) sertraline 100 mg tablet (Zoloft) 150 mg PO HS 06/15/18 06/29/21 History ropinirole 4 mg tablet 4 mg PO HS 02/27/19 06/29/21 History Lactobacillus rhamnosus GG 15 1 cap PO QAM cap 03/18/19 06/29/21 History billion cell sprinkle capsule lorazepam 1 mg tablet 2 mg PO HS tab 03/18/19 06/29/21 History cholecalciferol (vitamin D3) 125 125 mcg PO QAM 08/06/19 06/29/21 History mcg (5,000 unit) tablet (Vitamin D3) hydrochlorothiazide 25 mg tablet 25 mg PO QAM 12/31/19 06/29/21 History potassium gluconate 595 mg (99 mg) 99 mg PO QAM 01/23/20 06/29/21 History tablet,extended release albuterol sulfate 90 mcg/actuation 2 puff INHALATION Q4 PRN #54 gm 10/09/20 06/29/21 Rx aerosol inhaler benzonatate 200 mg capsule 200 mg PO Q8H PRN #90 cap 10/09/20 06/29/21 Rx cyclobenzaprine 10 mg tablet 10 mg PO BID 11/13/20 06/29/21 History lifitegrast 5 % eye drops in a 1 drp OPB BID 11/13/20 06/29/21 History dropperette (Xiidra) tafluprost (PF) 0.0015 % eye drops 1 drp OPB PM 11/13/20 06/29/21 History in a dropperette (Zioptan (PF)) loratadine 10 mg tablet (Claritin) 10 mg PO HS 12/31/20 06/29/21 History oxybutynin chloride 15 mg 15 mg PO QAM 04/26/21 06/29/21 History tablet,extended release 24 hr pantoprazole 40 mg tablet,delayed 40 mg PO BID 04/26/21 06/29/21 History release (Protonix) tamsulosin 0.4 mg capsule 0.4 mg PO HS #90 cap 05/10/21 06/29/21 Rx oxycodone 5 mg tablet 5 mg PO Q6H PRN #30 tab 06/21/21 06/29/21 Rx rifampin 300 mg capsule 300 mg PO BID #90 cap 06/22/21 06/29/21 Rx vancomycin 500 mg/100 mL in 1.5 g IV Q24H 42 Days ml 06/22/21 06/29/21 Rx dextrose 5 % intravenous piggyback hydroxychloroquine 200 mg tablet 200 mg PO UD 06/29/21 06/29/21 History Allergies Allergy/AdvReac Type Severity Reaction Status Date / Time succinylcholine Allergy Severe Pseudocholinesterase Verified 06/29/21 20:03 deficiency trazodone Allergy Intermediate Dry mouth Verified 06/29/21 20:03 (causing dyspnea) hydromorphone [From Dilaudid] Allergy Anaphylaxis Verified 06/29/21 20:03 Past Med/Surg History Medical History Acid reflux Anxiety and depression Aortic aneurysm Under surveillance, mild aneurysmal dilatation of the ascending thoracic aorta which measures up to 4.1 cm Asthma Cough-variant asthma Chronic back pain Claustrophobia Stressed with oxygen mask over face Degenerative disc disease Dysphagia Chronic, follows with GI (unchanged) Encounter for pre-operative examination Fibromyalgia Gastroparesis Hiatal hernia Hx of glaucoma R/L Hyperlipidemia IBS (irritable bowel syndrome) Obesity RAHEEM (obstructive sleep apnea) "Mild" per records, no device Restless leg syndrome Rheumatoid arthritis Actemra infusions q 4wks, Chronic prednisone 5mg daily* Follows with rheumatology (Dr. 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 Sol) who had recommended lifetime abx (surgeon aware), now under surveillance by PCP/no recent issues Urge and stress incontinence Urinary frequency Urinary urgency Surgical History Difficult intubation Significantly decreased cervical extension s/p cervical fusion Midurethral sling, cystoscopy (06/26/18): Grade view 2, with glidescope #3, ETT 7.0 at [facility] ("two person mask vent with oral airway.. small glottic opening and anterior with glidescope, ETT easily passed.. attempt x2") History of back surgery R/T INFECTION History of hysterectomy History of lumbar fusion X3 History of neck surgery CERVICAL FUSION; CERVICAL SURGERIES X3 TOTAL HAS CAGE - DECREASED ROM History of surgery Midurethral sling, cystoscopy (06/26/18) Hx of arthroscopy of shoulder LEFT X2 Hx of section X3 Hx of colonoscopy Hx of endoscopy EGD (04/30/21): MAC at [facility] Hx of exploratory laparotomy X2 (2/2 ADHESIONS) Hx of hernia repair Hx of laparoscopy X2 (2/2 ADHESIONS) Pseudocholinesterase deficiency 1985 (tested) Family History Mother Family history of stroke (cerebrovascular) Father Family history of CHF (congestive heart failure) Family history of COPD (chronic obstructive pulmonary disease) Other Patient's father is Social History Smoking Status: Never smoker Second Hand Exposure: Yes (father smoked); Hx Alcohol Use: Yes Alcohol type: wine Hx Substance Use: No Preferred Language: Latvian Communication Ability: Effective Visual Impairment: No Limitations 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 Required: No Beliefs That Will Affect Care: None marital status: Current Living Situation: Spouse Current Living Situation Comment: [place] current occupational status: disabled Feels Safe at Home: Yes Assistive Devices: None Review of Systems A total of 10 systems reviewed and were otherwise negative Physical Exam Vital Signs: Vital Signs - 24 hr 06/29/21 16:29 06/29/21 19:27 06/29/21 21:00 Temperature 36.4 C L Temperature Source Temporal Artery Sc an Pulse Rate 82 Pulse Rate [Radial ] 80 70 Respiratory Rate 18 18 18 Respiratory Effort / Characteristics Non-Labored Respiratory Depth Normal Blood Pressure 133/73 Blood Pressure [Ri ght Arm] 141/81 H 113/65 Blood Pressure Marybel n 93 Blood Pressure Marybel n [Right Arm] 101 81 Pulse Oximetry 97 99 97 Oxygen Delivery Me thod Room Air Room Air Room Air Sepsis Recent Feve r Within 48 Hours No Sepsis New/Unexpla ined Change in Men gaye Status No Sepsis Action Take n by Nursing No Action Required Physical Exam: Physical Exam GENERAL: She is oriented to person, place, and time. She appears well-developed and well-nourished. She does not appear distressed. HENT: Exam performed. -Head: Normocephalic and atraumatic. -Right Ear: External ear normal. No mastoid tenderness. -Left Ear: External ear normal. No mastoid tenderness. -Mouth/Throat: The oropharynx is clear and moist. No trismus in the jaw. No dental abscesses or uvula swelling. No oropharyngeal exudate or tonsillar abscesses. EYES: Conjunctivae and EOM are normal. Pupils are equal, round, and reactive to light. Right eye exhibits no discharge. Left eye exhibits no discharge. No scleral icterus. NECK: Normal range of motion. Neck supple. No JVD present. No spinous process tenderness present. No carotid bruit present. No rigidity. No tracheal deviation and normal range of motion present. No Brudzinski's sign and no Kernig's sign noted. CV: Normal rate, regular rhythm, normal heart sounds and intact distal pulses. There is no peripheral edema. Palpable radial pulses bue. PULM/CHEST: Effort normal and breath sounds normal. No respiratory distress. No stridor. She has no wheezes. She has no rales. -Chest Wall: She exhibits no tenderness. ABD: The abdomen is soft. Bowel sounds are normal. She has no distension. No mass is present. There is no tenderness. There is no rebound, no guarding, no Barbosa's sign and no tenderness at McBurney's point. Rovsig negative NEURO: She is alert and oriented to person, place, and time. No cranial nerve deficit or sensory deficit. Course Course 1919: The patient was evaluated in room A11. A complete history and physical exam was performed Cardiac monitoring: An order was placed for continuous cardiac monitoring. The monitor shows a rate of 80 with sinus rhythm 2145: Vital signs stable. Magnesium 1.3 and potassium 2.7. Magnesium will be replaced and then potassium will be replaced. Patient will be admitted to the hospital service. Dr. Nixon service notified. Administered Medications Discontinued Medications Magnesium Sulfate/Dextrose (Magnesium Sulfate / D5w) 1 gm in 100 mls @ 100 mls/hr IV Q1H YOUNG Stop: 06/29/21 21:32 Last Infusion: 06/29/21 22:57 Dose: 0 mls/hr Documented by: [id number] Admin: 06/29/21 21:02 Dose: 100 mls/hr Documented by: [id number] Infusion: 06/29/21 20:56 Dose: 100 mls/hr Documented by: [id number] Admin: 06/29/21 19:56 Dose: 100 mls/hr Documented by: [id number] Oxycodone/Acetaminophen (Oxycodone/Acetaminophen 5mg/325mg Tab) 1 tab PO NOW STA Stop: 06/29/21 19:42 Last Admin: 06/29/21 19:53 Dose: 1 tab Documented by: [id number] Medical Decision Making Laboratory Data Result diagrams: 06/29/21 18:39 06/29/21 18:39 Lab Results 06/29/21 06/29/21 06/29/21 Range/Units 18:39 18:39 19:26 WBC 4.24 L (4.8-10.8) K/uL RBC 3.67 L (4.2-5.4) M/uL Hgb 11.2 L (12.0-16.0) g/dL Hct 33.6 L (37-47) % MCV 91.6 (80-100) fL MCH 30.5 (25-34) pg MCHC 33.3 (32-36) g/dL RDW Std Deviation 41.3 (36.4-46.3) fL RDW Coeff of Cecelia 12.3 (11.5-14.5) % Plt Count 157 (130-400) K/uL MPV 10.7 H (7.4-10.4) fL Immature Gran % (Auto) 0.2 % Neut % (Auto) 59.7 % Lymph % (Auto) 26.2 % Pennington % (Auto) 10.8 % Eos % (Auto) 2.6 % Baso % (Auto) 0.5 % Neut # (Auto) 2.53 (1.4-6.5) K/uL Lymph # (Auto) 1.11 L (1.2-3.4) K/uL Pennington # (Auto) 0.46 (0.11-0.59) K/uL Eos # (Auto) 0.11 (0-0.5) K/uL Baso # (Auto) 0.02 (0-0.2) K/uL Immature Gran # (Auto) 0.01 (0.00-0.02) K/uL Sodium 138 (136-145) mmol/L Potassium 2.7 L (3.5-5.1) mmol/L Chloride 102 (98-107) mmol/L Carbon Dioxide 30 (21-32) mmol/L Anion Gap 6.0 (3-11) BUN 6 L D (7-18) mg/dl Creatinine 0.69 (0.6-1.2) mg/dl Est Cr Clr Drug Dosing 84.0 ml/min Est GFR ( Amer) 108.1 ml/min Est GFR (Non-Af Amer) 93.3 ml/min BUN/Creatinine Ratio 9.4 L (10-20) Glucose 116 H (70-99) mg/dl Calcium 10.4 H (8.5-10.1) mg/dl Magnesium 1.3 L (1.8-2.4) mg/dl Total Bilirubin 0.5 (0.2-1) mg/dl AST 17 (15-37) U/L ALT 20 (12-78) U/L Alkaline Phosphatase 70 (45-117) U/L Total Protein 6.1 L (6.4-8.2) gm/dl Albumin 3.6 (3.4-5.0) gm/dl Globulin 2.5 (2.5-4.0) gm/dl Albumin/Globulin Ratio 1.4 (0.9-2) Urine Color Dark Yellow Urine Appearance Clear (Clear) Urine pH 8.0 H (4.5-7.5) Ur Specific Chancellor 1.018 (1.000-1.030) Urine Protein Negative (Negative) Urine Glucose (UA) Negative (Negative) Urine Ketones Negative (Negative) Urine Blood Negative (Negative) Urine Nitrite Negative (Negative) Urine Bilirubin Negative (Negative) Urine Urobilinogen Negative (Negative) Ur Leukocyte Esterase Negative (Negative) ECG Data Indication: other (arrythmia) Rate (beats per minute): 79 Rhythm: normal sinus Findings: no ST depression, no ST elevation or no prolonged QT Additional Comments: NH QRS and QTc intervals within normal limits MDM Narrative Vital signs stable. Magnesium 1.3 and potassium 2.7. Magnesium will be replaced and then potassium will be replaced. Patient will be admitted to the hospital service. Dr. Nixon service notified. Impression & Plan Hypokalemia, Hypomagnesemia Discharge Plan Visit Data Chief Complaint: Abnormal Labs/Diagnostic Testing Stated Complaint: potassium levels are low ED Provider: Aj Stokes Discharge Problem: Hypokalemia, Hypomagnesemia Patient Disposition: Being Evaluated by Hospitalist Forms Stand Alone Forms: [facility] Prescriptions Prescriptions: No Action tamsulosin 0.4 mg capsule 0.4 mg PO HS Qty: 90 RF: 3 loratadine [Claritin] 10 mg tablet 10 mg PO HS RF: 0 Lactobacillus rhamnosus GG 15 billion cell capsule, sprinkle 1 cap PO QAM RF: 0 lorazepam 1 mg tablet 2 mg PO HS RF: 0 hydrochlorothiazide 25 mg tablet 25 mg PO QAM RF: 0 benzonatate 200 mg capsule 200 mg PO Q8H PRN (Reason: cough) Qty: 90 RF: 5 albuterol sulfate 90 mcg/actuation HFA aerosol inhaler 2 puff INHALATION Q4 PRN (Reason: Shortness Of Breath Or Wheezing or Cough) Qty: 54 RF: 3 ropinirole 4 mg Tablet 4 mg PO HS RF: 0 potassium gluconate 595 mg (99 mg) Tablet Extended Release 99 mg PO QAM RF: 0 atorvastatin [Lipitor] 20 mg Tablet 20 mg PO QAM RF: 0 sertraline [Zoloft] 100 mg Tablet 150 mg PO HS RF: 0 prednisone 5 mg Tablet 5 mg PO QAM RF: 0 amitriptyline 50 mg Tablet 50 mg PO HS RF: 0 calcium carbonate [Calcium 600] 600 mg calcium (1,500 mg) Tablet 1 tab PO BID RF: 0 ferrous sulfate 325 mg (65 mg iron) Tablet 325 mg PO QAM RF: 0 misoprostol [Cytotec] 100 mcg Tablet 100 mcg PO QAM RF: 0 docusate sodium [Stool Softener] 100 mg Capsule 100 mg PO BID RF: 0 Systane Balance 0.6 % Drops 1 drp OPHTHALMIC (EYE) UD PRN (Reason: Dry Eye(S)) RF: 0 cholecalciferol (vitamin D3) [Vitamin D3] 125 mcg (5,000 unit) Tablet 125 mcg PO QAM RF: 0 cyclobenzaprine 10 mg tablet 10 mg PO BID RF: 0 Zioptan (PF) 0.0015 % Dropperette 1 drp OPB PM RF: 0 Xiidra 5 % dropperette 1 drp OPB BID RF: 0 pantoprazole [Protonix] 40 mg Tablet,Delayed Release (Dr/Ec) 40 mg PO BID RF: 0 oxybutynin chloride 15 mg tablet extended release 24 hr 15 mg PO QAM RF: 0 oxycodone 5 mg tablet 5 mg PO Q6H PRN (Reason: pain, severe) Qty: 30 RF: 0 vancomycin in dextrose 5 % 500 mg/100 mL piggyback 1.5 g IV Q24H 42 Days RF: 0 rifampin 300 mg Capsule 300 mg PO BID Qty: 90 RF: 0 hydroxychloroquine 200 mg tablet 200 mg PO UD RF: 0 Referrals Referrals: Uday Barksdale DO [Primary Care Provider] -
[2021-06-29] MEDS: POTASSIUM CHLORIDE / WTR 10 MEQ/100 ML PLCT IV SCH (23:18)
--- NOTE | 2021-06-29 23:29 | History & Physical Report ---
Date of Service June 29, 2021 Assessment & Plan (1) Hypokalemia: Plan: Patient is a 61 year old female with PMHx Rheumatoid Arthritis, GERD, Aortic Aneurysm, Asthma, Fibromyalgia, Gastroparesis, HLD, RAHEEM, IBS, Sjogrens, Lumbar spine epidural space abscess, that presents at the urge of her PCP for concerns of hypokalemia found on outpatient labs and noted to be hypokalemic at K 2.7 and hypomagnesemic at Mag 1.3 in the ED. Hypokalemia -With potassium level 2.7 on admission -Repleted with 40meq KCl PO and 20 KCl in the ED -Will give another 20meq KCl PO for total 80meq -Recheck in AM Hypomagnesemia -Magnesium level 1.3 on admission -Repleted with 2g IV magnesium in ED -Will give another 2g IV magnesium -Recheck in AM GERD -Will hold home protonix as it may contribute to her current electrolyte imbalances -Will start on Pepcid 20mg BID Rheumatoid Arthritis -Continue daily prednisone 5mg daily -Hold home hydroxychloroquine until vancomycin treatment completed on 07/29/21 Anxiety and Depression -Continue home Zoloft -Continue home Lorazepam -Continue home amitriptyline HTN -Continue home HCTZ Hx spinal staph infection -Continue Vancomycin infusion Dispo: Med/Surg FEN: Regular diet DVT: SCDs Code: Full (2) Hypomagnesemia: History of Present Illness Chief Complaint: abnormal labs Primary Care Provider: Uday Barksdale DO Patient is a 61 year old female with PMHx Rheumatoid Arthritis, GERD, Aortic A neurysm, Asthma, Fibromyalgia, Gastroparesis, HLD, RAHEEM, IBS, Sjogrens, Lumbar spine epidural space abscess, that presents at the urge of her PCP for concerns of hypokalemia found on outpatient labs and noted to be hypokalemic at K 2.7 and hypomagnesemic at Mag 1.3 in the ED. Patient notes that she recently underwent back surgery with Dr. Jj for her Epidural abscess of the lumbar spine and had repeat labs taken at her PCPs office after which point she was urged for ED evaluation and repletion. Patient notes that for the past 1 month she has had a poor diet due to the requirement of surgeries for her back. She also notes that she does take Pantoprazole daily and has done so for at least 6 months. She otherwise feels well and has complaints other than some acid reflux from not eating all day. She denies any fever, chills, SOB, chest pain, abdominal pain, fever, chills. Med Hx: Rheumatoid Arthritis, GERD, Aortic Aneurysm, Asthma, Fibromyalgia, Gastroparesis, HLD, RAHEEM, IBS, Sjogrens, Lumbar spine epidural space abscess Surg Hx: Extensive back surgery history, hysterectomy, L shoulder arthroscopy, section, ex lap x2, Soc Hx: Denies tobacco, alcohol, illicit drug use. Notes medical marijuana use. Allergies Allergy/AdvReac Type Severity Reaction Status Date / Time succinylcholine Allergy Severe Pseudocholinesterase Verified 06/29/21 20:03 deficiency trazodone Allergy Intermediate Dry mouth Verified 06/29/21 20:03 (causing dyspnea) hydromorphone [From Dilaudid] Allergy Anaphylaxis Verified 06/29/21 20:03 Home Medications Medication Instructions Recorded Confirmed Type amitriptyline 50 mg tablet 50 mg PO HS 06/15/18 06/29/21 History atorvastatin 20 mg tablet (Lipitor) 20 mg PO QAM 06/15/18 06/29/21 History calcium carbonate 600 mg calcium 1 tab PO BID 06/15/18 06/29/21 History (1,500 mg) tablet (Calcium) docusate sodium 100 mg capsule 100 mg PO BID 06/15/18 06/29/21 History (Stool Softener) ferrous sulfate 325 mg (65 mg 325 mg PO QAM 06/15/18 06/29/21 History iron) tablet misoprostol 100 mcg tablet 100 mcg PO QAM 06/15/18 06/29/21 History (Cytotec) prednisone 5 mg tablet 5 mg PO QAM 06/15/18 06/29/21 History propylene glycol 0.6 % eye drops 1 drp OPHTHALMIC (EYE) UD PRN 06/15/18 06/29/21 History (Systane Balance) sertraline 100 mg tablet (Zoloft) 150 mg PO HS 06/15/18 06/29/21 History ropinirole 4 mg tablet 4 mg PO HS 02/27/19 06/29/21 History Lactobacillus rhamnosus GG 15 1 cap PO QAM cap 03/18/19 06/29/21 History billion cell sprinkle capsule lorazepam 1 mg tablet 2 mg PO HS tab 03/18/19 06/29/21 History cholecalciferol (vitamin D3) 125 125 mcg PO QAM 08/06/19 06/29/21 History mcg (5,000 unit) tablet (Vitamin D3) hydrochlorothiazide 25 mg tablet 25 mg PO QAM 12/31/19 06/29/21 History potassium gluconate 595 mg (99 mg) 99 mg PO QAM 01/23/20 06/29/21 History tablet,extended release albuterol sulfate 90 mcg/actuation 2 puff INHALATION Q4 PRN #54 gm 10/09/20 06/29/21 Rx aerosol inhaler benzonatate 200 mg capsule 200 mg PO Q8H PRN #90 cap 10/09/20 06/29/21 Rx cyclobenzaprine 10 mg tablet 10 mg PO BID 11/13/20 06/29/21 History lifitegrast 5 % eye drops in a 1 drp OPB BID 11/13/20 06/29/21 History dropperette (Xiidra) tafluprost (PF) 0.0015 % eye drops 1 drp OPB PM 11/13/20 06/29/21 History in a dropperette (Zioptan (PF)) loratadine 10 mg tablet (Claritin) 10 mg PO HS 12/31/20 06/29/21 History oxybutynin chloride 15 mg 15 mg PO QAM 04/26/21 06/29/21 History tablet,extended release 24 hr pantoprazole 40 mg tablet,delayed 40 mg PO BID 04/26/21 06/29/21 History release (Protonix) tamsulosin 0.4 mg capsule 0.4 mg PO HS #90 cap 05/10/21 06/29/21 Rx oxycodone 5 mg tablet 5 mg PO Q6H PRN #30 tab 06/21/21 06/29/21 Rx vancomycin 500 mg/100 mL in 1.5 g IV Q24H 42 Days ml 06/22/21 06/29/21 Rx dextrose 5 % intravenous piggyback hydroxychloroquine 200 mg tablet 200 mg PO UD 06/29/21 06/29/21 History potassium chloride 20 mEq 20 meq PO BID #30 tab 06/30/21 Rx tablet,extended release rifampin 300 mg capsule 300 mg PO Q12H 30 Days #60 cap 06/30/21 Rx Past Med/Surg History Medical History Acid reflux Anxiety and depression Aortic aneurysm Under surveillance, mild aneurysmal dilatation of the ascending thoracic aorta which measures up to 4.1 cm Asthma Cough-variant asthma Chronic back pain Claustrophobia Stressed with oxygen mask over face Degenerative disc disease Dysphagia Chronic, follows with GI (unchanged) Encounter for pre-operative examination Fibromyalgia Gastroparesis Hiatal hernia Hx of glaucoma R/L Hyperlipidemia IBS (irritable bowel syndrome) Obesity RAHEEM (obstructive sleep apnea) "Mild" per records, no device Restless leg syndrome Rheumatoid arthritis Actemra infusions q 4wks, Chronic prednisone 5mg daily* Follows with rheumatology (Dr. 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 oSl) who had recommended lifetime abx (surgeon aware), now under surveillance by PCP/no recent issues Urge and stress incontinence Urinary frequency Urinary urgency Surgical History Difficult intubation Significantly decreased cervical extension s/p cervical fusion Midurethral sling, cystoscopy (06/26/18): Grade view 2, with glidescope #3, ETT 7.0 at [facility] ("two person mask vent with oral airway.. small glottic opening and anterior with glidescope, ETT easily passed.. attempt x2") History of back surgery R/T INFECTION History of hysterectomy History of lumbar fusion X3 History of neck surgery CERVICAL FUSION; CERVICAL SURGERIES X3 TOTAL HAS CAGE - DECREASED ROM History of surgery Midurethral sling, cystoscopy (06/26/18) Hx of arthroscopy of shoulder LEFT X2 Hx of section X3 Hx of colonoscopy Hx of endoscopy EGD (04/30/21): MAC at [facility] Hx of exploratory laparotomy X2 (2/2 ADHESIONS) Hx of hernia repair Hx of laparoscopy X2 (2/2 ADHESIONS) Pseudocholinesterase deficiency 1984 (tested) Family History Mother Family history of stroke (cerebrovascular) Father Family history of CHF (congestive heart failure) Family history of COPD (chronic obstructive pulmonary disease) Other Patient's father is Social History Smoking Status: Never smoker Second Hand Exposure: No; Hx Alcohol Use: Yes Alcohol type: wine Hx Substance Use: No Preferred Language: Sami Communication Ability: Effective Visual Impairment: No Limitations Lump Roller Required: No Beliefs That Will Affect Care: None marital status: Current Living Situation: Spouse Current Living Situation Comment: [place] (). current occupational status: disabled Feels Safe at Home: Yes Assistive Devices: None Review of Systems Review of Systems: All systems reviewed & are unremarkable except as noted in Subjective Physical Exam Constitutional: WD/WN, vitals as above Eyes: PERRL, conjunctivae normal, anicteric sclerae ENMT: external ear and nose normal, oropharynx normal Neck: trachea midline, no thyromegaly normal visual inspection Respiratory: normal respiratory effort, lungs clear to auscultation Cardiovascular: RRR, no murmur, no edema Chest (Breasts): Chest: + vascular access device or port Gastrointestinal (Abdomen): normal bowel sounds, soft, nontender, no hepatosplenomegaly Musculoskeletal: no cyanosis or clubbing, extremities motor strength 5/5 Head/Neck/Chest: normocephalic and head atraumatic Back notable for well healing incision without erythema or drainage Skin: no rashes, warm and dry Neurologic: PERRL, EOMI, accommodation nl, no face palsy, no dysarthria Psychiatric: A+Ox3, euthymic affect Results & Data Results & Data ([facility]) Vital Signs (Past 12 Hours) Vital Signs Temp Pulse Pulse Resp BP BP Pulse Ox 06/29/21 21:00 70 18 113/65 97 06/29/21 19:27 80 18 141/81 H 99 06/29/21 16:29 36.4 C L 82 18 133/73 97 Supervising Physician Co-Signing Physician Notes attending addendum: I have physically seen this patient, have supervised the medical residents activities, and agree with the H&P unless as otherwise noted. Assessment and Plan: Electrolyte disturbances/hypokalemia/hypomagnesemia- potassium 3.7, and magnesium 1.3 upon admission Replacing both orally and IV Recheck laboratories in a.m. Would stop pantoprazole, replace with famotidine Rheumatoid arthritis/steroid dependent- Double dose of prednisone for 5 to 10 mg daily for now, Continue hydroxychloroquine Anxiety and depression- Continue Zoloft, lorazepam and amitriptyline Hypertension- Hold HCTZ Remaining orders and notations as noted Resident Activity Tracking Resident Involvement: Resident Care Provided Care Provided: Adult Hospital Medicine
[2021-06-29] MEDS ORDERED: MAGNESIUM SULFATE / D5W 1 GM/100 ML BAG IV STA (23:37)
[2021-06-29] MEDS ORDERED: POTASSIUM CHLORIDE CRTAB 20 MEQ TABCR PO STA (23:37)
[2021-06-30] MEDS: POTASSIUM CHLORIDE / WTR 10 MEQ/100 ML PLCT IV SCH ×5 (00:29→13:53)
[2021-06-30] MEDS ORDERED: VANCOMYCIN IV SCH (01:49)
[2021-06-30] MEDS ORDERED: ACETAMINOPHEN 325 MG TAB PO PRN (01:49)
[2021-06-30] MEDS ORDERED: HYDROXYCHLOROQUINE SULFATE 200 MG TAB PO SCH (01:49)
[2021-06-30] MEDS ORDERED: CYCLOBENZAPRINE HCL 10 MG TAB PO PRN (01:49)
[2021-06-30] MEDS ORDERED: [UNRECOGNIZED DRUG - OTHER] IV SCH (01:49)
[2021-06-30] MEDS ORDERED: ALBUTEROL HFA 8 GM INHALER INH PRN (01:49)
[2021-06-30] MEDS ORDERED: ONDANSETRON INJ 2 MG/ML 2 ML VIAL IV PRN (01:49)
[2021-06-30] MEDS ORDERED: ARTIFICIAL TEARS OP PRN (02:11)
[2021-06-30] MEDS ORDERED: VANCOMYCIN CONSULT ACTIVE PRN (02:13)
[2021-06-30] MEDS ORDERED: rOPINIRole HCL 2 MG TABLET PO SCH (02:30)
[2021-06-30] MEDS ORDERED: TAMSULOSIN HCL 0.4 MG CAP PO SCH (02:30)
[2021-06-30] MEDS ORDERED: LORATADINE 10 MG TAB PO SCH (02:30)
[2021-06-30] MEDS ORDERED: AMITRIPTYLINE HCL 50 MG TAB PO SCH (02:30)
[2021-06-30] MEDS ORDERED: SERTRALINE HCL 50 MG TABLET PO SCH (02:30)
[2021-06-30] MEDS: DOCUSATE SODIUM 100 MG CAP PO SCH ×2 (02:49→09:10)
[2021-06-30] MEDS: FAMOTIDINE 20 MG TAB PO SCH ×2 (02:50→09:10)
[2021-06-30] MEDS: rifAMPin 300 MG CAPSULE PO SCH ×2 (02:51→09:09)
[2021-06-30] MEDS: oxyCODONE HCL IR 5 MG TAB (IMMEDIATE RELEASE) PO PRN ×3 (02:55→14:58)
[2021-06-30] MEDS: MAGNESIUM SULFATE / D5W 1 GM/100 ML BAG IV SCH ×2 (03:24→05:31)
[2021-06-30 06:32] LABS: Basophils # (auto) 0.03 K/uL (0-0.2); Basophils % (auto) 0.8 %; Eosinophils # (auto) 0.17 K/uL (0-0.5); Eosinophils % (auto) 4.5 %; Hematocrit (blood only) 33.8 % (37-47); Hemoglobin 11.2 g/dL (12.0-16.0); Lymphocytes # (auto) 1.16 K/uL (1.2-3.4); Lymphocytes % (auto) 30.4 %; Mean Corpuscular Hemoglobin 30.6 pg (25-34); Mean Corpuscular Hgb Conc 33.1 g/dL (32-36); Mean Corpuscular Volume 92.3 fL (80-100); Mean Platelet Volume 11.4 fL (7.4-10.4); Monocytes # (auto) 0.43 K/uL (0.11-0.59); Monocytes % (auto) 11.3 %; Neutrophils # (auto) 2.02 K/uL (1.4-6.5); Platelet Count 164 K/uL (130-400); RDW Coefficient of Variation 12.5 % (11.5-14.5); RDW Standard Deviation 42.5 fL (36.4-46.3); Red Blood Count 3.66 M/uL (4.2-5.4); White Blood Count 3.81 K/uL (4.8-10.8)
[2021-06-30 07:15] LABS: BUN Creatinine Ratio 8.9 (10-20); Calcium 9.8 mg/dl (8.5-10.1); Creatinine Clr Calc Pharmacy 88.8 ml/min; Est GFR (African American) 110.3 ml/min; Est GFR (Non-African American) 95.2 ml/min; Magnesium 2.2 mg/dl (1.8-2.4); Potassium 2.9 mmol/L (3.5-5.1)
[2021-06-30] MEDS ORDERED: POTASSIUM CHLORIDE 20 MEQ/15 ML UDC PO STA (08:37)
--- NOTE | 2021-06-30 08:51 | Pharmacy Report ---
Pharmacy Vanc AUC Short Note - Date of Service June 30, 2021 - Assessment & Plan Assessment 61 year old F admitted with abnormal labs. Recently underwent back surgery for epidural abscess and is receiving IV vancomycin x 6 weeks at home. End date for vancomycin 07/29/21 Plan Vancomycin * Random vancomycin this AM was ~17 mcg/ml (goal 15-20 mcg/ml). Confirmed with patient her last dose of vancomycin was yesterday morning at 0900 * Plan to continue home regimen of vancomycin 1500 mg iv q 24 hrs for now. Plan to recollect trough in next 2-3 days to ensure level therapeutic/stable * This vancomycin dosing was started on last admission 06/22. Dosing was estima óscar to produce AUC 400-600. Per notes, patient's PCP was monitoring levels outpatient. * Renal function appears stable. Will order a level prior to the 12/3 dose to ensure stable Pharmacy will continue to follow and will adjust dose/frequency as necessary. Thank you.
[2021-06-30] MEDS ORDERED: FERROUS SULFATE 325 MG TAB PO SCH (09:00)
[2021-06-30] MEDS ORDERED: predniSONE 5 MG TAB PO SCH (09:00)
[2021-06-30] MEDS ORDERED: VANCOMYCIN HCL 1,500 MG in SODIUM CHLORIDE 0.9% 500 ML IV SCH (09:00)
[2021-06-30] MEDS ORDERED: hydroCHLOROthiazide 25 MG TAB PO SCH (09:00)
[2021-06-30] MEDS ORDERED: ATORVASTATIN 20 MG TAB PO SCH (09:00)
[2021-06-30] MEDS ORDERED: OXYBUTYNIN CHLORIDE XL 5 MG TABCR PO SCH (09:00)
[2021-06-30] MEDS ORDERED: miSOPROStoL 100 MCG TAB PO SCH (09:00)
[2021-06-30] MEDS: XIIDRA: ORDER AWAITING ACTION SCH ×2 (10:01→13:54)
[2021-06-30] MEDS: [UNRECOGNIZED DRUG - OTHER] SCH ×2 (10:01→13:54)
[2021-06-30] MEDS ORDERED: CALCIUM CARBONATE 500 MG CHEWABLE TAB PO STA (11:12)
--- NOTE | 2021-06-30 12:28 | Hospitalist Progress Note ---
Date of Service June 30, 2021 Assessment & Plan (1) Hypokalemia: Plan: Patient is a 61 year old female with PMHx Rheumatoid Arthritis, GERD, Aortic Aneurysm, Asthma, Fibromyalgia, Gastroparesis, HLD, RAHEEM, IBS, Sjogrens, Lumbar spine epidural space abscess, that presents at the urge of her PCP for concerns of hypokalemia found on outpatient labs and noted to be hypokalemic at K 2.7 and hypomagnesemic at Mag 1.3 in the ED. Hypokalemia -With potassium level 2.7 on admission. Currently at 2.9. -Given 80 mEq yesterday -Giving additional 40 mEq orally and 40 mEq IV today. -Recheck 2 PM today and tomorrow a.m. Hypomagnesemia -Magnesium level 1.3 on admission -Repleted with 2g IV magnesium in ED -Another 2 g IV was given after admission -Magnesium today 2.5, resolved GERD -Restarted Protonix after it was discontinued yesterday -Gave Tums today due to patient complaint of acid reflux Rheumatoid Arthritis -Continue daily prednisone 5mg daily -Hold home hydroxychloroquine until vancomycin treatment completed on 07/29/21 Anxiety and Depression -Continue home Zoloft -Continue home Lorazepam -Continue home amitriptyline HTN -Home hydrochlorothiazide on hold due to hypokalemia Hx spinal staph infection -Continue Vancomycin infusion -Pharmacy consulted -ID consulted as there is a question as to hypokalemia being related to vancomycin -ID will inform us if there is a possibility of switching antibiotics Dispo: Med/Surg FEN: Regular diet DVT: SCDs Code: Full (2) Hypomagnesemia: Admission and Anticipated Discharge Date Admission Date: June 29, 2021 Supervising Physician Co-Signing Physician Notes I also saw the patient and confirmed aguirre portions of the history and the physical examination. I agree with the impression plan as noted above. Upon our midmorning exam, the patient was without complaints. She really had no symptoms attributable to her electrolyte abnormalities; she had routine blood work at home (nurse from home infusion services) which found her to be notably hypokalemic. She denies any chest pain or shortness of breath. No myalgias or muscle cramping. Work-up in the emergency department found both hypokalemia and hypomagnesium. She is currently being repleted with additional potassium with repeat pending. She is hemodynamically stable 128/76, 83, 18, 37 C, 95% on room air She is alert and oriented. No acute distress. She does note some back pain attributable to her recent surgery, although pain levels acceptable to her at this time. Repeat potassium pending Impression and plan Hypokalemia Unsure of exact etiology. Could be secondary to poor oral intake. Also consider vancomycin associated hypokalemia, although this would be less likely. Replete potassium and recheck later today She does have home health services that could provide recheck at home. If she has refractory hypokalemia despite repletion, may need to consider alternative antibiotic Subjective Patient seen at bedside this morning. Patient came into the emergency room extubated to the hospital last night due to hypokalemia and hypomagnesia. She had received some potassium and magnesium yesterday after she was admitted. Today she is stating that she feels overall well, but her that her potassium today is 2.9 and is concerned that she is not within normal limits after receiving as much potassium as she did yesterday. It was explained to her that this was likely due to that her magnesium had not been repleted prior to the potassium supplementation and magnesium is an important cofactor and potassium absorption. She understood this concept and is hopeful that after receiving some potassium days she will be able to leave. Patient believes that her low potassium may be due to her lack of appetite since having surgery on her lower back. She denies any shortness of breath, nausea, vomiting, shortness of breath, or palpitations. Patient has no other complaints at this time. Review of Systems Review of Systems: All systems reviewed & are unremarkable except as noted in HPI & below Physical Exam Constitutional: well developed and well nourished; no acute distress Eyes: + anicteric sclerae Neck: trachea midline, no thyromegaly Respiratory: normal respiratory effort, lungs clear to auscultation Cardiovascular: RRR, no murmur, no edema Gastrointestinal (Abdomen): normal bowel sounds, soft, nontender, no hepatosplenomegaly Skin: no rashes, warm and dry Neurologic: moves all extremities Psychiatric: A+Ox3, euthymic affect Results & Data Results & Data ([facility]) Vital Signs (Past 12 Hours) Vital Signs Temp Pulse Pulse Resp BP BP Pulse Ox 06/30/21 08:37 37.0 C 83 18 128/76 95 06/30/21 01:40 36.6 C 74 14 117/63 98 06/30/21 01:16 86 17 150/90 H 95 06/30/21 01:00 93 H 30 H 06/30/21 00:45 77 11 L 94 06/30/21 00:30 76 13 96 06/30/21 00:24 71 17 97
--- NOTE | 2021-06-30 14:23 | Electrocardiogram Report ---
Test Reason : Blood Pressure : / mmHG Vent. Rate : 087 BPM Atrial Rate : 087 BPM P-R Int : 138 ms QRS Dur : 084 ms QT Int : 380 ms P-R-T Axes : 058 010 047 degrees QTc Int : 457 ms Normal sinus rhythm T wave abnormality, consider anterior ischemia Abnormal ECG When compared with ECG of 29-JUN-2021 18:44, Nonspecific T wave abnormality no longer evident in Lateral leads Confirmed by Maykel Pierce ([id number]) on 06/30/2021 2:23:16 PM Referred By: Uday Barksdale Confirmed By:Jam Pierce
[2021-06-30 14:25] LABS: BUN Creatinine Ratio 5.9 (10-20); Calcium 8.9 mg/dl (8.5-10.1); Creatinine Clr Calc Pharmacy 69.6 ml/min; Est GFR (African American) 87.6 ml/min; Est GFR (Non-African American) 75.6 ml/min; Potassium 4.3 mmol/L (3.5-5.1)
--- NOTE | 2021-06-30 17:53 | Discharge Summary ---
Date of Service June 30, 2021 Admission HPI Per Admitting Provider Patient is a 61 year old female with PMHx Rheumatoid Arthritis, GERD, Aortic Aneurysm, Asthma, Fibromyalgia, Gastroparesis, HLD, RAHEEM, IBS, Sjogrens, Lumbar spine epidural space abscess, that presents at the urge of her PCP for concerns of hypokalemia found on outpatient labs and noted to be hypokalemic at K 2.7 and hypomagnesemic at Mag 1.3 in the ED. Patient notes that she recently underwent back surgery with Dr. Jj for her Epidural abscess of the lumbar spine and had repeat labs taken at her PCPs office after which point she was urged for ED evaluation and repletion. Patient notes that for the past 1 month she has had a poor diet due to the requirement of surgeries for her back. She also notes that she does take Pantoprazole daily and has done so for at least 6 months. She otherwise feels well and has complaints other than some acid reflux from not eating all day. She denies any fever, chills, SOB, chest pain, abdominal pain, fever, chills. Med Hx: Rheumatoid Arthritis, GERD, Aortic Aneurysm, Asthma, Fibromyalgia, Gastroparesis, HLD, RAHEEM, IBS, Sjogrens, Lumbar spine epidural space abscess Surg Hx: Extensive back surgery history, hysterectomy, L shoulder arthroscopy, section, ex lap x2, Soc Hx: Denies tobacco, alcohol, illicit drug use. Notes medical marijuana use. Principal Diagnosis Hypokalemia Discharge Exam Constitutional WD/WN, vitals as above Eyes + anicteric sclerae Neck trachea midline, no thyromegaly Respiratory normal respiratory effort, lungs clear to auscultation Cardiovascular RRR, no murmur, no edema Gastrointestinal (Abdomen) normal bowel sounds, soft, nontender, no hepatosplenomegaly Skin no rashes, warm and dry Neurologic CN's II-XI intact bilaterally and moves all extremities Psychiatric A+Ox3, euthymic affect Eye Contact: good eye contact Discharge Data Allergies Allergy/AdvReac Type Severity Reaction Status Date / Time succinylcholine Allergy Severe Pseudocholinesterase Verified 06/29/21 20:03 deficiency trazodone Allergy Intermediate Dry mouth Verified 06/29/21 20:03 (causing dyspnea) hydromorphone [From Dilaudid] Allergy Anaphylaxis Verified 06/29/21 20:03 Consultations 06/29/21 19:38 ED Decision to Admit Stat 06/30/21 10:36 Consult Infectious Diseases Routine Hospital Course (1) Hypokalemia: Patient is a 61 year old female with PMHx Rheumatoid Arthritis, GERD, Aortic Aneurysm, Asthma, Fibromyalgia, Gastroparesis, HLD, RAHEEM, IBS, Sjogrens, Lumbar spine epidural space abscess, that presents at the urge of her PCP for concerns of hypokalemia found on outpatient labs and noted to be hypokalemic at K 2.7 and hypomagnesemic at Mag 1.3 in the ED. Hypokalemia -With potassium level 2.7 on admission. Discharge potassium at 4.3, resolved -Given 80 mEq yesterday -Given additional 40 mEq orally and 40 mEq IV today. -Recommended staying off of hydrochlorothiazide until seeing Dr. Almazan for follow-up -Sent home with 20 mEq potassium p.o. twice daily Hypomagnesemia -Magnesium level 1.3 on admission -Repleted with 2g IV magnesium in ED -Another 2 g IV was given after admission -Magnesium today 2.5, resolved GERD -Restarted Protonix after it was discontinued yesterday -Gave Tums today due to patient complaint of acid reflux Rheumatoid Arthritis -Continue daily prednisone 5mg daily -Hold home hydroxychloroquine until vancomycin treatment completed on 07/29/21 Anxiety and Depression -Continue home Zoloft -Continue home Lorazepam -Continue home amitriptyline HTN -Home hydrochlorothiazide on hold due to hypokalemia Hx spinal staph infection -Continue Vancomycin infusion -Pharmacy consulted -ID consulted as there is a question as to hypokalemia being related to vancomycin -ID will inform us if there is a possibility of switching antibiotics Dispo: Home FEN: Regular diet DVT: SCDs Code: Full (2) Hypomagnesemia: Total Time Total Time Spent Total Time Spent (In Minutes): 25 Discharge Plan Discharge Items Patient Disposition: Home - Home Health Services Reason For Visit: HYPOKALEMIA, HYPOMAGNESEMIA Discharge Diagnosis: hypokalemia Activity: Resume your previous activity Non-emergency contact: Primary Care Provider Call non-emergency contact if: your symptoms worsen Follow-up/Referrals: Uday Almazan, [Primary Care Provider] - (PLEASE CALL TO SCHEDULE APT WITH DR ALMAZAN ) Diet: Heart Healthy Ambulatory Orders: Basic Metabolic Panel (Routine) Timeframe: 1 Day Location: Determined by Patient Ordered By: Nadeen Campos Magnesium (Routine) Timeframe: 1 Day Location: Determined by Patient Ordered By: Nadeen Duarte Attending Provider Instructions: You were admitted to the hospital because your potassium and magnesium levels were low. We replaced your levels - both of which normalized by the time you left the hospital.Since you have home health services set up, we would like your potassium and magnesium levels to both be checked again in one day (07/01/2021) - an order was placed for these tests at discharge. The cause of what is driving your potassium and magnesium to be low is uncertain at this time - it is possible they are low because you have been eating less. One medication you are on - hydrochlorothiazide - can also cause your potassium levels to be slightly low. Please continue to hold - or not take - your hydrochlorothiazide medication. In addition, we recommend you continue to take oral potassium chloride supplement 20meq twice daily until you see Dr. Almazan in follow up care. Please continue to take both your antibiotics: rifampin 300mg twice daily and vancomycin daily. Pending Studies at Discharge: No Stand-Alone Forms: My [facility] Z[facility]in, Smoking Cessation Medications and DC Order Prescriptions: New rifampin 300 mg capsule 300 mg PO Q12H 30 Days Qty: 60 RF: 0 potassium chloride 20 mEq tablet extended release 20 meq PO BID Qty: 30 RF: 0 Continued tamsulosin 0.4 mg capsule 0.4 mg PO HS Qty: 90 RF: 3 loratadine [Claritin] 10 mg tablet 10 mg PO HS RF: 0 Lactobacillus rhamnosus GG 15 billion cell capsule, sprinkle 1 cap PO QAM RF: 0 lorazepam 1 mg tablet 2 mg PO HS RF: 0 hydrochlorothiazide 25 mg tablet 25 mg PO QAM RF: 0 benzonatate 200 mg capsule 200 mg PO Q8H PRN (Reason: cough) Qty: 90 RF: 5 albuterol sulfate 90 mcg/actuation HFA aerosol inhaler 2 puff INHALATION Q4 PRN (Reason: Shortness Of Breath Or Wheezing or Cough) Qty: 54 RF: 3 ropinirole 4 mg Tablet 4 mg PO HS RF: 0 potassium gluconate 595 mg (99 mg) Tablet Extended Release 99 mg PO QAM RF: 0 atorvastatin [Lipitor] 20 mg Tablet 20 mg PO QAM RF: 0 sertraline [Zoloft] 100 mg Tablet 150 mg PO HS RF: 0 prednisone 5 mg Tablet 5 mg PO QAM RF: 0 amitriptyline 50 mg Tablet 50 mg PO HS RF: 0 calcium carbonate [Calcium 600] 600 mg calcium (1,500 mg) Tablet 1 tab PO BID RF: 0 ferrous sulfate 325 mg (65 mg iron) Tablet 325 mg PO QAM RF: 0 misoprostol [Cytotec] 100 mcg Tablet 100 mcg PO QAM RF: 0 docusate sodium [Stool Softener] 100 mg Capsule 100 mg PO BID RF: 0 Systane Balance 0.6 % Drops 1 drp OPHTHALMIC (EYE) UD PRN (Reason: Dry Eye(S)) RF: 0 cholecalciferol (vitamin D3) [Vitamin D3] 125 mcg (5,000 unit) Tablet 125 mcg PO QAM RF: 0 cyclobenzaprine 10 mg tablet 10 mg PO BID RF: 0 Zioptan (PF) 0.0015 % Dropperette 1 drp OPB PM RF: 0 Xiidra 5 % dropperette 1 drp OPB BID RF: 0 pantoprazole [Protonix] 40 mg Tablet,Delayed Release (Dr/Ec) 40 mg PO BID RF: 0 oxybutynin chloride 15 mg tablet extended release 24 hr 15 mg PO QAM RF: 0 oxycodone 5 mg tablet 5 mg PO Q6H PRN (Reason: pain, severe) Qty: 30 RF: 0 vancomycin in dextrose 5 % 500 mg/100 mL piggyback 1.5 g IV Q24H 42 Days RF: 0 hydroxychloroquine 200 mg tablet 200 mg PO UD RF: 0 Discontinued rifampin 300 mg Capsule 300 mg PO BID Qty: 90 RF: 0 Discharge Orders: Discharge Order (Routine); Ordered 06/30/21 Ordered By: Nadeen Campos Admission Data Admit Date/Time: 06/29/21 23:37 Attending Provider: Willie Burciaga Admit Provider: New Vasquez Primary Care Provider: Uday Almazan Other Providers: Willie Burciaga ; Suleman Sanchez ; Shayy Bar ; Soto Villa I. ; Marco Ruiz II ; Cristine Yusuf ; Flaco Dias ; Tani Cannon ; [facility] Other Interventions: Discharge Summary Assessment (RN) Last Done: 06/30/21 16:09 Supervising Physician Co-Signing Physician Notes I also saw the patient and confirmed aguirre portions of the history and physical examination. I agree with the impression and plan as noted in the resident documentation. Please see my complete attestation in the progress note of the same date.
[2021-06-30] MEDS ORDERED: LORazepam 2 MG TAB PO SCH (21:00)
[2021-06-30] MEDS ORDERED: PANTOprazole 40 MG TAB PO SCH (21:00)
--- NOTE | 2021-07-05 20:45 | Billing Data ---
Date of Service July 05, 2021 Coding Level of Care Code INT OBSERVATION CARE 70M LVL 3
== END 2021-06-30 17:01 | disposition home health service (06) ==
LOC: ED 16:13 → 3N 16:13

== ENCOUNTER 2025-02-09 16:08 | Observation (INO) ==
--- NOTE | 2025-02-09 16:25 | Emergency Department Note ---
History of Present Illness General Chief complaint: Urinary Symptoms Stated complaint: CONFUSION, UTI Time Seen by Provider: 02/09/25 16:19 History of Present Illness Provider complaint: Altered mental status 64-year-old female presents emergency department escorted by security. Apparently security found the patient at the [address] on the phone. She was confused and trying to enter the building. Patient states she drove there but there is no car there. Patient states she does not remember what happened today. According to nursing triage the patient the patient is being treated for UTI. Home Medications Medication Instructions Recorded Confirmed Type amitriptyline 50 mg tablet 50 mg PO HS 06/15/18 02/09/25 History prednisone 5 mg tablet 5 mg PO QAM 06/15/18 02/09/25 History sertraline 100 mg tablet (Zoloft) 150 mg PO HS 06/15/18 02/09/25 History ropinirole 4 mg tablet 4 mg PO HS 02/27/19 02/09/25 History Lactobacillus rhamnosus GG 15 1 cap PO QAM 03/18/19 02/09/25 History billion cell sprinkle capsule lorazepam 1 mg tablet (Ativan) 2 mg PO HS 03/18/19 02/09/25 History cholecalciferol (vitamin D3) 125 0 mcg PO QAM 08/06/19 02/09/25 History mcg (5,000 unit) tablet (Vitamin D3) pantoprazole 40 mg tablet,delayed 40 mg PO BID 04/26/21 02/09/25 History release (Protonix) potassium chloride 20 mEq 20 meq PO QAM 07/09/21 02/09/25 History tablet,extended release albuterol sulfate 90 mcg/actuation 2 puff inhalation Q4H PRN 09/15/22 02/09/25 History aerosol inhaler Shortness Of Breath Or Wheezing or Cough ibuprofen 600 mg tablet 600 mg PO QID Pain 09/15/22 02/09/25 History metoprolol succinate 25 mg 12.5 mg PO QPM 09/15/22 02/09/25 History tablet,extended release 24 hr (Toprol XL) sucralfate 1 gram tablet (Carafate) 1 g PO QID PRN Acid Reflux 09/15/22 02/09/25 History famotidine 20 mg tablet (Pepcid) 20 mg PO BID 08/29/23 02/09/25 History estradiol 0.01% (0.1 mg/gram) 1 g vaginal 2XWK #42.5 grams 04/17/24 02/09/25 Rx vaginal cream oxybutynin chloride 15 mg 15 mg PO QAM #90 tabs 08/06/24 02/09/25 Rx tablet,extended release 24 hr amoxicillin 875 mg-potassium 1 tab PO BID 11/05/24 02/09/25 History clavulanate 125 mg tablet cyclobenzaprine 10 mg tablet 10 mg PO TID 11/05/24 02/09/25 History tiotropium 2.5 mcg-olodaterol 2.5 2 puff inhalation DAILY #4 grams 11/26/24 02/09/25 Rx mcg/actuation mist for inhalation (Stiolto Respimat) ferrous sulfate 325 mg (65 mg 650 mg PO QAM 12/19/24 02/09/25 History iron) tablet hydroxychloroquine 200 mg tablet 200 mg PO BID 12/19/24 02/09/25 History (Plaquenil) calcium 600 mg (as 1 tab PO BID 02/09/25 02/09/25 History carbonate)-vitamin D3 10 mcg (400 unit) tablet (Calcium 600 + D(3)) cyanocobalamin (vitamin B-12) 1,000 mcg IM DIRECTED 02/09/25 02/09/25 History 1,000 mcg/mL injection solution loratadine 10 mg tablet (Claritin) 10 mg PO HS 02/09/25 02/09/25 History Allergies Allergy/AdvReac Type Severity Reaction Status Date / Time hydromorphone [From Dilaudid] Allergy Severe Anaphylaxis Verified 02/09/25 17:47 succinylcholine Allergy Severe SEE Verified 02/09/25 17:47 COMMENT: Pseudocholinesterase deficiency trazodone Allergy Intermediate SOB--Dry Verified 02/09/25 17:47 mouth (causing dyspnea) Past Med/Surg History Problem List (Updated 02/09/25 @ 19:11 by Aj Stokes MD) AMS (altered mental status) (Acute) Dyspnea H/O rheumatoid arthritis Leg weakness Retention of urine, unspecified Lesion of bladder Colon cancer screening Postlaminectomy syndrome of lumbar region Hypomagnesemia (Acute) Hypokalemia (Acute) Bacteremia Abscess in epidural space of lumbar spine Encounter for pre-operative examination Lumbar muscle hematoma Postoperative back pain (Acute) Back pain (Acute) GERD with esophagitis Upper airway cough syndrome Allergic rhinitis with postnasal drip Asthma Restrictive lung disease RAHEEM (obstructive sleep apnea) Morbid obesity Chronic cough Incontinence Urinary symptom or sign Vaginal dysplasia Cough variant asthma Oral candidiasis Chronic cough UTI (urinary tract infection) Voiding dysfunction Acute medial meniscus tear of right knee Encounter for pre-operative examination Right sided abdominal pain Infection of lumbar spine Fluid collection at surgical site Fecal retention Coronary artery calcification Rheumatoid arthritis Lumbar stenosis with neurogenic claudication Cervical stenosis of spinal canal Intractable back pain Medical History Gastroparesis Pseudocholinesterase deficiency 1984 (tested) Diabetes on ozempic Spinal cord stimulator status device removed 2023 Epidural abscess chronic Chronic cough Leukopenia "likely autoimmune vs medication induced; BM biopsy on 08/29/22 negative for malignancy Hx of chest pain w/palpitations-"happens often"; had cardiac testing; f/u [facility] [place], psh happens "very seldom">none at present time longterm (current) use of antibiotics staph infection in pt's back-will be on these antibiotics for life Claustrophobia Stressed with oxygen mask over face Asthma Cough-variant asthma, stable per pt; last rescue inhaler 10/22/23 Aortic aneurysm Under surveillance>measured 2022>Dr. 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 Sol) who had recommended lifetime abx (surgeon aware), now under surveillance by PCP/no recent issues Obesity on ozempic for weight loss Dysphagia Chronic, follows with GI (unchanged); choking infrequently with keysmith solids (crackers), no issues with liquids Sjogren's syndrome Hiatal hernia IBS (irritable bowel syndrome) Acid reflux Spinal stenosis Degenerative disc disease Restless leg syndrome Rheumatoid arthritis Follows with rheumatology (Dr. Shavon Deng; [facility]) Fibromyalgia Anxiety and depression Hyperlipidemia Surgical History History of anesthesia complications pseudocholinesterase deficiency, difficult intubation, PONV needing scop patch Hx of cystoscopy 09/04/23 [place]- Cystoscopy with laser excision/extraction of eroded sling/foreign body. Laser ablation of urethral lesions. History of surgery spinal cord stimulator removed 04/2023. Hx of surgical procedure 1 irrigation debridement thoracolumbar epidural abscess. #2 decompression T11- T12 T12-L1. History of esophagogastroduodenoscopy (EGD) History of bone marrow biopsy 07/2022, [facility]; "everything came back good" History of surgery Midurethral sling, cystoscopy (06/26/18) History of hysterectomy History of back surgery x11, R/T INFECTION Difficult intubation Significantly decreased cervical extension s/p cervical fusion Midurethral sling, cystoscopy (06/26/18): Grade view 2, with glidescope #3, ETT 7.0 at [facility] ("two person mask vent with oral airway.. small glottic opening and anterior with glidescope, ETT easily passed.. attempt x2") Hx of endoscopy EGD (04/30/21): MAC at [facility] Hx of colonoscopy most recent Jun 2023/failed prep/colonoscopy planned for Jun 2024. Hx of hernia repair Hx of exploratory laparotomy X4 (2/2 ADHESIONS) Hx of section X3 Hx of arthroscopy of shoulder left x 2 History of neck surgery CERVICAL FUSION; CERVICAL SURGERIES X3 TOTAL HAS CAGE - DECREASED ROM History of lumbar fusion X3 Family History Mother Family history of stroke (cerebrovascular) Father Family history of CHF (congestive heart failure) Family history of COPD (chronic obstructive pulmonary disease) Other No family history of adverse response to anesthesia Patient's father is Social History Smoking Status: Never smoker Second Hand Exposure: Yes (as a child); Do You Dip or Chew Tobacco: No; Hx Alcohol Use: Yes (1-2 per year) Alcohol type: wine Preferred Language: Surinamese Communication Ability: Effective Visual Impairment: No Limitations 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 current occupational status: disabled Feels Safe at Home: Yes Assistive Devices: Glasses Physical Exam Vital Signs Vital Signs - 24 hr 02/09/25 16:09 02/09/25 16:24 02/09/25 16:24 Temperature 36.6 C 36.9 C Temperature Source Temporal Artery Scan Oral Pulse Rate 77 Pulse Rate [Apical] 77 Respiratory Rate 18 24 Respiratory Effort / Characteristics Non-Labored Spontaneous Non-Labored Spontaneous Respiratory Depth Normal Normal Respiratory Pattern Regular Regular Blood Pressure 125/73 Blood Pressure [Left Arm] 138/70 Blood Pressure Mean 90 Blood Pressure Mean [Left Arm] 92 Pulse Oximetry 97 95 96 Oxygen Delivery Method Room Air Room Air Room Air Sepsis Recent Fever Within 48 Hours No Sepsis New/Unexplained Change in Mental Status N/A Sepsis Action Taken by Nursing No Action Required 02/09/25 16:37 02/09/25 18:09 02/09/25 19:00 Temperature Temperature Source Pulse Rate 78 Pulse Rate [Apical] 72 68 Respiratory Rate 12 16 Respiratory Effort / Characteristics Non-Labored Spontaneous Respiratory Depth Normal Respiratory Pattern Blood Pressure Blood Pressure [Left Arm] 172/84 H 157/97 H Blood Pressure Mean Blood Pressure Mean [Left Arm] 113 117 Pulse Oximetry 100 95 Oxygen Delivery Method Room Air Room Air Sepsis Recent Fever Within 48 Hours Sepsis New/Unexplained Change in Mental Status Sepsis Action Taken by Nursing 02/09/25 20:20 Temperature Temperature Source Pulse Rate Pulse Rate [Apical] 65 Respiratory Rate 18 Respiratory Effort / Characteristics Respiratory Depth Respiratory Pattern Blood Pressure Blood Pressure [Left Arm] 159/75 H Blood Pressure Mean Blood Pressure Mean [Left Arm] 103 Pulse Oximetry 97 Oxygen Delivery Method Room Air Sepsis Recent Fever Within 48 Hours Sepsis New/Unexplained Change in Mental Status Sepsis Action Taken by Nursing Physical Exam HENT: Exam performed. -Head: Normocephalic and atraumatic. -Right Ear: External ear normal. No mastoid erythema -Left Ear: External ear normal. No mastoid erythema -Mouth/Throat: The oropharynx is clear and moist. No trismus in the jaw. No dental abscesses or uvula swelling. No oropharyngeal exudate or tonsillar abscesses. EYES: Conjunctivae and EOM are normal. Pupils are equal, round, and reactive to light. Right eye exhibits no discharge. Left eye exhibits no discharge. No scleral icterus. NECK: Normal range of motion. Neck supple. No JVD present. No rigidity. No tracheal deviation and normal range of motion present. CV: Normal rate, regular rhythm, normal heart sounds and intact distal pulses. There is no peripheral edema. Palpable radial pulses bue. PULM/CHEST: Effort normal and breath sounds normal. No respiratory distress. No stridor. She has no wheezes. She has no rales. ABD: The abdomen is soft. She has no distension. No mass is present. There is no tenderness. There is no rebound, no guarding MUSC/SKEL: Normal range of motion. There is no peripheral edema, tenderness or deformity. LYMPH: No cervical adenopathy. NEURO: She is alert but not oriented to person, place, and time. She has normal strength. No cranial nerve deficit or sensory deficit. Course Course 1618: The patient was evaluated in room B4. A complete history and physical exam was performed Cardiac monitoring: An order was placed for continuous cardiac monitoring. The monitor shows a rate of 80 with sinus rhythm interpreted by me 1900: Vital signs stable. Labs and imaging are unremarkable. Family is at bedside. Family states that they were prescribed antibiotics for UTI for urine that was done on Monday. External medical records were reviewed and a urine sample from Monday showed more than 3 different types of organisms no further identification's or sensitivities. Patient denies taking any opiate analgesics. Family states she took Ativan last night but not today. Patient still does not remember what happened today. Is unclear why the patient has this altered mental status and she is still not oriented but alert and pleasant talking with her family. Patient will be admitted to the [facility] team discussed with Dr. Villa who will evaluate her for admission Medical Decision Making Medical Records Attestation: I reviewed the patient's medical records. External medical records were reviewed and a urine sample from Monday showed more than 3 different types of organisms no further identification's or sensitivities. Laboratory Data Attestation: I reviewed the patient's lab results. 02/09/25 16:30 02/09/25 16:30 Lab Results 02/09/25 02/09/25 02/09/25 Range/Units 16:14 16: 16:30 WBC 5.30 (4.8-10.8) K/ul RBC 4.17 L (4.20-5.40) M/uL Hgb 11.7 L (12.0-16.0) g/dl Hct 35.8 L (37.0-47.0) % MCV 85.9 (80.0-100.0) fL MCH 28.1 (25.0-34.0) pg MCHC 32.7 (32.0-36.0) g/dL RDW Std Deviation 39.8 (36.4-46.3) fL RDW Coeff of Cecelia 12.9 (11.5-14.5) % Plt Count 163 (130-400) K/uL MPV 10.4 (9.4-12.4) fL Immature Gran % (Auto) 0.4 % Neut % (Auto) 65.3 % Lymph % (Auto) 18.1 % [place] % (Auto) 9.2 % Eos % (Auto) 6.2 % Baso % (Auto) 0.8 % Neut # (Auto) 3.46 (1.40-6.50) K/uL Lymph # (Auto) 0.96 L (1.20-3.40) K/uL [place] # (Auto) 0.49 (0.11-0.59) K/uL Eos # (Auto) 0.33 (0.00-0.50) K/uL Baso # (Auto) 0.04 (0.00-0.20) K/uL Immature Gran # (Auto) 0.02 (0.01-0.20) K/uL PT 10.3 (9.0-12.0) Seconds INR 0.9 (0.9-1.1) APTT 23 (21-31) Seconds PTT Ratio 0.9 VBG pH 7.35 L (7.36-7.41) VBG pCO2 50 (38-50) mmHg VBG pO2 32 mmHg VBG HCO3 28 mmol/L VBG O2 Saturation < 60.0 % VBG Base Excess 1.3 mEq/L Sodium 138 (136-145) mmol/L Potassium 4.0 (3.5-5.1) mmol/L Chloride 104 (98-107) mmol/L Carbon Dioxide 27 (21-32) mmol/L Anion Gap 7 (3-11) BUN 17 (6-23) mg/dl Creatinine 0.99 (0.6-1.2) mg/dl Est Cr Clr Drug Dosing 52.9 ml/min eGFR 63.28 BUN/Creatinine Ratio 17.2 (10-20) Glucose 111 H (70-99(Fasting)) mg/dl POC Glucose 102 H 112 H (70-99) mg/dl Calcium 9.3 (8.6-10.3) mg/dl Magnesium 2.0 (1.7-2.4) mg/dl Total Bilirubin 0.4 (0.2-1.0) mg/dl Direct Bilirubin 0.1 (0-0.2) mg/dl AST 22 (13-39) U/L ALT 14 (7-52) U/L Alkaline Phosphatase 54 (34-104) U/L Ammonia 26.0 (18-72) umol/L Total Creatine Kinase 81 (26-192) U/L Troponin I High Sens 3.5 (0-14) pg/ml Total Protein 6.9 (6.0-8.3) gm/dl Albumin 4.1 (3.4-5.0) gm/dl Lipase 24 (11-82) U/L Procalcitonin < 0.02 (0-0.5) ng/ml Urine Color Urine Appearance (Clear) Urine pH (4.5-7.5) Ur Specific Zoe (1.000-1.030) Urine Protein (Negative) Urine Glucose (UA) (Negative) Urine Ketones (Negative) Urine Blood (Negative) Urine Nitrite (Negative) Urine Bilirubin (Negative) Urine Urobilinogen (Negative) Ur Leukocyte Esterase (Negative) Urine Comment Urine Opiates Screen (Neg) Ur Methadone, Qual (Neg) Urine Fentanyl Screen (Neg) Urine Barbiturates (Neg) Ur Phencyclidine (PCP) (Neg) U Amphetamin/Meth Scrn (Neg) MDMA (Ecstasy) Screen (Neg) U Benzodiazepines Scrn (Neg) Ur Cocaine Metabolite (Neg) U Marijuana (THC) Screen (Neg) Ethyl Alcohol mg/dL (<10.0) mg/dl 02/09/25 02/09/25 Range/Units 16:45 18:03 WBC (4.8-10.8) K/ul RBC (4.20-5.40) M/uL Hgb (12.0-16.0) g/dl Hct (37.0-47.0) % MCV (80.0-100.0) fL MCH (25.0-34.0) pg MCHC (32.0-36.0) g/dL RDW Std Deviation (36.4-46.3) fL RDW Coeff of Cecelia (11.5-14.5) % Plt Count (130-400) K/uL MPV (9.4-12.4) fL Immature Gran % (Auto) % Neut % (Auto) % Lymph % (Auto) % [place] % (Auto) % Eos % (Auto) % Baso % (Auto) % Neut # (Auto) (1.40-6.50) K/uL Lymph # (Auto) (1.20-3.40) K/uL [place] # (Auto) (0.11-0.59) K/uL Eos # (Auto) (0.00-0.50) K/uL Baso # (Auto) (0.00-0.20) K/uL Immature Gran # (Auto) (0.01-0.20) K/uL PT (9.0-12.0) Seconds INR (0.9-1.1) APTT (21-31) Seconds PTT Ratio VBG pH (7.36-7.41) VBG pCO2 (38-50) mmHg VBG pO2 mmHg VBG HCO3 mmol/L VBG O2 Saturation % VBG Base Excess mEq/L Sodium (136-145) mmol/L Potassium (3.5-5.1) mmol/L Chloride (98-107) mmol/L Carbon Dioxide (21-32) mmol/L Anion Gap (3-11) BUN (6-23) mg/dl Creatinine (0.6-1.2) mg/dl Est Cr Clr Drug Dosing ml/min eGFR BUN/Creatinine Ratio (10-20) Glucose (70-99(Fasting)) mg/dl POC Glucose (70-99) mg/dl Calcium (8.6-10.3) mg/dl Magnesium (1.7-2.4) mg/dl Total Bilirubin (0.2-1.0) mg/dl Direct Bilirubin (0-0.2) mg/dl AST (13-39) U/L ALT (7-52) U/L Alkaline Phosphatase (34-104) U/L Ammonia (18-72) umol/L Total Creatine Kinase (26-192) U/L Troponin I High Sens (0-14) pg/ml Total Protein (6.0-8.3) gm/dl Albumin (3.4-5.0) gm/dl Lipase (11-82) U/L Procalcitonin (0-0.5) ng/ml Urine Color Yellow Urine Appearance Clear (Clear) Urine pH 6.0 (4.5-7.5) Ur Specific Zoe 1.015 (1.000-1.030) Urine Protein Negative (Negative) Urine Glucose (UA) Negative (Negative) Urine Ketones Negative (Negative) Urine Blood Negative (Negative) Urine Nitrite Negative (Negative) Urine Bilirubin Negative (Negative) Urine Urobilinogen Negative (Negative) Ur Leukocyte Esterase Negative (Negative) Urine Comment Urine Opiates Screen Neg (Neg) Ur Methadone, Qual Neg (Neg) Urine Fentanyl Screen Neg (Neg) Urine Barbiturates Neg (Neg) Ur Phencyclidine (PCP) Neg (Neg) U Amphetamin/Meth Scrn Neg (Neg) MDMA (Ecstasy) Screen Neg (Neg) U Benzodiazepines Scrn Neg (Neg) Ur Cocaine Metabolite Neg (Neg) U Marijuana (THC) Screen Neg (Neg) Ethyl Alcohol mg/dL < 10.0 (<10.0) mg/dl Imaging Data Attestation: I personally reviewed and interpreted this imaging study as follows: My Impression: CT head: No [facility] Radiologist's Impression: Chest X-Ray 02/09/25 16:20 Chest radiograph, one view History: Chest pain Comparison: 09/18/2024 Findings: Single AP view of the chest performed. No focal consolidation or pleural effusion. No pneumothorax. The cardiomediastinal silhouette is within normal limits. Normal pulmonary vascularity. No evidence for lymphadenopathy. No visualized bony or soft tissue abnormality. Impression: Normal chest radiograph Electronically signed by Maykel Portillo 02-09-2025 5:[address] 02/09/25 16:20 CT head without contrast History: AMS Comparison: 10/09/2024 Technique: Using multidetector thin collimation helical acquisition technique, axial, coronal and sagittal CT images from the skull base to the vertex were obtained without intravenous contrast. Dose reduction techniques were achieved by using automatic exposure control and/or adjustment of mA and/or kV according to patient size and/or use of iterative reconstruction technique. Findings: No intracranial hemorrhage, mass-effect, or midline shift. The ventricles are proportionate to the cerebral sulci. The venegas to white matter differentiation of the cerebral hemispheres is preserved. The basal cisterns are patent. The visualized paranasal sinuses are clear. Mastoid air cells are clear. Small arachnoid. Mild cerebral atrophy. Impression: No acute intracranial pathology. Electronically signed by Maykel Portillo 02-09-2025 5:14 PM ECG Data Attestation: I personally reviewed and interpreted this ECG as follows: Rate (beats per minute): 80 Rhythm: + normal sinus ECG Intervals/blocks: + Normal QRS, + Normal MT and + Normal QT-c ECG ST segments: + Normal ST segments Comparison ECG Date: from (September 2022) Change: no significant change [facility] Narrative 1619: The patient was evaluated in room B4. A complete history and physical exam was performed Cardiac monitoring: An order was placed for continuous cardiac monitoring. The monitor shows a rate of 80 with sinus rhythm interpreted by me 1900: Vital signs stable. Labs and imaging are unremarkable. Family is at bedside. Family states that they were prescribed antibiotics for UTI for urine that was done on Monday. External medical records were reviewed and a urine sample from Monday showed more than 3 different types of organisms no further identification's or sensitivities. Patient denies taking any opiate analgesics. Family states she took Ativan last night but not today. Patient still does not remember what happened today. Is unclear why the patient has this altered mental status and she is still not oriented but alert and pleasant talking with her family. Patient will be admitted to the [facility] hospitalist team discussed with Dr. Villa who will evaluate her for admission Impression & Plan AMS (altered mental status) Discharge Plan Visit Data Chief Complaint: Urinary Symptoms Stated Complaint: CONFUSION, UTI ED Provider: Aj Stokes Discharge Problem: AMS (altered mental status) Patient Disposition: Being Evaluated by Hospitalist Condition: Fair Forms Stand Alone Forms: My [facility] Prescriptions Prescriptions: No Action oxybutynin chloride 15 mg tablet extended release 24hr 15 mg PO QAM Qty: 90 1RF Lactobacillus rhamnosus GG 15 billion cell capsule, sprinkle 1 cap PO QAM lorazepam [Ativan] 1 mg tablet 2 mg PO HS amoxicillin-pot clavulanate 875-125 mg tablet 1 tab PO BID Stiolto Respimat 2.5-2.5 mcg/actuation mist 2 puff inhalation DAILY Qty: 4 2RF estradiol 0.01 % (0.1 mg/gram) cream 1 g vaginal 2XWK Qty: 42.5 3RF Rx Instructions: Insert 08/03 applicatorful vaginally 2 time a week. ropinirole 4 mg Tablet 4 mg PO HS sertraline [Zoloft] 100 mg Tablet 150 mg PO HS prednisone 5 mg Tablet 5 mg PO QAM amitriptyline 50 mg Tablet 50 mg PO HS ferrous sulfate 325 mg (65 mg iron) tablet 650 mg PO QAM cholecalciferol (vitamin D3) [Vitamin D3] 125 mcg (5,000 unit) Tablet 0 mcg PO QAM Rx Instructions: NO STRENGTH NOTED ON MED LIST potassium chloride 20 mEq tablet extended release 20 meq PO QAM cyclobenzaprine 10 mg tablet 10 mg PO TID pantoprazole [Protonix] 40 mg Tablet,Delayed Release (Dr/Ec) 40 mg PO BID sucralfate [Carafate] 1 gram Tablet 1 g PO QID PRN (Reason: Acid Reflux) Rx Instructions: 1 tablet prior to each meal and 1 tablet at bedtime metoprolol succinate [Toprol XL] 25 mg Tablet Extended Release 24 Hr 12.5 mg PO QPM ibuprofen 600 mg Tablet 600 mg PO QID albuterol sulfate 90 mcg/actuation HFA aerosol inhaler 2 puff INHALATION Q4H PRN (Reason: Shortness Of Breath Or Wheezing or Cough) hydroxychloroquine [Plaquenil] 200 mg tablet 200 mg PO BID Rx Instructions: PER EXT MED HX--ONCE DAILY. famotidine [Pepcid] 20 mg Tablet 20 mg PO BID cyanocobalamin (vitamin B-12) [Vitamin B-12] 1,000 mcg/mL Solution 1,000 mcg IM DIRECTED loratadine [Claritin] 10 mg Tablet 10 mg PO HS calcium carbonate-vitamin D3 [Calcium 600 + D(3)] 600 mg-10 mcg (400 unit) Tablet 1 tab PO BID Referrals Referrals: Uday Barksdale DO [Primary Care Provider] - Discharge Problem: AMS (altered mental status) Qualifiers: Altered mental status type: unspecified Qualified Code(s): R41.82 - Altered mental status, unspecified
[2025-02-09 16:52] LABS: Base Excess VBG 1.3 mEq/L; HCO3 VBG 28 mmol/L; Oxygen Saturation VBG < 60.0 %; PCO2 VBG 50 mmHg (38-50); PO2 VBG 32 mmHg; pH VBG 7.35 (7.36-7.41)
[2025-02-09 17:01] LABS: Hematocrit (blood only) 35.8 % (37.0-47.0); Hemoglobin 11.7 g/dl (12.0-16.0); Immature Granulocytes # (auto) 0.02 K/uL (0.01-0.20); Immature Granulocytes % (auto) 0.4 %; Mean Corpuscular Hemoglobin 28.1 pg (25.0-34.0); Mean Corpuscular Volume 85.9 fL (80.0-100.0); Platelet Count 163 K/uL (130-400); RDW Standard Deviation 39.8 fL (36.4-46.3); Red Blood Count 4.17 M/uL (4.20-5.40); White Blood Count 5.30 K/ul (4.8-10.8)
--- NOTE | 2025-02-09 17:14 | CT Scan Report ---
CT head without contrast History: AMS Comparison: 10/09/2024 Technique: Using multidetector thin collimation helical acquisition technique, axial, coronal and sagittal CT images from the skull base to the vertex were obtained without intravenous contrast. Dose reduction techniques were achieved by using automatic exposure control and/or adjustment of mA and/or kV according to patient size and/or use of iterative reconstruction technique. Findings: No intracranial hemorrhage, mass-effect, or midline shift. The ventricles are proportionate to the cerebral sulci. The venegas to white matter differentiation of the cerebral hemispheres is preserved. The basal cisterns are patent. The visualized paranasal sinuses are clear. Mastoid air cells are clear. Small arachnoid. Mild cerebral atrophy. Impression: No acute intracranial pathology. Electronically signed by Maykel Portillo 02-09-2025 5:14 PM
[2025-02-09 17:18] LABS: Alanine Aminotransferase 14.0 U/L (7-52); Alkaline Phosphatase 54.0 U/L (34-104); Anion Gap 7.0 (3-11); Bilirubin,Total 0.4 mg/dl (0.2-1.0); Blood Urea Nitrogen 17.0 mg/dl (6-23); Calcium 9.3 mg/dl (8.6-10.3); Carbon Dioxide 27.0 mmol/L (21-32); Chloride 104.0 mmol/L (98-107); Creatine Kinase 81.0 U/L (26-192); Creatinine Clr Calc Pharmacy 52.9 ml/min; Glucose 111.0 mg/dl (70-99(Fasting)); Lipase 24.0 U/L (11-82); Magnesium 2.0 mg/dl (1.7-2.4); Potassium 4.0 mmol/L (3.5-5.1); Sodium 138.0 mmol/L (136-145); Total Protein 6.9 gm/dl (6.0-8.3)
--- NOTE | 2025-02-09 17:23 | XRay Report ---
Chest radiograph, one view History: Chest pain Comparison: 09/18/2024 Findings: Single AP view of the chest performed. No focal consolidation or pleural effusion. No pneumothorax. The cardiomediastinal silhouette is within normal limits. Normal pulmonary vascularity. No evidence for lymphadenopathy. No visualized bony or soft tissue abnormality. Impression: Normal chest radiograph Electronically signed by Maykel Portillo 02-09-2025 5:23 PM
[2025-02-09 17:31] LABS: INR 0.9 (0.9-1.1); Partial Thromboplastin Time 23 Seconds (21-31); Prothrombin Time 10.3 Seconds (9.0-12.0)
[2025-02-09 18:34] LABS: Appearance Urine Clear (Clear); Glucose Urine UA Negative (Negative)
[2025-02-09 19:12] LABS: Amphetamines+Metham, Urine Neg (Neg); MDMA (Ecstacy), Urine Neg (Neg); Marijuana, Urine Neg (Neg)
--- NOTE | 2025-02-09 19:45 | History & Physical Report ---
Date of Service February 09, 2025 Assessment & Plan (1) AMS (altered mental status): (2) Epidural abscess: (3) Pseudocholinesterase deficiency: (4) H/O rheumatoid arthritis: (5) GERD with esophagitis: Plan 64yo female with Stage III Malignant Melanoma on Pembrolizumab immunotherapy, c hronic epidural abscess, presenting with 6 months of cognitive decline - patient endorses forgetfullness, confusion, vivid dreams. No focal neurologic findings. #AMS/Encephalopathy - progressive over several months. Differential to include possible metastatic disease, possible Pembrolizumab neuropsychiatric side effect, consider PML or dementia -Admit to medical -Obtain MRI -Gentle IVF with LR at 80mL/hr -Hold Flexeril for now -Hold Pepcid for now -Consider Hematology/Oncology discussion pending possible medication effects #UTI - -UA reflects partial treatment, patient has been on Augmentin -Continue Augmentin to completion #Epidural abscess/Chronic Back pain - chronic, recently imaged on 02/06/25. Patient afebrile, HD stable, no leukocytosis or evidence of infection. She does have chronic back pain and tenderness -Continue Elavil -Tylenol and Ibuprofen PRN #GERD -Continue Sucralfate, Protonix -Will hold Pepcid for now, can lead to confusion #Asthma -Continue Umeclidinium/Vilanterol #Rheumatoid arthritis -Continue Hydroxychloroquine -Continue Prednisone #Anxiety/Mental Health -Continue Sertraline 150mg po qHS -Continue Ropinirole -Continue Ativan 2mg po QHS - would ideally wean this off as able, could be contributing to confusion #Diabetes - diet controlled at present. Last TthS1S=1.6 -ISS History of Present Illness Chief Complaint: confusion Primary Care Provider: DO Shereen Lorenzana Oj is a 64yo female with history of Stage III malignant melanoma of the left back s/p wide local excision and lymph node excision (LN involved in 1/3 sentinel nodes) on immunotherapy with Pembrolizumab (PET CT on 10/10/24 with no evidence of metastatic disease) presenting with confusion. Patient is able to provide majority of history but family is present at bedside and corroborates the story. Over the last 6 months patient patient has been getting more confused. She states that she is forgetful and frequently misplaces things. Also has very vivid dreams which she sometimes confuses with reality. She also reports imbalance with increased frequency of falls - last fall was last week with some mild head trauma, no LOC. These symptoms have been getting worse over the last 6 months. Patient is able to perform most ADLs and IADLs - has some minor confusion with her finances of late. She got lost traveling to her daughter's home a couple of weeks ago. She was able to call family and they talked her through pulling up GPS on the phone etc. Today she thought she had an appointment at the [address] [place] [address]. She was at the clinic (which was closed due to it being Monday) and was found by security guards looking in the windows and trying to enter the building. After discussion with her friend on the phone the patient was agreeable to come to the hospital for evaluation. Patient denies fever, chills, hallucinations, focal numbness/tingling/weakness, headache, visual changes or incontinence. No additional complaints at this time. She was recently diagnosed with a UTI and started on Augment. In the ER she is afebrile, mildly hypertensive otherwise HD stable Allergies Allergy/AdvReac Type Severity Reaction Status Date / Time hydromorphone [From Dilaudid] Allergy Severe Anaphylaxis Verified 02/09/25 17:47 succinylcholine Allergy Severe SEE Verified 02/09/25 17:47 COMMENT: Pseudocholinesterase deficiency trazodone Allergy Intermediate SOB--Dry Verified 02/09/25 17:47 mouth (causing dyspnea) Home Medications Medication Instructions Recorded Confirmed Type amitriptyline 50 mg tablet 50 mg PO HS 06/15/18 02/09/25 History prednisone 5 mg tablet 5 mg PO QAM 06/15/18 02/09/25 History sertraline 100 mg tablet (Zoloft) 150 mg PO HS 06/15/18 02/09/25 History ropinirole 4 mg tablet 4 mg PO HS 02/27/19 02/09/25 History Lactobacillus rhamnosus GG 15 1 cap PO QAM 03/18/19 02/09/25 History billion cell sprinkle capsule lorazepam 1 mg tablet (Ativan) 2 mg PO HS 03/18/19 02/09/25 History cholecalciferol (vitamin D3) 125 0 mcg PO QAM 08/06/19 02/09/25 History mcg (5,000 unit) tablet (Vitamin D3) pantoprazole 40 mg tablet,delayed 40 mg PO BID 04/26/21 02/09/25 History release (Protonix) potassium chloride 20 mEq 20 meq PO QAM 07/09/21 02/09/25 History tablet,extended release albuterol sulfate 90 mcg/actuation 2 puff inhalation Q4H PRN 09/15/22 02/09/25 History aerosol inhaler Shortness Of Breath Or Wheezing or Cough ibuprofen 600 mg tablet 600 mg PO QID Pain 09/15/22 02/09/25 History metoprolol succinate 25 mg 12.5 mg PO QPM 09/15/22 02/09/25 History tablet,extended release 24 hr (Toprol XL) sucralfate 1 gram tablet (Carafate) 1 g PO QID PRN Acid Reflux 09/15/22 02/09/25 History famotidine 20 mg tablet (Pepcid) 20 mg PO BID 08/29/23 02/09/25 History estradiol 0.01% (0.1 mg/gram) 1 g vaginal 2XWK #42.5 grams 04/17/24 02/09/25 Rx vaginal cream oxybutynin chloride 15 mg 15 mg PO QAM #90 tabs 08/06/24 02/09/25 Rx tablet,extended release 24 hr amoxicillin 875 mg-potassium 1 tab PO BID 11/05/24 02/09/25 History clavulanate 125 mg tablet cyclobenzaprine 10 mg tablet 10 mg PO TID 11/05/24 02/09/25 History tiotropium 2.5 mcg-olodaterol 2.5 2 puff inhalation DAILY #4 grams 11/26/24 Rx mcg/actuation mist for inhalation (Stiolto Respimat) ferrous sulfate 325 mg (65 mg 650 mg PO QAM 12/19/24 02/09/25 History iron) tablet hydroxychloroquine 200 mg tablet 200 mg PO BID 12/19/24 02/09/25 History (Plaquenil) calcium 600 mg (as 1 tab PO BID 02/09/25 02/09/25 History carbonate)-vitamin D3 10 mcg (400 unit) tablet (Calcium 600 + D(3)) cyanocobalamin (vitamin B-12) 1,000 mcg IM DIRECTED 02/09/25 02/09/25 History 1,000 mcg/mL injection solution loratadine 10 mg tablet (Claritin) 10 mg PO HS 02/09/25 02/09/25 History Past Med/Surg History Problem List AMS (altered mental status) (Acute) Dyspnea H/O rheumatoid arthritis Leg weakness Retention of urine, unspecified Lesion of bladder Colon cancer screening Postlaminectomy syndrome of lumbar region Hypomagnesemia (Acute) Hypokalemia (Acute) Bacteremia Abscess in epidural space of lumbar spine Encounter for pre-operative examination Lumbar muscle hematoma Postoperative back pain (Acute) Back pain (Acute) GERD with esophagitis Upper airway cough syndrome Allergic rhinitis with postnasal drip Asthma Restrictive lung disease RAHEEM (obstructive sleep apnea) Morbid obesity Chronic cough Incontinence Urinary symptom or sign Vaginal dysplasia Cough variant asthma Oral candidiasis Chronic cough UTI (urinary tract infection) Voiding dysfunction Acute medial meniscus tear of right knee Encounter for pre-operative examination Right sided abdominal pain Infection of lumbar spine Fluid collection at surgical site Fecal retention Coronary artery calcification Rheumatoid arthritis Lumbar stenosis with neurogenic claudication Cervical stenosis of spinal canal Intractable back pain Medical History Gastroparesis Pseudocholinesterase deficiency 1984 (tested) Diabetes on ozempic Spinal cord stimulator status device removed 2023 Epidural abscess chronic Chronic cough Leukopenia "likely autoimmune vs medication induced; BM biopsy on 08/29/22 negative for malignancy Hx of chest pain w/palpitations-"happens often"; had cardiac testing; f/u [facility] [place], psh happens "very seldom">none at present time alf (current) use of antibiotics staph infection in pt's back-will be on these antibiotics for life Claustrophobia Stressed with oxygen mask over face Asthma Cough-variant asthma, stable per pt; last rescue inhaler 10/22/23 Aortic aneurysm Under surveillance>measured 2022>Dr. 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 Sol) who had recommended lifetime abx (surgeon aware), now under surveillance by PCP/no recent issues Obesity on ozempic for weight loss Dysphagia Chronic, follows with GI (unchanged); choking infrequently with continuous conveyor screen drier solids (crackers), no issues with liquids Sjogren's syndrome Hiatal hernia IBS (irritable bowel syndrome) Acid reflux Spinal stenosis Degenerative disc disease Restless leg syndrome Rheumatoid arthritis Follows with rheumatology (Dr. Shavon Deng; [place]) Fibromyalgia Anxiety and depression Hyperlipidemia Surgical History History of anesthesia complications pseudocholinesterase deficiency, difficult intubation, PONV needing scop patch Hx of cystoscopy 09/04/23 [place]- Cystoscopy with laser excision/extraction of eroded sling/foreign body. Laser ablation of urethral lesions. History of surgery spinal cord stimulator removed 04/2023. Hx of surgical procedure 1 irrigation debridement thoracolumbar epidural abscess. #2 decompression T11- T12 T12-L1. History of esophagogastroduodenoscopy (EGD) History of bone marrow biopsy 07/2022, [facility]; "everything came back good" History of surgery Midurethral sling, cystoscopy (06/26/18) History of hysterectomy History of back surgery x11, R/T INFECTION Difficult intubation Significantly decreased cervical extension s/p cervical fusion Midurethral sling, cystoscopy (06/26/18): Grade view 2, with glidescope #3, ETT 7.0 at [facility] ("two person mask vent with oral airway.. small glottic opening and anterior with glidescope, ETT easily passed.. attempt x2") Hx of endoscopy EGD (04/30/21): MAC at [facility] Hx of colonoscopy most recent Jun 2023/failed prep/colonoscopy planned for Jun 2024. Hx of hernia repair Hx of exploratory laparotomy X4 (2/2 ADHESIONS) Hx of section X3 Hx of arthroscopy of shoulder left x 2 History of neck surgery CERVICAL FUSION; CERVICAL SURGERIES X3 TOTAL HAS CAGE - DECREASED ROM History of lumbar fusion X3 Family History Mother Family history of stroke (cerebrovascular) Father Family history of CHF (congestive heart failure) Family history of COPD (chronic obstructive pulmonary disease) Other No family history of adverse response to anesthesia Patient's father is Social History Smoking Status: Never smoker Second Hand Exposure: Yes (as a child); Do You Dip or Chew Tobacco: No; Hx Alcohol Use: Yes Alcohol type: wine Hx Substance Use: No Preferred Language: Lao Communication Ability: Effective Visual Impairment: No Limitations Induction Heating Equipment Setter Required: No Beliefs That Will Affect Care: None marital status: Current Living Situation: Spouse Current Living Situation Comment: [facility] (). current occupational status: disabled Other Information That Helps Us Care for You: No Feels Safe at Home: Yes Safety Concerns: Feels Safe At This Time Assistive Devices: None Review of Systems Review of Systems: All systems reviewed & are unremarkable except as noted in HPI & below Physical Exam Physical Exam: General: patient resting comfortably, NAD, non-toxic in appearance, AA&O to person and place Skin: warm, dry, intact, no rashes or lesions HEENT: NC/AT, PERRL, EOMI, anicteric sclera, conjunctiva without injection, external ear normal to inspection and nontender, nares patent, moist mucus membranes, dentition intact, no oropharyngeal lesions, neck supple, trachea midline, no LAD, no thyromegaly, no JVD Heart: +S1/S2, regular, no m/r/g Lungs: equal air entry bilaterally, no rales/rhonchi/wheezes Abd: +BS, soft, NT/ND, no masses/organomegaly/ascites Ext: warm, 2+ pulses in UE/LE bilaterally, no clubbing/cyanosis or edema Neuro:PT AA&O x person and place, answers questions appropriately, speech clear, no facial droop, CN II-XII grossly intact, possibly mildly altered sensation to light touch in right V1 forehead distribution and RUE, MS 5/5 in UE/LE bilaterally, gait not assessed Results & Data Results & Data Vital Signs (Past 12 Hours) Vital Signs Temp Pulse Pulse Resp BP BP Pulse Ox 02/09/25 19:00 68 16 157/97 H 95 02/09/25 18:09 72 12 172/84 H 100 02/09/25 16:37 78 02/09/25 16:24 96 02/09/25 16:24 36.9 C 77 24 138/70 95 02/09/25 16:09 36.6 C 77 18 125/73 97 O2 Del Method 02/09/25 19:00 Room Air 02/09/25 18:09 Room Air 02/09/25 16:37 02/09/25 16:24 Room Air 02/09/25 16:24 Room Air 02/09/25 16:09 Room Air Laboratory Results Laboratory Results WBC 5.30 K/ul (4.8-10.8) 02/09/25 16:30 RBC 4.17 M/uL (4.20-5.40) L 02/09/25 16:30 Hgb 11.7 g/dl (12.0-16.0) L 02/09/25 16:30 Hct 35.8 % (37.0-47.0) L 02/09/25 16:30 MCV 85.9 fL (80.0-100.0) 02/09/25 16:30 MCH 28.1 pg (25.0-34.0) 02/09/25 16:30 MCHC 32.7 g/dL (32.0-36.0) 02/09/25 16:30 RDW Std Deviation 39.8 fL (36.4-46.3) 02/09/25 16:30 RDW Coeff of Cecelia 12.9 % (11.5-14.5) 02/09/25 16:30 Plt Count 163 K/uL (130-400) 02/09/25 16:30 MPV 10.4 fL (9.4-12.4) 02/09/25 16:30 Immature Gran % (Auto) 0.4 % 02/09/25 16:30 Neut % (Auto) 65.3 % 02/09/25 16:30 Lymph % (Auto) 18.1 % 02/09/25 16:30 Mineral % (Auto) 9.2 % 02/09/25 16:30 Eos % (Auto) 6.2 % 02/09/25 16:30 Baso % (Auto) 0.8 % 02/09/25 16:30 Neut # (Auto) 3.46 K/uL (1.40-6.50) 02/09/25 16:30 Lymph # (Auto) 0.96 K/uL (1.20-3.40) L 02/09/25 16:30 Mineral # (Auto) 0.49 K/uL (0.11-0.59) 02/09/25 16:30 Eos # (Auto) 0.33 K/uL (0.00-0.50) 02/09/25 16:30 Baso # (Auto) 0.04 K/uL (0.00-0.20) 02/09/25 16:30 Immature Gran # (Auto) 0.02 K/uL (0.01-0.20) 02/09/25 16:30 PT 10.3 Seconds (9.0-12.0) 02/09/25 16:30 INR 0.9 (0.9-1.1) 02/09/25 16:30 APTT 23 Seconds (21-31) 02/09/25 16:30 PTT Ratio 0.9 02/09/25 16:30 VBG pH 7.35 (7.36-7.41) L 02/09/25 16:30 VBG pCO2 50 mmHg (38-50) 02/09/25 16:30 VBG pO2 32 mmHg 02/09/25 16:30 VBG HCO3 28 mmol/L 02/09/25 16:30 VBG O2 Saturation < 60.0 % 02/09/25 16:30 VBG Base Excess 1.3 mEq/L 02/09/25 16:30 Sodium 138 mmol/L (136-145) 02/09/25 16:30 Potassium 4.0 mmol/L (3.5-5.1) 02/09/25 16:30 Chloride 104 mmol/L (98-107) 02/09/25 16:30 Carbon Dioxide 27 mmol/L (21-32) 02/09/25 16:30 Anion Gap 7 (3-11) 02/09/25 16:30 BUN 17 mg/dl (6-23) 02/09/25 16:30 Creatinine 0.99 mg/dl (0.6-1.2) 02/09/25 16:30 Est Cr Clr Drug Dosing 52.9 ml/min 02/09/25 16:30 eGFR 63.28 02/09/25 16:30 BUN/Creatinine Ratio 17.2 (10-20) 02/09/25 16:30 Glucose 111 mg/dl (70-99(Fasting)) H 02/09/25 16:30 POC Glucose 128 mg/dl (70-99) H 02/09/25 21:48 Calcium 9.3 mg/dl (8.6-10.3) 02/09/25 16:30 Magnesium 2.0 mg/dl (1.7-2.4) 02/09/25 16:30 Total Bilirubin 0.4 mg/dl (0.2-1.0) 02/09/25 16:30 Direct Bilirubin 0.1 mg/dl (0-0.2) 02/09/25 16:30 AST 22 U/L (13-39) 02/09/25 16:30 ALT 14 U/L (7-52) 02/09/25 16:30 Alkaline Phosphatase 54 U/L (34-104) 02/09/25 16:30 Ammonia 26.0 umol/L (18-72) 02/09/25 16:30 Total Creatine Kinase 81 U/L (26-192) 02/09/25 16:30 Troponin I High Sens 3.5 pg/ml (0-14) 02/09/25 16:30 Total Protein 6.9 gm/dl (6.0-8.3) 02/09/25 16:30 Albumin 4.1 gm/dl (3.4-5.0) 02/09/25 16: Lipase 24 U/L (11-82) 02/09/25 16:30 Vitamin B12 1220 pg/ml (180-914) H 02/09/25 16:30 Folate 11.09 ng/ml (>5.38) 02/09/25 16:30 Procalcitonin < 0.02 ng/ml (0-0.5) 02/09/25 16: TSH 0.975 uIu/ml (0.300-4.500) 02/09/25 16:30 Urine Color Yellow 02/09/25 18:03 Urine Appearance Clear (Clear) 02/09/25 18:03 Urine pH 6.0 (4.5-7.5) 02/09/25 18:03 Ur Specific Hollis 1.015 (1.000-1.030) 02/09/25 18:03 Urine Protein Negative (Negative) 02/09/25 18:03 Urine Glucose (UA) Negative (Negative) 02/09/25 18:03 Urine Ketones Negative (Negative) 02/09/25 18:03 Urine Blood Negative (Negative) 02/09/25 18:03 Urine Nitrite Negative (Negative) 02/09/25 18:03 Urine Bilirubin Negative (Negative) 02/09/25 18:03 Urine Urobilinogen Negative (Negative) 02/09/25 18:03 Ur Leukocyte Esterase Negative (Negative) 02/09/25 18:03 Urine Comment 02/09/25 18:03 Urine Opiates Screen Neg (Neg) 02/09/25 18:03 Ur Methadone, Qual Neg (Neg) 02/09/25 18:03 Urine Fentanyl Screen Neg (Neg) 02/09/25 18:03 Urine Barbiturates Neg (Neg) 02/09/25 18:03 Ur Phencyclidine (PCP) Neg (Neg) 02/09/25 18:03 U Amphetamin/Meth Scrn Neg (Neg) 02/09/25 18:03 MDMA (Ecstasy) Screen Neg (Neg) 02/09/25 18:03 U Benzodiazepines Scrn Neg (Neg) 02/09/25 18:03 Ur Cocaine Metabolite Neg (Neg) 02/09/25 18:03 U Marijuana (THC) Screen Neg (Neg) 02/09/25 18:03 Ethyl Alcohol mg/dL < 10.0 mg/dl (<10.0) 02/09/25 16:45 Impressions Chest X-Ray 02/09/25 16:20 Chest radiograph, one view History: Chest pain Comparison: 09/18/2024 Findings: Single AP view of the chest performed. No focal consolidation or pleural effusion. No pneumothorax. The cardiomediastinal silhouette is within normal limits. Normal pulmonary vascularity. No evidence for lymphadenopathy. No visualized bony or soft tissue abnormality. Impression: Normal chest radiograph Electronically signed by Maykel Portillo 02-09-2025 5:[address] 02/09/25 16:20 CT head without contrast History: AMS Comparison: 10/09/2024 Technique: Using multidetector thin collimation helical acquisition technique, axial, coronal and sagittal CT images from the skull base to the vertex were obtained without intravenous contrast. Dose reduction techniques were achieved by using automatic exposure control and/or adjustment of mA and/or kV according to patient size and/or use of iterative reconstruction technique. Findings: No intracranial hemorrhage, mass-effect, or midline shift. The ventricles are proportionate to the cerebral sulci. The venegas to white matter differentiation of the cerebral hemispheres is preserved. The basal cisterns are patent. The visualized paranasal sinuses are clear. Mastoid air cells are clear. Small arachnoid. Mild cerebral atrophy. Impression: No acute intracranial pathology. Electronically signed by Maykel Portillo 02-09-2025 5:14 PM Code Status & VTE Plan VTE Prophylaxis Plan VTE Prophylaxis will be ordered: Yes PG Care Time/CCT Total # of Minutes Spent Total Time Spent with Patient: Total time spent is greater than 50% in coordination of care (as documented) at patient's floor/unit and/or counseling patient: Coding Level of Care Code 13532 INT INP/OBS CARE 375MIN Diagnoses AMS (altered mental status) R41.82 Altered mental status type: unspecified Epidural abscess G06.2 Pseudocholinesterase deficiency E88.09 H/O rheumatoid arthritis Z87.39 GERD with esophagitis K21.00 (1) AMS (altered mental status) Altered mental status type: unspecified Qualified Code(s): R41.82 - Altered mental status, unspecified
[2025-02-09] MEDS ORDERED: ALBUTEROL HFA 8 GM INHALER INH PRN (21:21)
[2025-02-09] MEDS ORDERED: ACETAMINOPHEN 325 MG TAB PO PRN (21:21)
[2025-02-09] MEDS ORDERED: ONDANSETRON INJ 2 MG/ML 2 ML VIAL IV PRN (21:21)
[2025-02-09] MEDS ORDERED: CARBOHYDRATES FOR HYPOGLYCEMIA PO PRN (21:21)
[2025-02-09] MEDS ORDERED: GLUCOSE 40% GEL 15 GM TUBE PO PRN (21:21)
[2025-02-09] MEDS ORDERED: SUCRALFATE 1 GM TAB PO PRN (21:21)
[2025-02-09] MEDS ORDERED: DEXTROSE 50% 50 ML SYRINGE IV PRN (21:21)
[2025-02-09] MEDS ORDERED: GLUCOSE 10 TAB/TUBE PO PRN (21:21)
[2025-02-09] MEDS ORDERED: GLUCAGON FOR INJ 1 MG VIAL SQ PRN (21:21)
[2025-02-09] MEDS: INSULIN ASPART PER UNIT CHARGE SC SCH (21:55)
[2025-02-09 21:58] LABS: Thyroid Stimulating Hormone 0.975 uIu/ml (0.300-4.500)
[2025-02-09] MEDS: IBUPROFEN 600 MG TAB PO SCH (21:59)
[2025-02-09] MEDS: AMITRIPTYLINE HCL 50 MG TAB PO SCH (21:59)
[2025-02-09] MEDS: METOPROLOL SUCC 25MG EXT REL TAB PO SCH (22:00)
[2025-02-09] MEDS: HYDROXYCHLOROQUINE SULFATE 200 MG TAB PO SCH (22:00)
[2025-02-09] MEDS: SERTRALINE HCL 50 MG TABLET PO SCH (22:01)
[2025-02-09] MEDS: AMOXICILLIN/CLAVULANATE 875 MG TAB PO SCH (22:02)
[2025-02-09] MEDS: LACTATED RINGER'S 1,000 ML IV SCH (22:02)
[2025-02-09] MEDS: LORazepam 1 MG TAB PO SCH (22:06)
[2025-02-09 22:13] LABS: Folate (Folic Acid),Ser orPlas 11.09 ng/ml (>5.38)
[2025-02-09 22:14] LABS: Vitamin B12 1220.0 pg/ml (180-914)
[2025-02-10] MEDS: GADOBUTROL 65ML VIAL IV ONE (05:30)
--- NOTE | 2025-02-10 06:25 | Magnetic Resonance Report ---
EXAM: MR brain wo/w con CLINICAL HISTORY: Progressive cognitive decline, AMS TECHNIQUE: MRI of the brain was performed without and with 7.5ml Gadavist intravenous contrast administration acquiring multiple sequences. 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 FINDINGS: Brain Parenchyma: No evidence of acute infarction or hemorrhage. Tam-white matter differentiation is preserved. There are scattered bilateral periventricular deep and subcortical white matter patchy areas of high T2 and FLAIR signal suggestive of chronic microvascular ischemic changes. Post-Contrast Findings: No abnormal enhancement of the brain parenchyma or meninges. Ventricles and Sulci: No evidence of hydrocephalus. Prominent ventricular system, sulci, cisternal spaces, mild age-related brain changes. Brainstem and Cerebellum: Normal appearance of the brainstem and cerebellum without focal lesions or abnormal enhancement. Vessels: Intracranial vessels appear normal without evidence of vascular malformations or aneurysms. Skull and Calvarium: No evidence of skull vault lesions or abnormal marrow signal within the calvarium. IMPRESSION: 1. No evidence of acute intracranial pathology or abnormal contrast enhancement. 2. Senile and chronic microvascular ischemic brain changes. 3. Compared to CT 10/09/2024, and reviewing the same-day CT. No change. Electronically signed by Gerry Murphy 02-10-2025 06:25 AM
[2025-02-10 07:14] LABS: Hematocrit (blood only) 33.4 % (37.0-47.0); Hemoglobin 11.2 g/dl (12.0-16.0); Mean Corpuscular Hemoglobin 28.7 pg (25.0-34.0); Mean Corpuscular Volume 85.6 fL (80.0-100.0); Platelet Count 132 K/uL (130-400); RDW Standard Deviation 39.1 fL (36.4-46.3); Red Blood Count 3.90 M/uL (4.20-5.40); White Blood Count 3.78 K/ul (4.8-10.8)
[2025-02-10 07:31] LABS: Anion Gap 6.0 (3-11); Blood Urea Nitrogen 13.0 mg/dl (6-23); Calcium 8.5 mg/dl (8.6-10.3); Carbon Dioxide 29.0 mmol/L (21-32); Chloride 106.0 mmol/L (98-107); Creatinine Clr Calc Pharmacy 70.7 ml/min; Glucose 94.0 mg/dl (70-99(Fasting)); Potassium 4.0 mmol/L (3.5-5.1); Sodium 141.0 mmol/L (136-145)
[2025-02-10] MEDS: OXYBUTYNIN CHLORIDE XL 5 MG TABCR PO SCH (07:58)
[2025-02-10] MEDS: UMECLIDINIUM/VILANTEROL 62.5/25MCG 7 PUFFS/INHALER INH SCH (07:58)
--- NOTE | 2025-02-10 11:16 | Electrocardiogram Report ---
Test Reason : Blood Pressure : */* mmHG Vent. Rate : 80 BPM Atrial Rate : 80 BPM P-R Int : 172 ms QRS Dur : 86 ms QT Int : 386 ms P-R-T Axes : 56 -2 29 degrees QTcB Int : 445 ms Normal sinus rhythm T wave abnormality, consider anterior ischemia Abnormal ECG When compared with ECG of 02-Dec-2022 11:56, Nonspecific T wave abnormality, improved in Lateral leads QT has shortened Confirmed by Quang Sanchez ([id number]) on 02/10/2025 11:10:10 AM Referred By: REFERRED SELF Confirmed By: Quang Sanchez
--- NOTE | 2025-02-10 17:35 | Hospitalist Progress Note ---
Date of Service February 10, 2025 Assessment & Plan (1) AMS (altered mental status): (2) Malignant melanoma: (3) Epidural abscess: (4) GERD with esophagitis: Plan 64yo female with Stage III Malignant Melanoma on Pembrolizumab immunotherapy, chronic epidural abscess, presenting with 6 months of cognitive decline - patient endorses forgetfulness, confusion, vivid dreams. No focal neurologic findings. Head CT with no acute intracranial pathology. Brain MRI with senile and chronic microvascular ischemic brain changes but no evidence of acute intracranial pathology or abnormal contrast-enhancement. #AMS/Encephalopathy - waxing/waning mentation ongoing x 6 months. Differential to include possible Pembrolizumab neuropsychiatric side effect, consider PML or dementia - Consulted oncology for assistance determining if this could be related to her immunotherapy - Continue to hold medications that could cause drug-induced encephalopathy, Flexeril and Pepcid - S/p 1 L IVF - PT/OT consulted given recurrent falls at home #UTI - UA reflects partial treatment, patient has been on Augmentin - Continue Augmentin to completion #Epidural abscess/Chronic Back pain - chronic, recently imaged on 02/06/25. Patient afebrile, HD stable, no leukocytosis or evidence of infection. She does have chronic back pain and tenderness - Continue Elavil - Tylenol and Ibuprofen PRN #GERD - Continue Sucralfate, Protonix - Will hold Pepcid for now, can lead to confusion #Diabetes - diet controlled at present. Last [id number]=1.6 - Continue SSI #Anxiety/Mental Health - Continue Sertraline 150mg po qHS, Ropinirole, Ativan 2mg po QHS - would ideally wean off Ativan as able, could be contributing to confusion #Asthma - Continue Umeclidinium/Vilanterol #Rheumatoid arthritis - Continue Hydroxychloroquine, Prednisone Dispo: Pending oncology, PT/OT evaluations VTE PPx: SCDs Consulted oncology, PT/OT Reviewed outpatient records Admission and Anticipated Discharge Date Admission Date: February 09, 2025 Subjective Patient seen and evaluated at bedside. She reports feeling tired but denies any other complaints at this time. She reports that for the past 6 months or so she has experienced intermittent confusion and forgetfulness. She is able to identify her confusion in the moment and then this quickly resolves on its own. She reports these episodes of confusion happened multiple times a day. She states that she also started her immunotherapy for her malignant melanoma in July. She reports that she has not expressed the symptoms to her oncologist, Dr. Francis. We discussed the results of her imaging. I informed her that I will ask the oncology team if these episodes of confusion may be related to her immunotherapy treatment. No additional complaints or concerns at this time. Physical Exam Physical Exam: General: No acute distress, nondiaphoretic, well-developed, well-nourished. Skin: Warm, dry. No rashes or peripheral edema noted. Cardiac: Regular rate and rhythm without murmurs gallops or rubs. Pulm: Clear to auscultation bilaterally without wheezes, rales or rhonchi. Normal respiratory effort. 98% on room air. Abdominal: Soft, nontender, nondistended. Bowel sounds present. Neuro: A&O x3. No focal neurological deficits. 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 Reviewed toxicology Diagnostic Findings Reviewed CXR, head CT, brain MRI, EKG PG Care Time/CCT Total # of Minutes Spent Total Time Spent with Patient: Total time spent is greater than 50% in coordination of care (as documented) at patient's floor/unit and/or counseling patient: Coding Level of Care Code 88703 SUB INP/OBS CARE 3/50MIN Diagnoses AMS (altered mental status) R41.82 Altered mental status type: unspecified Malignant melanoma C43.9 Epidural abscess G06.2 GERD with esophagitis K21.00 (1) AMS (altered mental status) Altered mental status type: unspecified Qualified Code(s): R41.82 - Altered mental status, unspecified
[2025-02-11 06:41] LABS: Hematocrit (blood only) 35.1 % (37.0-47.0); Hemoglobin 12.0 g/dl (12.0-16.0); Mean Corpuscular Hemoglobin 28.8 pg (25.0-34.0); Mean Corpuscular Volume 84.4 fL (80.0-100.0); Platelet Count 148 K/uL (130-400); RDW Standard Deviation 38.0 fL (36.4-46.3); Red Blood Count 4.16 M/uL (4.20-5.40); White Blood Count 3.87 K/ul (4.8-10.8)
--- NOTE | 2025-02-11 08:13 | Oncology Consultation ---
Date of Consultation February 11, 2025 Assessment & Plan (1) Malignant melanoma: (2) AMS (altered mental status): Plan -Although, pembrolizumab could cause neurologic symptoms such as confusion/altered mental status, encephalitis. Patient states that symptoms were present prior to starting pembrolizumab and brain imaging was also unremarkable. If neurology feels symptoms may be due to pembrolizumab, would discontinue pembrolizumab and switch to BRAF/MEK inhibitor. - Would recommend evaluation by neurology either inpatient or outpatient. May also benefit from EEG. Recommend checking cortisol, ACTH levels. Thank you for this consult. Patient to follow-up with oncology upon discharge from hospital. Please feel free to call if you have any further questions History of Present Illness Reason for Consultation: Altered mental status Attending Physician: Obi Mazariegos History of Present Illness Ms. Mcwilliams is a pleasant 64-year-old female with medical history of stage III melanoma s/p resection for which she started adjuvant pembrolizumab on 10/14/2024. Patient presented with altered mental status. CT head on 02/09/2025 was unremarkable. Brain MRI revealed no evidence of intracranial pathology, senile and chronic microvascular ischemic brain changes. She states that symptoms started prior to initiation of adjuvant immunotherapy with pembrolizumab. Allergies Allergy/AdvReac Type Severity Reaction Status Date / Time hydromorphone [From Dilaudid] Allergy Severe Anaphylaxis Verified 02/09/25 17:47 succinylcholine Allergy Severe SEE Verified 02/09/25 17:47 COMMENT: Pseudocholinesterase deficiency trazodone Allergy Intermediate SOB--Dry Verified 02/09/25 17:47 mouth (causing dyspnea) Home Medications Medication Instructions Recorded Confirmed Type amitriptyline 50 mg tablet 50 mg PO HS 06/15/18 02/09/25 History prednisone 5 mg tablet 5 mg PO QAM 06/15/18 02/09/25 History sertraline 100 mg tablet (Zoloft) 150 mg PO HS 06/15/18 02/09/25 History ropinirole 4 mg tablet 4 mg PO HS 02/27/19 02/09/25 History Lactobacillus rhamnosus GG 15 1 cap PO QAM 03/18/19 02/09/25 History billion cell sprinkle capsule lorazepam 1 mg tablet (Ativan) 2 mg PO HS 03/18/19 02/09/25 History cholecalciferol (vitamin D3) 125 0 mcg PO QAM 08/06/19 02/09/25 History mcg (5,000 unit) tablet (Vitamin D3) pantoprazole 40 mg tablet,delayed 40 mg PO BID 04/26/21 02/09/25 History release (Protonix) potassium chloride 20 mEq 20 meq PO QAM 07/09/21 02/09/25 History tablet,extended release albuterol sulfate 90 mcg/actuation 2 puff inhalation Q4H PRN 09/15/22 02/09/25 History aerosol inhaler Shortness Of Breath Or Wheezing or Cough ibuprofen 600 mg tablet 600 mg PO QID Pain 09/15/22 02/09/25 History metoprolol succinate 25 mg 12.5 mg PO QPM 09/15/22 02/09/25 History tablet,extended release 24 hr (Toprol XL) sucralfate 1 gram tablet (Carafate) 1 g PO QID PRN Acid Reflux 09/15/22 02/09/25 History famotidine 20 mg tablet (Pepcid) 20 mg PO BID 08/29/23 02/09/25 History estradiol 0.01% (0.1 mg/gram) 1 g vaginal 2XWK #42.5 grams 04/17/24 02/09/25 Rx vaginal cream oxybutynin chloride 15 mg 15 mg PO QAM #90 tabs 08/06/24 02/09/25 Rx tablet,extended release 24 hr amoxicillin 875 mg-potassium 1 tab PO BID 11/05/24 02/09/25 History clavulanate 125 mg tablet cyclobenzaprine 10 mg tablet 10 mg PO TID 11/05/24 02/09/25 History tiotropium 2.5 mcg-olodaterol 2.5 2 puff inhalation DAILY #4 grams 11/26/24 02/09/25 Rx mcg/actuation mist for inhalation (Stiolto Respimat) ferrous sulfate 325 mg (65 mg 650 mg PO QAM 12/19/24 02/09/25 History iron) tablet hydroxychloroquine 200 mg tablet 200 mg PO BID 12/19/24 02/09/25 History (Plaquenil) calcium 600 mg (as 1 tab PO BID 02/09/25 02/09/25 History carbonate)-vitamin D3 10 mcg (400 unit) tablet (Calcium 600 + D(3)) cyanocobalamin (vitamin B-12) 1,000 mcg IM DIRECTED 02/09/25 02/09/25 History 1,000 mcg/mL injection solution loratadine 10 mg tablet (Claritin) 10 mg PO HS 02/09/25 02/09/25 History Patient History Medical History Gastroparesis Pseudocholinesterase deficiency 1984 (tested) Diabetes on ozempic Spinal cord stimulator status device removed 2023 Epidural abscess chronic Chronic cough Leukopenia "likely autoimmune vs medication induced; BM biopsy on 08/29/22 negative for malignancy Hx of chest pain w/palpitations-"happens often"; had cardiac testing; f/u [facility] [place], psh happens "very seldom">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 Sol) who had recommended lifetime abx (surgeon aware), now under surveillance by PCP/no recent issues Obesity on ozempic for weight loss Dysphagia Chronic, follows with GI (unchanged); choking infrequently with curtain drier solids (crackers), no issues with liquids Sjogren's syndrome Hiatal hernia IBS (irritable bowel syndrome) Acid reflux Spinal stenosis Degenerative disc disease Restless leg syndrome Rheumatoid arthritis Follows with rheumatology (Dr. Shavon Deng; [place]) Fibromyalgia Anxiety and depression Hyperlipidemia Surgical History History of anesthesia complications pseudocholinesterase deficiency, difficult intubation, PONV needing scop patch Hx of cystoscopy 09/04/23 [place]- Cystoscopy with laser excision/extraction of eroded sling/foreign body. Laser ablation of urethral lesions. History of surgery spinal cord stimulator removed 04/2023. Hx of surgical procedure 1 irrigation debridement thoracolumbar epidural abscess. #2 decompression T11- T12 T12-L1. History of esophagogastroduodenoscopy (EGD) History of bone marrow biopsy 07/2022, [facility] [place]; "everything came back good" History of surgery Midurethral sling, cystoscopy (06/26/18) History of hysterectomy History of back surgery x11, R/T INFECTION Difficult intubation Significantly decreased cervical extension s/p cervical fusion Midurethral sling, cystoscopy (06/26/18): Grade view 2, with glidescope #3, ETT 7.0 at [facility] ("two person mask vent with oral airway.. small glottic opening and anterior with glidescope, ETT easily passed.. attempt x2") Hx of endoscopy EGD (04/30/21): MAC at [facility] Hx of colonoscopy most recent Jun 2023/failed prep/colonoscopy planned for Jun 2024. Hx of hernia repair Hx of exploratory laparotomy X4 (2/2 ADHESIONS) Hx of section X3 Hx of arthroscopy of shoulder left x 2 History of neck surgery CERVICAL FUSION; CERVICAL SURGERIES X3 TOTAL HAS CAGE - DECREASED ROM History of lumbar fusion X3 Family History Mother Family history of stroke (cerebrovascular) Father Family history of CHF (congestive heart failure) Family history of COPD (chronic obstructive pulmonary disease) Other No family history of adverse response to anesthesia Patient's father is Social History Smoking Status: Never smoker Second Hand Exposure: Yes (as a child); Do You Dip or Chew Tobacco: No; Hx Alcohol Use: Yes Alcohol type: wine Hx Substance Use: No Preferred Language: Chinese Communication Ability: Effective Visual Impairment: No Limitations Library Technician Required: No Beliefs That Will Affect Care: None marital status: Current Living Situation: Spouse Current Living Situation Comment: [facility] (). current occupational status: disabled Other Information That Helps Us Care for You: No Feels Safe at Home: Yes Safety Concerns: Feels Safe At This Time Assistive Devices: None Results & Data Vital Signs (Past 12 Hours) Vital Signs Temp Pulse Resp BP Pulse Ox O2 Del Method 02/11/25 07:05 36.6 C 65 17 123/80 97 Room Air (2) AMS (altered mental status) Altered mental status type: unspecified Qualified Code(s): R41.82 - Altered mental status, unspecified
--- NOTE | 2025-02-11 11:23 | Hospitalist Progress Note ---
Date of Service February 11, 2025 Assessment & Plan (1) AMS (altered mental status): (2) Malignant melanoma: (3) Epidural abscess: (4) GERD with esophagitis: Plan 64yo female with Stage III Malignant Melanoma on Pembrolizumab immunotherapy, chronic epidural abscess, presenting with 6 months of cognitive decline - patient endorses forgetfulness, confusion, vivid dreams. No focal neurologic findings. Head CT with no acute intracranial pathology. Brain MRI with senile and chronic microvascular ischemic brain changes but no evidence of acute intracranial pathology or abnormal contrast-enhancement. #AMS/Encephalopathy - waxing/waning mentation ongoing x 6 months. Differential to include possible Pembrolizumab neuropsychiatric side effect, consider PML or dementia - Consulted oncology for assistance determining if this could be related to her immunotherapy - Continue to hold medications that could cause drug-induced encephalopathy, Flexeril and Pepcid - S/p 1 L IVF - PT/OT consulted given recurrent falls at home - did well with therapy, recomme nded return home on discharge #UTI - UA reflects partial treatment, patient has been on Augmentin - Continue Augmentin to completion #Epidural abscess/Chronic Back pain - chronic, recently imaged on 02/06/25. Patient afebrile, HD stable, no leukocytosis or evidence of infection. She does have chronic back pain and tenderness - Continue Elavil - Tylenol and Ibuprofen PRN #GERD - Continue Sucralfate, Protonix - Will hold Pepcid for now, can lead to confusion #Diabetes - diet controlled at present. Last FirC1H=2.6 - Continue SSI #Anxiety/Mental Health - Continue Sertraline 150mg po qHS, Ropinirole, Ativan 2mg po QHS - would ideally wean off Ativan as able, could be contributing to confusion #Asthma - Continue Umeclidinium/Vilanterol #Rheumatoid arthritis - Continue Hydroxychloroquine, Prednisone Dispo: Pending oncology, PT/OT evaluations VTE PPx: SCDs Updated patient's and friend via phone calls 02/11 Admission and Anticipated Discharge Date Admission Date: February 09, 2025 Subjective Patient seen and evaluated at bedside. She reports feeling tired. She worked with therapy earlier and states she did well but had back pain. She states this is a chronic intermittent problem. She does have a history of back surgery with Dr. Jj she reports. She states that she does not have radiating pain, but sometimes has paresthesias in her LE bilaterally. She denies any paresthesias in her LE at this time. She is well tolerating her diet and sleep well overnight. Awaiting evaluation from oncology. No additional complaints or concerns at this time. Physical Exam Physical Exam: General: No acute distress, nondiaphoretic, well-developed, well-nourished. Skin: Warm, dry. No rashes or peripheral edema noted. Cardiac: Regular rate and rhythm without murmurs gallops or rubs. Pulm: Clear to auscultation bilaterally without wheezes, rales or rhonchi. Normal respiratory effort. 98% on room air. Abdominal: Soft, nontender, nondistended. Bowel sounds present. Back: Midline incision scar down cervical to lumbar spine. No midline or paraspinal tenderness to palpation. No bony step offs. Neuro: A&O x3. No focal neurological deficits. Results & Data Results & Data Vital Signs (Past 12 Hours) Vital Signs Temp Pulse Resp BP Pulse Ox O2 Del Method 02/11/25 07:05 97.9 F 65 17 123/80 97 Room Air Laboratory Results Reviewed CBC PG Care Time/CCT Total # of Minutes Spent Total Time Spent with Patient: Total time spent is greater than 50% in coordination of care (as documented) at patient's floor/unit and/or counseling patient: Coding Level of Care Code 13796 SUB INP/OBS CARE 2/35MIN Diagnoses AMS (altered mental status) R41.82 Altered mental status type: unspecified Malignant melanoma C43.9 Epidural abscess G06.2 GERD with esophagitis K21.00 (1) AMS (altered mental status) Altered mental status type: unspecified Qualified Code(s): R41.82 - Altered mental status, unspecified
[2025-02-12 07:51] LABS: Hematocrit (blood only) 34.9 % (37.0-47.0); Hemoglobin 11.8 g/dl (12.0-16.0); Mean Corpuscular Hemoglobin 28.5 pg (25.0-34.0); Mean Corpuscular Volume 84.3 fL (80.0-100.0); Platelet Count 147 K/uL (130-400); RDW Standard Deviation 39.1 fL (36.4-46.3); Red Blood Count 4.14 M/uL (4.20-5.40); White Blood Count 3.89 K/ul (4.8-10.8)
--- NOTE | 2025-02-12 11:29 | Hospitalist Progress Note ---
Date of Service February 12, 2025 Assessment & Plan (1) AMS (altered mental status): (2) Malignant melanoma: (3) Epidural abscess: (4) GERD with esophagitis: Plan 64yo female with Stage III Malignant Melanoma on Pembrolizumab immunotherapy, chronic epidural abscess, presenting with 6 months of cognitive decline - patient endorses forgetfulness, confusion, vivid dreams. No focal neurologic findings. Head CT with no acute intracranial pathology. Brain MRI with senile and chronic microvascular ischemic brain changes but no evidence of acute intracranial pathology or abnormal contrast-enhancement. #AMS/Encephalopathy - waxing/waning mentation ongoing x 6 months. Differential to include possible Pembrolizumab neuropsychiatric side effect, consider PML or dementia - Consulted oncology - unlikely that this is related to her immunotherapy treatments - Discussed case with neurology - will get EEG now and send out serum neocomplete paraneoplastic evaluation - Continue to hold medications that could cause drug-induced encephalopathy, Flexeril and Pepcid - PT/OT consulted given recurrent falls at home - did well with therapy, recommended return home on discharge #UTI - UA reflects partial treatment, patient has been on Augmentin - Continue Augmentin to completion #Epidural abscess/Chronic Back pain - chronic, recently imaged on 02/06/25. Patient afebrile, HD stable, no leukocytosis or evidence of infection. She does have chronic back pain and tenderness - Continue Elavil - Tylenol and Ibuprofen PRN #GERD - Continue Sucralfate, Protonix #Diabetes - diet controlled at present. Last AxmQ6L=5.6 - Continue SSI #Anxiety/Mental Health - Continue Sertraline 150mg po qHS, Ropinirole, Ativan 2mg po QHS - would ideally wean off Ativan as able, could be contributing to confusion #Asthma - Continue Umeclidinium/Vilanterol #Rheumatoid arthritis - Continue Hydroxychloroquine, Prednisone Dispo: Anticipate discharge home either later today or tomorrow pending result of EEG VTE PPx: SCDs Discussed case with oncology and neurology Ordered EEG Admission and Anticipated Discharge Date Admission Date: February 09, 2025 Subjective Patient seen and evaluated at bedside. She reports feeling well. She is not confused at this time. We discussed oncology's opinion that her confusion is not likely related to her immunotherapy treatment, and neurology's recommendation of getting an EEG and having her follow-up with them outpatient. She is agreeable to this plan. She denies other complaints or concerns at this time. She would like to go home later today if the EEG is unremarkable. Physical Exam Physical Exam: General: No acute distress, nondiaphoretic, well-developed, well-nourished. Skin: Warm, dry. No rashes or peripheral edema noted. Cardiac: Regular rate and rhythm without murmurs gallops or rubs. Pulm: Clear to auscultation bilaterally without wheezes, rales or rhonchi. Normal respiratory effort. 95% on room air. Back: Midline incision scar down cervical to lumbar spine. No midline or paraspinal tenderness to palpation. No bony step offs. Neuro: A&O x3. No focal neurological deficits. Results & Data Results & Data Vital Signs (Past 12 Hours) Vital Signs Temp Pulse Resp BP Pulse Ox O2 Del Method 02/12/25 07:34 97.3 F L 64 16 109/75 95 Room Air Laboratory Results Reviewed CBC PG Care Time/CCT Total # of Minutes Spent Total Time Spent with Patient: Total time spent is greater than 50% in coordination of care (as documented) at patient's floor/unit and/or counseling patient: Coding Level of Care Code None History Comprehensive Exam Comprehensive Medical Decision Making High Complexity Diagnoses AMS (altered mental status) R41.82 Altered mental status type: unspecified Malignant melanoma C43.9 Epidural abscess G06.2 GERD with esophagitis K21.00 (1) AMS (altered mental status) Altered mental status type: unspecified Qualified Code(s): R41.82 - Altered mental status, unspecified
--- NOTE | 2025-02-12 13:21 | Electroencephalogram ---
EEG Procedure Note Date of Service February 12, 2025 Start / End Times Start Time: 12:48 PM End Time: 1:08 PM Referring Physician Gross History Episodes of confusion, evaluate for seizures Home Medication List Medication Instructions Recorded Confirmed Type amitriptyline 50 mg tablet 50 mg PO HS 06/15/18 02/09/25 History prednisone 5 mg tablet 5 mg PO QAM 06/15/18 02/09/25 History sertraline 100 mg tablet (Zoloft) 150 mg PO HS 06/15/18 02/09/25 History ropinirole 4 mg tablet 4 mg PO HS 02/27/19 02/09/25 History Lactobacillus rhamnosus GG 15 1 cap PO QAM 03/18/19 02/09/25 History billion cell sprinkle capsule lorazepam 1 mg tablet (Ativan) 2 mg PO HS 03/18/19 02/09/25 History cholecalciferol (vitamin D3) 125 0 mcg PO QAM 08/06/19 02/09/25 History mcg (5,000 unit) tablet (Vitamin D3) pantoprazole 40 mg tablet,delayed 40 mg PO BID 04/26/21 02/09/25 History release (Protonix) potassium chloride 20 mEq 20 meq PO QAM 07/09/21 02/09/25 History tablet,extended release albuterol sulfate 90 mcg/actuation 2 puff inhalation Q4H PRN 09/15/22 02/09/25 History aerosol inhaler Shortness Of Breath Or Wheezing or Cough ibuprofen 600 mg tablet 600 mg PO QID Pain 09/15/22 02/09/25 History metoprolol succinate 25 mg 12.5 mg PO QPM 09/15/22 02/09/25 History tablet,extended release 24 hr (Toprol XL) sucralfate 1 gram tablet (Carafate) 1 g PO QID PRN Acid Reflux 09/15/22 02/09/25 History famotidine 20 mg tablet (Pepcid) 20 mg PO BID 08/29/23 02/09/25 History estradiol 0.01% (0.1 mg/gram) 1 g vaginal 2XWK #42.5 grams 04/17/24 02/09/25 Rx vaginal cream oxybutynin chloride 15 mg 15 mg PO QAM #90 tabs 08/06/24 02/09/25 Rx tablet,extended release 24 hr amoxicillin 875 mg-potassium 1 tab PO BID 11/05/24 02/09/25 History clavulanate 125 mg tablet cyclobenzaprine 10 mg tablet 10 mg PO TID 11/05/24 02/09/25 History tiotropium 2.5 mcg-olodaterol 2.5 2 puff inhalation DAILY #4 grams 11/26/24 02/09/25 Rx mcg/actuation mist for inhalation (Stiolto Respimat) ferrous sulfate 325 mg (65 mg 650 mg PO QAM 12/19/24 02/09/25 History iron) tablet hydroxychloroquine 200 mg tablet 200 mg PO BID 12/19/24 02/09/25 History (Plaquenil) calcium 600 mg (as 1 tab PO BID 02/09/25 02/09/25 History carbonate)-vitamin D3 10 mcg (400 unit) tablet (Calcium 600 + D(3)) cyanocobalamin (vitamin B-12) 1,000 mcg IM DIRECTED 02/09/25 02/09/25 History 1,000 mcg/mL injection solution loratadine 10 mg tablet (Claritin) 10 mg PO 02/09/25 02/09/25 History Inpatient Medication List Amitriptyline HCl (Amitriptyline Hcl 50 Mg Tab) 50 mg PO [facility] Stop: 03/11/25 21:20 Last Admin: 02/11/25 20:31 Dose: 50 mg Documented By: Admin: 02/10/25 20:06 Dose: 50 mg Documented By: Admin: 02/09/25 21:59 Dose: 50 mg Documented By: BINTA Amoxicillin/Clavulanate Potassium (Amoxicillin/Clavulanate 875 Mg Tab) [facility] [place] Stop: 02/14/25 21:29 Last Admin: 02/12/25 07:57 Dose: 1 tab Documented By: YOANA Co-signed By: COSTA Admin: 02/11/25 17:12 Dose: 1 tab Documented By: Admin: 02/11/25 07:54 Dose: 1 tab Documented By: Admin: 02/10/25 16:44 Dose: 1 tab Documented By: Admin: 02/10/25 07:59 Dose: 1 tab Documented By: Admin: 02/09/25 22:02 Dose: 1 tab Documented By: BINTA Hydroxychloroquine Sulfate (Hydroxychloroquine Sulfate 200 Mg Tab) 200 mg PO BID [facility] Stop: 03/11/25 21:20 Last Admin: 02/12/25 07:58 Dose: 200 mg Documented By: YOANA Co-signed By: COSTA Admin: 02/11/25 20:28 Dose: 200 mg Documented By: Admin: 02/11/25 07:55 Dose: 200 mg Documented By: Admin: 02/10/25 20:07 Dose: 200 mg Documented By: Admin: 02/10/25 07:58 Dose: 200 mg Documented By: Admin: 02/09/25 22:00 Dose: 200 mg Documented By: BINTA Ibuprofen (Ibuprofen 600 Mg Tab) 600 mg PO QID [facility] Stop: 03/11/25 21:20 Last Admin: 02/12/25 12:20 Dose: 600 mg Documented By: YOANA Co-signed By: COSTA Admin: 02/12/25 07:58 Dose: 600 mg Documented By: YOANA Co-signed By: COSTA Admin: 02/11/25 20:30 Dose: 600 mg Documented By: Admin: 02/11/25 17:11 Dose: 600 mg Documented By: Admin: 02/11/25 13:44 Dose: 600 mg Documented By: Admin: 02/11/25 07:55 Dose: 600 mg Documented By: Admin: 02/10/25 20:06 Dose: 600 mg Documented By: Admin: 02/10/25 18:38 Dose: 600 mg Documented By: Admin: 02/10/25 14:55 Dose: 600 mg Documented By: Admin: 02/10/25 07:57 Dose: 600 mg Documented By: Admin: 02/09/25 21:59 Dose: 600 mg Documented By: BINTA Insulin Aspart (Insulin Aspart Per Unit Charge) 0 units SC ACHS YOUNG Stop: 03/11/25 21:20 Last Admin: 02/12/25 12:24 Dose: Not Given Documented By: Admin: 02/12/25 08:14 Dose: 1 units Documented By: COSTA Co-signed By: TUNG Admin: 02/11/25 20:31 Dose: Not Given Documented By: Admin: 02/11/25 16:43 Dose: Not Given Documented By: Admin: 02/11/25 12:05 Dose: Not Given Documented By: Admin: 02/11/25 07:57 Dose: Not Given Documented By: Admin: 02/10/25 20:45 Dose: Not Given Documented By: TKErnst Admin: 02/10/25 17:08 Dose: Not Given Documented By: Admin: 02/10/25 12:44 Dose: Not Given Documented By: Admin: 02/10/25 08:04 Dose: Not Given Documented By: Admin: 02/09/25 21:55 Dose: Not Given Documented By: BINTA Co-signed By: MARSHAL Lorazepam (Lorazepam 1 Mg Tab) 2 mg PO HS [facility] Stop: 03/11/25 21:20 Last Admin: 02/11/25 20:28 Dose: 2 mg Documented By: Admin: 02/10/25 20:16 Dose: 2 mg Documented By: Admin: 02/09/25 22:06 Dose: 2 mg Documented By: BINTA Metoprolol Succinate (Metoprolol Succ 25mg Ext Rel Tab) 12.5 mg PO QPM YOU[facility] Stop: 03/11/25 21:20 Last Admin: 02/11/25 20:28 Dose: 12.5 mg Documented By: Admin: 02/10/25 20:07 Dose: 12.5 mg Documented By: Admin: 02/09/25 22:00 Dose: 12.5 mg Documented By: BINTA Oxybutynin Chloride (Oxybutynin Chloride Xl 5 Mg Tabcr) 15 mg PO QAM YOU[facility] Stop: 03/12/25 08:59 Last Admin: 02/12/25 07:59 Dose: 15 mg Documented By: YOANA Co-signed By: COSTA Admin: 02/11/25 07:55 Dose: 15 mg Documented By: Admin: 02/10/25 07:58 Dose: 15 mg Documented By: WILFRIDO Pantoprazole Sodium (Pantoprazole 40 Mg Tab) 40 mg PO BID [facility] Stop: 03/11/25 21:20 Last Admin: 02/12/25 08:00 Dose: 40 mg Documented By: YOANA Co-signed By: COSTA Admin: 02/11/25 20:28 Dose: 40 mg Documented By: Admin: 02/11/25 07:56 Dose: 40 mg Documented By: Admin: 02/10/25 20:07 Dose: 40 mg Documented By: Admin: 02/10/25 07:57 Dose: 40 mg Documented By: Admin: 02/09/25 22:00 Dose: 40 mg Documented By: BINTA Prednisone (Prednisone 5 Mg Tab) 5 mg PO [facility] Stop: 03/12/25 08:59 Last Admin: 02/12/25 08:00 Dose: 5 mg Documented By: YOANA Co-signed By: COSTA Admin: 02/11/25 07:56 Dose: 5 mg Documented By: Admin: 02/10/25 07:58 Dose: 5 mg Documented By: WILFRIDO Ropinirole HCl (Ropinirole Hcl 2 Mg Tablet) 4 mg PO [facility] Stop: 03/11/25 21:20 Last Admin: 02/11/25 20:28 Dose: 4 mg Documented By: Admin: 02/10/25 20:06 Dose: 4 mg Documented By: Admin: 02/09/25 21:59 Dose: 4 mg Documented By: BINTA Sertraline HCl (Sertraline Hcl 50 Mg Tablet) 150 mg PO [facility] Stop: 03/11/25 21:20 Last Admin: 02/11/25 20:29 Dose: 150 mg Documented By: Admin: 02/10/25 20:06 Dose: 150 mg Documented By: Admin: 02/09/25 22:01 Dose: 150 mg Documented By: BINTA Umeclidinium/Vilanterol (Umeclidinium/Vilanterol 62.5/25mcg 7 Puffs/Inhaler) 1 puffs INH DAILY [facility] Stop: 03/12/25 08:59 Last Admin: 02/12/25 08:00 Dose: 1 puffs Documented By: YOANA Co-signed By: COSTA Admin: 02/11/25 07:57 Dose: 1 puffs Documented By: Admin: 02/10/25 07:58 Dose: 1 puffs Documented By: WILFRIDO Discontinued Medications Gadobutrol (Gadobutrol 65ml Vial) 7.5 ml IV ONCE ONE Stop: 02/10/25 05:30 Last Admin: 02/10/25 05:30 Dose: 7.5 ml Documented By: NEAL Lactated Ringer's (Lr) 1,000 mls @ 80 mls/hr IV .[id number] [facility] Stop: 02/10/25 09:50 Last Infusion: 02/10/25 11:04 Dose: Infused Documented By: Admin: 02/09/25 22:02 Dose: 80 mls/hr Documented By: BINTA Description This is a 21 electrode EEG with a single channel dedicated to limited EKG. The electrodes were placed in accordance with the International 10-20 system. There is a posterior dominant rhythm of 8 to 9 Hz which is symmetrically distributed and attenuates with eye opening. There is a normal anterior to posterior organization. Photic stimulation is unremarkable. Hyperventilation is not performed. There is a symmetric frontal beta rhythm. There is intermittent left frontal slowing, 3-1/2 to 4 Hz. There are no epileptiform abnormalities. Interpretation Borderline abnormal awake/drowsy EEG with evidence of intermittent left frontal slowing which could indicate an underlying structural or functional abnormality. There are no epileptiform abnormalities, however. No findings that would suggest an increased risk for seizures. If there is ongoing concern for seizure activity in this patient, would consider 72-hour ambulatory EEG monitoring. [facility] [place] Procedure Codes Indication for Procedure (1) AMS (altered mental status): (2) Seizure-like activity: Neurology Neurology: 48418 EEG include record awake & drowsy
--- NOTE | 2025-02-12 14:25 | Discharge Summary ---
Discharge Summary Date of Service February 12, 2025 Principal Dx & Hospital Course #1 = Principal Diagnosis (1) AMS (altered mental status): (2) Malignant melanoma: (3) Epidural abscess: (4) GERD with esophagitis: Plan 64yo female with Stage III Malignant Melanoma on Pembrolizumab immunotherapy, chronic epidural abscess, presenting with 6 months of cognitive decline - patient endorses forgetfulness, confusion, vivid dreams. No focal neurologic findings. Head CT with no acute intracranial pathology. Brain MRI with senile and chronic microvascular ischemic brain changes but no evidence of acute intracranial pathology or abnormal contrast-enhancement. #AMS/Encephalopathy - waxing/waning mentation ongoing x 6 months-1 year - Consulted oncology - unlikely that this is related to her immunotherapy treatments - Discussed case with neurology - EEG borderline abnormal with evidence of intermittent left frontal slowing which could indicate an underlying structural or functional abnormality. There are no epileptiform abnormalities. No findings that would suggest an increased risk of seizures - Serum neocomplete paraneoplastic evaluation pending - Continue to hold medications that could cause drug-induced encephalopathy, Flexeril and Claritin - PT/OT consulted given recurrent falls at home - did well with therapy, recommended return home on discharge - Referral made for outpatient neurology follow-up #UTI - UA reflects partial treatment, patient has been on Augmentin - Continue Augmentin to completion #Epidural abscess/Chronic Back pain - chronic, recently imaged on 02/06/25. Patient afebrile, HD stable, no leukocytosis or evidence of infection. She does have chronic back pain and tenderness - Continue Elavil - Tylenol and Ibuprofen PRN #GERD - Continue Sucralfate, Protonix #Diabetes - diet controlled at present. Last [id number]=5.6 - Continue SSI #Anxiety/Mental Health - Continue Sertraline 150mg po qHS, Ropinirole, Ativan 2mg po QHS - would ideally wean off Ativan as able, could be contributing to confusion #Asthma - Continue Umeclidinium/Vilanterol #Rheumatoid arthritis - Continue Hydroxychloroquine, Prednisone Dispo: Discharged home 02/12 VTE PPx: SCDs Notes For Next Care Provider Please follow-up on serum and neocomplete paraneoplastic evaluation Ideally would wean off Ativan as able Medication Changes From Visit Held Flexeril and Claritin as these could contribute to confusion Admission HPI Per Admitting Provider Shereen Mcwilliams is a 64yo female with history of Stage III malignant melanoma of the left back s/p wide local excision and lymph node excision (LN involved in 1/3 sentinel nodes) on immunotherapy with Pembrolizumab (PET CT on 10/10/24 with no evidence of metastatic disease) presenting with confusion. Patient is able to provide majority of history but family is present at bedside and corroborates the story. Over the last 6 months patient patient has been getting more confused. She states that she is forgetful and frequently misplaces things. Also has very vivid dreams which she sometimes confuses with reality. She also reports imbalance with increased frequency of falls - last fall was last week with some mild head trauma, no LOC. These symptoms have been getting worse over the last 6 months. Patient is able to perform most ADLs and IADLs - has some minor confusion with her finances of late. She got lost traveling to her daughter's home a couple of weeks ago. She was able to call family and they talked her through pulling up GPS on the phone etc. Today she thought she had an appointment at the [address] [place] [address]. She was at the clinic (which was closed due to it being Monday) and was found by security guards looking in the windows and trying to enter the building. After discussion with her friend on the phone the patient was agreeable to come to the hospital for evaluation. Patient denies fever, chills, hallucinations, focal numbness/tingling/weakness, headache, visual changes or incontinence. No additional complaints at this time. She was recently diagnosed with a UTI and started on Augment. In the ER she is afebrile, mildly hypertensive otherwise HD stable Discharge Exam General: No acute distress, nondiaphoretic, well-developed, well-nourished. Skin: Warm, dry. No rashes or peripheral edema noted. Cardiac: Regular rate and rhythm without murmurs gallops or rubs. Pulm: Clear to auscultation bilaterally without wheezes, rales or rhonchi. Normal respiratory effort. 96% on room air. Back: Midline incision scar down cervical to lumbar spine. No midline or paraspinal tenderness to palpation. No bony step offs. Neuro: A&O x3, intermittent confusion. No focal neurological deficits. Discharge Plan Discharge Items Patient Disposition: Home - Home Health Services Reason For Visit: CONFUSION, ENCEPHALOPATHY Discharge Diagnosis: Intermittent confusion Condition on Discharge: Fair Activity: Resume your previous activity Non-emergency contact: Primary Care Provider and Neurologist Call non-emergency contact if: you have any medication questions and your symptoms worsen Follow-up/Referrals: Natalio Lee MD [Physician] - (Follow-up as scheduled) Uday Barksdale DO [Primary Care Provider] - 02/17/25 1:25 pm (Follow-up in 1-2 weeks) Diet: Carb Consistent or DM2 Addtl Attending Provider Instructions: Shereen, You were admitted to the hospital due to intermittent confusion that has been ongoing for months. You had a head CT and a brain MRI which both did not show any acute pathology to explain this intermittent confusion. You were seen by your oncologist, Dr. Francis, who does not feel that this confusion is related to your immunotherapy treatment. I discussed this case with our neurologist who recommended you get an EEG to evaluate for seizure activity. This EEG was borderline abnormal with evidence of intermittent left frontal slowing, which could indicate an underlying structural or functional abnormality. Fortunately, there were no findings that would suggest an increased risk for seizures. Therefore, you do not need any preventative seizure medications. I have made a referral for you to follow-up with neurology in their clinic outpatient for further workup. Upon discharge from the hospital: * I recommend you continue to hold your medications that can cause confusion, including Flexeril and Claritin. * You can continue your other home medications as prescribed. * Follow-up with your PCP in 1-2 weeks. * Follow-up with neurology outpatient. * I recommend that you do NOT drive or operate heavy machinery while you continue to experience this intermittent confusion. * Home health has been set up for you on discharge. Please return to the hospital if you experience any of the following: Chest pain, difficulty breathing, persistent nausea with vomiting, passing out, or any other symptoms concerning for you. It was a pleasure taking care of you while you were in the hospital! Pending Studies at Discharge: Yes Studies:: Serum stacy-complete paraneoplastic evaluation Stand-Alone Forms: My [facility] [employer], Smoking Cessation Medications and DC Order Prescriptions: Continued oxybutynin chloride 15 mg tablet extended release 24hr 15 mg PO QAM Qty: 90 1RF Lactobacillus rhamnosus GG 15 billion cell capsule, sprinkle 1 cap PO QAM lorazepam [Ativan] 1 mg tablet 2 mg PO HS amoxicillin-pot clavulanate 875-125 mg tablet 1 tab PO BID Stiolto Respimat 2.5-2.5 mcg/actuation mist 2 puff inhalation DAILY Qty: 4 2RF estradiol 0.01 % (0.1 mg/gram) cream 1 g vaginal 2XWK Qty: 42.5 3RF Rx Instructions: Insert 1/4 applicatorful vaginally 2 time a week. ropinirole 4 mg Tablet 4 mg PO HS sertraline [Zoloft] 100 mg Tablet 150 mg PO HS prednisone 5 mg Tablet 5 mg PO QAM amitriptyline 50 mg Tablet 50 mg PO HS ferrous sulfate 325 mg (65 mg iron) tablet 650 mg PO QAM cholecalciferol (vitamin D3) [Vitamin D3] 125 mcg (5,000 unit) Tablet 0 mcg PO QAM Rx Instructions: NO STRENGTH NOTED ON MED LIST potassium chloride 20 mEq tablet extended release 20 meq PO QAM pantoprazole [Protonix] 40 mg Tablet,Delayed Release (Dr/Ec) 40 mg PO BID sucralfate [Carafate] 1 gram Tablet 1 g PO QID PRN (Reason: Acid Reflux) Rx Instructions: 1 tablet prior to each meal and 1 tablet at bedtime metoprolol succinate [Toprol XL] 25 mg Tablet Extended Release 24 Hr 12.5 mg PO QPM ibuprofen 600 mg Tablet 600 mg PO QID albuterol sulfate 90 mcg/actuation HFA aerosol inhaler 2 puff INHALATION Q4H PRN (Reason: Shortness Of Breath Or Wheezing or Cough) hydroxychloroquine [Plaquenil] 200 mg tablet 200 mg PO BID Rx Instructions: PER EXT MED HX--ONCE DAILY. famotidine [Pepcid] 20 mg Tablet 20 mg PO BID cyanocobalamin (vitamin B-12) 1,000 mcg/mL Solution 1,000 mcg IM DIRECTED calcium carbonate-vitamin D3 [Calcium 600 + D(3)] 600 mg-10 mcg (400 unit) Tablet 1 tab PO BID Held cyclobenzaprine 10 mg tablet 10 mg PO TID Hold Instructions: Provider's Order loratadine [Claritin] 10 mg Tablet 10 mg PO HS Hold Instructions: Provider's Order Discharge Orders: Discharge Order (Routine); Ordered 02/12/25 Ordered By: Shonna E Gross Admission Data Admit Date/Time: 02/09/25 19:44 Attending Provider: Obi Mazariegos Admit Provider: Fidelina Villa Primary Care Provider: Uday Barksdale Other Providers: Shonna Albarran; João Stout Other Interventions: Discharge Summary Assessment (RN) Last Done: 02/12/25 15:36 Hospital Stay Data Consultations 02/09/25 18:54 ED Decision to Admit Stat 02/10/25 17:14 Consult Oncology Routine Diagnostic Imagining Performed Chest X-Ray 02/09/25 16:20 Chest radiograph, one view History: Chest pain Comparison: 09/18/2024 Findings: Single AP view of the chest performed. No focal consolidation or pleural effusion. No pneumothorax. The cardiomediastinal silhouette is within normal limits. Normal pulmonary vascularity. No evidence for lymphadenopathy. No visualized bony or soft tissue abnormality. Impression: Normal chest radiograph Electronically signed by Makyel Portillo 02-09-2025 5:[address] 02/09/25 16:20 CT head without contrast History: AMS Comparison: 10/09/2024 Technique: Using multidetector thin collimation helical acquisition technique, axial, coronal and sagittal CT images from the skull base to the vertex were obtained without intravenous contrast. Dose reduction techniques were achieved by using automatic exposure control and/or adjustment of mA and/or kV according to patient size and/or use of iterative reconstruction technique. Findings: No intracranial hemorrhage, mass-effect, or midline shift. The ventricles are proportionate to the cerebral sulci. The tam to white matter differentiation of the cerebral hemispheres is preserved. The basal cisterns are patent. The visualized paranasal sinuses are clear. Mastoid air cells are clear. Small arachnoid. Mild cerebral atrophy. Impression: No acute intracranial pathology. Electronically signed by Maykel Portillo 02-09-2025 5:14 PM Brain MRI 02/09/25 21:21 EXAM: MR brain wo/w con CLINICAL HISTORY: Progressive cognitive decline, AMS TECHNIQUE: MRI of the brain was performed without and with 7.5ml Gadavist intravenous contrast administration acquiring multiple sequences. COMPARISON: Compared to CT 10/09/2024, and reviewing the same-day CT 02/09/2025 16:06:00 DENTAL AMALGAM PROCESSOR. FINDINGS: Brain Parenchyma: No evidence of acute infarction or hemorrhage. Tam-white matter differentiation is preserved. There are scattered bilateral periventricular deep and subcortical white matter patchy areas of high T2 and FLAIR signal suggestive of chronic microvascular ischemic changes. Post-Contrast Findings: No abnormal enhancement of the brain parenchyma or meninges. Ventricles and Sulci: No evidence of hydrocephalus. Prominent ventricular system, sulci, cisternal spaces, mild age-related brain changes. Brainstem and Cerebellum: Normal appearance of the brainstem and cerebellum without focal lesions or abnormal enhancement. Vessels: Intracranial vessels appear normal without evidence of vascular malformations or aneurysms. Skull and Calvarium: No evidence of skull vault lesions or abnormal marrow signal within the calvarium. IMPRESSION: 1. No evidence of acute intracranial pathology or abnormal contrast enhancement. 2. Senile and chronic microvascular ischemic brain changes. 3. Compared to CT 10/09/2024, and reviewing the same-day CT. No change. Electronically signed by Gerry Murphy 02-10-2025 06:25 AM Pending Results Patient Have Any Pending Studies at Discharge: Yes Discharge Instructions Given to Patient (Per Discharging Provider) Shereen, You were admitted to the hospital due to intermittent confusion that has been ongoing for months. You had a head CT and a brain MRI which both did not show any acute pathology to explain this intermittent confusion. You were seen by your oncologist, Dr. Francis, who does not feel that this confusion is related to your immunotherapy treatment. I discussed this case with our neurologist who recommended you get an EEG to evaluate for seizure activity. This EEG was borderline abnormal with evidence of intermittent left frontal slowing, which could indicate an underlying structural or functional abnormality. Fortunately, there were no findings that would suggest an increased risk for seizures. Therefore, you do not need any preventative seizure medications. I have made a referral for you to follow-up with neurology in their clinic outpatient for further workup. Upon discharge from the hospital: * I recommend you continue to hold your medications that can cause confusion, including Flexeril and Claritin. * You can continue your other home medications as prescribed. * Follow-up with your PCP in 1-2 weeks. * Follow-up with neurology outpatient. * I recommend that you do NOT drive or operate heavy machinery while you continue to experience this intermittent confusion. * Home health has been set up for you on discharge. Please return to the hospital if you experience any of the following: Chest pain, difficulty breathing, persistent nausea with vomiting, passing out, or any other symptoms concerning for you. It was a pleasure taking care of you while you were in the hospital! Total Time Total Time Spent Total Time Spent (In Minutes): Greater than 30 minutes spent completing this discharge process including direct patient care, medication reconciliation, documentation, review of labs and images, and coordination of care. Coding Level of Care Code 78732 INP/OBS DISCH >30 MIN Diagnoses AMS (altered mental status) R41.82 Altered mental status type: unspecified Malignant melanoma C43.9 Epidural abscess G06.2 GERD with esophagitis K21.00
[2025-02-12 15:39] VITALS: BP 121/75; PULSE 68; RESP 18; TEMP 98.2; O2SAT 96
== END 2025-02-12 15:51 | disposition home health service (06) | DRG 71 ==
LOC: ED 16:08 → 3E 19:44 → INTOOBSV 19:44 → SUATTDRO 19:44 → 3E 21:02

== ENCOUNTER 2025-04-06 16:38 | Observation (INO) ==
--- NOTE | 2025-04-06 17:10 | Emergency Department Note ---
Impression & Plan SIRS (systemic inflammatory response syndrome), Fever, Acute diarrhea, Acute hyponatremia ED Provider Note NAME: STALIN ARRIAGA AGE: 64 SEX: F : 1960 ARRIVES VIA: Walk-In INFORMANT: Patient ED PROVIDER(S): Vazquez Leija DO CHIEF COMPLAINT: Fever and shaking chills HPI: Patient is a 64-year-old female with stage III melanoma, altered mental status, history of seizure activity, bacteremia who presents to the ER for rigors in combination with fevers of 102. Everything started yesterday with fevers and diarrhea. She denies any headache or change in vision. No chest pain or shortness of breath. No nausea, vomiting but does admit to diarrhea. No dysuria, urgency or frequency. Adamantly denies any belly pain. ADDITIONAL HISTORY OBTAINED: Per HPI Chronic Medical/Social Conditions Affecting Care: Per HPI PAST MEDICAL HISTORY:See Below PAST SURGICAL HISTORY:See Below FAMILY HISTORY:See Below SOCIAL HISTORY:See Below HOME MEDICATIONS:See Below ALLERGIES:See Below VITALS:See Below PHYSICAL EXAMINATION: GENERAL: Sitting up in bed, alert, well appearing, well nourished, no distress, non-toxic EYE EXAM: normal conjunctiva. OROPHARYNX: no exudate, no erythema, lips, buccal mucosa, and tongue normal and mucous membranes are moist NECK: supple, no nuchal rigidity, no adenopathy, non-tender LUNGS: Clear to auscultation. Normal chest wall mechanics HEART: no murmurs, S1 normal and S2 normal ABDOMEN: abdomen soft, non-tender, normo-active bowel sounds, no masses, no rebound or guarding. UPPER EXTREMITIES: upper extremities are grossly normal. LOWER EXTREMITIES: No pitting edema. NEURO EXAM: Normal sensorium, cranial nerves II-XII grossly intact, normal speech, no gross weakness of arms, no gross weakness of legs. MEDICAL DECISION MAKING: Patient is a 64-year-old female who presents ER for the above-stated complaint. IV was established and blood work was obtained. Labs show no significant leukocytosis and a mild anemia 11.9. Thrombocytopenia at 120. BMP with LFTs bilirubin was reassuring. Troponin was negative. Pro-Julian significantly elevated at 7. Unable to provide a urine. Patient was given IV cefepime and IV vancomycin in combination with IV Toradol for mild headache. Stool cultures were ordered as well as UA but not obtained while in the ER. Patient was covered with broad-spectrum antibiotics. She was updated bedside and discussed with the hospitalist for further evaluation management treatment. Consults/Care Managements Discussions: Per MDM Triage Nursing notes reviewed. Limited review of prior medical records performed Vital Signs: reviewed and remarkable for no significant abnormalities Differential diagnosis: Differential diagnoses includes but is not limited to gastritis, peptic ulcer disease, GERD, gallbladder disease, pancreatitis, small bowel obstruction, appendicitis, diverticulitis, hernia, urinary tract infection, torsion, perforation, trauma, infectious. ER treatment provided: See below Diagnostics interpreted by me include EKG and cardiac monitoring as listed below: -Cardiac Monitoring: An order was placed for continuous cardiac monitoring. The monitor shows a rate of 90 with sinus rhythm. -ECG: Sinus rhythm rate 89 Normal axis T wave inversion in V1 through V4 ST depressions QTc 411 -Laboratory studies:Interpreted by me as stated above in MDM and shown below. Imaging studies: Xrays: As interpreted by me: Portable AP upright 1 view of the chest shows no focal infiltrate CTs show: none Procedures:none Critical Care: None Past Med/Surg History Problem List (Updated 04/06/25 @ 22:12 by Vazquez Leija DO) Acute hyponatremia (Acute) Acute diarrhea (Acute) Fever (Acute) SIRS (systemic inflammatory response syndrome) (Acute) Atrophic vaginitis (Chronic) Frequent UTI (Chronic) Seizure-like activity Malignant melanoma AMS (altered mental status) (Acute) Dyspnea H/O rheumatoid arthritis Leg weakness Colon cancer screening Postlaminectomy syndrome of lumbar region Hypomagnesemia (Acute) Hypokalemia (Acute) Bacteremia Abscess in epidural space of lumbar spine Encounter for pre-operative examination Lumbar muscle hematoma Postoperative back pain (Acute) Back pain (Acute) GERD with esophagitis Upper airway cough syndrome Allergic rhinitis with postnasal drip Asthma Restrictive lung disease RAHEEM (obstructive sleep apnea) Morbid obesity Chronic cough Incontinence (Chronic) Vaginal dysplasia Cough variant asthma Oral candidiasis Chronic cough UTI (urinary tract infection) Voiding dysfunction Acute medial meniscus tear of right knee Encounter for pre-operative examination Right sided abdominal pain Infection of lumbar spine Fluid collection at surgical site Fecal retention Coronary artery calcification Rheumatoid arthritis Lumbar stenosis with neurogenic claudication Cervical stenosis of spinal canal Intractable back pain Medical History (Updated 04/06/25 @ 22:12 by Vazquez Leija DO) Lesion of bladder Retention of urine, unspecified Gastroparesis Pseudocholinesterase deficiency 1984 (tested) Diabetes on ozempic Spinal cord stimulator status device removed 2023 Epidural abscess chronic Chronic cough Leukopenia "likely autoimmune vs medication induced; BM biopsy on 08/29/22 negative for malignancy Hx of chest pain w/palpitations-"happens often"; had cardiac testing; f/u [facility] [place], psh happens "very seldom">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 Shavon Deng; [place]) Fibromyalgia Anxiety and depression Hyperlipidemia Surgical History History of anesthesia complications pseudocholinesterase deficiency, difficult intubation, PONV needing scop patch Hx of cystoscopy 09/04/23 [place]- Cystoscopy with laser excision/extraction of eroded sling/foreign body. Laser ablation of urethral lesions. History of surgery spinal cord stimulator removed 04/2023. Hx of surgical procedure 1 irrigation debridement thoracolumbar epidural abscess. #2 decompression T11- T12 T12-L1. History of esophagogastroduodenoscopy (EGD) History of bone marrow biopsy 07/2022, [facility]; "everything came back good" History of surgery Midurethral sling, cystoscopy (06/26/18) History of hysterectomy History of back surgery x11, R/T INFECTION Difficult intubation Significantly decreased cervical extension s/p cervical fusion Midurethral sling, cystoscopy (06/26/18): Grade view 2, with glidescope #3, ETT 7.0 at [facility] ("two person mask vent with oral airway.. small glottic opening and anterior with glidescope, ETT easily passed.. attempt x2") Hx of endoscopy EGD (04/30/21): MAC at [facility] Hx of colonoscopy most recent Jun 2023/failed prep/colonoscopy planned for Jun 2024. Hx of hernia repair Hx of exploratory laparotomy X4 (2/2 ADHESIONS) Hx of section X3 Hx of arthroscopy of shoulder left x 2 History of neck surgery CERVICAL FUSION; CERVICAL SURGERIES X3 TOTAL HAS CAGE - DECREASED ROM History of lumbar fusion X3 Family History Mother Family history of stroke (cerebrovascular) Father Family history of CHF (congestive heart failure) Family history of COPD (chronic obstructive pulmonary disease) Other No family history of adverse response to anesthesia Patient's father is Social History Smoking Status: Never smoker Second Hand Exposure: Yes (as a child); Do You Dip or Chew Tobacco: No; Hx Alcohol Use: Yes Alcohol type: wine Hx Substance Use: No Preferred Language: Liberian Communication Ability: Effective Visual Impairment: No Limitations 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 current occupational status: disabled Feels Safe at Home: Yes Assistive Devices: None Allergies Allergies Allergy/AdvReac Type Severity Reaction Status Date / Time hydromorphone [From Dilaudid] Allergy Severe Anaphylaxis Verified 03/03/25 11:01 succinylcholine Allergy Severe SEE Verified 03/03/25 11:01 COMMENT: Pseudocholinesterase deficiency trazodone Allergy Intermediate SOB--Dry Verified 03/03/25 11:01 mouth (causing dyspnea) Home Meds Home Medications Medication Instructions Recorded Confirmed amitriptyline 50 mg tablet 50 mg PO HS 06/15/18 04/06/25 prednisone 5 mg tablet 5 mg PO QAM 06/15/18 04/06/25 sertraline 100 mg tablet (Zoloft) 150 mg PO HS 06/15/18 04/06/25 ropinirole 4 mg tablet 4 mg PO HS 02/27/19 04/06/25 Lactobacillus rhamnosus GG 15 1 cap PO QAM 03/18/19 04/06/25 billion cell sprinkle capsule lorazepam 1 mg tablet (Ativan) 2 mg PO HS 03/18/19 04/06/25 cholecalciferol (vitamin D3) 125 0 mcg PO QAM 08/06/19 04/06/25 mcg (5,000 unit) tablet (Vitamin D3) pantoprazole 40 mg tablet,delayed 40 mg PO BID 04/26/21 04/06/25 release (Protonix) potassium chloride 20 mEq 20 meq PO QAM 07/09/21 04/06/25 tablet,extended release albuterol sulfate 90 mcg/actuation 2 puff inhalation Q4H PRN 09/15/22 04/06/25 aerosol inhaler Shortness Of Breath Or Wheezing or Cough ibuprofen 600 mg tablet 600 mg PO QID Pain 09/15/22 04/06/25 metoprolol succinate 25 mg 12.5 mg PO QPM 09/15/22 04/06/25 tablet,extended release 24 hr (Toprol XL) famotidine 20 mg tablet (Pepcid) 20 mg PO BID 08/29/23 04/06/25 amoxicillin 875 mg-potassium 1 tab PO BID 11/05/24 04/06/25 clavulanate 125 mg tablet cyclobenzaprine 10 mg tablet 10 mg PO TID 11/05/24 04/06/25 ferrous sulfate 325 mg (65 mg 650 mg PO QAM 12/19/24 04/06/25 iron) tablet hydroxychloroquine 200 mg tablet 200 mg PO BID 12/19/24 04/06/25 (Plaquenil) calcium 600 mg (as 1 tab PO BID 02/09/25 04/06/25 carbonate)-vitamin D3 10 mcg (400 unit) tablet (Calcium 600 + D(3)) cyanocobalamin (vitamin B-12) 1,000 mcg IM DIRECTED 02/09/25 04/06/25 1,000 mcg/mL injection solution loratadine 10 mg tablet (Claritin) 10 mg PO HS 02/09/25 04/06/25 dabrafenib 75 mg capsule (Tafinlar) 300 mg PO BID 04/06/25 04/06/25 trametinib 2 mg tablet (Mekinist) 2 mg PO DAILY 04/06/25 04/06/25 Previous Rx's Medication Instructions Recorded estradiol 0.01% (0.1 mg/gram) 1 g vaginal 2XWK #42.5 grams 04/17/24 vaginal cream oxybutynin chloride 15 mg 15 mg PO QAM #90 tabs 08/06/24 tablet,extended release 24 hr tiotropium 2.5 mcg-olodaterol 2.5 2 puff inhalation DAILY #4 grams 11/26/24 mcg/actuation mist for inhalation (Stiolto Respimat) Results & Data (ED) Vital Signs Vital Signs - 24 hr 04/06/25 16:43 04/06/25 16:58 04/06/25 16:58 Temperature 37.0 C Temperature Source Oral Pulse Rate 100 H 90 Pulse Rate [Apical] 90 Respiratory Rate 20 20 20 Respiratory Effort / Characteristics Non-Labored Spontaneous Respiratory Depth Normal Blood Pressure 142/70 H Blood Pressure [Right Arm] 132/73 Blood Pressure Mean 94 Blood Pressure Mean [Right Arm] 92 Pulse Oximetry 96 96 96 Oxygen Delivery Method Room Air Room Air Room Air Sepsis Recent Fever Within 48 Hours No Sepsis New/Unexplained Change in Mental Status No Sepsis Action Taken by Nursing No Action Required 04/06/25 17:06 04/06/25 18:07 04/06/25 18:28 Temperature Temperature Source Pulse Rate 90 Pulse Rate [Apical] 83 85 Respiratory Rate 21 17 Respiratory Effort / Characteristics Respiratory Depth Blood Pressure Blood Pressure [Right Arm] 119/72 115/73 Blood Pressure Mean Blood Pressure Mean [Right Arm] 87 87 Pulse Oximetry 95 95 Oxygen Delivery Method Room Air Sepsis Recent Fever Within 48 Hours Sepsis New/Unexplained Change in Mental Status Sepsis Action Taken by Nursing 04/06/25 18:30 Temperature Temperature Source Pulse Rate Pulse Rate [Apical] 77 Respiratory Rate 17 Respiratory Effort / Characteristics Respiratory Depth Blood Pressure Blood Pressure [Right Arm] 115/73 Blood Pressure Mean Blood Pressure Mean [Right Arm] 87 Pulse Oximetry 96 Oxygen Delivery Method Room Air Sepsis Recent Fever Within 48 Hours Sepsis New/Unexplained Change in Mental Status Sepsis Action Taken by Nursing Laboratory Data 04/06/25 17:01 04/06/25 17:01 Lab Results 04/06/25 Range/Units 17:01 WBC 6.17 (4.8-10.8) K/ul RBC 4.28 (4.20-5.40) M/uL Hgb 11.9 L (12.0-16.0) g/dl Hct 35.1 L (37.0-47.0) % MCV 82.0 (80.0-100.0) fL MCH 27.8 (25.0-34.0) pg MCHC 33.9 (32.0-36.0) g/dL RDW Std Deviation 39.1 (36.4-46.3) fL RDW Coeff of Cecelia 13.2 (11.5-14.5) % Plt Count 118 L (130-400) K/uL MPV 10.3 (9.4-12.4) fL Immature Gran % (Auto) 0.3 % Neut % (Auto) 77.7 % Lymph % (Auto) 10.5 % [place] % (Auto) 9.7 % Eos % (Auto) 1.0 % Baso % (Auto) 0.8 % Neut # (Auto) 4.79 (1.40-6.50) K/uL Lymph # (Auto) 0.65 L (1.20-3.40) K/uL [place] # (Auto) 0.60 H (0.11-0.59) K/uL Eos # (Auto) 0.06 (0.00-0.50) K/uL Baso # (Auto) 0.05 (0.00-0.20) K/uL Immature Gran # (Auto) 0.02 (0.01-0.20) K/uL Sodium 134 L (136-145) mmol/L Potassium 3.6 (3.5-5.1) mmol/L Chloride 104 (98-107) mmol/L Carbon Dioxide 21 (21-32) mmol/L Anion Gap 9 (3-11) BUN 20 (6-23) mg/dl Creatinine 0.81 (0.6-1.2) mg/dl Est Cr Clr Drug Dosing 63.9 ml/min eGFR 80.51 BUN/Creatinine Ratio 24.7 H (10-20) Glucose 98 (70-99(Fasting)) mg/dl Lactate 0.8 (0.4-2.0) mmol/L Calcium 9.0 (8.6-10.3) mg/dl Magnesium 1.7 (1.7-2.4) mg/dl Total Bilirubin 0.6 (0.2-1.0) mg/dl Direct Bilirubin 0.1 (0-0.2) mg/dl AST 23 (13-39) U/L ALT 14 (7-52) U/L Alkaline Phosphatase 60 (34-104) U/L Troponin I High Sens 6.9 (0-14) pg/ml Total Protein 6.6 (6.0-8.3) gm/dl Albumin 4.0 (3.4-5.0) gm/dl Procalcitonin 7.10 H (0-0.5) ng/ml Administered Medications Amitriptyline HCl (Amitriptyline Hcl 50 Mg Tab) 50 mg PO HS YOUNG Stop: 05/06/25 20:59 Last Admin: 04/06/25 21:54 Dose: 50 mg Documented By: WILMAN Calcium/Vitamin D (Calcium 600mg + Vit D 400 Iu Tab) 1 tab PO BID YOUNG Stop: 05/06/25 20:59 Last Admin: 04/06/25 21:54 Dose: 1 tab Documented By: WILMAN Cyclobenzaprine HCl (Cyclobenzaprine Hcl 10 Mg Tab) 10 mg PO HS YOUNG Stop: 05/06/25 20:59 Last Admin: 04/06/25 21:54 Dose: 10 mg Documented By: WILMAN Famotidine (Famotidine 20 Mg Tab) 20 mg PO BID YOUNG Stop: 05/06/25 20:59 Last Admin: 04/06/25 21:54 Dose: 20 mg Documented By: WILMAN Hydroxychloroquine Sulfate (Hydroxychloroquine Sulfate 200 Mg Tab) 200 mg PO BID YOUNG Stop: 05/06/25 20:59 Last Admin: 04/06/25 21:53 Dose: 200 mg Documented By: WILMAN Lorazepam (Lorazepam 1 Mg Tab) 2 mg PO HS YOUNG Stop: 05/06/25 20:59 Last Admin: 04/06/25 21:53 Dose: 2 mg Documented By: WILMAN Metoprolol Succinate (Metoprolol Succ 25mg Ext Rel Tab) 12.5 mg PO QPM YOUNG Stop: 05/06/25 20:59 Last Admin: 04/06/25 21:53 Dose: 12.5 mg Documented By: WLIMAN Pantoprazole Sodium (Pantoprazole 40 Mg Tab) 40 mg PO BID YOUNG Stop: 05/06/25 20:59 Last Admin: 04/06/25 21:54 Dose: 40 mg Documented By: WILMAN Ropinirole HCl (Ropinirole Hcl 2 Mg Tablet) 4 mg PO HS YOUNG Stop: 05/06/25 20:59 Last Admin: 04/06/25 21:53 Dose: 4 mg Documented By: WILMAN Sertraline HCl (Sertraline Hcl 50 Mg Tablet) 150 mg PO HS YOUNG Stop: 05/06/25 20:59 Last Admin: 04/06/25 21:54 Dose: 150 mg Documented By: WILMAN Discontinued Medications Cefepime HCl (Maxipime 2000mg) 2,000 mg in 20 mls @ 5 mls/min IV NOW STA; Protocol Stop: 04/06/25 17:12 Last Admin: 04/06/25 17:15 Dose: 5 mls/min Documented By: TDM Vancomycin HCl 1,500 mg/ (Sodium Chloride) 530 mls @ 200 mls/hr IV NOW ONE Stop: 04/06/25 20:55 Last Admin: 04/06/25 19:50 Dose: 200 mls/hr Documented By: TARIK Lactated Ringer's (Lr) 1,000 mls @ 999 mls/hr IV .Q1H1M ONE Stop: 04/06/25 20:00 Last Admin: 04/06/25 19:49 Dose: 999 mls/hr Documented By: NAW Ketorolac Tromethamine (Ketorolac Tromethamine 15 Mg/Ml Vial) 15 mg IV NOW ONE Stop: 04/06/25 17:48 Last Admin: 04/06/25 18:14 Dose: 15 mg Documented By: MR Imaging Data Radiologist's Impression: Chest X-Ray 04/06/25 16:48 EXAM: Portable AP chest radiograph TECHNIQUE: AP portable radiograph of the chest was obtained. INDICATION: Shortness of breath Comparison: Chest radiograph February 24, 2025. FINDINGS: LINES and TUBES: None CARDIOVASCULAR: Cardiac silhouette is stably and mildly enlarged in size. LUNGS/PLEURA: No focal consolidation identified. Mild pulmonary vascular congestion that is similar to the previous. Chronic interstitial lung changes. No significant pleural fluid. No discernible pneumothorax. OSSEOUS/OTHER: No displaced acute osseous process identified. Cervicothoracic and thoracolumbar spinal hardwares are again seen. IMPRESSION: No focal pulmonary consolidation is identified. Mild congestive changes of the cardiovascular system that are similar to the prior radiograph. Electronically signed by Andreas Au 04-06-2025 6:46 PM Discharge Plan Visit Data Chief Complaint: Illness Stated Complaint: FEVER, DIARRHEA, ON CHEMO ED Provider: Vazquez Leija Discharge Problem: SIRS (systemic inflammatory response syndrome), Fever, Acute diarrhea, Acute hyponatremia Condition: Fair Discharge Instructions Interventions: ED Discharge Assessment Last Done: 04/06/25 20:50 Discharge Problem: Fever Qualifiers: Fever type: unspecified Qualified Code(s): R50.9 - Fever, unspecified
[2025-04-06] MEDS: CEFEPIME 2000MG 2,000 MG/20 ML SYR IV STA (17:15)
[2025-04-06 17:41] LABS: Hematocrit (blood only) 35.1 % (37.0-47.0); Hemoglobin 11.9 g/dl (12.0-16.0); Immature Granulocytes # (auto) 0.02 K/uL (0.01-0.20); Immature Granulocytes % (auto) 0.3 %; Mean Corpuscular Hemoglobin 27.8 pg (25.0-34.0); Mean Corpuscular Volume 82.0 fL (80.0-100.0); Platelet Count 118 K/uL (130-400); RDW Standard Deviation 39.1 fL (36.4-46.3); Red Blood Count 4.28 M/uL (4.20-5.40); White Blood Count 6.17 K/ul (4.8-10.8)
[2025-04-06 17:56] LABS: Alanine Aminotransferase 14.0 U/L (7-52); Alkaline Phosphatase 60.0 U/L (34-104); Anion Gap 9.0 (3-11); Bilirubin,Total 0.6 mg/dl (0.2-1.0); Blood Urea Nitrogen 20.0 mg/dl (6-23); Calcium 9.0 mg/dl (8.6-10.3); Carbon Dioxide 21.0 mmol/L (21-32); Chloride 104.0 mmol/L (98-107); Creatinine Clr Calc Pharmacy 63.9 ml/min; Glucose 98.0 mg/dl (70-99(Fasting)); Magnesium 1.7 mg/dl (1.7-2.4); Potassium 3.6 mmol/L (3.5-5.1); Sodium 134.0 mmol/L (136-145); Total Protein 6.6 gm/dl (6.0-8.3)
[2025-04-06] MEDS: KETOROLAC TROMETHAMINE 15 MG/ML VIAL IV ONE (18:14)
[2025-04-06] MEDS ORDERED: VANCOMYCIN CONSULT ACTIVE PRN (18:17)
--- NOTE | 2025-04-06 18:32 | History & Physical Report ---
Date of Service April 06, 2025 Assessment & Plan (1) Malignant melanoma: (2) Fever: (3) Acute diarrhea: (4) Rheumatoid arthritis: Plan 64 year old female with melanoma presents to the ER with diarrhea and fever shortly after starting Mekinist and Tafinar Febrile illness / Diarrhea Suspect medication side effect due to Mekinist and Tafinar (will place these on hold) However given immunosuppressed state with prior cervical vertebral infection and elevated procalcitonin agree for broad spectrum antibiotics (vancomycin + cefepime) while blood cultures are pending, if negative at 48 hours can be discharged home on her usual Augmentin prophylaxis (no need for this prophylaxis while on broad spectrum antibiotics) Stool PCR pending collection UA pending collection CXR unremarkable Melanoma Follow up with oncology as outpatient for alternative regimen GERD Continue pantoprazole and famotidine History of spinal abscess Will go back on Augmentin prophyalxis on discharge History of rheumatoid arthritis Continue prednisone, no need for stress dose steroids currently Continue Plaquenil VTE Prophylaxis - Lovenox 40mg SQ daily Disposition - observation to med/tele Admission and Anticipated Discharge Date Admission Date: April 06, 2025 Anticipated date of discharge: 04/08/25 History of Present Illness Chief Complaint: Febrile illness Primary Care Provider: Uday Barksdale DO Shereen Mcwilliams is a 64 year old female with melanoma who presents to the ER with a febrile illness. She was recently started on Tafinlar and Mekinist on last week. Diarrhea started initially with and cramping, slowed down after two days. This morning diarrhea was improved but still ongoing. Vomited last night with terrible chills and fever of 102.1 degrees Celsius. No current abdominal pain, nausea or vomiting. No urinary or respiratory issues. She has not noticed any skin infection. 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 She has noticed a mild headache, generalized muscles aches with mild neck pain. Allergies Allergy/AdvReac Type Severity Reaction Status Date / Time hydromorphone [From Dilaudid] Allergy Severe Anaphylaxis Verified 03/03/25 11:01 succinylcholine Allergy Severe SEE Verified 03/03/25 11:01 COMMENT: Pseudocholinesterase deficiency trazodone Allergy Intermediate SOB--Dry Verified 03/03/25 11:01 mouth (causing dyspnea) Home Medications Medication Instructions Recorded Confirmed Type amitriptyline 50 mg tablet 50 mg PO HS 06/15/18 04/06/25 History prednisone 5 mg tablet 5 mg PO QAM 06/15/18 04/06/25 History sertraline 100 mg tablet (Zoloft) 150 mg PO HS 06/15/18 04/06/25 History ropinirole 4 mg tablet 4 mg PO HS 02/27/19 04/06/25 History Lactobacillus rhamnosus GG 15 1 cap PO QAM 03/18/19 04/06/25 History billion cell sprinkle capsule lorazepam 1 mg tablet (Ativan) 2 mg PO HS 03/18/19 04/06/25 History cholecalciferol (vitamin D3) 125 0 mcg PO QAM 08/06/19 04/06/25 History mcg (5,000 unit) tablet (Vitamin D3) pantoprazole 40 mg tablet,delayed 40 mg PO BID 04/26/21 04/06/25 History release (Protonix) potassium chloride 20 mEq 20 meq PO QAM 07/09/21 04/06/25 History tablet,extended release albuterol sulfate 90 mcg/actuation 2 puff inhalation Q4H PRN 09/15/22 04/06/25 History aerosol inhaler Shortness Of Breath Or Wheezing or Cough ibuprofen 600 mg tablet 600 mg PO QID Pain 09/15/22 04/06/25 History metoprolol succinate 25 mg 12.5 mg PO QPM 09/15/22 04/06/25 History tablet,extended release 24 hr (Toprol XL) famotidine 20 mg tablet (Pepcid) 20 mg PO BID 08/29/23 04/06/25 History estradiol 0.01% (0.1 mg/gram) 1 g vaginal 2XWK #42.5 grams 04/17/24 04/06/25 Rx vaginal cream oxybutynin chloride 15 mg 15 mg PO QAM #90 tabs 08/06/24 04/06/25 Rx tablet,extended release 24 hr amoxicillin 875 mg-potassium 1 tab PO BID 11/05/24 04/06/25 History clavulanate 125 mg tablet cyclobenzaprine 10 mg tablet 10 mg PO TID 11/05/24 04/06/25 History tiotropium 2.5 mcg-olodaterol 2.5 2 puff inhalation DAILY #4 grams 11/26/24 04/06/25 Rx mcg/actuation mist for inhalation (Stiolto Respimat) ferrous sulfate 325 mg (65 mg 650 mg PO QAM 12/19/24 04/06/25 History iron) tablet hydroxychloroquine 200 mg tablet 200 mg PO BID 12/19/24 04/06/25 History (Plaquenil) calcium 600 mg (as 1 tab PO BID 02/09/25 04/06/25 History carbonate)-vitamin D3 10 mcg (400 unit) tablet (Calcium 600 + D(3)) cyanocobalamin (vitamin B-12) 1,000 mcg IM DIRECTED 02/09/25 04/06/25 History 1,000 mcg/mL injection solution loratadine 10 mg tablet (Claritin) 10 mg PO HS 02/09/25 04/06/25 History dabrafenib 75 mg capsule (Tafinlar) 300 mg PO BID 04/06/25 04/06/25 History trametinib 2 mg tablet (Mekinist) 2 mg PO DAILY 04/06/25 04/06/25 History Past Med/Surg History Problem List (Updated 04/07/25 @ 04:29 by Tyrone Laird MD) Acute hyponatremia (Acute) Acute diarrhea (Acute) Fever (Acute) SIRS (systemic inflammatory response syndrome) (Acute) Atrophic vaginitis (Chronic) Frequent UTI (Chronic) Seizure-like activity Malignant melanoma AMS (altered mental status) (Acute) Dyspnea H/O rheumatoid arthritis Leg weakness Postlaminectomy syndrome of lumbar region Hypomagnesemia (Acute) Hypokalemia (Acute) Bacteremia Abscess in epidural space of lumbar spine Lumbar muscle hematoma Postoperative back pain (Acute) Back pain (Acute) GERD with esophagitis Upper airway cough syndrome Allergic rhinitis with postnasal drip Asthma Restrictive lung disease RAHEEM (obstructive sleep apnea) Morbid obesity Chronic cough Incontinence (Chronic) Vaginal dysplasia Cough variant asthma Chronic cough Voiding dysfunction Acute medial meniscus tear of right knee Right sided abdominal pain Infection of lumbar spine Fluid collection at surgical site Fecal retention Coronary artery calcification Rheumatoid arthritis Lumbar stenosis with neurogenic claudication Cervical stenosis of spinal canal Intractable back pain Medical History (Updated 04/07/25 @ 04:29 by Tyrone Laird MD) Lesion of bladder Retention of urine, unspecified Gastroparesis Pseudocholinesterase deficiency 1984 (tested) Diabetes on ozempic Spinal cord stimulator status device removed 2023 Epidural abscess chronic Chronic cough Leukopenia "likely autoimmune vs medication induced; BM biopsy on 08/29/22 negative for malignancy Hx of chest pain w/palpitations-"happens often"; had cardiac testing; f/u [facility] [place], psh happens "very seldom">none at present time jail (current) use of antibiotics staph infection in pt's back-will be on these antibiotics for life Claustrophobia Stressed with oxygen mask over face Asthma Cough-variant asthma, stable per pt; last rescue inhaler 10/22/23 Aortic aneurysm Under surveillance>measured 2022>Dr. 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 Sol) who had recommended lifetime abx (surgeon aware), now under surveillance by PCP/no recent issues Obesity on ozempic for weight loss Dysphagia Chronic, follows with GI (unchanged); choking infrequently with flat drier solids (crackers), no issues with liquids Sjogren's syndrome Hiatal hernia IBS (irritable bowel syndrome) Acid reflux Spinal stenosis Degenerative disc disease Restless leg syndrome Rheumatoid arthritis Follows with rheumatology (Dr. Shavon Deng; [place]) Fibromyalgia Anxiety and depression Hyperlipidemia Surgical History History of anesthesia complications pseudocholinesterase deficiency, difficult intubation, PONV needing scop patch Hx of cystoscopy 09/04/23 [place]- Cystoscopy with laser excision/extraction of eroded sling/foreign body. Laser ablation of urethral lesions. History of surgery spinal cord stimulator removed 04/2023. Hx of surgical procedure 1 irrigation debridement thoracolumbar epidural abscess. #2 decompression T11- T12 T12-L1. History of esophagogastroduodenoscopy (EGD) History of bone marrow biopsy 07/2022, [facility]; "everything came back good" History of surgery Midurethral sling, cystoscopy (06/26/18) History of hysterectomy History of back surgery x11, R/T INFECTION Difficult intubation Significantly decreased cervical extension s/p cervical fusion Midurethral sling, cystoscopy (06/26/18): Grade view 2, with glidescope #3, ETT 7.0 at [facility] ("two person mask vent with oral airway.. small glottic opening and anterior with glidescope, ETT easily passed.. attempt x2") Hx of endoscopy EGD (04/30/21): MAC at [facility] Hx of colonoscopy most recent Jun 2023/failed prep/colonoscopy planned for Jun 2024. Hx of hernia repair Hx of exploratory laparotomy X4 (2/2 ADHESIONS) Hx of section X3 Hx of arthroscopy of shoulder left x 2 History of neck surgery CERVICAL FUSION; CERVICAL SURGERIES X3 TOTAL HAS CAGE - DECREASED ROM History of lumbar fusion X3 Family History Mother Family history of stroke (cerebrovascular) Father Family history of CHF (congestive heart failure) Family history of COPD (chronic obstructive pulmonary disease) Other No family history of adverse response to anesthesia Patient's father is Social History Smoking Status: Never smoker Second Hand Exposure: Yes (as a child); Do You Dip or Chew Tobacco: No; Hx Alcohol Use: No Hx Substance Use: No Preferred Language: Maldivian Communication Ability: Effective Visual Impairment: No Limitations Retail Sales Professional Required: No Beliefs That Will Affect Care: None marital status: Current Living Situation: Spouse Current Living Situation Comment: [facility] (). current occupational status: disabled Feels Safe at Home: Yes Safety Concerns: Feels Safe At This Time Assistive Devices: None Review of Systems Review of Systems: All systems reviewed & are unremarkable except as noted in HPI & below Physical Exam Constitutional: WD/WN, vitals as above Eyes: + anicteric sclerae; normal pupil size ENMT: external ear and nose normal, oropharynx normal Respiratory: normal respiratory effort, lungs clear to auscultation Cardiovascular: RRR, no murmur, no edema Gastrointestinal (Abdomen): normal bowel sounds, soft, nontender, no hepatosplenomegaly Musculoskeletal: no cyanosis or clubbing, extremities motor strength 5/5 Skin: no rashes, warm and dry Neurologic: moves all extremities and awake; not confused Psychiatric: A+Ox3, euthymic affect Genitourinary: no CVA tenderness Results & Data Results & Data Vital Signs (Past 12 Hours) Vital Signs Temp Pulse Pulse Resp BP BP Pulse Ox 04/06/25 18:07 83 21 119/72 95 04/06/25 17:06 90 04/06/25 16:58 90 20 96 04/06/25 16:58 90 20 132/73 96 04/06/25 16:43 37.0 C 100 H 20 142/70 H 96 O2 Del Method 04/06/25 18:07 Room Air 04/06/25 17:06 04/06/25 16:58 Room Air 04/06/25 16:58 Room Air 04/06/25 16:43 Room Air Laboratory Results Abnormal lab results 04/06/25 04/06/25 Range/Units 17:01 22:05 Hgb 11.9 L (12.0-16.0) g/dl Hct 35.1 L (37.0-47.0) % Plt Count 118 L (130-400) K/uL Lymph # (Auto) 0.65 L (1.20-3.40) K/uL [place] # (Auto) 0.60 H (0.11-0.59) K/uL Sodium 134 L (136-145) mmol/L BUN/Creatinine Ratio 24.7 H (10-20) Procalcitonin 7.10 H (0-0.5) ng/ml Ur Leukocyte Esterase Trace H (Negative) Diagnostic Findings EXAM: Portable AP chest radiograph TECHNIQUE: AP portable radiograph of the chest was obtained. INDICATION: Shortness of breath Comparison: Chest radiograph February 24, 2025. FINDINGS: LINES and TUBES: None CARDIOVASCULAR: Cardiac silhouette is stably and mildly enlarged in size. LUNGS/PLEURA: No focal consolidation identified. Mild pulmonary vascular congestion that is similar to the previous. Chronic interstitial lung changes. No significant pleural fluid. No discernible pneumothorax. OSSEOUS/OTHER: No displaced acute osseous process identified. Cervicothoracic and thoracolumbar spinal hardwares are again seen. IMPRESSION: No focal pulmonary consolidation is identified. Mild congestive changes of the cardiovascular system that are similar to the prior radiograph. Medications Administered ER Medications Given: Cefepime 2000mg IV Toradol 15 mg IV Vancomycin 1500mg IV ECG Rate (beats per minute): 89 Rhythm: normal sinus Findings: + nonspecific-ST abn (Anterior) and + T-wave inversion (Anterior) Comparison ECG Date: from (March 26, 2025) Change: the following changes noted (TWI more evident in anterior leads) Code Status & VTE Plan Code Status DNR/DNI per patient request VTE Prophylaxis Plan VTE Prophylaxis will be ordered: Yes PG Care Time/CCT Total # of Minutes Spent Total Time Spent with Patient: Total time spent is greater than 50% in coordination of care (as documented) at patient's floor/unit and/or counseling patient: Coding Level of Care Code 79783 INT INP/OBS CARE 3/75MIN Diagnoses Malignant melanoma C43.9 Fever R50.9 Fever type: unspecified Acute diarrhea R19.7 Rheumatoid arthritis M06.9 (2) Fever Fever type: unspecified Qualified Code(s): R50.9 - Fever, unspecified
--- NOTE | 2025-04-06 18:47 | XRay Report ---
EXAM: Portable AP chest radiograph TECHNIQUE: AP portable radiograph of the chest was obtained. INDICATION: Shortness of breath Comparison: Chest radiograph February 24, 2025. FINDINGS: LINES and TUBES: None CARDIOVASCULAR: Cardiac silhouette is stably and mildly enlarged in size. LUNGS/PLEURA: No focal consolidation identified. Mild pulmonary vascular congestion that is similar to the previous. Chronic interstitial lung changes. No significant pleural fluid. No discernible pneumothorax. OSSEOUS/OTHER: No displaced acute osseous process identified. Cervicothoracic and thoracolumbar spinal hardwares are again seen. IMPRESSION: No focal pulmonary consolidation is identified. Mild congestive changes of the cardiovascular system that are similar to the prior radiograph. Electronically signed by Andreas Au 04-06-2025 6:46 PM
[2025-04-06] MEDS ORDERED: ONDANSETRON INJ 2 MG/ML 2 ML VIAL IV PRN (19:03)
[2025-04-06] MEDS: LACTATED RINGER'S 1,000 ML IV ONE (19:49)
[2025-04-06] MEDS: VANCOMYCIN HCL 1,500 MG in SODIUM CHLORIDE 0.9% 500 ML IV ONE (19:50)
[2025-04-06] MEDS ORDERED: ACETAMINOPHEN 325 MG TAB PO PRN (20:50)
[2025-04-06] MEDS: LORazepam 1 MG TAB PO SCH (21:53)
[2025-04-06] MEDS: HYDROXYCHLOROQUINE SULFATE 200 MG TAB PO SCH (21:53)
[2025-04-06] MEDS: METOPROLOL SUCC 25MG EXT REL TAB PO SCH (21:53)
[2025-04-06] MEDS: SERTRALINE HCL 50 MG TABLET PO SCH (21:54)
[2025-04-06] MEDS: CYCLOBENZAPRINE HCL 10 MG TAB PO SCH (21:54)
[2025-04-06] MEDS: FAMOTIDINE 20 MG TAB PO SCH (21:54)
[2025-04-06] MEDS: AMITRIPTYLINE HCL 50 MG TAB PO SCH (21:54)
[2025-04-06] MEDS: CALCIUM 600MG + VIT D 400 IU TAB PO SCH (21:54)
[2025-04-06 23:10] LABS: Appearance Urine Clear (Clear); Bacteria Urine Automated None Seen (None Seen); Cast Urine Automated 0-2 /lpf (0-2); Epithelial Cell Urine Auto 0-2 /hpf (0-2); Glucose Urine UA Negative (Negative); RBC Urine Automated 0-2 /hpf (0-2); WBC Urine Automated 0-5 /hpf (0-5)
[2025-04-07] MEDS: CEFEPIME 2000MG 2,000 MG/20 ML SYR IV SCH (01:17)
--- NOTE | 2025-04-07 02:52 | Pharmacy Report ---
Pharmacy PK ABX Note - Date of Service April 07, 2025 - Assessment and Plan Assessment 64 year old F receiving vancomycin/cefepime for treatment of febrile (reported 102F and rigors before arriving) diarrhea in combination with stage III melanoma on Mekinist and Tafinar (currently on hold). Pertinent microbiologic data includes: Blood and stool cultures pending. Day # 1 of antimicrobial therapy. Plan Vancomycin * Loading dose: 1500 mg IV x 1 * Maintenance dose: 750 mg IV every 12 hours * Regimen is predicted to achieve target AUC/BHAVIN of 400-600 mg/L.hr * Random level ordered for: 04/08/25 with AM labs Pharmacy will continue to follow and will adjust dose/frequency as necessary. Thank you. Pharmacy has transitioned to AUC monitoring for vancomycin. AUC/BHAVIN is the preferred PK/PD target and is associated with decreased risk of nephrotoxicity compared to traditional trough targets.
[2025-04-07 05:07] LABS: Hematocrit (blood only) 33.1 % (37.0-47.0); Hemoglobin 11.0 g/dl (12.0-16.0); Mean Corpuscular Hemoglobin 27.8 pg (25.0-34.0); Mean Corpuscular Volume 83.8 fL (80.0-100.0); Platelet Count 96 K/uL (130-400); RDW Standard Deviation 40.6 fL (36.4-46.3); Red Blood Count 3.95 M/uL (4.20-5.40); White Blood Count 3.80 K/ul (4.8-10.8)
[2025-04-07 05:09] LABS: Alanine Aminotransferase 13.0 U/L (7-52); Albumin Globulin Ratio 1.4 (0.9-2); Alkaline Phosphatase 56.0 U/L (34-104); Anion Gap 8.0 (3-11); Bilirubin,Total 0.4 mg/dl (0.2-1.0); Blood Urea Nitrogen 18.0 mg/dl (6-23); Calcium 8.7 mg/dl (8.6-10.3); Carbon Dioxide 25.0 mmol/L (21-32); Chloride 106.0 mmol/L (98-107); Creatinine Clr Calc Pharmacy 71.8 ml/min; Globulin 2.4 gm/dl (2.5-4.0); Glucose 124.0 mg/dl (70-99(Fasting)); Potassium 3.9 mmol/L (3.5-5.1); Sodium 139.0 mmol/L (136-145); Total Protein 5.8 gm/dl (6.0-8.3)
[2025-04-07 05:11] LABS: Immature Granulocytes # (auto) 0.02 K/uL (0.01-0.20); Immature Granulocytes % (auto) 0.5 %
[2025-04-07] MEDS ORDERED: VANCOMYCIN 750 MG in SODIUM CHLORIDE 0.9% 250 ML IV SCH (07:00)
[2025-04-07] MEDS: POTASSIUM CHLORIDE CRTAB 20 MEQ TABCR PO SCH (09:31)
[2025-04-07] MEDS: CHOLECALCIFEROL 125 MCG (5,000 UNITS) TAB PO SCH (09:32)
[2025-04-07] MEDS: IBUPROFEN 600 MG TAB PO SCH (09:32)
[2025-04-07] MEDS: UMECLIDINIUM/VILANTEROL 62.5/25MCG 7 PUFFS/INHALER INH SCH (09:34)
[2025-04-07] MEDS: ENOXAPARIN INJ 40 MG/0.4 ML SYR SQ SCH (09:35)
[2025-04-07] MEDS: VANCOMYCIN HCL / NSS 1,000 MG/270 ML BAG IV SCH (09:36)
--- NOTE | 2025-04-07 12:36 | Electrocardiogram Report ---
Test Reason : Blood Pressure : */* mmHG Vent. Rate : 89 BPM Atrial Rate : 89 BPM P-R Int : 152 ms QRS Dur : 86 ms QT Int : 338 ms P-R-T Axes : 52 -2 17 degrees QTcB Int : 411 ms Normal sinus rhythm Abnormal ECG When compared with ECG of 26-Mar-2025 11:52, T wave inversion more evident in Anterior leads Confirmed by Quang Sanchez ([id number]) on 04/07/2025 12:35:34 PM Referred By: Confirmed By: Quang Sanchez
--- NOTE | 2025-04-07 14:22 | Hospitalist Progress Note ---
Date of Service April 07, 2025 Assessment & Plan (1) Malignant melanoma: (2) Fever: (3) Acute diarrhea: (4) Rheumatoid arthritis: Plan 64 year old female with melanoma presents to the ER with diarrhea and fever shortly after starting Mekinist and Tafinlar Febrile illness / Diarrhea Suspect medication side effect due to Mekinist and Tafinlar (these have been placed on hold) However given immunosuppressed state with prior spinal abscess with elevated procalcitonin agree for broad spectrum antibiotics (vancomycin + cefepime) while blood cultures are pending If blood cultures are negative at 48 hours she can be discharged home on her usual Augmentin prophylaxis (no need for this prophylaxis while on broad spectrum antibiotics) Blood cultures not yet at 24 hours - no growth Stool PCR will discontinue as she is no longer having significant diarrhea UA - trace leukocyte esterase only CXR unremarkable Shortness of breath CXR normal. Subjective feeling, no increase in HR or O2 requirement, no pain or swelling in calf muscles. Do not suspect PE at this time but discussed with patient symptoms to watch out for. Will continue to monitor Melanoma Follow up with oncology as outpatient for alternative regimen GERD Continue pantoprazole and famotidine History of spinal abscess Will go back on Augmentin prophylaxis on discharge History of rheumatoid arthritis Continue prednisone, no need for stress dose steroids currently Continue Plaquenil VTE Prophylaxis - Lovenox 40mg SQ daily Disposition - observation to med/tele Admission and Anticipated Discharge Date Admission Date: April 06, 2025 Subjective No fevers overnight. Very small amount of loose stool per patient. No urinary concerns. She reports a friend thought she seemed more short of breath than usual. Physical Exam Constitutional: WD/WN, vitals as above Respiratory: normal respiratory effort, lungs clear to auscultation Cardiovascular: RRR, no murmur, no edema Gastrointestinal (Abdomen): normal bowel sounds, soft, nontender, no hepatosplenomegaly Results & Data Results & Data Vital Signs (Past 12 Hours) Vital Signs Temp Pulse Pulse Resp BP BP Pulse Ox 04/07/25 13:00 77 17 107/49 L 95 04/07/25 11:00 36.9 C 82 18 120/68 92 04/07/25 09:30 78 16 136/68 97 04/07/25 04:54 37.2 C 04/07/25 03:06 79 16 120/64 09/08/25 02:28 37.4 C 82 20 128/72 95 O2 Del Method 04/07/25 13:00 Room Air 04/07/25 11:00 Room Air 04/07/25 09:30 Room Air 04/07/25 04:54 04/07/25 03:06 04/07/25 02:28 Room Air PG Care Time/CCT Total # of Minutes Spent Total Time Spent with Patient: Total time spent is greater than 50% in coordination of care (as documented) at patient's floor/unit and/or counseling patient: Coding Level of Care Code 10263 SUB INP/OBS CARE 235MIN Diagnoses Malignant melanoma C43.9 Fever R50.9 Fever type: unspecified Acute diarrhea R19.7 Rheumatoid arthritis M06.9 (2) Fever Fever type: unspecified Qualified Code(s): R50.9 - Fever, unspecified
[2025-04-08 06:40] LABS: Hematocrit (blood only) 32.3 % (37.0-47.0); Hemoglobin 11.2 g/dl (12.0-16.0); Immature Granulocytes # (auto) 0.00 K/uL (0.01-0.20); Immature Granulocytes % (auto) 0.0 %; Mean Corpuscular Hemoglobin 28.8 pg (25.0-34.0); Mean Corpuscular Volume 83.0 fL (80.0-100.0); Platelet Count 99 K/uL (130-400); RDW Standard Deviation 40.1 fL (36.4-46.3); Red Blood Count 3.89 M/uL (4.20-5.40); White Blood Count 2.68 K/ul (4.8-10.8)
[2025-04-08 06:59] LABS: Alanine Aminotransferase 11.0 U/L (7-52); Albumin Globulin Ratio 1.5 (0.9-2); Alkaline Phosphatase 50.0 U/L (34-104); Anion Gap 6.0 (3-11); Bilirubin,Total 0.4 mg/dl (0.2-1.0); Blood Urea Nitrogen 16.0 mg/dl (6-23); Calcium 8.5 mg/dl (8.6-10.3); Carbon Dioxide 23.0 mmol/L (21-32); Chloride 109.0 mmol/L (98-107); Creatinine Clr Calc Pharmacy 73.2 ml/min; Globulin 2.3 gm/dl (2.5-4.0); Glucose 116.0 mg/dl (70-99(Fasting)); Potassium 3.8 mmol/L (3.5-5.1); Sodium 138.0 mmol/L (136-145); Total Protein 5.8 gm/dl (6.0-8.3)
[2025-04-08] MEDS: VANCOMYCIN LEVEL ONE (08:49)
--- NOTE | 2025-04-08 10:15 | Pharmacy Report ---
Pharmacy PK ABX Note - Date of Service April 08, 2025 - Assessment and Plan Assessment 04/08: Day #3 vancomycin * Random vancomycin level drawn this morning was 13.5mcg/mL which extrapolates to an AUC /BHAVIN in the target range. The current maintenance dose of vancomycin will be continued.' * Blood cultures from 04/06 are no growth to date. * She has been afebrile, without leukocytosis, and renal function has been stable/at baseline. 04/07: 64 year old F receiving vancomycin/cefepime for treatment of febrile (reported 102F and rigors before arriving) diarrhea in combination with stage III melanoma on Mekinist and Tafinar (currently on hold). Pertinent microbiologic data includes: Blood and stool cultures pending. Plan Vancomycin * Vancomycin level of 13.55mcg/ml extrapolates to an AUC/BHAVIN of 524mg/L.hr. * Continue maintenance dose: 1000 mg IV every 12 hours * Regimen is predicted to achieve target AUC/BHAVIN of 400-600 mg/L.hr * Another random level will be ordered in the next few days if the vancomycin is to be continued. Cefepime 2gm iv q 8 hours. Pharmacy will continue to follow and will adjust dose/frequency as necessary. Thank you. Pharmacy has transitioned to AUC monitoring for vancomycin. AUC/BHAVIN is the preferred PK/PD target and is associated with decreased risk of nephrotoxicity compared to traditional trough targets.
[2025-04-08 11:29] VITALS: O2SAT 97
[2025-04-08 16:42] VITALS: RESP 18; TEMP 98.4
--- NOTE | 2025-04-08 18:06 | Discharge Summary ---
Discharge Summary Date of Service April 08, 2025 Principal Dx & Hospital Course #1 = Principal Diagnosis (1) Malignant melanoma: (2) Fever: (3) Acute diarrhea: (4) Rheumatoid arthritis: Plan 64 year old female with melanoma presents to the ER with diarrhea and fever shortly after starting Mekinist and Tafinlar Febrile illness / Diarrhea Suspect medication side effect due to Mekinist and Tafinlar (these have been placed on hold) However given immunosuppressed state with prior spinal abscess with elevated procalcitonin agree for broad spectrum antibiotics (vancomycin + cefepime) while blood cultures are pending If blood cultures are negative at 48 hours she can be discharged home on her usual Augmentin prophylaxis (no need for this prophylaxis while on broad spectrum antibiotics) Blood cultures not yet at 24 hours - no growth Stool PCR will discontinue as she is no longer having significant diarrhea UA - trace leukocyte esterase only CXR unremarkable Shortness of breath CXR normal. Subjective feeling, no increase in HR or O2 requirement, no pain or swelling in calf muscles. Do not suspect PE at this time but discussed with patient symptoms to watch out for. Will continue to monitor Melanoma Follow up with oncology as outpatient for alternative regimen GERD Continue pantoprazole and famotidine History of spinal abscess Will go back on Augmentin prophylaxis on discharge History of rheumatoid arthritis Continue prednisone, no need for stress dose steroids currently Continue Plaquenil VTE Prophylaxis - Lovenox 40mg SQ daily Disposition - observation to med/tele Admission HPI Per Admitting Provider Shereen Mcwilliams is a 64 year old female with melanoma who presents to the ER with a febrile illness. She was recently started on Tafinlar and Mekinist on last week. Diarrhea started initially with and cramping, slowed down after two days. This morning diarrhea was improved but still ongoing. Vomited last night with terrible chills and fever of 102.1 degrees Celsius. No current abdominal pain, nausea or vomiting. No urinary or respiratory issues. She has not noticed any skin infection. 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 She has noticed a mild headache, generalized muscles aches with mild neck pain. Discharge Plan Discharge Items Patient Disposition: Home - Self-Care Reason For Visit: FEBRILE ILLNESS ON CHEMOTHERAPY Discharge Diagnosis: Side effect of chemotherapy Condition on Discharge: Fair Activity: Resume your previous activity Non-emergency contact: Oncologist Call non-emergency contact if: you have any medication questions and your symptoms worsen Follow-up/Referrals: Uday Barksdale DO [Primary Care Provider] - (No routine follow up required) Rosenda Francis MD [Physician] - (Follow up side effect Tafinlar/Mekinist) Diet: Regular Addtl Attending Provider Instructions: You were admitted to [facility] from April 06 - 2024 due to fever and diarrhea illness. You were treated for possible infection with broad spectrum antibiotics while blood cultures were pending. Blood cultures were subsequently negative after 48 hours antibiotics can be safely discontinued. Suspect your symptoms were due to a side effect of Mekinist and Tafinlar and recommend follow up with your oncologist prior to restarting these. Pending Studies at Discharge: Yes (Final blood culture results) Stand-Alone Forms: My [facility], Smoking Cessation Medications and DC Order Prescriptions: Continued oxybutynin chloride 15 mg tablet extended release 24hr 15 mg PO QAM Qty: 90 1RF Lactobacillus rhamnosus GG 15 billion cell capsule, sprinkle 1 cap PO QAM lorazepam [Ativan] 1 mg tablet 2 mg PO HS amoxicillin-pot clavulanate 875-125 mg tablet 1 tab PO BID Stiolto Respimat 2.5-2.5 mcg/actuation mist 2 puff inhalation DAILY Qty: 4 2RF estradiol 0.01 % (0.1 mg/gram) cream 1 g vaginal 2XWK Qty: 42.5 3RF Rx Instructions: Insert 1/4 applicatorful vaginally 2 time a week. ropinirole 4 mg Tablet 4 mg PO HS sertraline [Zoloft] 100 mg Tablet 150 mg PO HS prednisone 5 mg Tablet 5 mg PO QAM amitriptyline 50 mg Tablet 50 mg PO HS ferrous sulfate 325 mg (65 mg iron) tablet 650 mg PO QAM cholecalciferol (vitamin D3) [Vitamin D3] 125 mcg (5,000 unit) Tablet 0 mcg PO QAM Rx Instructions: NO STRENGTH NOTED ON MED LIST potassium chloride 20 mEq tablet extended release 20 meq PO QAM pantoprazole [Protonix] 40 mg Tablet,Delayed Release (Dr/Ec) 40 mg PO BID metoprolol succinate [Toprol XL] 25 mg Tablet Extended Release 24 Hr 12.5 mg PO QPM ibuprofen 600 mg Tablet 600 mg PO QID albuterol sulfate 90 mcg/actuation HFA aerosol inhaler 2 puff INHALATION Q4H PRN (Reason: Shortness Of Breath Or Wheezing or Cough) hydroxychloroquine [Plaquenil] 200 mg tablet 200 mg PO BID Rx Instructions: PER EXT MED HX--ONCE DAILY. famotidine [Pepcid] 20 mg Tablet 20 mg PO BID cyanocobalamin (vitamin B-12) 1,000 mcg/mL Solution 1,000 mcg IM DIRECTED loratadine [Claritin] 10 mg Tablet 10 mg PO HS Hold Instructions: Provider's Order calcium carbonate-vitamin D3 [Calcium 600 + D(3)] 600 mg-10 mcg (400 unit) Tablet 1 tab PO BID Changed cyclobenzaprine 10 mg tablet 10 mg PO HS Qty: 0 0RF Discontinued Tafinlar 75 mg capsule 300 mg PO BID Mekinist 2 mg tablet 2 mg PO DAILY Discharge Orders: Discharge Order (Routine); Ordered 04/08/25 Ordered By: Tyrone Laird Admission Data Admit Date/Time: 04/06/25 18:34 Attending Provider: Tyrone Laird Admit Provider: Tyrone Laird Primary Care Provider: Uday Barksdale Other Providers: Obi Mazariegos Hospital Stay Data Consultations 04/06/25 18:20 ED Decision to Admit Stat Pending Results Patient Have Any Pending Studies at Discharge: Yes (Final blood culture results) Discharge Instructions Given to Patient (Per Discharging Provider) You were admitted to [facility] from April 06 - 2024 due to fever and diarrhea illness. You were treated for possible infection with broad spectrum antibiotics while blood cultures were pending. Blood cultures were subsequently negative after 48 hours antibiotics can be safely discontinued. Suspect your symptoms were due to a side effect of Mekinist and Tafinlar and recommend follow up with your oncologist prior to restarting these. Coding Diagnoses Malignant melanoma C43.9 Fever R50.9 Fever type: unspecified Acute diarrhea R19.7 Rheumatoid arthritis M06.9
[2025-04-08 18:21] VITALS: BP 119/70; PULSE 80
== END 2025-04-08 18:49 | disposition home or self-care (01) ==
LOC: ED 16:38 → EDINP 16:38 → 2W 20:50